=== PATIENT | female | born 1950 | race Caucasian/White ===

== ENCOUNTER 2023-02-19 12:37 | Outpatient (OUT) | payer MEDICARE, SELFPAY ==
[2023-02-19 12:44] VITALS: BP 90/60; PULSE 76; RESP 18; TEMP 36.1; O2SAT 97
[2023-02-19] MEDS: DENOSUMAB 60 MG/ML SYRINGE SQ (12:58)
--- NOTE | 2023-02-19 13:29 | PC.NURSE ---
Addendum entered by Jovanny Montoya 02/19/23 13:33: 1256: Pt. medicated with Prolia 60mg SQ to right arm. No bleeding to site. Pt. tolerated without c/o. 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 1325: Pt. without s&s of adverse reaction. Denies c/o. Pt. d/c'd amb. to home. Original Note: 1244: Pt. to [facility] amb. Seated in recliner. VSS. Allergies verified. O.K. to use labs from 12/27/22 perKaden Barksdale RPH.
[2023-02-19 13:54] LABS: Alanine Aminotransferase 13 U/L (14-59); Albumin Globulin Ratio 0.7; Albumin Level 3.1 g/dL (3.4-5.0); Alkaline Phosphatase 86 U/L (46-116); Anion Gap 11.3; Aspartate Amino Transferase 13 U/L (15-37); Bilirubin Total 0.3 mg/dL (0.2-1.0); Carbon Dioxide 27.2 mmol/L (21.0-32.0); Chloride 100 mmol/L (98-107); Estimated GFR (African America 53 (>=60); Estimated GFR (Non-African Ame 44 (>=60); Globulin 4.2 g/dL; Glucose 97 mg/dL (74-106); Potassium 4.5 mmol/L (3.5-5.1); Sodium 134 mmol/L (136-145); Thyroid Stimulating Hormone 0.417 uIU/mL (0.358-3.740); Total Protein 7.3 g/dL (6.4-8.2)
[2023-02-19 15:02] LABS: Basophils Absolute Auto 0.1 10^3/uL (0.0-0.1); Basophils Percent Auto 0.7 % (0.2-2.0); Eosinophils Absolute Auto 0.3 10^3/uL (0.0-0.7); Eosinophils Percent Auto 3.5 % (0.9-7.0); Hematocrit 35.2 % (36.0-48.0); Hemoglobin 11.7 g/dL (12.0-16.0); Immature Granulocytes Abs Auto 0.05 10^3/uL (0.00-0.03); Immature Granulocytes Pct Auto 0.7 % (0.0-0.5); Lymphocytes Absolute Auto 2.3 10^3/uL (1.2-3.8); Lymphocytes Percent Auto 32.8 % (20.5-60.0); Mean Corpuscular HGB Conc 33.2 g/dL (29.9-35.2); Mean Corpuscular Hemoglobin 32.4 pg (26.7-34.0); Mean Corpuscular Volume 97.5 fL (81.0-99.0); Mean Platelet Volume 10.8 fL (9.5-13.5); Monocytes Absolute Auto 0.9 10^3/uL (0.3-0.8); Monocytes Percent Auto 12.7 % (1.7-12.0); Neutrophils Absolute Auto 3.5 10^3/uL (1.4-6.5); Neutrophils Percent Auto 49.6 % (43.0-75.0); Platelet Count 309 10^3/uL (150-450); Red Blood Count 3.61 10^6/uL (4.20-5.40); Red Cell Distribution Width 14.9 % (11.0-15.0); White Blood Count 7.1 10^3/uL (4.0-11.0)
[2023-02-20 14:11] LABS: PTH, Intact 21 pg/mL (15-65)
== END 2023-02-19 12:38 ==
LOC: LAB 12:40
DX: M80.00XD Age-related osteoporosis with current pathological fracture, unspecified site, subsequent encounter for fracture with routine healing (principal); Z78.0 Asymptomatic menopausal state; Z79.899 Other long term (current) drug therapy
CPT/HCPCS: 36415; 80053; 82306; 83970; 84443; 85025; 96372; J0897

== ENCOUNTER 2023-02-25 08:38 | Outpatient (OUT) | payer MEDICARE, SELFPAY ==
[2023-02-25 09:28] LABS: Basophils Absolute Auto 0.1 10^3/uL (0.0-0.1); Basophils Percent Auto 0.7 % (0.2-2.0); Eosinophils Absolute Auto 0.2 10^3/uL (0.0-0.7); Eosinophils Percent Auto 2.9 % (0.9-7.0); Hematocrit 37.9 % (36.0-48.0); Hemoglobin 12.4 g/dL (12.0-16.0); Immature Granulocytes Abs Auto 0.04 10^3/uL (0.00-0.03); Immature Granulocytes Pct Auto 0.6 % (0.0-0.5); Lymphocytes Absolute Auto 2.9 10^3/uL (1.2-3.8); Lymphocytes Percent Auto 42.4 % (20.5-60.0); Mean Corpuscular HGB Conc 32.7 g/dL (29.9-35.2); Mean Corpuscular Hemoglobin 31.8 pg (26.7-34.0); Mean Corpuscular Volume 97.2 fL (81.0-99.0); Mean Platelet Volume 10.1 fL (9.5-13.5); Monocytes Absolute Auto 0.9 10^3/uL (0.3-0.8); Monocytes Percent Auto 12.5 % (1.7-12.0); Neutrophils Absolute Auto 2.8 10^3/uL (1.4-6.5); Neutrophils Percent Auto 40.9 % (43.0-75.0); Platelet Count 348 10^3/uL (150-450); Red Cell Distribution Width 15.2 % (11.0-15.0); White Blood Count 6.8 10^3/uL (4.0-11.0)
[2023-02-25 10:22] LABS: Alanine Aminotransferase 14 U/L (14-59); Albumin Globulin Ratio 0.8; Albumin Level 3.1 g/dL (3.4-5.0); Alkaline Phosphatase 76 U/L (46-116); Anion Gap 11.2; Aspartate Amino Transferase 15 U/L (15-37); Bilirubin Total 0.4 mg/dL (0.2-1.0); Calcium 8.8 mg/dL (8.5-10.1); Carbon Dioxide 28.8 mmol/L (21.0-32.0); Chloride 103 mmol/L (98-107); Estimated GFR (African America >60 (>=60); Estimated GFR (Non-African Ame 50 (>=60); Globulin 3.9 g/dL; Glucose 102 mg/dL (74-106); Sodium 138 mmol/L (136-145)
[2023-02-25 10:31] LABS: Cholesterol 205 mg/dL (<=200); Free T3 2.25 pg/mL (2.18-3.98); HDL Cholesterol 68 mg/dL (40-60); Thyroid Stimulating Hormone 0.484 uIU/mL (0.358-3.740); Triglycerides 101 mg/dL (<=150); VLDL CHOLESTEROL 20.2 mg/dL
[2023-02-25 10:37] LABS: Free T4 1.37 ng/dL (0.76-1.46)
== END 2023-02-25 08:39 | disposition home or self-care (01) ==
LOC: LAB 08:40
DX: I10 Essential (primary) hypertension (principal); E78.00 Pure hypercholesterolemia, unspecified; E03.9 Hypothyroidism, unspecified
CPT/HCPCS: 36415; 80053; 80061; 84439; 84443; 84481; 85025

== ENCOUNTER 2023-03-15 11:17 | Outpatient (OUT) | payer MEDICARE, SELFPAY ==
--- NOTE | 2023-03-15 11:20 | XR_ITS ---
The [address] [address] Patient Name: RUTHIE OLIVARES MRN: [id number] date: 1950 Sex: F Assigned Patient Location: [facility] Current Patient Location: [facility] Accession/Order Number: [id number] Exam Date: 03/15/2023 11:25 Report Date: 03/15/2023 12:25 At the request of: NON-STAFF PHYSICIAN Procedure: XR DEXA axial skeleton EXAMINATION: XR DEXA axial skeleton HISTORY: Age Related Osteoporosis With Current Fracture M80.00XXD COMPARISON: No relevant comparison available. TECHNIQUE: Dual-energy X-ray absorptiometry (DXA) was performed. FINDINGS: SPINE ANALYSIS: Average bone mineral density is 1.060 g/cm2. T-score (standard deviation relative to young adult mean): -1.0 . HIP ANALYSIS: Lowest bone mineral density is within the right femoral neck, 0.782 g/cm2. T-score (standard deviation relative to young adult mean): -1.8 . XR/XR DEXA axial skeleton IMPRESSION: [employer] Classification: Osteopenia - Moderate Fracture Risk Electronically authenticated by: LEONA LUI Date: 03/15/2023 12:25
== END 2023-03-15 11:18 | disposition home or self-care (01) ==
LOC: RAD 11:17
DX: M80.00XD Age-related osteoporosis with current pathological fracture, unspecified site, subsequent encounter for fracture with routine healing (principal); M85.851 Other specified disorders of bone density and structure, right thigh
CPT/HCPCS: 77080

== ENCOUNTER 2023-11-24 06:57 | Outpatient (OUT) | payer MEDICARE, SELFPAY ==
[2023-11-24 07:18] LABS: Basophils Absolute Auto 0.1 10^3/uL (0.0-0.1); Basophils Percent Auto 1.1 % (0.2-2.0); Eosinophils Absolute Auto 0.2 10^3/uL (0.0-0.7); Eosinophils Percent Auto 2.4 % (0.9-7.0); Hematocrit 39.1 % (36.0-48.0); Hemoglobin 13.1 g/dL (12.0-16.0); Immature Granulocytes Abs Auto 0.04 10^3/uL (0.00-0.03); Immature Granulocytes Pct Auto 0.6 % (0.0-0.5); Lymphocytes Absolute Auto 2.5 10^3/uL (1.2-3.8); Lymphocytes Percent Auto 39.1 % (20.5-60.0); Mean Corpuscular HGB Conc 33.5 g/dL (29.9-35.2); Mean Corpuscular Hemoglobin 32.8 pg (26.7-34.0); Mean Corpuscular Volume 97.8 fL (81.0-99.0); Mean Platelet Volume 9.1 fL (9.5-13.5); Monocytes Absolute Auto 0.8 10^3/uL (0.3-0.8); Monocytes Percent Auto 12.7 % (1.7-12.0); Neutrophils Absolute Auto 2.8 10^3/uL (1.4-6.5); Neutrophils Percent Auto 44.1 % (43.0-75.0); Platelet Count 389 10^3/uL (150-450); Red Cell Distribution Width 14.4 % (11.0-15.0); White Blood Count 6.3 10^3/uL (4.0-11.0)
[2023-11-24 07:50] LABS: Alanine Aminotransferase 14 U/L (14-59); Albumin Globulin Ratio 0.8; Albumin Level 3.1 g/dL (3.4-5.0); Alkaline Phosphatase 54 U/L (46-116); Anion Gap 14.7; Aspartate Amino Transferase 15 U/L (15-37); BUN Creatinine Ratio 8.2; Bilirubin Total 0.3 mg/dL (0.2-1.0); Calcium 9.2 mg/dL (8.5-10.1); Carbon Dioxide 27.9 mmol/L (21.0-32.0); Chloride 96 mmol/L (98-107); Chol HDL Ratio 2.2; Cholesterol 207 mg/dL (<=200); Estimated GFR (African America 47 (>=60); Estimated GFR (Non-African Ame 39 (>=60); Free T3 1.84 pg/mL (2.18-3.98); Globulin 3.7 g/dL; Glucose 108 mg/dL (74-106); HDL Cholesterol 93 mg/dL (40-60); Potassium 4.6 mmol/L (3.5-5.1); Sodium 134 mmol/L (136-145); Thyroid Stimulating Hormone 3.538 uIU/mL (0.358-3.740); Total Protein 6.8 g/dL (6.4-8.2); Triglycerides 80 mg/dL (<=150)
[2023-11-24 08:07] LABS: Free T4 1.04 ng/dL (0.76-1.46)
== END 2023-11-24 06:58 | disposition home or self-care (01) ==
LOC: LAB 06:59
DX: I48.0 Paroxysmal atrial fibrillation (principal); I10 Essential (primary) hypertension; E03.8 Other specified hypothyroidism; E06.3 Autoimmune thyroiditis; N30.00 Acute cystitis without hematuria
CPT/HCPCS: 36415; 80053; 80061; 84439; 84443; 84481; 85025; 87086

== ENCOUNTER 2024-06-17 06:57 | Outpatient (OUT) | payer MEDICARE, SELFPAY ==
[2024-06-17 07:22] LABS: Basophils Percent Auto 0.2 % (0.2-2.0); Eosinophils Percent Auto 0.2 % (0.9-7.0); Hematocrit 35.5 % (36.0-48.0); Hemoglobin 12.5 g/dL (12.0-16.0); Lymphocytes Percent Auto 24.7 % (20.5-60.0); Mean Corpuscular HGB Conc 35.2 g/dL (29.9-35.2); Mean Corpuscular Volume 96.5 fL (81.0-99.0); Mean Platelet Volume 9.8 fL (9.5-13.5); Monocytes Percent Auto 10.6 % (1.7-12.0); Neutrophils Percent Auto 63.5 % (43.0-75.0); Platelet Count 302 10^3/uL (150-450); Red Blood Count 3.68 10^6/uL (4.20-5.40); Red Cell Distribution Width 12.8 % (11.0-15.0); White Blood Count 8.4 10^3/uL (4.0-11.0)
[2024-06-17 07:23] LABS: Immature Granulocytes Abs Auto 0.07 10^3/uL (0.00-0.03); Immature Granulocytes Pct Auto 0.8 % (0.0-0.5); Lymphocytes Absolute Auto 2.1 10^3/uL (1.2-3.8); Monocytes Absolute Auto 0.9 10^3/uL (0.3-0.8); Neutrophils Absolute Auto 5.3 10^3/uL (1.4-6.5)
[2024-06-17 08:09] LABS: Free T4 1.23 ng/dL (0.76-1.46)
[2024-06-17 08:14] LABS: Alanine Aminotransferase 11 U/L (14-59); Albumin Level 3.2 g/dL (3.4-5.0); Alkaline Phosphatase 71 U/L (46-116); Anion Gap 10.6; Aspartate Amino Transferase 13 U/L (15-37); BUN Creatinine Ratio 9.5; Bilirubin Total 0.3 mg/dL (0.2-1.0); Calcium 9.4 mg/dL (8.5-10.1); Carbon Dioxide 30.6 mmol/L (21.0-32.0); Chloride 94 mmol/L (98-107); Chol HDL Ratio 1.6; Cholesterol 209 mg/dL (<=200); Estimated GFR (African America >60 (>=60 mL/min/1.73m^2); Estimated GFR (Non-African Ame 57 (>=60 mL/min/1.73m^2); Free T3 1.81 pg/mL (2.18-3.98); Globulin 3.2 g/dL; Glucose 86 mg/dL (74-106); HDL Cholesterol 133 mg/dL (40-60); Potassium 4.2 mmol/L (3.5-5.1); Sodium 131 mmol/L (136-145); Thyroid Stimulating Hormone 0.967 uIU/mL (0.358-3.740); Total Protein 6.4 g/dL (6.4-8.2); Triglycerides 53 mg/dL (<=150); VLDL CHOLESTEROL 10.6 mg/dL
== END 2024-06-17 06:58 | disposition home or self-care (01) ==
LOC: LAB 06:57
DX: E06.3 Autoimmune thyroiditis (principal); I10 Essential (primary) hypertension
CPT/HCPCS: 36415; 80053; 80061; 84439; 84443; 84481; 85025

== ENCOUNTER 2024-06-23 13:44 | Outpatient (OUT) | payer MEDICARE, SELFPAY ==
[2024-06-23 07:44] LABS: Carbon Dioxide 29.3 mmol/L (21.0-32.0); Chloride 101 mmol/L (98-107); Potassium 4.3 mmol/L (3.5-5.1); Sodium 138 mmol/L (136-145)
--- OUTSIDE RECORDS SUMMARY | 2024-06-27 14:07 | XMS_ITS | CCD ---
Author Organization [facility] Care Team Providers Care Evaluation Specialist Name Role Phone SARAI ESPARZA Admitting Unavailable SARAI ESPARZA Attending Unavailable WEST, DR SHARI Rice Consulting Unavailable SARAI ESPARZA Consulting Unavailable ENEDINA ., IJEOMA Admitting Unavailable ENEDINA ., IJEOMA Attending Unavailable MISC, DR COOK Primary Care Unavailable HAY ., DR RUFFIN Consulting Unavailable KLIPPJOSE, SHARI Consulting Unavailable NEWATIA, RADHA Consulting Unavailable ENEDINA ., IJEOMA Consulting Unavailable MISC, DR COOK Admitting Unavailable MISC, DR COOK Attending Unavailable MISC, DR COOK Consulting Unavailable MISC, DR COOK Admitting Unavailable MISC, DR COOK Attending Unavailable MISC, DR COOK Consulting Unavailable ZIEBER, DR LEONA Mueller Consulting Unavailable MISC, DR COOK Admitting Unavailable MISC, DR COOK Attending Unavailable MISC, DR COOK Consulting Unavailable ZIEBER, DR LEONA Mueller Consulting Unavailable NON STAFF Primary Care Provider UnavailMD Junior Gill Admit Provider MD Ari Solares II Other Provider MD Vivian Live Attending Provider [phone] Ari Solares II Unavailable [phone] CHRISTA Ramirez Attending Provider Lucille Ramirez Unavailable MD Ari Solares II Attending Provider PCP, No Primary Care Provider UnavailMD Nettie Suarez Emergency Provider Unavailpearl lujan PCP, No Primary Care Unavailable Nettie Weiss Attending Unavailable Ari Solares II Attending Unavailpearl e NON STAFF Primary Care Unavailable Ari Solares II Admitting UnavailAri Powers II Admitting Unavailabl e Ari Solares II Attending Unavailabl e NON STAFF Primary Care Unavailable Ari Solares II Consulting Unavailabl e Junior Martinez Admitting Unavailable Vivian Live Attending Unavailable NON STAFF Primary Care Unavailable Lucille Ramirez Admitting Unavailable Lucille Ramirez Attending Unavailable NON STAFF Primary Care Unavailable Ari Solares II Attending Unavailabl e NON STAFF Primary Care Unavailable Ari Solares II Admitting Unavailabl e Rasor DO, Francisco E Primary Care Provider RASOR, FRANCISCO E Referring Unavailable RASOR, FRANCISCO E Primary Care Unavailable RASOR, FRANCISCO E Referring Unavailable RASOR, FRANCISCO E Primary Care Unavailable RASOR, FRANCISCO E Referring Unavailable RASOR, FRANCISCO E Primary Care Unavailable RASOR, FRANCISCO E Attending Unavailable RASOR, FRANCISCO E Referring Unavailable RASOR, FRANCISCO E Primary Care Unavailable RASOR, FRANCISCO E Referring Unavailable RASOR, FRANCISCO E Primary Care Unavailable RASOR, FRANCISCO E Attending Unavailable RASOR, FRANCISCO E Referring Unavailable RASOR, FRANCISCO E Primary Care Unavailable RASOR, FRANCISCO E. Referring Unavailable RASOR, FRANCISCO E. Primary Care Unavailable RASOR, FRANCISCO E. Referring Unavailable RASOR, FRANCISCO E. Primary Care Unavailable Allergies Allergy Classification Reported Allergen(s) Allergy Type Date of Onset Reaction(s) Facility (7 sources) Codeine; Translations: [CODEINE] Drug Allergy Difficulty Breathing [facility] Repository (7 sources) hydroCHLOROthiazide; Translations: [HYDROCHLOROTHIAZIDE] Drug Allergy Difficulty Breathing [facility] Repository (6 sources) venlafaxine Drug Allergy difficulty breathing [facility] Repository (17 sources) venlafaxine; Translations: [venlafaxine] Drug Allergy Difficulty Breathing [facility] (16 sources) Codeine Drug Allergy 016 [facility] (15 sources) hydroCHLOROthiazide Drug Allergy difficulty breathing [facility] Other (1 source) Codeine Drug Allergy 023 [facility] Repository (1 source) hydroCHLOROthiazide Drug Allergy [facility] Repository (13 sources) amLODIPine; Translations: [AMLODIPINE] Drug Allergy Other (See Comments) [facility] (13 sources) Amoxicillin / Clavulanate; Translations: [AMOXICILLIN-POT CLAVULANATE] Drug Allergy [facility] (13 sources) Metoprolol; Translations: [METOPROLOL] Drug Allergy GI Disturbance [facility] (13 sources) Thiazides; Translations: [THIAZIDES] Propensity to adverse reactions to drug [facility] Medications Current Medications Medication Drug Class(es) Dates Sig (Normalized) Sig (Original) acetaminophen 500 mg oral tablet (11 sources) Start: 01-14-2023 take 2 tablets by mouth every eight hours for pain Acetaminophen 500 MG 2 tablets for pain Orally every 8 hrs for 30 days January, Active Start: 12-30-2022 take 650 mg by mouth every six hours Acetaminophen Active 650 MG PO Q6H 0 December 30, 2022 12:00am take 1 tablet by stella th every four hours as needed Acetaminophen 325 MG 1 tablet as needed Orally every 4 hrs Active amitriptyline hydrochloride 10 mg oral tablet (14 sources) Tricyclic Antidepressant Start: 12-30-2023 take 3 tablets by mouth at bedtime amitriptyline (ELAVIL) 10 mg tablet take 3 tablets by mouth at bedtime 270 tablet 3 12/30/2023 Active Start: 05-09-2023 take 30 mg by mouth once daily Amitriptyline Active 30 MG PO Daily May 09, 2023 12:00am Start: 12-27-2022 End: 12-30-2022 take 30 mg by mouth once daily at bedtime Amitriptyline Discontinued 30 MG PO Daily at bedtime December 27, 2022 12:00am December 30, 2022 10:25am Start: 01-20-2018 amitriptyline (ELAVIL) 10 mg tablet 3 tablets (30 mg total) in the evening. 0 01/20/2018 Active amLODIPine 5 mg oral tablet (12 sources) Dihydropyridine Calcium Channel Ghislaine Start: 05-09-2023 take 5 mg by mouth once daily Amlodipine Active 5 MG PO Daily May 09, 2023 12:00am Start: 12-30-2022 take 1 dose by mouth once daily Amlodipine Active 2.5 MG PO Daily December 30, 2022 12:00am Hold for systolic blood pressure less than 125 Titrate dose upward if systolic blood pressure is above 150 Start: 12-27-2022 End: 12-30-2022 take 5 mg by mouth once daily Amlodipine Discontinued 5 MG PO Daily December 27, 2022 12:00am December 30, 2022 10:20am apixaban 5 mg oral tablet (19 sources) Factor Xa Inhibitor Start: 12-16-2023 take 1 tablet by mouth twice daily ELIQUIS 5 mg tablet Indications: Paroxysmal atrial fibrillation (CMS-HCC) , Cardiomyopathy (CMS-HCC) take 1 tablet by mouth twice a day 60 tablet 6 12/16/2023 Active Start: 06-15-2023 take 1 tablet by stella th twice daily ELIQUIS 5 mg tablet Indications: Paroxysmal atrial fibrillation (CMS-HCC) , Cardiomyopathy (CMS-HCC) TAKE 1 TABLET BY MOUTH TWICE A DAY 90 tablet 3 06/15/2023 Active Start: 12-27-2022 take 1 tablet by stella th twice daily Apixaban (Eliquis) 5 mg Tablet Active 5 MG PO twice a day May 09, 2023 12:00am aspirin 81 mg oral tablet (3 sources) Platelet Aggregation Inhibitor, Nonsteroidal Anti-inflammatory Drug Start: 12-27-2022 take 81 mg by mouth once daily Aspirin Active 81 MG PO Daily December 27, 2022 12:00am calcium carbonate 1250 mg oral tablet (8 sources) Start: 12-30-2022 Calcium Carbonate (Oyster Shell Calcium 500) 500 mg calcium (1,250 mg) Tablet Active 500 MG PO Three times daily 0 December 30, 2022 12:00am take 1 tablet by stella th every twelve hours Calcium Carbonate 1250 (500 Ca) MG 1 tab let with food Orally Twice a day Active carvedilol 25 mg oral tablet (20 sources) alpha-Adrenergic Ghislaine, beta-Adrenergic Ghislaine Start: 12-27-2022 take 25 mg by mouth every twelve hours Carvedilol Active 25 MG PO Every 12 hours December 27, 2022 12:00am Start: 02-24-2022 End: 10-26-2023 take 1 tablet by mouth twice daily at mealtime carvediloL (COREG) 25 mg tablet Indications: Essential hypertension, benign TAKE 1 TABLET BY MOUTH TWICE A DAY WITH FOOD FOR 90 DAYS 180 tablet 3 10/26/2023 Active cefadroxil 500 mg oral capsule (3 sources) Cephalosporin Antibacterial Start: 12-31-2022 take 500 mg by mouth twice daily Cefadroxil Active 500 MG PO Twice daily 14 December 31, 2022 12:00am cetirizine hydrochloride 10 mg oral tablet (10 sources) Histamine-1 Receptor Antagonist cetirizine (ZyrTEC) 10 mg tablet Take 1 tablet (10 mg total) by mouth as needed. Active ciprofloxacin 500 mg oral tablet (2 sources) Quinolone Antimicrobial Start: 11-18-2023 End: 11-25-2023 take 1 tablet by mouth in the morning, then take 1 tablet by mouth at bedtime ciprofloxacin HCl (CIPRO) 500 mg tablet Indications: Acute cystitis without hematuria Take 1 tablet (500 mg total) by mouth in the morning and 1 tablet (500 mg total) before bedtime. Do all this for 7 days. 14 tablet 0 11/18/2023 11/25/2023 Active Diclofenac (2 sources) Nonsteroidal Anti-inflammatory Drug Start: 03-31-2023 Voltaren 1 % Apply 1-2 grams to affected area Externally 4x's a day for 30 days Mar, Active Start: 03-31-2023 Voltaren 1 % A pply 1-2 grams to affected area Externally 4x's a day for 30 days Mar, Active docusate sodium 50 mg / sennosides, retirement 8.6 mg oral tablet (3 sources) Start: 12-30-2022 take 2 tablets by mouth once daily Sennosides-Docusate Sodium Active 2 TAB PO Daily 0 December 30, 2022 12:00am ferrous sulfate 324 mg delayed release oral tablet (3 sources) Start: 12-30-2022 take 324 mg by mouth twice daily at mealtime Ferrous Sulfate Active 324 MG PO Twice daily with meals 0 December 30, 2022 12:00am fluticasone propionate 0.05 mg/actuat metered dose nasal spray (13 sources) Corticosteroid Start: 12-28-2022 Fluticasone Propionate Active 2 SPRAY INTRANASAL Daily December 28, 2022 12:00am Start: 08-24-2016 take 2 spray(s) nasa l route once daily fluticasone (FLONASE) 50 mcg/actuation nasal spray 2 sprays into each nostril daily. 16 g 11 08/24/2016 Active Fluticasone Propionate (Inhal) 50 MCG/ACT (5 sources) take 1 puff(s) by inhalation twice daily Fluticasone Propionate (Inhal) 50 MCG/ACT 1 puff Inhalation Twice a day Active levothyroxine sodium 0.075 mg oral tablet (20 sources) l-Thyroxin e Start: 05-09-2023 take 75 ug by mouth once daily Levothyroxine Active 75 MCG PO Daily May 09, 2023 12:00am Start: 01-16-2018 End: 10-04-2023 take 1 tablet by mouth once daily levothyroxine (SYNTHROID, LEVOTHROID) 75 MCG tablet TAKE 1 TABLET BY MOUTH EVERY DAY 90 tablet 3 10/04/2023 Active take 1 tablet by stella th once daily in the morning Levothyroxine Sodium 75 MCG 1 tablet in the morning on an empty stomach Orally Once a day Active lisinopril 20 mg oral tablet (20 sources) Angiotensin Converting Enzyme Inhibitor Start: 12-30-2022 take 1 dose by mouth twice daily Lisinopril Active 5 MG PO Twice daily December 30, 2022 12:00am Hold for systolic blood pressure less than 125. Titrate dose upward if systolic blood pressure is above 150 Start: 01-11-2022 End: 12-08-2023 take 1 tablet by mouth twice daily lisinopriL (PRINIVIL,ZESTRIL) 20 mg tablet Indications: Essential hypertension, benign , Essential (primary) hypertension take 1 tablet by mouth twice a day 180 tablet 3 12/08/2023 Active take 1 tablet by stella th every twenty-four hours Lisinopril 5 MG 1 tablet Orally Once a day Active multivitamin (THERAGRAN) tablet (10 sources) take 1 tablet by stella th in the morning multivitamin (THERAGRAN) tablet Take 1 tablet by mouth in the morning. Active take 1 tablet by mouth in the mo rning multivitamin (THERAGRAN) tablet Take 1 tablet by mouth in the morning. 0 Active Multivitamin preparation (8 sources) Start: 12-27-2022 take 1 tablet by mouth once daily Multivitamin Active 1 TAB PO Daily Jojo 23rd, 2023 12:00am take 1 tablet by mouth once paula y Multivitamin - 1 tablet Orally Once a day Active mupirocin 0.02 mg/mg topical ointment (10 sources) RNA Synthetase Inhibitor Antibacterial mupirocin (BACTROBAN) 2 % ointment 2 (two) times a day. Active omeprazole 40 mg delayed release oral capsule (19 sources) Proton Pump Inhibitor Start: take 1 capsule by mouth twice daily omeprazole (PriLOSEC) 40 mg capsule take 1 capsule by mouth twice a day 180 capsule 3 03/03/2024 Active Start: 05-09-2023 take 40 mg by mouth twice paula y Omeprazole Active 40 MG PO twice a day May 09, 2023 12:00am Start: 12-08-2017 take [address] [facility] in the morning, then take 1 capsule by mouth at bedtime omeprazole (PriLOSEC) 40 mg capsule Take 1 capsule (40 mg total) by mouth in the morning and 1 capsule (40 mg total) before bedtime. 0 12/08/2017 Active take [address] [facility] once daily Omeprazole 40 MG 1 capsule 30 minutes before morning meal Orally Once a day Active polyethylene glycol 3350 29666 mg powder for oral solution (3 sources) Osmotic Laxative Start: 12-30-2022 Polyethylene Glycol 3350 (Healthylax) 17 gram Powder In Packet Active 17 GM PO Daily 0 December 30, 2022 12:00am Polyethylene Glycols (5 sources) Polyethylene Gly col - as directed Active predniSONE 20 mg oral tablet (2 sources) Start: 06-13-2024 End: 06-18-2024 take 3 tablets by mouth once daily, then take 2 tablets by mouth once daily, then take 1 tablet by mouth once daily predniSONE (DELTASONE) 20 mg tablet Indications: Acute right-sided low back pain without sciatica Take 3 tablets (60 mg total) by mouth daily for 2 days, THEN 2 tablets (40 mg total) daily for 2 days, THEN 1 tablet (20 mg total) daily for 2 days. 12 tablet 06/13/2024 06/18/2024 Active Start: 01-14-2023 take 1 tablet by [facility] every twenty-four hours predniSONE 10 MG 1 tablet Orally Once a day for 10 days January, Active Sennosides-Docusate Sodium 8.6-50 MG (5 sources) take 1 tablet by mouth twice daily as needed Sennosides-Docusate Sodium 8.6-50 MG 1 tablet as needed Orally Twice a day Active sertraline 50 mg oral tablet (19 sources) Serotonin Reuptake Inhibitor Start: 2017 sertraline (ZOLOFT) 50 mg tablet daily. 0 02/03/2018 Active spironolactone 25 mg oral tablet (20 sources) Aldosterone Antagonist Start: 2023 take 1 tablet by mouth in the morning spironolactone (ALDACTONE) 25 mg tablet Indications: Essential (primary) hypertension , Cardiomyopathy, unspecified type (CMS-HCC) TAKE 1 TABLET (25 MG TOTAL) BY MOUTH IN THE MORNING 90 tablet 2 12/07/2023 Active Start: 05-26-2023 End: 12-07-2023 take 0.5 tablet by mouth in the morning spironolactone (ALDACTONE) 25 mg tablet Indications: Essential (primary) hypertension , Cardiomyopathy, unspecified type (CMS-HCC) Take 0.5 tablets (12.5 mg total) by mouth in the morning. 90 tablet 3 05/26/2023 12/07/2023 Discontinued Start: 12-28-2022 take 25 mg by mouth once daily Spironolactone Active 25 MG PO Daily May 09, 2023 12:00am traMADol hydrochloride 50 mg oral tablet (9 sources) Opioid Agonist Start: 12-30-2022 take 1 tablet by mouth every six hours as needed for pain traMADol HCl 50 MG 1 tablet as needed for pain Orally every 6 hrs for 7 days January, Active take 1 tablet by stella th every twenty-four hours traMADol HCl 50 MG 1 tablet as needed Orally Once a day Active Problems Active Problems Problem Classification Problem Date Documented Date Episodic/Chronic Anxiety disorders (6 sources) Mixed anxiety and depressive disorder; Translations: [Other specified anxiety disorders] Onset: 06-13-2024 11-16-2023 Chronic Cardiac dysrhythmias (20 sources) Unspecified atrial fibrillation; Translations: [Paroxysmal atrial fibrillation] Onset: 05-16-2016 12-28-2022 Chronic Congestive heart failure; nonhypertensive (1 source) Unspecified systolic (congestive) heart failure; Translations: [UNSPECIFIED SYSTOLIC HEART FAILURE] Onset: 11-27-2022 Chronic E Codes: Fall (1 source) Fall on same level, unspecified, initial encounter; Translations: [FALL SAME LEVEL UNSPECIFIED INITIAL] Onset: 12-29-2022 Episodic Esophageal disorders (13 sources) Gastroesophageal reflux disease without esophagitis; Translations: [Gastro-esophageal reflux disease without esophagitis] Onset: 05-16-2016 02-22-2018 Chronic Essential hypertension (20 sources) Essential (primary) hypertension; Translations: [Hypertensive disorder] Onset: 07-22-2016 12-28-2022 Chronic Fluid and electrolyte disorders (2 sources) Dehydration; Translations: [Dehydration] 05-09-2023 Episodic Genitourinary symptoms and ill-defined conditions (5 sources) Leukocytes in urine; Translations: [Other abnormal findings in urine] Onset: 11-16-2023 11-16-2023 Episodic Heart valve disorders (13 sources) Mitral valve regurgitation; Translations: [Nonrheumatic mitral (valve) insufficiency] Onset: 03-30-2014 12-30-2020 Chronic Hypertension with complications and secondary hypertension (1 source) Hypertensive heart disease with heart failure; Translations: [HTN HEART DISEASE W/HEART FAIL] Onset: 11-09-2022 Chronic Menopausal disorders (1 source) Hormone replacement therapy; Translations: [HORMONE REPLACEMENT THERAPY] Onset: 12-29-2022 Episodic Miscellaneous mental health disorders (6 sources) Primary insomnia; Translations: [Primary insomnia] Onset: 06-13-2024 11-16-2023 Chronic Nonspecific chest pain (4 sources) Chest pain, unspecified; Translations: [CHEST PAIN UNSPECIFIED] Onset: 11-19-2022 Episodic Other aftercare (2 sources) Patient encounter status; Translations: [Aftercare following joint replacement surgery] Chronic Other aftercare (2 sources) Aftercare following joint replacement surgery Chronic Other aftercare (1 source) ocean transportation intermediary (current) use of aspirin; Translations: [NURSING HOME CURRENT USE OF ASPIRIN] Onset: 12-29-2022 Episodic Other aftercare (2 sources) Other terminologist (current) drug therapy; Translations: [OTH NURSING HOME CURRENT DRUG THERAPY] Onset: 12-29-2022 Episodic Other aftercare (1 source) shelter (current) use of anticoagulants; Translations: [NURSING HOME CURRNT USE ANTICOAGULANTS] Onset: 12-29-2022 Episodic Other bone disease and musculoskeletal deformities (5 sources) Osteopenia; Translations: [Other specified disorders of bone density and structure, multiple sites] Onset: 06-13-2024 11-16-2023 Episodic Other bone disease and musculoskeletal deformities (1 source) Other specified disorders of bone density and structure, multiple sites; Translations: [Other specified disorders of bone density and structure, multiple sites] Onset: 06-13-2024 Episodic Other connective tissue disease (5 sources) History of total hip arthroplasty; Translations: [Presence of left artificial hip joint] Chronic Other connective tissue disease (7 sources) Presence of left artificial hip joint; Translations: [Presence of left artificial hip joint] Onset: 05-26-2023 Chronic Other connective tissue disease (2 sources) Hip joint prosthesis present; Translations: [Presence of left artificial hip joint] Chronic Other non-traumatic joint disorders (3 sources) Pain in left hip; Translations: [PAIN IN LEFT HIP] Onset: 12-27-2022 Episodic Other nutritional; endocrine; and metabolic disorders (3 sources) Hypomagnesemia; Translations: [Hypomagnesemia] 12-28-2022 Chronic Other nutritional; endocrine; and metabolic disorders (4 sources) Hypomagnesemia; Translations: [Disorders of magnesium metabolism] Onset: 12-28-2022 12-31-2022 Chronic Other upper respiratory disease (10 sources) Chronic rhinitis; Translations: [Chronic rhinitis] Onset: 02-11-2016 02-11-2016 Chronic Other upper respiratory infections (20 sources) Chronic sinusitis; Translations: [Chronic sinusitis, unspecified] Onset: 02-11-2016 02-11-2016 Chronic Other upper respiratory infections (1 source) Viral upper respiratory tract infection; Translations: [Acute upper respiratory infection, unspecified] 11-16-2023 Episodic Pathological fracture (3 sources) Age-related osteoporosis with current pathological fracture, unspecified site, subsequent encounter for fracture with routine healing Episodic Lalita-; endo-; and myocarditis; cardiomyopathy (except that caused by tuberculosis or sexually transmitted disease) (19 sources) Cardiomyopathy, unspecified; Translations: [Cardiomyopathy] Onset: 08-05-2016 Chronic Residual codes; unclassified (1 source) Asymptomatic menopausal state Episodic Spondylosis; intervertebral disc disorders; other back problems (3 sources) Acute low back pain; Translations: [Acute right-sided low back pain without sciatica] 06-13-2024 Episodic Thyroid disorders (15 sources) Hypothyroidism; Translations: [Hypothyroidism, unspecified] Onset: 05-16-2016 02-22-2018 Chronic Unclassified (1 source) Presented to ED with a complaint of Diff breathing 05-09-2023 Unclassified (1 source) Aftercare following joint replacement surgery; Translations: [Aftercare following joint replacement surgery] Onset: 05-26-2023 Unclassified (1 source) Presence of left artificial hip joint; Translations: [Presence of left artificial hip joint] Onset: 03-31-2023 Unclassified (1 source) Fracture of unspecified part of neck of left femur, subsequent encounter for closed fracture with routine healing; Translations: [Fracture of unspecified part of neck of left femur, subsequent encounter for closed fracture with routine healing] Onset: 02-10-2023 Unclassified (1 source) Age-related osteoporosis with current pathological fracture, unspecified site, subsequent encounter for fracture with routine healing; Translations: [Age-related osteoporosis with current pathological fracture, unspecified site, subsequent encounter for fracture with routine healing] Onset: 02-02-2023 Unclassified (1 source) Age-related osteoporosis with current pathological fracture, left femur, initial encounter for fracture; Translations: [Age-related osteoporosis with current pathological fracture, left femur, initial encounter for fracture] Onset: 12-28-2022 Unclassified (1 source) medicare wellness Onset: 06-13-2024 Unclassified (1 source) Annual Exam Onset: 11-16-2023 Urinary tract infections (1 source) Acute cystitis; Translations: [Acute cystitis without hematuria] 11-18-2023 Episodic Past or Other Problems Problem Classification Problem Date Documented Da te Episodic/Chronic Conditions associated with dizziness or vertigo (4 sources) Dizziness and giddiness; Translations: [DIZZINESS AND GIDDINESS] Onset: 09-01-2022 Episodic Fracture of neck of femur (hip) (16 sources) Fracture of unspecified part of neck of left femur, initial encounter for closed fracture; Translations: [Fracture of bone of hip region] Onset: 12-28-2022 12-28-2022 Episodic Headache; including migraine (10 sources) Headache; Translations: [Headache] Onset: 02-11-2016 02-11-2016 Episodic Mood disorders (10 sources) Mood disorders Onset: 03-05-2023 Resolved: 06-13-2024 3 Other screening for suspected conditions (not mental disorders or infectious disease) (9 sources) Encounter for screening mammogram for malignant neoplasm of breast; Translations: [Patient encounter status] Onset: 08-25-2022 Episodic Other upper respiratory disease (10 sources) Nasal congestion; Translations: [Nasal congestion] Onset: 02-11-2016 02-11-2016 Episodic Other upper respiratory disease (10 sources) Deviated nasal septum; Translations: [Deviated nasal septum] Onset: 02-11-2016 02-11-2016 Episodic Other upper respiratory disease (10 sources) Hypertrophy of nasal turbinates; Translations: [Hypertrophy of nasal turbinates] Onset: 02-11-2016 02-11-2016 Episodic Residual codes; unclassified (1 source) Family history of malignant neoplasm of breast; Translations: [FAMILY HX MALIG NEOPLASM OF BREAST] Onset: 09-02-2022 Episodic Residual codes; unclassified (10 sources) Menopause present; Translations: [Asymptomatic menopausal state] Onset: 07-22-2016 07-22-2016 Episodic Residual codes; unclassified (1 source) Pain, unspecified; Translations: [Pain, unspecified] Onset: 11-22-2023 Episodic Results Test Name Value Interpretation Reference Range Facility Lipid profileon 06-17-2024 External Cholesterol 209 Abnormal 120 - 200 [facility] External Cholesterol:Hdl 1.6 0.0 - 5.0 [facility] External Hdl Cholesterol 133 Abnormal - 60 [facility] External Ldl (Calc) 66 0 - 130 [facility] External Triglycerides 53 30 - 150 [facility] External Very Low Lipoprotein 10.6 5 - 30 [facility] Interpretation and review of laboratory results Abnormal [facility] No Panel Informationon 06-17 [facility] POCT Urinalysis Auto, W/O Mi croscopyon 06-13-2024 Appearance (U) clear [facility] External Poct Urine Bilirubin Negative [facility] [facility] Urine Blood Trace [facility] External Poct Urine Character clear [facility] External Poct Urine Color yellow [facility] External Poct Urine Glucose Negative [facility] External Poct Urine Ketones Trace [facility] External Poct Urine Leukocyte Esterase Negative [facility] External Poct Urine Nitrite Negative [facility] External Poct Urine Ph 6.0 Pr [facility] External Poct Urine Protein Negative [facility] External Poct Urine Specific Herrick 1.015 [facility] External Poct Urine Urobilinogen 0.2 [facility] UA (MICROSCOPIC)on 4 Hyaline casts LM Ql (Urine sed) 9 /lpf High 0-2 [facility] Comment on above: Performed By: #### U MARNIE #### [facility] ([id number]) [address], [address] [place] [address] MUCOUS PRESENT Abnormal NONE [facility] Comment on above: Performed By: #### U MARNIE #### [facility] ([id number]) [address], [address] [place] [address] R.B.CELLS 8 /hpf High 0-5 [facility] Comment on above: Performed By: #### U MARNIE #### [facility] ([id number]) [address], [address] [place] [address] SQUAMOUS EPITHELIUM <1 Normal 0-5 [facility] Comment on above: Performed By: #### U MARNIE #### [facility] ([id number]) [address], [address] [place] [address] W.B.CELLS 2 /hpf Normal 0-5 [facility] Comment on above: Performed By: #### U MARNIE #### [facility] ([id number]) [address], [address] [place] [address] MAMM DIAGNOSTIC UNILAT LT W CADon 12-14-2023 MAMM DIAGNOSTIC UNILAT LT W CAD MAMM DIAGNOSTIC UNILAT LT W CAD EXAM: MAMM DIAGNOSTIC UNILAT LT W CAD, 12/14/2023 10:33 AM CLINICAL INDICATIONS: Abnormal mammogram of left breast, COMPARISON: Previous studies dating back to 2014 TECHNIQUE: Supplemental views of the left breast were obtained for diagnostic workup. Digital tomosynthesis images were obtained, with creation of synthetic 2D views. Computer aided detection was utilized. FINDINGS: There are scattered areas of fibroglandular density. Within the posterior depth the left breast 10 to 12 cm from the nipple there is a bilobed benign appearing mass present persists with compression. Likely not captured on prior imaging due to posterior depth. Targeted ultrasound reproduces a 5 mm benign-appearing complex cyst. As this is a new observation six-month follow-up recommended to demonstrate stability. IMPRESSION: Benign-appearing finding not seen on prior studies presumably out of the [id number] on comparisons. Six-month follow-up recommended to demonstrate stability. BI-RADS: BI-RADS 3 - Probably Benign Recommendation: Repeat diagnostic mammogram in 6 months Patient was given the results before leaving the department. Finalized by Zaheer Verdin DO on 12/14/2023 11:36 AM 3 b MAMM 6 MONTH Normal [facility] US BREAST LT LIMITEDon 12-13 US BREAST LT LIMITED US BREAST LT LIMITE D EXAM: US BREAST LT LIMITED, 12/14/2023 11:13 AM CLINICAL INDICATIONS:Abnormal mammogram of left breast. COMPARISON: No prior studies available for comparison. TECHNIQUE: Multiple real-time maria-scale images of the in the o'clock axis were performed. Color Doppler was utilized to assess vascular flow. FINDINGS: On mammography within the posterior depth the left breast 10 to 12 cm from the nipple there is a bilobed benign appearing mass present persists with compression. Likely not captured on prior imaging due to posterior depth. Targeted ultrasound reproduces a 5 mm benign-appearing complex cyst. As this is a new observation six-month follow-up recommended to demonstrate stability. IMPRESSION: Benign-appearing finding not seen on prior studies presumably out of the [id number] on comparisons. Six-month follow-up recommended to demonstrate stability. BI-RADS: BI-RADS 3 - Probably Benign Recommendation: Repeat diagnostic mammogram in 6 months Patient was given the results before leaving the department. Finalized by Zaheer Verdin DO on 12/14/2023 11:37 AM 3 MAMM 6 MONTH Normal [facility] MAMM SCREENING BILATERAL W C insurance representative 11-19-2023 MAMM SCREENING BILATERAL W CAD MAMM SCREENING BILATERAL W CAD EXAM: MAMM SCREENING BILATERAL W CAD, 11/19/2023 10:19 AM CLINICAL INDICATIONS: Screening, Encounter for screening mammogram for malignant neoplasm of breast. COMPARISON: Multiple prior mammograms dating back to 05/31/2015 TECHNIQUE: Bilateral digital tomosynthesis MLO and CC views of the breasts were obtained, with creation of synthetic 2D views. Computer aided detection was utilized. FINDINGS: There are scattered areas of fibroglandular density. There is a 5 mm lobulated mass in the upper-outer quadrant at posterior depth of the left breast. Post surgical changes of the right breast. IMPRESSION: Mass in the left breast is indeterminate. Additional mammographic views and ultrasound are recommended at this time. BI-RADS: BI-RADS 0 - Incomplete. Needs additional imaging evaluation. Recommendation: Additional imaging required. Screening patients requiring additional imaging will be contacted. Finalized by Raheem Ledezma MD on 11/19/2023 12:26 PM 0A b ADDITIONAL I Normal [facility] POCT Urinalysis Auto, W/O Mi croscopyon 11-16-2023 Appearance (U) clear [facility] External Poct Urine Bilirubin Negative [facility] External Poct Urine Blood Negative [facility] External Poct Urine Character clear [facility] External Poct Urine Color yellow [facility] External Poct Urine Glucose Negative [facility] External Poct Urine Ketones Negative [facility] External Poct Urine Leukocyte Esterase Trace [facility] External Poct Urine Nitrite Negative [facility] External Poct Urine Ph 7.0 Pr [facility] External Poct Urine Protein Negative [facility] External Poct Urine Specific Herrick 1.015 [facility] External Poct Urine Urobilinogen 0.2 [facility] URINE CULTUREon 11-16-2023 Bacteria identified Cx Nom (U) CULTURE RESULTS 10,000 to 50,000 ORGANISMS/mL PSEUDOMONAS AERUGINOSA <10,000 ORGANISMS/mL NORMAL URO GENITAL SHABANA [ S = SUSCEPTIBLE R = RESISTANT I = INTERMEDIATE S-DO = Susceptible-dose dependent NS = Non-suscceptible NO = No Interpretation ] Organism: PSEUDOMONAS AERUGINOSA Antibiotic Interpretation MARNIE Status AMIKACIN S <=2 F CEFEPIME S <=1 F CIPROFLOXACIN S <=0.25 F LEVOFLOXACIN S <=0.12 F MEROPENEM S <=0.25 F PIPERACILLIN S <=4 F TOBRAMYCIN S <=1 F Susceptible [facility] Comment on above: Performed By: #### 6 30-4 #### [facility] ([id number]) [address], [address] [place] [address] XR hip LT min 2V(w/wo pelvis )*on 05-26-2023 XR hip LT min 2V(w/wo pelvis)* [facility] Main [address] [address] XRay Report Signed Patient: Donna Olivares MR#: [id number] 247 : 1950 Acct:[id number] Age/Sex: 73 / F ADM Date: 05/26/23 Loc: [facility] Room: Type: [facility] Attending Dr: Ari Solares II, MD Copies to: Ari Solares MD Ordering Provider: Ari Solares MD Date of Service: 05/26/23 XR/XR hip LT min 2V(w/wo pelvis)*: Status post total hip replacement, left;Aftercare following XR hip LT min 2V(w/wo pelvis)* 05/26/2023 10:25 AM SIGNS AND SYMPTOMS: Status post total hip replacement, left;Aftercare following PROTOCOL: Frontal and crosstable lateral radiographs of the left hip and pelvis COMPARISON: 03/31/2023 FINDINGS: There is total left hip arthroplasty hardware without evidence of hardware complication or fracture. No malalignment. The visualized bony ring of the pelvis is intact. Degenerative changes are noted in the lumbar spine and sacral iliac joints. XR/XR hip LT min 2V(w/wo pelvis)* IMPRESSION: Uncomplicated total left hip arthroplasty hardware. No change in alignment. Impression dictated by: Andre Jaramillo M.D.05/26/2023 3:20 PM Dictation Location: [place] [address] Transcribed By: [facility] 05/26/23 1524 Dictated By: Andre Jaramillo II, MD 05/26/23 8898 Signed By: 05/26/23 1118 Normal [facility] XR hip LT min 2V(w/wo pelvis)* [facility] [employer] Other XR hip LT min 2V(w/wo pelvis)* [facility] Main Rena Lara [employer] Other XR hip LT min 2V(w/wo pelvis)* [address] [facility] [employer] Other XR hip LT min 2V(w/wo pelvis)* [place] [address] [employer] Other XR hip LT min 2V(w/wo pelvis)* XRay Report [employer] Other XR hip LT min 2V(w/wo pelvis)* Signed [employer] Other XR hip LT min 2V(w/wo pelvis)* Patient: Donna Olivares MR#: [id number] [employer] Other XR hip LT min 2V(w/wo pelvis)* 247 [employer] Other XR hip LT min 2V(w/wo pelvis)* : 1950 Acct:[id number] [employer] Other XR hip LT min 2V(w/wo pelvis)* Age/Sex: 73 / F ADM Date: 05/26/23 [employer] Other XR hip LT min 2V(w/wo pelvis)* Loc: [facility] Room: Type: [facility] [employer] Other XR hip LT min 2V(w/wo pelvis)* Attending Dr: Ari Solares II, MD [employer] Other XR hip LT min 2V(w/wo pelvis)* Copies to: Ari Solares MD [employer] Other XR hip LT min 2V(w/wo pelvis)* Ordering Provider: Ari Solares MD [employer] Other XR hip LT min 2V(w/wo pelvis)* Date of Service: 05/26/23 [employer] Other XR hip LT min 2V(w/wo pelvis)* XR/XR hip LT min 2V(w/wo pelvis)*: Status post total hip replacement, [employer] Other XR hip LT min 2V(w/wo pelvis)* left;Aftercare following [employer] Other XR hip LT min 2V(w/wo pelvis)* XR hip LT min 2V(w/wo pelvis)* 05/26/2023 10:25 AM [employer] Other XR hip LT min 2V(w/wo pelvis)* SIGNS AND SYMPTOMS: [employer] Other XR hip LT min 2V(w/wo pelvis)* Status post total hip replacement, left;Aftercare following [employer] Other XR hip LT min 2V(w/wo pelvis)* PROTOCOL: Frontal and crosstable lateral radiographs of the left hip and pelvis [employer] Other XR hip LT min 2V(w/wo pelvis)* COMPARISON: 03/31/2023 [employer] Other XR hip LT min 2V(w/wo pelvis)* FINDINGS: [employer] Other XR hip LT min 2V(w/wo pelvis)* There is total left hip arthroplasty hardware without evidence of hardware complication or fracture. [employer] Other XR hip LT min 2V(w/wo pelvis)* No malalignment. The visualized bony ring of the pelvis is intact. Degenerative changes are noted in [employer] Other XR hip LT min 2V(w/wo pelvis)* the lumbar spine and sacral iliac joints. [employer] Other XR hip LT min 2V(w/wo pelvis)* XR/XR hip LT min 2V(w/wo pelvis)* [employer] Other XR hip LT min 2V(w/wo pelvis)* IMPRESSION: [employer] Other XR hip LT min 2V(w/wo pelvis)* Uncomplicated total left hip arthroplasty hardware. No change in alignment. [employer] Other XR hip LT min 2V(w/wo pelvis)* Impression dictated by: Andre Jaramillo M.D.05/26/2023 3:20 PM [employer] Other XR hip LT min 2V(w/wo pelvis)* Dictation Location: [place] [address] [employer] Other XR hip LT min 2V(w/wo pelvis)* Transcribed By: MARYA 05/26/23 [facility] [employer] Other XR hip LT min 2V(w/wo pelvis)* Dictated By: Andre Jaramillo II, MD 05/26/23 0413 [employer] Other XR hip LT min 2V(w/wo pelvis)* Signed By: [employer] Other XR hip LT min 2V(w/wo pelvis)* 05/26/23 7428 [employer] Other [id number] 05-10-2023 [id number] [place] [id number] XRay Report Signed Patient Name: Donna Olivares Re cord #: [id number] Date of : 1950 Account #:[id number] Age/Sex: 73 / F Location: ED Attending physician: Ordering Provider: MARII Zavala Date of Service: 05/09/23 Procedure(s): XR chest 1V portable HISTORY: Shortness of breath. Two AP views of the chest obtained 14:51 on 05/09/2023 and shown without priors for comparison Findings: The heart and mediastinum appear within normal limits Lungs are clear. Costophrenic angles are clear bilaterally Impression: Negative. Dictated By: Juanito Griffin MD Signed By: 05/10/23 0847 DD/ 3 TD/TT: 05/10/23843 Fans Clerk: [facility] Exam/Order Verified? Y Exam Explained to Patient/Family? Y Was Patient Shielded? N Is Patient ? Consent Form Completed? Hx Last Menstrual Period: Does Patient have a Diabetic Device? No Diabetic Device Type: Was the Diabetic Device Removed? If NO: was Removal Consent form completed? Patient was informed of radiation exposure prior to scan? Y Verified by Technologist:[id number] Comment: cc: MARII Zavala PCP,No Normal [facility] Basophils Auto (Bld) [#/Vol] Ordered By: Maria Dolores Rucker on 05-09-2023 Basophils (Bld) [#/Vol] 0.1 10'3/uL 0.1-0.2 [facility] Basophils/100 WBC Auto (Bld) Ordered By: Maria Dolores Rucker on 05-09-2023 Basophils/100 WBC (Bld) 1 % 0-1 [facility] Complete Blood Count with Di ffon 05-09-2023 Basophils Absolute Auto 0.1 10'3/uL Normal 0.1-0.2 [facility] Comment on above: Performed By: #### C BCD #### [place] [address] [place] [address] Basophils/100 WBC (Bld) 1 % Normal 0-1 [facility] Comment on above: Performed By: #### C BCD #### [place] [address] [place] [address] Eosinophils Absolute Auto 0.2 10'3/uL Normal 0.0-0.4 [facility] Comment on above: Performed By: #### C BCD #### [place] [address] [place] [address] Eosinophils/100 WBC (Bld) 2 % Normal 2-5 [facility] Comment on above: Performed By: #### C BCD #### [facility] [address] [place] [address] Erythrocyte distribution width (RBC) [Ratio] 14.6 % Normal 12.2-15.8 [facility] Comment on above: Performed By: #### C BCD #### [facility] [address] [place] [address] Hematocrit (Bld) [Volume fraction] 36.5 % Normal 34.6-44.1 [facility] Comment on above: Performed By: #### C BCD #### [facility] [address] [place] [address] Hemoglobin (Bld) [Mass/Vol] 12.4 g/dL Normal 11.7-14.9 [facility] Comment on above: Performed By: #### C BCD #### [place] [address] [place] [address] Lymphocytes Absolute Auto 1.8 10'3/uL Normal 0.5-3.5 [facility] Comment on above: Performed By: #### C BCD #### [place] [address] [place] [address] Lymphocytes/100 WBC (Bld) 28 % Normal 20-35 [facility] Comment on above: Performed By: #### C BCD #### [place] [address] [place] [address] MCH (RBC) [Entitic mass] 31.3 pg Normal 27.8-33.2 [facility] Comment on above: Performed By: #### C BCD #### [place] [address] [place] [address] MCV (RBC) [Entitic vol] 92.2 fL Normal 83.0-97.4 [facility] Comment on above: Performed By: #### C BCD #### [facility] [address] [place] [address] Mean Corpuscular HGB Conc 34.0 g/dL Normal 32.7-34.8 [facility] Comment on above: Performed By: #### C BCD #### [place] [address] [place] [address] Monocytes Absolute Auto 0.6 10'3/uL Normal 0.2-0.8 [facility] Comment on above: Performed By: #### C BCD #### [facility] [address] [place] [address] Monocytes/100 WBC (Bld) 8 % Normal 4-12 [facility] Comment on above: Performed By: #### C BCD #### [facility] [address] [place] [address] Neutrophil # 4.0 10'3/uL Normal 1.5-5.6 [facility] Comment on above: Performed By: #### C BCD #### [facility] [address] [place] [address] Neutrophils/100 WBC (Bld) 61 % Normal 41-72 [facility] Comment on above: Performed By: #### C BCD #### [facility] [address] [place] [address] Platelet Count 301 10'3/uL Normal 122-359 [facility] Comment on above: Performed By: #### C BCD #### [facility] [address] [place] [address] Platelet mean volume (Bld) [Entitic vol] 9.9 fL Normal 7.6-10.6 [facility] Comment on above: Performed By: #### C BCD #### [facility] [address] [place] [address] Red Blood Count 3.96 10'6/uL Normal 3.85-4.88 [facility] Comment on above: Performed By: #### C BCD #### [facility] [address] [place] [address] White Blood Count 6.6 10'3/uL Normal 3.2-9.3 [facility] Comment on above: Performed By: #### C BCD #### [facility] [address] [place] [address] Comprehensive Metabolic Pane edward 05-09-2023 Albumin [Mass/Vol] 3.8 g/dL Normal 3.2-4.6 [facility] Comment on above: Performed By: #### C M, TNI #### [facility] [address] [place] [address] ALP [Catalytic activity/Vol] 55 U/L Normal 40-150 [facility] Comment on above: Performed By: #### C M, TNI #### [facility] [address] [place] [address] ALT [Catalytic activity/Vol] 8 U/L Normal 0-55 [facility] Comment on above: Performed By: #### C M, TNI #### [place] [address] [place] [address] Anion gap [Moles/Vol] 12 mmol/L Normal 5-13 [facility] Comment on above: Performed By: #### C M, TNI #### [place] [address] [place] [address] AST [Catalytic activity/Vol] 15 U/L Normal 5-34 [facility] Comment on above: Performed By: #### C M, TNI #### [place] [address] [place] [address] Bilirubin [Mass/Vol] 0.4 mg/dL Normal 0.0-1.0 [facility] Comment on above: Performed By: #### C M, TNI #### [place] [address] [place] [address] Calcium [Mass/Vol] 9.1 mg/dL Normal 8.4-10.2 [facility] Comment on above: Performed By: #### C M, TNI #### [facility] [address] [place] [address] Chloride [Moles/Vol] 104 mmol/L Normal 98-107 [facility] Comment on above: Performed By: #### C M, TNI #### [facility] [address] [place] [address] CO2 [Moles/Vol] 22 mmol/L Low 23-31 [facility] Comment on above: Performed By: #### C M, TNI #### [facility] [address] [place] [address] Creatinine [Mass/Vol] 1.38 mg/dL High 0.57-1.11 [facility] Comment on above: Performed By: #### C M, TNI #### [facility] [address] [place] [address] Glomerular Filtration Rate 40 Low mL/min/1.7 3m2 [facility] Comment on above: Performed By: #### C M, TNI #### [facility] [address] [place] [address] Glucose [Mass/Vol] 171 mg/dL High 70-100 [facility] Comment on above: Performed By: #### C M, TNI #### [facility] [address] [place] [address] Potassium [Moles/Vol] 4.5 mmol/L Normal 3.5-5.1 [facility] Comment on above: Performed By: #### C M, TNI #### [facility] [address] [place] [address] Protein [Mass/Vol] 6.5 g/dL Normal 6.4-8.2 [facility] Comment on above: Performed By: #### C M, TNI #### [facility] [address] [place] [address] Sodium [Moles/Vol] 138 mmol/L Normal 136-145 [facility] Comment on above: Performed By: #### C M, TNI #### [facility] [address] [place] [address] Urea nitrogen [Mass/Vol] 15 mg/dL Normal 7-18 [facility] Comment on above: Performed By: #### C M, TNI #### [facility] [address] [place] [address] Determination of erythrocyte mean corpuscular volume (MCV)Ordered By: Maria Dolores Rucker on 05-09-2023 MCV (RBC) [Entitic vol] 92.2 fL 83.0-97.4 [facility] EDon 05-09-2023 ED [facility] [address] [place] [address] Emergency Department Note Signed Patient Name: Donna Olivares Medical Recor d #: [id number] Date of : 1950 Account #: [id number] Age/Sex: 73 / F Location: ED Attending physician: HPI - General Adult General Date of Visit: 05/09/23 Chief complaint: Shortness of Breath/Dyspnea Time Seen by Provider: 05/09/23 13:37 History of Present Illness HPI narrative: The patient is a 73 year old F who presented to the Emergency Department with the complaint of Shortness of Breath/Dyspnea. She states that she was recently at the [facility] eating a sausage sandwich and having a milkshake. She was on her way home to [place] in the car and began to get sweaty, mildly dizzy and short of breath. states that this lasted approximately 40 to 45 minutes long. Patient states that she felt nauseous and as though she was going to throw up. She held back as much as she could. When she arrived to the emergency center, symptoms subsided and she did have a normal bowel movement and vomitted a small amount. No difficulty with urination, no abdominal pain. she denies any sick contacts. She reports history of atrial fibrillation which is controlled with medication and she is on chronic anticoagulation which is Eliquis. Mode of Arrival: Wheelchair Home Meds and Allergies Home Medications Medication Instructions Recorded Confirmed amitriptyline 10 mg tablet 30 mg PO DAILY 05/09/23 05/09/23 amlodipine 5 mg tablet 5 mg PO DAILY 05/09/23 05/09/23 apixaban 5 mg tablet (Eliquis) 5 mg PO BID 05/09/23 05/09/23 carvedilol 25 mg tablet 25 mg PO BID 05/09/23 05/09/23 levothyroxine 75 mcg tablet 75 mcg PO DAILY 05/09/23 05/09/23 lisinopril 20 mg tablet 20 mg PO BID 05/09/23 05/09/23 omeprazole 40 mg capsule,delayed 40 mg PO BID 05/09/23 05/09/23 release sertraline 50 mg tablet 50 mg PO DAILY 05/09/23 05/09/23 spironolactone 25 mg tablet 25 mg PO DAILY 05/09/23 05/09/23 Allergies Allergy/AdvReac Type Severity Reaction Status Date / Time codeine Allergy Unknown Verified 05/09/23 14:03 Review of Systems Status of ROS: Reports: 10 or more systems reviewed and unremarkable except as noted in History and below Constitutional: Denies: fever(s), chills or fatigue Eyes: Reports: change in vision Ears, Nose, Mouth, Throat: Denies: throat pain, throat swelling, dysphagia, swelling of lips/tongue or nasal congestion Cardiovascular: Reports: dyspnea; Denies: chest pain or palpitations Respiratory: Reports: dyspnea; Denies: cough Gastrointestinal: Reports: vomiting; Denies: abdominal pain, nausea or dysphagia Genitourinary: Denies: dysuria, urinary frequency or urinary urgency Musculoskeletal: Denies: back pain, extremity pain, extremity swelling or limited range of motion Integumentary/Breast: Denies: rash, skin pain, skin swelling or new lesions Neurological: Denies: headache(s), weakness in extremities or lack of coordination Psychiatric: Denies: anxiety, mood swings or panic attacks Endocrine: Denies: fatigue Hematologic/Lymphatic: Denies: easy bruising Allergic/Immunologic: Denies: urticaria, throat swelling or tongue swelling History PFSH Medical History Afib Depression Hypertension Hypothyroid Reflux esophagitis Surgical History History of appendectomy History of cholecystectomy History of lumpectomy of both breasts History of oophorectomy History of total hip arthroplasty Social History History Provided by: Patient Preferred Language: Tongan Language Assistance Offered: Not Applicable Usual Living Arrangement: With Spouse/Significant Other Smoking Status: Former Smoker Years Smoked: 15 Other Form of Tobacco Used: Never Used Second Hand Tobacco Smoke Exposure: No How Often do you Have a Drink Containing Alcohol: 2-3 Times a Week How Many Standard Drinks Containing Alcohol do you Have on a Typical Day: 3 or 4 How Often do you Have Six or More Drinks on One Occasion: Never AUDIT-C Alcohol Total Score: 4 Non-Prescribed Substance Use: Denies Use Has Patient Ever Been Admitted to Treatment Facility for Alcohol/Drug Abuse: No History of Physical Abuse: No History of Emotional Abuse: No History of Sexual Abuse: No Suspect/Identified Abuse: No Provider Notified of Abuse or Suspected Abuse: No Physical Exam Narrative: Vital signs, click to edit/add: Vital Signs - 24 hr 05/09/23 13:30 05/09/23 14:03 05/09/23 15:10 Temperature 98.4 F Pulse Rate [Left A pical] 80 73 Respiratory Rate 19 14 Blood Pressure [Ri ght Arm] 96/30 L 100/33 L Pulse Oximetry 97 97 99 Oxygen Delivery Me oscar Packer (more content not included)... Normal [facility] ED [facility] [address] [place] [address] Emergency Department Note Signed Patient Name: Donna Olivares Medical Recor d #: [id number] Date of : 1950 Account #: [id number] Age/Sex: 73 / F Location: ED Attending physician: ELECTRICAL PRODUCTS ENGINEER/PA Attestation MDM Narrative Date of Visit: 05/09/23 Chief Complaint: Shortness of Breath/Dyspnea Medical decision making narrative: I performed a history and physical examination of the patient and discussed management with the ELECTRICAL PRODUCTS ENGINEER/PA. I reviewed the ELECTRICAL PRODUCTS ENGINEER/PA's note and agree with the documented findings and plan of care. Any areas of disagreement are noted on the chart. I was personally present for the lake portions of any procedures. I have documented in the chart those procedures where I was not present during the lake portions. I have reviewed the emergency nurses triage note. I agree with the chief complaint, past medical history, past surgical history, allergies, medications, social and family history as documented unless otherwise noted below. Documentation of the HPI, Physical Exam and Medical Decision Making performed by the ELECTRICAL PRODUCTS ENGINEER/PA is based on my personal performance of the HPI, PE and MDM. For ELECTRICAL PRODUCTS ENGINEER/PA cases/ documentation I have personally evaluated this patient and have completed at least one if not all lake elements of the E/M (history, physical exam, and MDM). Additional findings are as noted:: The patient presents with nausea and lightheadedness. The patient [place] She was outside in the heat today and then was driving home with her and felt like she was going to vomit. She felt lightheaded. She did not have any mental status change or focal deficit. She had some chest discomfort that has resolved. Now that she is here in our emergency department, she feels back to normal. The patient says her normal blood pressure is not above 120 systolic. On exam, the patient appears to be in no distress. She has normal heart and lung sounds and no pain to palpation in the abdomen. She has no palpable mass in the abdomen. She has normal distal pulses and no edema. During the patient's ED stay, she had slightly low blood pressure, but no change in mental status, diaphoresis, pain, or nausea. Her cardiac workup is reassuring. I think her blood pressure has been in its normal range. We discussed her case with her family member, who is a physician, at her request. The patient and her family feel comfortable with her going home and following up with her doctor as an outpatient. The patient is discharged in good condition. Lab Data Abnormal Labs: Abnormal Labs 05/09/23 14:04 Carbon Dioxide 22 L Creatinine 1.38 H GFR Calculation 40 L Random Glucose 171 H Troponin I < 0.010 L Labs: Lab Results 05/09/23 Range/Units 14:04 WBC 6.6 (3.2-9.3) 10'3/uL RBC 3.96 (3.85-4.88) 10'6/uL Hgb 12.4 (11.7-14.9) g/dL Hct 36.5 (34.6-44.1) % MCV 92.2 (83.0-97.4) fL MCH 31.3 (27.8-33.2) pg MCHC 34.0 (32.7-34.8) g/dL RDW 14.6 (12.2-15.8) % Plt Count 301 (122-359) 10'3/uL MPV 9.9 (7.6-10.6) fL Neut % (Auto) 61 (41-72) % Lymph % (Auto) 28 (20-35) % Isabela % (Auto) 8 (4-12) % Eos % (Auto) 2 (2-5) % Baso % (Auto) 1 (0-1) % Lymph # (Auto) 1.8 (0.5-3.5) 10'3/uL Isabela # (Auto) 0.6 (0.2-0.8) 10'3/uL Eos # (Auto) 0.2 (0.0-0.4) 10'3/uL Baso # (Auto) 0.1 (0.1-0.2) 10'3/uL Absolute Neutrophils 4.0 (1.5-5.6) 10'3/uL Sodium 138 (136-145) mmol/L Potassium 4.5 (3.5-5.1) mmol/L Chloride 104 (98-107) mmol/L Carbon Dioxide 22 L (23-31) mmol/L Anion Gap 12 (5-13) mEq/L BUN 15 (7-18) mg/dL Creatinine 1.38 H (0.57-1.11) mg/dL GFR Calculation 40 L (mL/min/1.73m2) Random Glucose 171 H (70-100) mg/dL Calcium 9.1 (8.4-10.2) mg/dL Total Bilirubin 0.4 (0.0-1.0) mg/dL AST 15 (5-34) U/L ALT 8 (0-55) U/L Alkaline Phosphatase 55 (40-150) U/L Troponin I < 0.010 L (0.010-0.045) ng/mL Total Protein 6.5 (6.4-8.2) g/dL Albumin 3.8 (3.2-4.6) g/dL Imaging Data My impression: Emergency physician independent interpretation: Chest x-ray: No acute findings. Chronic change. No infiltrate or effusion. X-rays have been preliminarily and independently interpreted by me. I have shared my interpretation with the patient and/or their family. They have been informed that my interpretation is a preliminary read, and the study will be overread by a radiologist. I have instructed the patient to follow up with their doctor for review of their formal X-ray results, as well as for further directions and instructions. Discharge Plan Discharge (Provider) Patient Disposition: Home, Self-Care Clinical Impression: Dehydration Condition: Good Additional Instructions: Instructed to continue medications home as prescribed. Recommend following up with cardiology an (more content not included)... Normal [facility] Eosinophils/100 WBC Auto (Bl d)Ordered By: Maria Dolores Rucker on 05-09-2023 Eosinophils/100 WBC (Bld) 2 % 2-5 [facility] Histamine release from basop hils measurementOrdered By: Maria Dolores Rucker on 05-09-2023 Chloride [Moles/Vol] 104 mmol/L 98-107 [facility] Creatinine [Mass/Vol] 1.38 mg/dL High 0.57-1.11 [facility] Hemoglobin (Bld) [Mass/Vol] 12.4 g/dL 11.7-14.9 [facility] Histamine release from basophils measurement 0.2 10'3/uL 0.0-0.4 [facility] Histamine release from basophils measurement 40 Low mL/min/1.7 3m2 [facility] Laboratory - Chemistry and C hemistry - challengeOrdered By: Maria Dolores Rucker on 05-09-2023 ALP [Catalytic activity/Vol] 55 U/L 40-150 [facility] ALT [Catalytic activity/Vol] 8 U/L 0-55 [facility] Anion gap [Moles/Vol] 12 mmol/L 5-13 [facility] AST [Catalytic activity/Vol] 15 U/L 5-34 [facility] Calcium [Mass/Vol] 9.1 mg/dL 8.4-10.2 [facility] CO2 [Moles/Vol] 22 mmol/L Low 23-31 [facility] Glucose [Mass/Vol] 171 mg/dL High 70-100 [facility] Troponin I.cardiac [Mass/Vol] ng/mL Low 0.010-0.04 5 [facility] Laboratory - Hematology and Cell countsOrdered By: Maria Dolores Rucker on 05-09-2023 Erythrocyte distribution width (RBC) [Ratio] 14.6 % 12.2-15.8 [facility] Lymphocytes/100 WBC (Bld) 28 % 20-35 [facility] MCH (RBC) [Entitic mass] 31.3 pg 27.8-33.2 [facility] MCHC (RBC) [Mass/Vol] 34.0 g/dL 32.7-34.8 [facility] Platelet mean volume (Bld) [Entitic vol] 9.9 fL 7.6-10.6 [facility] Monocytes Auto (Bld) [#/Vol] Ordered By: Maria Dolores Rucker on 05-09-2023 Monocytes (Bld) [#/Vol] 0.6 10'3/uL 0.2-0.8 [facility] Monocytes/100 WBC Auto (Bld) Ordered By: Maria Dolores Rucker on 05-09-2023 Monocytes/100 WBC (Bld) 8 % 4-12 [facility] Neutrophils/100 WBC Manual c nt (Bld)Ordered By: Maria Dolores Rucker on 05-09-2023 Neutrophils/100 WBC (Bld) 61 % 41-72 [facility] No Panel InformationOrdered By: Maria Dolores Rucker on 05-09-2023 Absolute Neutrophil 4.0 10'3/uL 1.5-5.6 [facility] Lymphocytes # (Auto) 1.8 10'3/uL 0.5-3.5 [facility] Platelet Count 301 10'3/uL 122-359 [facility] Red Blood Count 3.96 10'6/uL 3.85-4.88 [facility] White Blood Count 6.6 10'3/uL 3.2-9.3 [facility] Serum or plasma bilirubin me asurement (mass/volume)Ordered By: Maria Dolores Rucker on 05-09-2023 Bilirubin [Mass/Vol] 0.4 mg/dL 0.0-1.0 [facility] Serum or plasma potassium me asurement (moles/volume)Ordered By: Maria Dolores Rucker on 05-09-2023 Potassium [Moles/Vol] 4.5 mmol/L 3.5-5.1 [facility] Serum total protein measurem ent (mass/volume)Ordered By: Maria Dolores Rucker on 05-09-2023 Protein [Mass/Vol] 6.5 g/dL 6.4-8.2 [facility] Thin prep Papanicolaou smear with manual screeningOrdered By: Maria Dolores Rucker on 05-09-2023 Thin prep Papanicolaou smear with manual screening 15 mg/dL 7-18 [facility] Thin prep Papanicolaou smear with manual screening 3.8 g/dL 3.2-4.6 [facility] Troponin Ion 05-09-2023 Troponin I.cardiac [Mass/Vol] ng/mL Low 0.010-0.04 5 [facility] Comment on above: Performed By: #### C M, TNI #### [facility] [address] [place] [address] Venous blood sodium measurem entOrdered By: Maria Dolores Rucker on 05-09-2023 Sodium (BldV) [Moles/Vol] 138 mmol/L 136-145 [facility] XR hip LT min 2V(w/wo pelvis )*on 03-31-2023 XR hip LT min 2V(w/wo pelvis)* [facility] Main [address] [place] [id number] XRay Report Signed Patient: Donna Olivares MR#: [id number] : 1950 Acct:[id number] Age/Sex: 73 / F ADM Date: 03/31/23 Loc: [facility] Room: Type: [facility] Attending Dr: Ari Solares II, MD Copies to: Ari Solares MD Ordering Provider: Ari Solares MD Date of Service: 03/31/23 XR/XR hip LT min 2V(w/wo pelvis)*: Status post total hip replacement, left 2 views left hip with single view pelvis plain film COMPARISON: 02/10/2023 HISTORY: Status post left total hip arthroplasty ACUTE FINDINGS: None DEGENERATIVE CHANGE: Similar degenerative change. SOFT TISSUE FINDINGS: Unremarkable JOINT EFFUSION: None POSTOP CHANGES: No hardware failure loosening present. BONY MINERALIZATION: Adequate XR/XR hip LT min 2V(w/wo pelvis)* IMPRESSION: Unremarkable left hip arthroplasty Impression dictated by: Eric Velázquez M.D.03/31/2023 1:54 PM Dictation Location: [place] [address] Transcribed By: [facility] 03/31/23 1354 Dictated By: Eric Velázquez DO 03/31/23 1359 Signed By: 03/31/23 1354 [facility] XR hip LT min 2V(w/wo pelvis)* [facility] [employer] Other XR hip LT min 2V(w/wo pelvis)* [facility] Main [address] [employer] Other XR hip LT min 2V(w/wo pelvis)* [address] [facility] [employer] Other XR hip LT min 2V(w/wo pelvis)* [place] [address] [employer] Other XR hip LT min 2V(w/wo pelvis)* XRay Report [employer] Other XR hip LT min 2V(w/wo pelvis)* Signed [employer] Other XR hip LT min 2V(w/wo pelvis)* Patient: Donna Olivares MR#: [id number] [facility] Other XR hip LT min 2V(w/wo pelvis)* 247 [facility] Other XR hip LT min 2V(w/wo pelvis)* : 1950 Acct:[id number] [facility] Other XR hip LT min 2V(w/wo pelvis)* Age/Sex: 73 / F ADM Date: 03/31/23 [employer] Other XR hip LT min 2V(w/wo pelvis)* Loc: [facility] Room: Type: [facility] CLI [employer] Other XR hip LT min 2V(w/wo pelvis)* Attending Dr: Ari Solares II, MD [facility] Other XR hip LT min 2V(w/wo pelvis)* Copies to: Ari Solares MD [employer] Other XR hip LT min 2V(w/wo pelvis)* Ordering Provider: Ari Solares MD [employer] Other XR hip LT min 2V(w/wo pelvis)* Date of Service: 03/31/23 [employer] Other XR hip LT min 2V(w/wo pelvis)* XR/XR hip LT min 2V(w/wo pelvis)*: Status post total hip replacement, [employer] Other XR hip LT min 2V(w/wo pelvis)* left [employer] Other XR hip LT min 2V(w/wo pelvis)* 2 views left hip with single view pelvis plain film [employer] Other XR hip LT min 2V(w/wo pelvis)* COMPARISON: 02/10/2023 [facility] Other XR hip LT min 2V(w/wo pelvis)* HISTORY: Status post left total hip arthroplasty [employer] Other XR hip LT min 2V(w/wo pelvis)* ACUTE FINDINGS: None [facility] Other XR hip LT min 2V(w/wo pelvis)* DEGENERATIVE CHANGE: Similar degenerative change. [facility] Other XR hip LT min 2V(w/wo pelvis)* SOFT TISSUE FINDINGS: Unremarkable [employer] Other XR hip LT min 2V(w/wo pelvis)* JOINT EFFUSION: None [facility] Other XR hip LT min 2V(w/wo pelvis)* POSTOP CHANGES: No hardware failure loosening present. [employer] Other XR hip LT min 2V(w/wo pelvis)* BONY MINERALIZATION: Adequate [facility] Other XR hip LT min 2V(w/wo pelvis)* XR/XR hip LT min 2V(w/wo pelvis)* [facility] Other XR hip LT min 2V(w/wo pelvis)* IMPRESSION: Unremarkable left hip arthroplasty [employer] Other XR hip LT min 2V(w/wo pelvis)* Impression dictated by: Eric Velázquez M.D.03/31/2023 1:54 PM [facility] Other XR hip LT min 2V(w/wo pelvis)* Dictation Location: [place] [address] [employer] Other XR hip LT min 2V(w/wo pelvis)* Transcribed By: PWS 03/31/23 [facility] [employer] Other XR hip LT min 2V(w/wo pelvis)* Dictated By: Eric Velázquez DO 03/31/23 [facility] [employer] Other XR hip LT min 2V(w/wo pelvis)* Signed By: [employer] Other XR hip LT min 2V(w/wo pelvis)* 03/31/23 [facility] [employer] Other XR hip LT min 2V(w/wo pelvis )*on 02-10-2023 XR hip LT min 2V(w/wo pelvis)* [facility] Main Rena [address] [place] [address] XRay Report Signed Patient: Donna Olivares MR#: [id number] 247 : 1950 Acct:[id number] Age/Sex: 72 / F ADM Date: 02/10/23 Loc: [facility] Room: Type: [facility] Attending Dr: Ari Solares II, MD Copies to: Ari Solares MD Ordering Provider: Ari Solares MD Date of Service: 02/10/23 XR/XR hip LT min 2V(w/wo pelvis)*: Closed displaced fracture of left femoral neck with routine 2 views left hip plain film COMPARISON: 12/28/2022 HISTORY: Status post left total hip arthroplasty ACUTE FINDINGS: None DEGENERATIVE CHANGE: Unremarkable SOFT TISSUE FINDINGS: Unremarkable JOINT EFFUSION: None POSTOP CHANGES: No hardware failure for loosening. BONY MINERALIZATION: Adequate XR/XR hip LT min 2V(w/wo pelvis)* IMPRESSION: Uncomplicated left hip arthroplasty Impression dictated by: Eric Velázquez M.D.02/10/2023 4:08 PM Dictation Location: [facility] Transcribed By: [facility] 02/10/23 1608 Dictated By: Eric Velázquez DO 02/10/23 1606 Signed By: 02/10/23 1608 Normal [facility] XR hip LT min 2V(w/wo pelvis)* [facility] [employer] Other XR hip LT min 2V(w/wo pelvis)* [facility] [employer] Other XR hip LT min 2V(w/wo pelvis)* [address] [place] [address] [employer] Other XR hip LT min 2V(w/wo pelvis)* [place] [address] [employer] Other XR hip LT min 2V(w/wo pelvis)* XRay Report [employer] Other XR hip LT min 2V(w/wo pelvis)* Signed [employer] Other XR hip LT min 2V(w/wo pelvis)* Patient: Donna Olivares MR#: [id number] [facility] Other XR hip LT min 2V(w/wo pelvis)* 247 [employer] Other XR hip LT min 2V(w/wo pelvis)* : 1950 Acct:[id number] [facility] Other XR hip LT min 2V(w/wo pelvis)* Age/Sex: 72 / F ADM Date: 02/10/23 [facility] Other XR hip LT min 2V(w/wo pelvis)* Loc: [facility] Room: Type: [facility] [employer] Other XR hip LT min 2V(w/wo pelvis)* Attending Dr: Ari Solares II, MD [facility] Other XR hip LT min 2V(w/wo pelvis)* Copies to: Ari Solares MD [facility] Other XR hip LT min 2V(w/wo pelvis)* Ordering Provider: Ari Solares MD [employer] Other XR hip LT min 2V(w/wo pelvis)* Date of Service: 02/10/23 [facility] Other XR hip LT min 2V(w/wo pelvis)* XR/XR hip LT min 2V(w/wo pelvis)*: Closed displaced fracture of left [employer] Other XR hip LT min 2V(w/wo pelvis)* femoral neck with routine [employer] Other XR hip LT min 2V(w/wo pelvis)* 2 views left hip plain film [employer] Other XR hip LT min 2V(w/wo pelvis)* COMPARISON: 12/28/2022 [employer] Other XR hip LT min 2V(w/wo pelvis)* HISTORY: Status post left total hip arthroplasty [employer] Other XR hip LT min 2V(w/wo pelvis)* ACUTE FINDINGS: None [employer] Other XR hip LT min 2V(w/wo pelvis)* DEGENERATIVE CHANGE: Unremarkable [employer] Other XR hip LT min 2V(w/wo pelvis)* SOFT TISSUE FINDINGS: Unremarkable [employer] Other XR hip LT min 2V(w/wo pelvis)* JOINT EFFUSION: None [employer] Other XR hip LT min 2V(w/wo pelvis)* POSTOP CHANGES: No hardware failure for loosening. [employer] Other XR hip LT min 2V(w/wo pelvis)* BONY MINERALIZATION: Adequate [employer] Other XR hip LT min 2V(w/wo pelvis)* XR/XR hip LT min 2V(w/wo pelvis)* [facility] Other XR hip LT min 2V(w/wo pelvis)* IMPRESSION: Uncomplicated left hip arthroplasty [employer] Other XR hip LT min 2V(w/wo pelvis)* Impression dictated by: Eric Velázquez M.D.02/10/2023 4:08 PM [facility] Other XR hip LT min 2V(w/wo pelvis)* Dictation Location: [place] [address] [employer] Other XR hip LT min 2V(w/wo pelvis)* Transcribed By: [facility] 02/10/23 1608 [facility] Other XR hip LT min 2V(w/wo pelvis)* Dictated By: Eric Velázquez DO 02/10/23 1606 [facility] Other XR hip LT min 2V(w/wo pelvis)* Signed By: [facility] Other XR hip LT min 2V(w/wo pelvis)* 02/10/23 1600 [facility] Other Basic Metabolic Panelon 04-2 Anion gap [Moles/Vol] 12.5 mmol/L Normal 6.0-15.0 [facility] Comment on above: Performed By: #### B MP ####[facility] [place] [id number] [facility] Calcium [Mass/Vol] 9.5 mg/dL Normal 8.6-10.3 [facility] Comment on above: Performed By: #### B MP ####[facility] [place] [address] [facility] Chloride [Moles/Vol] 98 mmol/L Normal 98-107 [facility] Comment on above: Performed By: #### B MP ####[facility] [place] [id number] [facility] CO2 [Moles/Vol] 28.6 mmol/L Normal 21.0-31.[address] [facility] Comment on above: Performed By: #### B MP ####[place] [address] [place] [address] [facility] Creatinine [Mass/Vol] 0.91 mg/dL Normal 0.60-1.20 [facility] Comment on above: Performed By: #### B MP ####[place] [address] [place] [address] [place] Creatinine Clr Calc Pharmacy 50.77 Normal [facility] Comment on above: Result Comment: PERF ORMED BY: [facility] [address] [place] [id number] PATHOLOGIST IT MANAGER JENNIFER ROMEO M.D. Performed By: #### B MP ####[place] [id number] [facility] GFR/1.73 sq M.predicted MDRD (S/P/Bld) [Vol rate/Area] mL/min/{1.73_m2} Normal [facility] Comment on above: Performed By: #### B MP ####[address] [address] [facility] Glucose [Mass/Vol] 96 mg/dL Normal 70-100 [facility] Comment on above: Result Comment: [place] Glucose Reference Range is dependent on time and content of last meal. Glucose of more than 200 mg/dL in a nonstressed, ambulatory subject supports the diagnosis of Diabetes Mellitus. ADA recommended reference range Performed By: #### B MP ####[address] [address] [facility] Potassium [Moles/Vol] 4.1 mmol/L Normal 3.5-5.1 [facility] Comment on above: Performed By: #### B MP ####[place] [id number] [facility] Sodium [Moles/Vol] 135 mmol/L Low 136-145 [facility] Comment on above: Performed By: #### B MP ####[place] [id number] [place] Urea nitrogen [Mass/Vol] 12 mg/dL Normal 7-25 [facility] Comment on above: Performed By: #### B ####[facility] [id number] [place] [id number] [facility] Calcium [Mass/volume] in Ser um or PlasmaOrdered By: Vivian Live on 12-31-2022 Calcium [Mass/Vol] 9.5 mg/dL 8.6-10.3 [facility] Carbon dioxide, total [Moles /volume] in Serum or PlasmaOrdered By: Vivian Live on 12-31-2022 CO2 [Moles/Vol] 28.6 mmol/L 21.0-31.[address] [facility] Chloride [Moles/volume] in S [place] or PlasmaOrdered By: Vivian Live on 12-31-2022 Chloride [Moles/Vol] 98 mmol/L 98-107 [facility] Creatinine [Mass/volume] in Serum or PlasmaOrdered By: Vivian Live on 12-31-2022 Creatinine [Mass/Vol] 0.91 mg/dL 0.60-1.20 [facility] Glucose [Mass/volume] in Ser um or PlasmaOrdered By: Vivian Live on 12-31-2022 Glucose [Mass/Vol] 96 mg/dL 70-100 [facility] Comment on above: ADA recommended refe rence rangeRandom Glucose Reference Range is dependent on time and content of last meal. Glucose of more than 200 mg/dL in a nonstressed, ambulatory subject supports the diagnosis of Diabetes Mellitus. No Panel InformationOrdered By: Vivian Live on 12-31-2022 Estimated GFR (CKD-EPI) > 60.0 mL/Min [facility] Creatinine Clearance (Chem 50.77 [facility] Potassium [Moles/volume] in Serum or PlasmaOrdered By: Vivian Live on 12-31-2022 Potassium [Moles/Vol] 4.1 mmol/L 3.5-5.1 [facility] Serum or plasma anion gap de terminationOrdered By: Vivian Live on 12-31-2022 Anion gap [Moles/Vol] 12.5 mmol/L 6.0-15.0 [facility] Sodium [Moles/volume] in Ser um or PlasmaOrdered By: Vivian Live on 12-31-2022 Sodium [Moles/Vol] 135 mmol/L 136-145 [facility] Urea nitrogen [Mass/volume] in Serum or PlasmaOrdered By: Vivian Live on 12-31-2022 Urea nitrogen [Mass/Vol] 12 mg/dL 7- [facility] Basic Metabolic Panelon 12-06 Anion gap [Moles/Vol] 10.1 mmol/L Normal 6.0-15.0 [facility] Comment on above: Performed By: #### B MP ####[place] [address] [place] [id number] [facility] Calcium [Mass/Vol] 9.2 mg/dL Normal 8.6-10.3 [facility] Comment on above: Performed By: #### B MP ####[place] [id number] [facility] Chloride [Moles/Vol] 100 mmol/L Normal 98-107 [facility] Comment on above: Performed By: #### B MP ####[address] [address] [facility] CO2 [Moles/Vol] 28.2 mmol/L Normal 21.0-31.[address] [facility] Comment on above: Performed By: #### B MP ####[address] [address] [facility] Creatinine [Mass/Vol] 1.00 mg/dL Normal 0.60-1.20 [facility] Comment on above: Performed By: #### B MP ####[place] [address] [place] [address] [place] Creatinine Clr Calc Pharmacy 46.20 Normal [facility] Comment on above: Result Comment: PERF ORMED BY: [facility] [address] [place] [id number] PATHOLOGIST IT MANAGER JENNIFER ROMEO M.D. Performed By: #### B MP ####[place] [address] [place] [id number] [facility] GFR/1.73 sq M.predicted MDRD (S/P/Bld) [Vol rate/Area] 59.117 mL/min/{1.73_m2} Normal [facility] Comment on above: Performed By: #### B MP ####[place] [address] [place] [id number] [facility] Glucose [Mass/Vol] 96 mg/dL Normal 70-100 [facility] Comment on above: Result Comment: [facility] Glucose Reference Range is dependent on time and content of last meal. Glucose of more than 200 mg/dL in a nonstressed, ambulatory subject supports the diagnosis of Diabetes Mellitus. ADA recommended reference range Performed By: #### B MP ####[place] [id number] [address] Potassium [Moles/Vol] 4.3 mmol/L Normal 3.5-5.1 [facility] Comment on above: Performed By: #### B MP ####[place] [id number] [facility] Sodium [Moles/Vol] 134 mmol/L Low 136-145 [facility] Comment on above: Performed By: #### B MP ####[place] [id number] [facility] Urea nitrogen [Mass/Vol] 15 mg/dL Normal 7-25 [facility] Comment on above: Performed By: #### B MP ####[place] [id number] [facility] Basophils Auto (Bld) [#/Vol] Ordered By: Ari Solares on 12-30-2022 Basophils (Bld) [#/Vol] 0.0 10*3/uL 0.0-0.2 [facility] Basophils/100 WBC Auto (Bld) Ordered By: Ari Solares on 12-30-2022 Basophils/100 WBC (Bld) 0.1 % . [facility] Eosinophils Auto (Bld) [#/Vo l]Ordered By: Ari Solares on 12-30-2022 Eosinophils (Bld) [#/Vol] 0.0 10*3/uL 0.0-0.45 [facility] Eosinophils/100 WBC Auto (Bl d)Ordered By: Ari Solares on 12-30-2022 Eosinophils/100 WBC (Bld) 0.1 % . [facility] Erythrocyte distribution wid th Auto (RBC) [Ratio]Ordered By: Ari Solares on 12-30-2022 Erythrocyte distribution width (RBC) [Ratio] 15.9 % 11.9-15.3 [facility] Hematocrit Auto (Bld) [Volum e fraction]Ordered By: Ari Solares on 12-30-2022 Hematocrit (Bld) [Volume fraction] 30.3 % 34.0-46.4 [facility] Hemoglobin [Mass/volume] in BloodOrdered By: Ari Solares on 12-30-2022 Hemoglobin (Bld) [Mass/Vol] 10.2 g/dL 11.8-15.4 [facility] Hypochromia LM Ql (Bld)Order ed By: Ari Solares on 12-30-2022 Hypochromia Ql (Bld) Slight [facility] Leukocytes [#/volume] correc karen for nucleated erythrocytes in Blood by Automated counOrdered By: Ari Solares on 12-30-2022 WBC corrected for nucl RBC Auto (Bld) [#/Vol] 10.0 10*3/uL 3.8-11.6 [facility] Lymphocytes Auto (Bld) [#/Vo l]Ordered By: Ari Solares on 12-30-2022 Lymphocytes (Bld) [#/Vol] 1.6 10*3/uL 1.00-4.8 [facility] Lymphocytes/100 WBC Auto (Bl d)Ordered By: Ari Solares on 12-30-2022 Lymphocytes/100 WBC (Bld) 16.0 % . [facility] MCH Auto (RBC) [Entitic mass ]Ordered By: Ari Solares on 12-30-2022 MCH (RBC) [Entitic mass] 32.3 pg 24.7-34.3 [facility] MCHC Auto (RBC) [Mass/Vol]Or dered By: Ari Solares on 12-30-2022 MCHC (RBC) [Mass/Vol] 33.6 g/dL 32.0-35.0 [facility] MCV Auto (RBC) [Entitic vol] Ordered By: Ari Solares on 12-30-2022 MCV (RBC) [Entitic vol] 96.3 fL 80-100 [facility] Monocytes Auto (Bld) [#/Vol] Ordered By: Ari Solares on 12-30-2022 Monocytes (Bld) [#/Vol] 1.7 10*3/uL 0.0-0.8 [facility] Monocytes/100 WBC Auto (Bld) Ordered By: Ari Solares on 12-30-2022 Monocytes/100 WBC (Bld) 17.5 % . [facility] Neutrophils Auto (Bld) [#/Vo l]Ordered By: Ari Solares on 12-30-2022 Neutrophils (Bld) [#/Vol] 6.6 10*3/uL 1.8-7.7 [facility] Neutrophils/100 WBC Auto (Bl d)Ordered By: Ari Solares on 12-30-2022 Neutrophils/100 WBC (Bld) 66.3 % . [facility] Nucleated erythrocytes [Pres ence] in Blood by Automated countOrdered By: Ari Solares on 12-30-2022 Nucleated RBC Auto Ql (Bld) 0.0 /100{WBC} 0-0.5 [facility] Ovalocyte detectionOrdered B y: Ari Solares on 12-30-2022 Ovalocytes LM Ql (Bld) Slight [facility] Platelet adequacy [Presence] in Blood by Light microscopyOrdered By: Ari Solares on 12-30-2022 Platelets LM Ql (Bld) Normal Normal [facility] Platelet mean volume Auto (B ld) [Entitic vol]Ordered By: Ari Solares on 12-30-2022 Platelet mean volume (Bld) [Entitic vol] 9.0 fL 6.3-10.7 [facility] Platelet morphology finding [Identifier] in BloodOrdered By: Ari Solares on 12-30-2022 Platelet morphology finding Nom (Bld) Normal Normal [facility] Platelets Auto (Bld) [#/Vol] Ordered By: Ari Solares on 12-30-2022 Platelets (Bld) [#/Vol] 211 10*3/uL 150-450 [facility] Polychromasia [Presence] in Blood by Light microscopyOrdered By: Ari Solares on 12-30-2022 Polychromasia LM Ql (Bld) Slight [facility] RBC Auto (Bld) [#/Vol]Ordere d By: Ari Solares on 12-30-2022 RBC (Bld) [#/Vol] 3.15 10*6/uL 3.60-5.00 [facility] RBC morphologyOrdered By: Vale Solares on 12-30-2022 RBC morphology finding Nom (Bld) N/A [facility] Scan and CBCon 12-30-2022 Basophils (Bld) [#/Vol] 0.0 10*3/uL Normal 0.0-0.2 [facility] Comment on above: Performed By: #### S CAN CBC ####[address] Basophils/100 WBC (Bld) 0.1 % Normal . [facility] Comment on above: Performed By: #### S CAN CBC ####[address] Eosinophils (Bld) [#/Vol] 0.0 10*3/uL Normal 0.0-0.45 [facility] Comment on above: Performed By: #### S CAN CBC ####[address] Eosinophils/100 WBC (Bld) 0.1 % Normal . [facility] Comment on above: Performed By: #### S CAN CBC ####[address] Erythrocyte distribution width (RBC) [Ratio] 15.9 % High 11.9-15.3 [facility] Comment on above: Performed By: #### S CAN CBC ####[address] Hematocrit (Bld) [Volume fraction] 30.3 % Low 34.0-46.4 [facility] Comment on above: Performed By: #### S CAN CBC ####[address] Hemoglobin (Bld) [Mass/Vol] 10.2 g/dL Low 11.8-15.4 [facility] Comment on above: Performed By: #### S CAN CBC ####[address] Hypochromasia Slight Normal [facility] Comment on above: Performed By: #### S CAN CBC ####[address] Lymphocytes (Bld) [#/Vol] 1.6 10*3/uL Normal 1.00-4.8 [facility] Comment on above: Performed By: #### S CAN CBC ####[address] Lymphocytes/100 WBC (Bld) 16.0 % Normal . [facility] Comment on above: Performed By: #### S CAN CBC ####[address] MCH (RBC) [Entitic mass] 32.3 pg Normal 24.7-34.3 [facility] Comment on above: Performed By: #### S CAN CBC ####[address] MCV (RBC) [Entitic vol] 96.3 fL Normal 80-100 [facility] Comment on above: Performed By: #### S CAN CBC ####[address] Mean Corpuscular HGB Conc 33.6 g/dL Normal 32.0-35.0 [facility] Comment on above: Performed By: #### S CAN CBC ####[address] Monocytes (Bld) [#/Vol] 1.7 10*3/uL High 0.0-0.8 [facility] Comment on above: Performed By: #### S CAN CBC ####[address] [address] [facility] Monocytes/100 WBC (Bld) 17.5 % Normal . [facility] Comment on above: Performed By: #### S CAN CBC ####[address] [address] [facility] Neutrophils (Bld) [#/Vol] 6.6 10*3/uL Normal 1.8-7.7 [facility] Comment on above: Performed By: #### S CAN CBC ####[place] [id number] [facility] Neutrophils/100 WBC (Bld) 66.3 % Normal . [facility] Comment on above: Performed By: #### S CAN CBC ####[place] [id number] [facility] NRBC% 0.0 /100{WBC} Normal 0-0.5 [facility] Comment on above: Performed By: #### S CAN CBC ####[address] [address] [facility] Ovalocytes Slight Normal [facility] Comment on above: Performed By: #### S CAN CBC ####[place] [id number] [facility] Platelet Estimate Normal Normal Normal [facility] Comment on above: Performed By: #### S CAN CBC ####[place] [id number] [facility] Platelet mean volume (Bld) [Entitic vol] 9.0 fL Normal 6.3-10.7 [facility] Comment on above: Performed By: #### S CAN CBC ####[place] [id number] [facility] Platelet Morphology Normal Normal Normal [facility] Comment on above: Result Comment: PERF ORMED BY: [facility] [address] [place] [address] PATHOLOGIST IT MANAGER JENNIFER ROMEO M.D. Performed By: #### S CAN CBC ####[facility] [place] [address] [facility] Platelets (Bld) [#/Vol] 211 10*3/uL Normal 150-450 [facility] Comment on above: Performed By: #### S CAN CBC ####[place] [address] [place] [address] [facility] Polychromasia Slight Normal [facility] Comment on above: Performed By: #### S CAN CBC ####[place] [id number] [facility] RBC (Bld) [#/Vol] 3.15 10*6/uL Low 3.60-5.00 [facility] Comment on above: Performed By: #### S CAN CBC ####[place] [id number] [facility] WBC (Bld) [#/Vol] 10.0 10*3/uL Normal 3.8-11.6 [facility] Comment on above: Performed By: #### S CAN CBC ####[place] [id number] [facility] WBC Auto (Bld) [#/Vol]Ordere d By: Ari Solares on 12-30-2022 WBC (Bld) [#/Vol] 10.0 10*3/uL 3.8-11.6 [facility] Basic Metabolic Panelon 12-06 Anion gap [Moles/Vol] 11.1 mmol/L Normal 6.0-15.0 [facility] Comment on above: Performed By: #### M Beau, BMP ####[place] [id number] [facility] Calcium [Mass/Vol] 8.4 mg/dL Low 8.6-10.3 [facility] Comment on above: Performed By: #### M Baeu, BMP ####[place] [address] [place] [id number] [facility] Chloride [Moles/Vol] 99 mmol/L Normal 98-107 [facility] Comment on above: Performed By: #### M Beau, BMP ####[facility] [place] [address] [facility] CO2 [Moles/Vol] 26.8 mmol/L Normal 21.0-31.[address] [facility] Comment on above: Performed By: #### Dougie Yanez, BMP ####[place] [address] [place] [address] [facility] Creatinine [Mass/Vol] 0.98 mg/dL Normal 0.60-1.20 [facility] Comment on above: Performed By: #### Dougie Yanez, BMP ####[place] [address] [place] [address] [facility] Creatinine Clr Calc Pharmacy 47.15 [facility] Comment on above: Performed By: #### Dougie Yanez, BMP ####[place] [address] [place] [address] [facility] GFR/1.73 sq M.predicted MDRD (S/P/Bld) [Vol rate/Area] mL/min/{1.73_m2} [facility] Comment on above: Performed By: #### Dougie Yanez, BMP ####[address] [address] [facility] Glucose [Mass/Vol] 144 mg/dL High 70-100 [facility] Comment on above: Result Comment: [place] Glucose Reference Range is dependent on time and content of last meal. Glucose of more than 200 mg/dL in a nonstressed, ambulatory subject supports the diagnosis of Diabetes Mellitus. ADA recommended reference range Performed By: #### Dougie Yanez, BMP ####[address] [address] [facility] Potassium [Moles/Vol] 4.9 mmol/L Normal 3.5-5.1 [facility] Comment on above: Performed By: #### Dougie Yanez, BMP ####[address] [address] [facility] Sodium [Moles/Vol] 132 mmol/L Low 136-145 [facility] Comment on above: Performed By: #### Dougie Yanez, BMP ####[address] [address] [facility] Urea nitrogen [Mass/Vol] 13 mg/dL Normal 7-25 [facility] Comment on above: Performed By: #### M DAMIAN Yanez ####[facility] Complete Blood Count Auto Di ffon 12-29-2022 Basophils (Bld) [#/Vol] 0.0 10*3/uL Normal 0.0-0.2 [facility] Comment on above: Result Comment: PERF ORMED BY: [place] [address] PATHOLOGIST IT MANAGER JENNIFER ROMEO M.D. Performed By: #### C BC #### [address] Basophils/100 WBC (Bld) 0.1 % Normal . [facility] Comment on above: Performed By: #### C BC #### [address] Eosinophils (Bld) [#/Vol] 0.0 10*3/uL Normal 0.0-0.45 [facility] Comment on above: Performed By: #### C BC #### [address] Eosinophils/100 WBC (Bld) 0.0 % Normal . [facility] Comment on above: Performed By: #### C BC #### [address] Erythrocyte distribution width (RBC) [Ratio] 16.3 % High 11.9-15.3 [facility] Comment on above: Performed By: #### C BC #### [address] Hematocrit (Bld) [Volume fraction] 34.2 % Normal 34.0-46.4 [facility] Comment on above: Performed By: #### C BC #### [address] Hemoglobin (Bld) [Mass/Vol] 11.4 g/dL Low 11.8-15.4 [facility] Comment on above: Performed By: #### C BC #### [facility] [address] Lymphocytes (Bld) [#/Vol] 0.5 10*3/uL Low 1.00-4.8 [facility] Comment on above: Performed By: #### C BC #### [facility] [address] Lymphocytes/100 WBC (Bld) 5.2 % Normal . [facility] Comment on above: Performed By: #### C BC #### [facility] [address] MCH (RBC) [Entitic mass] 32.4 pg Normal 24.7-34.3 [facility] Comment on above: Performed By: #### C BC #### [address] MCV (RBC) [Entitic vol] 97.2 fL Normal 80-100 [facility] Comment on above: Performed By: #### C BC #### [address] Mean Corpuscular HGB Conc 33.4 g/dL Normal 32.0-35.0 [facility] Comment on above: Performed By: #### C BC #### [address] Monocytes (Bld) [#/Vol] 0.4 10*3/uL Normal 0.0-0.8 [facility] Comment on above: Performed By: #### C BC #### [address] Monocytes/100 WBC (Bld) 3.4 % Normal . [facility] Comment on above: Performed By: #### C BC #### [address] Neutrophils (Bld) [#/Vol] 9.5 10*3/uL High 1.8-7.7 [facility] Comment on above: Performed By: #### C BC #### [address] [place] [address] [place] Neutrophils/100 WBC (Bld) 91.3 % Normal . [facility] Comment on above: Performed By: #### C BC #### [facility] [address] NRBC% 0.0 /100{WBC} Normal 0-0.5 [facility] Comment on above: Performed By: #### C BC #### [facility] [address] Platelet mean volume (Bld) [Entitic vol] 9.5 fL Normal 6.3-10.7 [facility] Comment on above: Performed By: #### C BC #### [facility] [address] Platelets (Bld) [#/Vol] 231 10*3/uL Normal 150-450 [facility] Comment on above: Performed By: #### C BC #### [address] RBC (Bld) [#/Vol] 3.51 10*6/uL Low 3.60-5.00 [facility] Comment on above: Performed By: #### C BC #### [address] WBC (Bld) [#/Vol] 10.4 10*3/uL Normal 3.8-11.6 [facility] Comment on above: Performed By: #### C BC #### [address] Magnesiumon 12-29-2022 Magnesium [Mass/Vol] 2.5 mg/dL Normal 1.9-2.7 [facility] Comment on above: Result Comment: PERF ORMED BY: [place] [address] PATHOLOGIST IT MANAGER JENNIFER ROMEO M.D. Performed By: #### M G, BMP ####[facility] Magnesium [Mass/volume] in S me[place] or PlasmaOrdered By: Vivian Live on 12-29-2022 Magnesium [Mass/Vol] 2.5 mg/dL 1.9-2.7 [facility] XR hip LT 1Von 12-29-2022 XR hip LT 1V [facility] Main [address] [address] XRay Report Signed Patient: Donna Olivares MR#: [id number] : 1950 Acct:[id number] Age/Sex: 72 / F ADM Date: 12/27/22 Loc: 4N Room: [address] [place] [address] Type: ADM IN Attending Dr: Vivian Live MD Copies to: MD Ari Stacy MD Ordering Provider: Ari Solares MD Date of Service: 12/28/22 XR/XR hip LT 1V: LT HIP ANTIEROR Fluoroscopic assessment for anterior left hip arthroplasty HISTORY:Anterior left hip arthroplasty 6 image was obtained. Cumulative Air Kerma in mGy: 3.3 mGy No hardware failure loosening. Bony structures unremarkable. XR/XR hip LT 1V IMPRESSION: Uncomplicated left knee arthroplasty. Impression dictated by: Eric Velázquez M.D.12/29/2022 10:56 AM Dictation Location: [place] [address] Transcribed By: [facility] 12/29/22 1056 Dictated By: Eric Velázquez DO 12/29/22 1054 Signed By: 12/29/22 1056 Normal [facility] XR low pelvis w/LT x-table h ipon 12-29-2022 XR low pelvis w/LT x-table hip [facility] Main [address] [address] XRay Report Signed Patient: Donna Olivares MR#: [id number] : 1950 Acct:[id number] Age/Sex: 72 / F ADM Date: 12/27/22 Loc: 4N Room: [address] [place] [address] Type: ADM IN Attending Dr: Vivian Live MD Copies to: MD Ari Stacy MD Ordering Provider: Ari Solares MD Date of Service: 12/28/22 XR/XR low pelvis w/LT x-table hip: Total hip, Do in PACU XR low pelvis w/LT x-table hip 12/28/2022 8:44 PM SIGNS AND SYMPTOMS: Anterior left hip arthroplasty, follow-up PROTOCOL: Frontal view the pelvis with crosstable lateral views of the left hip COMPARISON: 12/27/2022 FINDINGS: There has been interval total left hip arthroplasty hardware. There is no evidence of fracture or hardware complication. The bony ring of the pelvis is intact. The sacroiliac joints are preserved. Postoperative subcutaneous emphysema is noted in the lateral soft tissues of the left hip. XR/XR low pelvis w/LT x-table hip IMPRESSION: There has been interval total left hip arthroplasty hardware. There is no evidence of fracture or hardware complication. Impression dictated by: Andre Jaramillo M.D.12/29/2022 8:53 AM Dictation Location: [place] [address] Transcribed By: [facility] 12/29/22 0853 Dictated By: Andre Jaramillo II, MD 12/29/22 0851 Signed By: 12/29/22 0853 Normal [facility] A1C with Estimated Average G gary 12-28-2022 Glucose [Mass/Vol] 117 mg/dL Normal [facility] Comment on above: Result Comment: PERF ORMED BY: [place] [address] PATHOLOGIST IT MANAGER JENNIFER ROMEO M.D. Performed By: #### A 1C WT Jose Cruz [id number] #### [facility] [address] [place] [address] HbA1c (Bld) [Mass fraction] 5.7 % High 4.3-5.6 [facility] Comment on above: Result Comment: Incr eased risk for diabetes: 5.7 - 6.4 diabetes: >6.4 glycemic control for adults with diabetes: <7.0 Performed By: #### A 1C WTH Jose Cruz, [id number] #### [facility] [address] [place] [address] [place] ABO/Rh Retypeon 12-28-2022 ABO/RH Recheck Result Negative Normal [facility] Comment on above: Result Comment: PERF ORMED BY: [place] [address] [place] [address] PATHOLOGIST IT MANAGER JENNIFER ROMEO M.D. Activated partial thrombopla stin time (aPTT) in platelet poor plasma by coagulation aOrdered By: Junior Martinez on 12-28-2022 aPTT Coag (PPP) [Time] 34.5 s 25.1-36.5 [facility] Alanine aminotransferase [En zymatic activity/volume] in Serum or PlasmaOrdered By: Junior Martinez on 12-28-2022 ALT [Catalytic activity/Vol] 8 U/L 7-52 [facility] Albumin [Mass/volume] in Ser um or Plasma by Bromocresol green (BCG) dye binding methoOrdered By: Junior Martinez on 12-28-2022 Albumin BCG dye [Mass/Vol] 3.7 g/dL 3.5-5.7 [facility] Alkaline phosphatase [Enzyma tic activity/volume] in Serum or PlasmaOrdered By: Junior Martinez on 12-28-2022 ALP [Catalytic activity/Vol] 59 U/L 34-104 [facility] Aspartate aminotransferase [ Enzymatic activity/volume] in Serum or PlasmaOrdered By: Junior Martinez on 12-28-2022 AST [Catalytic activity/Vol] 17 U/L 13-39 [facility] Bilirubin.total [Mass/volume ] in Serum or PlasmaOrdered By: Junior Martinez on 12-28-2022 Bilirubin [Mass/Vol] 0.5 mg/dL 0.3-1.0 [facility] Coagulation Profileon 2022 aPTT Coag (Bld) [Time] 34.5 s Normal 25.1-36.5 [facility] Comment on above: Result Comment: PERF ORMED BY: [facility] [address] [place] [address] PATHOLOGIST IT MANAGER JENNIFER ROMEO M.D. Performed By: #### C MP, PP, MG #### [address] INR Coag (PPP) [Relative time] 1.0 {INR} Normal [facility] Comment on above: Result Comment: INR Therapeutic Range A) Pre- and Peroperative OAT started two weeks before surgery. NOT HIP SURGERY: 1.5 - 2.5 HIP SURGERY: 2 - 3 B) Primary and secondary prevention of venous THROMBOSIS: 2 - 3 C) Active venous thrombosis, pulmonary embolism and prevention of recurrent venous thrombosis: 2 - 3 D) Prevention of arterial thromboembolism including patients with mechanical heart valves: 3 - 4.5 Performed By: #### C MP, PP, MG #### [address] PT Coag (PPP) [Time] 11.1 s Normal 9.0-12.9 [facility] Comment on above: Performed By: #### C MP, PP, MG #### [address] Complete Blood Count Auto Di ffon 12-28-2022 Basophils (Bld) [#/Vol] 0.0 10*3/uL Normal 0.0-0.2 [facility] Comment on above: Result Comment: PERF ORMED BY: [place] [address] PATHOLOGIST IT MANAGER JENNIFER ROMEO M.D. Performed By: #### C BC #### [address] Basophils/100 WBC (Bld) 0.6 % Normal . [facility] Comment on above: Performed By: #### C BC #### [address] Eosinophils (Bld) [#/Vol] 0.0 10*3/uL Normal 0.0-0.45 [facility] Comment on above: Performed By: #### C BC #### [address] Eosinophils/100 WBC (Bld) 0.3 % Normal . [facility] Comment on above: Performed By: #### C BC #### [facility] [address] Erythrocyte distribution width (RBC) [Ratio] 16.2 % High 11.9-15.3 [facility] Comment on above: Performed By: #### C BC #### [address] Hematocrit (Bld) [Volume fraction] 38.2 % Normal 34.0-46.4 [facility] Comment on above: Performed By: #### C BC #### [address] Hemoglobin (Bld) [Mass/Vol] 12.8 g/dL Normal 11.8-15.4 [facility] Comment on above: Performed By: #### C BC #### [address] Lymphocytes (Bld) [#/Vol] 1.2 10*3/uL Normal 1.00-4.8 [facility] Comment on above: Performed By: #### C BC #### [address] Lymphocytes/100 WBC (Bld) 14.5 % Normal . [facility] Comment on above: Performed By: #### C BC #### [address] MCH (RBC) [Entitic mass] 32.2 pg Normal 24.7-34.3 [facility] Comment on above: Performed By: #### C BC #### [address] MCV (RBC) [Entitic vol] 96.0 fL Normal 80-100 [facility] Comment on above: Performed By: #### C BC #### [address] Mean Corpuscular HGB Conc 33.5 g/dL Normal 32.0-35.0 [facility] Comment on above: Performed By: #### C BC #### [address] Monocytes (Bld) [#/Vol] 1.1 10*3/uL High 0.0-0.8 [facility] Comment on above: Performed By: #### C BC #### [facility] [address] Monocytes/100 WBC (Bld) 13.3 % Normal . [facility] Comment on above: Performed By: #### C BC #### [facility] [address] Neutrophils (Bld) [#/Vol] 5.7 10*3/uL Normal 1.8-7.7 [facility] Comment on above: Performed By: #### C BC #### [address] Neutrophils/100 WBC (Bld) 71.3 % Normal . [facility] Comment on above: Performed By: #### C BC #### [address] NRBC% 0.0 /100{WBC} Normal 0-0.5 [facility] Comment on above: Performed By: #### C BC #### [address] Platelet mean volume (Bld) [Entitic vol] 8.6 fL Normal 6.3-10.7 [facility] Comment on above: Performed By: #### C BC #### [place] [address] [place] Platelets (Bld) [#/Vol] 268 10*3/uL Normal 150-450 [facility] Comment on above: Performed By: #### C BC #### [address] RBC (Bld) [#/Vol] 3.98 10*6/uL Normal 3.60-5.00 [facility] Comment on above: Performed By: #### C BC #### [address] WBC (Bld) [#/Vol] 8.0 10*3/uL Normal 3.8-11.6 [facility] Comment on above: Performed By: #### C BC #### [address] Comprehensive Metabolic Pane edward 12-28-2022 Albumin [Mass/Vol] 3.7 g/dL Normal 3.5-5.7 [facility] Comment on above: Performed By: #### C MP, PP, MG #### [address] Albumin/Globulin [Mass ratio] 1.4 {ratio} Normal [facility] Comment on above: Performed By: #### C MP, PP, MG #### [address] ALP [Catalytic activity/Vol] 59 U/L Normal 34-104 [facility] Comment on above: Performed By: #### C MP, PP, MG #### [address] ALT [Catalytic activity/Vol] 8 U/L Normal 7-52 [facility] Comment on above: Performed By: #### C MP, PP, MG #### [address] Anion gap [Moles/Vol] 11.2 mmol/L Normal 6.0-15.0 [facility] Comment on above: Performed By: #### C MP, PP, MG #### [address] AST [Catalytic activity/Vol] 17 U/L Normal 13-39 [facility] Comment on above: Performed By: #### C MP, PP, MG #### [address] Bilirubin [Mass/Vol] 0.5 mg/dL Normal 0.3-1.0 [facility] Comment on above: Performed By: #### C MP, PP, MG #### [address] Calcium [Mass/Vol] 9.0 mg/dL Normal 8.6-10.3 [facility] Comment on above: Performed By: #### C MP, PP, MG #### [address] Chloride [Moles/Vol] 101 mmol/L Normal 98-107 [facility] Comment on above: Performed By: #### C MP, PP, MG #### [address] CO2 [Moles/Vol] 27.5 mmol/L Normal 21.0-31.[address] [facility] Comment on above: Performed By: #### C MP, PP, MG #### [address] Creatinine [Mass/Vol] 0.84 mg/dL Normal 0.60-1.20 [facility] Comment on above: Performed By: #### C MP, PP, MG #### [address] Creatinine Clr Calc Pharmacy 50.83 [facility] Comment on above: Performed By: #### C MP, PP, MG #### [address] [address] GFR/1.73 sq M.predicted MDRD (S/P/Bld) [Vol rate/Area] mL/min/{1.73_m2} [facility] Comment on above: Performed By: #### C MP, PP, MG #### [address] Globulin (S) [Mass/Vol] 2.7 g/dL [facility] Comment on above: Performed By: #### C MP, PP, MG #### [address] Glucose [Mass/Vol] 111 mg/dL High 70-100 [facility] Comment on above: Result Comment: [place] Glucose Reference Range is dependent on time and content of last meal. Glucose of more than 200 mg/dL in a nonstressed, ambulatory subject supports the diagnosis of Diabetes Mellitus. ADA recommended reference range Performed By: #### C MP, PP, MG #### [facility] [address] [place] [address] [place] Potassium [Moles/Vol] 4.7 mmol/L Normal 3.5-5.1 [facility] Comment on above: Performed By: #### C MP, PP, MG #### [facility] [address] [place] [address] [place] Protein [Mass/Vol] 6.4 g/dL Normal 6.4-8.9 [facility] Comment on above: Performed By: #### C MP, PP, MG #### [facility] [address] Sodium [Moles/Vol] 135 mmol/L Low 136-145 [facility] Comment on above: Performed By: #### C MP, PP, MG #### [facility] [address] Urea nitrogen [Mass/Vol] 12 mg/dL Normal 7-25 [facility] Comment on above: Performed By: #### C MP, PP, MG #### [facility] [address] Globulin Calc (S) [Mass/Vol] Ordered By: Junior Martinez on 12-28-2022 Globulin (S) [Mass/Vol] 2.7 g/dL [facility] Glucose mean value [Mass/vol ume] in Blood Estimated from glycated hemoglobinOrdered By: Ari Solares on 12-28-2022 Average glucose Estimated from glycated hemoglobin (Bld) [Mass/Vol] 117 mg/dL [facility] Hemoglobin A1c percentageOrd ered By: Ari Solares on 12-28-2022 HbA1c (Bld) [Mass fraction] 5.7 % 4.3-5.6 [facility] Comment on above: Increased risk for d iabetes: 5.7 - 6.4diabetes: >6.4glycemic control for adults with diabetes: <7.0 Edward 12-28-2022 L ----- Specimen: [id number] Received: 12/29/22 Status: DIPTI Radha Num: [id number] Spec Type: Surgical Subm Dr: Ari Solares MD Tissues: A Femoral Head - Other than Fracture (LT HIP) Procedures: HE/2, Gross/Micro L3, Decalcification Age/ Patient Sex Location Account Attending Physician Donna Olivares 72/F 4N [id number] Vivian Live MD SPEC NUM: [id number] RECD: 12/29/22 STATUS: DIPTI RADHA NUM: [id number] ISAURO: 12/28/22- [facility] DR: Ari Solares MD ENTERED: 12/29/[address] [facility] [address]: SPEC TYPE: Surgical DEPT: S ORDERED: HE/2, Gross/Micro L3, Decalcification ORDERED: HE/2, Gross/Micro L3, Decalcification Pathological Diagnosis Left hip, bone and tissue, total hip replacement: - Benign cartilage and bone with chronic inflammation and degenerative (osteoarthritis) changes. 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 The femoral head has a smooth to granular dominguez red articular surface. No eburnation is identified. The cut surface is yellow-dominguez, trabecular, focally hyperemic. No discrete lesion is identified.. Financial Systems Manager are submitted following decalcification in two cassettes labeled A1-A2. Microscopic Description Two glass slides with H E stained material have been examined. The microscopic findings support the above pathologic diagnosis. Specimen: [id number] Received: 12/29/22 Status: DIPTI Radha Num: [id number] Spec Type: Surgical Subm Dr: Ari Solares MD Tissues: A Femoral Head - Other than Fracture (LT HIP) Procedures: HE/2, Gross/Micro L3, Decalcification Patient: Donna Olivares [id number] (Continued) Specimen: [id number] Received: 12/29/22 (Continued) Signed (signature on file) Carol Hassan MD 12/30/22 1413 Specimen: [id number] Received: 12/29/22 Status: DIPTI Radha Num: [id number] Spec Type: Surgical Subm Dr: Ari Solares MD Tissues: A Femoral Head - Other than Fracture (LT HIP) Procedures: HE/2, Gross/Micro L3, Decalcification Patient: Donna Olivares [id number] (Continued) Specimen: [id number] Received: 12/29/22 (Continued) CPT Codes 88020, 73028 Specimen: [id number] Received: 12/29/22 Status: DIPTI [place] Num: [id number] Spec Type: Surgical Subm Dr: Ari Solares MD Tissues: A Femoral Head - Other than Fracture (LT HIP) Procedures: HE/2, Gross/Micro L3, Decalcification Patient: Donna Olivares [id number] (Continued) Signed (signature on file) Carol Hassan MD 12/30/22 1413 Normal [facility] - CoagulationOrde red By: Junior Martinez on 12-28-2022 PT Coag (PPP) [Time] 11.1 s 9.0-12.9 [facility] LeukoReduced RBCon 3 LeukoReduced RBC READY Normal [facility] Magnesiumon 12-28-2022 Magnesium [Mass/Vol] 1.8 mg/dL Low 1.9-2.7 [facility] Comment on above: Result Comment: PERF ORMED BY: [place] [address] PATHOLOGIST IT MANAGER JENNIFER ROMEO M.D. Performed By: #### C MP, PP, MG #### [facility] [address] Platelet poor plasma interna tional normalized ratio (INR) by coagulation assay (relatOrdered By: Junior Martinez on 12-28-2022 INR Coag (PPP) [Relative time] 1.0 {INR} [facility] Comment on above: INR Therapeutic Rang e A) Pre- and Peroperative OAT started two weeks before surgery. NOT HIP SURGERY: 1.5 - 2.5 HIP SURGERY: 2 - 3B) Primary and secondary prevention of venous THROMBOSIS: 2 - 3C) Active venous thrombosis, pulmonary embolismand prevention of recurrent venous thrombosis: 2 - 3D) Prevention of arterial thromboembolismincluding patients with mechanical heart valves: 3 - 4.5 Protein [Mass/volume] in Ser um or PlasmaOrdered By: Junior Martinez on 12-28-2022 Protein [Mass/Vol] 6.4 g/dL 6.4-8.9 [facility] Serum or plasma albumin/glob ulin mass ratioOrdered By: Junior Martinez on 12-28-2022 Albumin/Globulin [Mass ratio] 1.4 {ratio} [facility] Type and Screenon 12-28-2022 ABO and Rh group Nom (Bld) Blood group O Rh(D) negative Normal [facility] Comment on above: Order Comment: Comme nt On Hold for OR Transfuse now? N Result Comment: PERF ORMED BY: [address] [address] PATHOLOGIST IT MANAGER JENNIFER ROMEO M.D. Vitamin D 25 Hydroxy Totalon 12-28-2022 Vitamin D 25 Hydroxy Total 44.8 ng/mL Normal 30-100 [facility] Comment on above: Result Comment: LENI MIN D STATUS 25(OH)VITAMIN D RANGE (ng/mL) Deficient <20 Insufficient 20 to <30 Sufficient 30 to 100 Reference: Adal Simmons, Frances RODRIGUEZ et al. Evaluation,treatment, and prevention of vitamin D deficiency; an Endocrine Society clinical practice guideline. JCEM. 2010; 96(7):191-. PERFORMED BY: [address] [address] PATHOLOGIST IT MANAGER JENNIFER ROMEO M.D. Performed By: #### A 1C WT eA, [id number] #### [address] [address] [facility] Vitamin D+Metabolites [Mass/ volume] in Serum or PlasmaOrdered By: Ari Solares on 12-28-2022 Vitamin D+Metabolites [Mass/Vol] 44.8 ng/mL 30-100 [facility] Comment on above: VITAMIN D STATUS 25( [place])VITAMIN D RANGE (ng/mL) Deficient <20 Insufficient 20 to <30Sufficient 30 to 100Reference: Adal Simmons, Frances RODRIGUEZ et al. Evaluation,treatment, and prevention of vitamin D deficiency; an Endocrine Society clinical practice guideline. JCEM. 2010; 96(7):1911-. XR femur LT 2V*on 12-28-2022 XR femur LT 2V* [facility] [address] [place] [address] XRay Report Signed Patient: Donna Olivares MR#: [id number] : 1950 Acct:[id number] Age/Sex: 72 / F ADM Date: 12/27/22 Loc: 4N Room: [address] [place] [address] Type: ADM IN Attending Dr: Vivian Live MD Copies to: MD Ari Stacy MD Ordering Provider: Ari Solares MD Date of Service: 12/28/22 XR/XR femur LT 2V*: L HIP FX PORTABLE LEFT FEMUR - 2 views COMPARISON: Left hip 12/27/2022 CLINICAL DATA: Left subcapital femoral neck fracture. AP and lateral views were obtained. The hip is not included because of the recent hip exam. There is no acute fracture or dislocation within the [id number]. There is no disproportionate joint space narrowing at the knee though there is minor marginal spurring. There is a benign-appearing sclerotic area at the distal femoral metaphysis. There is no knee effusion or soft tissue swelling. XR/XR femur LT 2V* IMPRESSION: NO ACUTE BONY FINDINGS INVOLVING THE IMAGED FEMUR. Impression dictated by: Guerda Noble M.D.12/28/2022 9:10 AM Dictation Location: [place] [address] Transcribed By: [facility] 12/28/22 09 Dictated By: Guerda Noble MD 12/28/22 09 Signed By: 12/28/22 09 [facility] CBC AUTO DIFFon 12-27-2022 BASO # 0.1 103/ul Normal 0.0-0.1 [facility] Comment on above: Performed By: #### H BOB BMP #### [facility] [address] [place] [address] Dr. Julio Cesar Sullivan Basophils/100 WBC (Bld) 0.7 % Normal 0.2-2.0 [facility] Comment on above: Performed By: #### H BOB BMP #### [facility] [address] [place] [address] [address] Julio Cesar Sullivan EO # 0.2 103/ul Normal 0.0-0.7 [facility] Comment on above: Performed By: #### H BOB BMP #### [facility] [address] [place] [address] Dr. Julio Cesar Sullivan Eosinophils/100 WBC (Bld) 2.9 % Normal 0.9-7.0 [facility] Comment on above: Performed By: #### H STROPN, BMP #### [facility] [address] [place] [address] Dr. Julio Cesar Sullivan Erythrocyte distribution width (RBC) [Ratio] 15.8 % Critically high 11.0-15.0 [facility] Comment on above: Performed By: #### H STROPN, BMP #### [facility] [address] [place] [address] Dr. Julio Cesar Sullivan Hematocrit (Bld) [Volume fraction] 36.7 % Normal 36.0-48.0 [facility] Comment on above: Performed By: #### H STROPN, BMP #### [facility] [address] [place] [address] Dr. Julio Cesar Sullivan Hemoglobin (Bld) [Mass/Vol] 12.3 g/dL Normal 12.0-16.0 [facility] Comment on above: Performed By: #### H STROPN, BMP #### [facility] [address] [place] [address] Dr. Julio Cesar uSllivan IG # 0.04 10e3/ul Critically high 0.00-0.03 [facility] Comment on above: Performed By: #### H STROPN, BMP #### [facility] [address] [place] [address] Dr. Julio Cesar Sullivan IG % 0.6 % Critically high 0.0-0.5 [facility] Comment on above: Performed By: #### H STROPN, BMP #### [facility] [address] [place] [address] Dr. Julio Cesar Sullivan LYMPH # 2.4 103/ul Normal 1.2-3.8 [facility] Comment on above: Performed By: #### H STROPN, BMP #### [facility] [address] [place] [address] Dr. Julio Cesar Sullivan Lymphocytes/100 WBC (Bld) 34.3 % Normal 20.5-60.0 [facility] Comment on above: Performed By: #### H STROPN, BMP #### [facility] [address] [place] [address] Dr. Julio Cesar Sullivan MANUAL DIFF REQ NO Normal [facility] Comment on above: Performed By: #### H STROPN, BMP #### [facility] [address] [place] [address] Dr. Julio Cesar Sullivan MCH (RBC) [Entitic mass] 32.5 pg Normal 26.7-34.0 [facility] Comment on above: Performed By: #### H STROPN, BMP #### [facility] [address] [place] [address] Dr. Julio Cesar Sullivan MCHC (RBC) [Mass/Vol] 33.5 g/dL Normal 29.9-35.2 [facility] Comment on above: Performed By: #### H STROPN, BMP #### [facility] [address] [place] [address] Dr. Julio Cesar Sullivan MCV (RBC) [Entitic vol] 96.8 fL Normal 81.0-99.0 [facility] Comment on above: Performed By: #### H STROPN, BMP #### [facility] [address] [place] [address] Dr. Julio Cesar Sullivan MONO # 1.1 103/ul Critically high 0.3-0.8 [facility] Comment on above: Performed By: #### H STROPN, BMP #### [facility] [address] [place] [address] Dr. Julio Cesar Sullivan Monocytes/100 WBC (Bld) 15.7 % Critically high 1.7-12.0 [facility] Comment on above: Performed By: #### H STROPN, BMP #### [facility] [address] [place] [address] Dr. Julio Cesar uSllivan NEUT # 3.2 103/ul Normal 1.4-6.5 [facility] Comment on above: Performed By: #### H STROPN, BMP #### [facility] [address] [place] [address] Dr. Julio Cesar Sullvian Neutrophils/100 WBC (Bld) 45.8 % Normal 43.0-75.0 [facility] Comment on above: Performed By: #### H STROPN, BMP #### [facility] [address] [place] [address] [address] Julio Cesar Sullivan Platelet mean volume (Bld) [Entitic vol] 10.3 fL Normal 9.5-13.5 [facility] Comment on above: Performed By: #### H STROPN, BMP #### [facility] [address] [place] [address] [address] Julio Cesar Sullivan PLT 300 103/ul Normal 150-450 [facility] Comment on above: Performed By: #### H STROPN, BMP #### [facility] [address] [place] [address] [address] Julio Cesar Sullivan RBC 3.79 106/ul Critically low 4.20-5.40 [facility] Comment on above: Performed By: #### H STROPN, BMP #### [facility] [address] [place] [address] [address] Julio Cesar Sullivan WBC 7.0 103/ul Normal 4.0-11.0 [facility] Comment on above: Performed By: #### H STROPN, BMP #### [facility] [address] [place] [address] [address] CSPINE WO CONon 3 CT CSPINE WO CON EXAMINATION: CT CSPI NE WO CON HISTORY: Dizziness and vertigo from fall COMPARISON: None. TECHNIQUE: CT Cervical spine without IV contrast. Coronal and sagittal reformations were performed. Dose reduction techniques were achieved by using automated exposure control and/or adjustment of mA and/or kV according to patient size and/or use of iterative reconstruction technique. FINDINGS: Age-indeterminate straightening of the normal cervical lordosis with mild degenerative retrolisthesis at C5-C6. Intervertebral disc space narrowing, endplate and uncovertebral arthrosis is most pronounced at C5-C6 and to a lesser degree C6-C7. Multilevel facet arthropathy. The vertebral body heights are unremarkable. Dens and lateral masses of C1 are symmetric. No prevertebral soft tissue edema. The visualized osseous skull base is unremarkable. The mastoid air cells are pneumatized. Mild atherosclerosis of the vascular structures. The visualized pulmonary apices, airway and thoracic inlet exhibit no gross abnormality. Questionable cysts of the right thyroid IMPRESSION: Age-indeterminate straightening of the normal cervical lordosis with mild degenerative retrolisthesis at C5-C6. Questionable right thyroid gland cysts. Electronically authenticated by: SHARI MENDEZ Date: 2022-12-27 21:28 Normal [facility] CT HEAD WO CONon 12-27-2022 CT HEAD WO CON EXAMINATION: CT HEAD WO CON, 12/27/2022 6:00 PM EDT HISTORY: Unspecified fall COMPARISON: None. TECHNIQUE: CT scan of the head was performed without IV contrast. CT dose reduction technique was used, including Automated Exposure Control. FINDINGS: BRAIN PARENCHYMA/CSF SPACES: Ventricles are normal in size for age. There is no hemorrhage, mass effect or midline shift. Periventricular white matter hypodensities likely representing chronic small vessel ischemic changes. PARANASAL SINUSES: Clear. SKULL BASE AND CALVARIUM: Normal. EXTRACRANIAL SOFT TISSUES: Normal. IMPRESSION: 1. No acute intracranial abnormality. 2. Atrophy and chronic white matter small vessel ischemic changes. Electronically authenticated by: RADHA MACHADO Date: 2022-12-27 21:02 Normal [facility] PROF CHEM 8 (BAS METB)on Anion gap [Moles/Vol] 9.2 mmol/L Normal [facility] Comment on above: Performed By: #### H BOB, BMP #### [facility] [address] [place] [address] [address] Julio Cesar Sullivan Calcium [Mass/Vol] 8.9 mg/dL Normal 8.5-10.1 [facility] Comment on above: Performed By: #### H BOB, BMP #### [facility] [address] [place] [address] [address] Julio Cesar Sullivan Chloride [Moles/Vol] 105 mmol/L Normal 98-107 [facility] Comment on above: Performed By: #### H BOB, BMP #### [facility] [address] [place] [address] [address] Julio Cesar Sullivan CO2 [Moles/Vol] 28.5 mmol/L Normal 21.0-32.0 [facility] Comment on above: Performed By: #### H BOB, BMP #### [facility] [address] [place] [address] [address] Julio Cesar Sullivan Creatinine [Mass/Vol] 0.99 mg/dL Normal 0.55-1.02 [facility] Comment on above: Performed By: #### H BOB, BMP #### [facility] [address] [place] [address] [address] Julio Cesar Sullivan EGFR-AF TRISTANIAN >60 Normal >=[address] [facility] Comment on above: Performed By: #### H STROPN, BMP #### [facility] [address] [place] [address] [address] Julio Cesar Sullivan EGFR-NON AF TRISTANIAN 55 mL/min/1.73m2 Critically low >=60 [facility] Comment on above: Performed By: #### H BOB, BMP #### [facility] [address] [place] [address] [address] Julio Cesar Sullivan Glucose [Mass/Vol] 92 mg/dL Normal 74-106 [facility] Comment on above: Performed By: #### H BOB, BMP #### [facility] [address] [place] [address] [address] Julio Cesar Sullivan Potassium [Moles/Vol] 4.7 mmol/L Normal 3.5-5.1 [facility] Comment on above: Performed By: #### H BOB, BMP #### [facility] [address] [place] [address] [address] Julio Cesar Sullivan Sodium [Moles/Vol] 138 mmol/L Normal 136-145 [facility] Comment on above: Performed By: #### H ALEAHPN, BMP #### [facility] [address] [place] [address] [address] Julio Cesar Sullivan Urea nitrogen [Mass/Vol] 16.0 mg/dL Normal 7.0-18.0 [facility] Comment on above: Performed By: #### H BOB, BMP #### [facility] [address] [place] [address] [address] Julio Cesar Sullivan Urea nitrogen/Creatinine [Mass ratio] 16.2 mg/mg Normal [facility] Comment on above: Performed By: #### H ALEAHPN, BMP #### [facility] [address] [place] [address] [address] Julio Cesar Sullivan PROTIMEon 12-27-2022 INR Coag (PPP) [Relative time] {INR} Normal [facility] Comment on above: Performed By: #### P TT, PT #### [facility] [address] [place] [address] Dr. Julio Cesar Sullivan INR GUIDELINES SEE BELOW Normal [facility] Comment on above: Result Comment: JENNIFER RED INR: 2.0 - 3.0 CONDITIONS NOT LISTED BELOW 2.5 - 3.5 FOR PROSTHETIC HEART VALVE REPLACEMENT 2.5 - 3.5 RECURRENT THROMBOSIS Performed By: #### P TT, PT #### [facility] [address] [place] [address] Dr. Julio Cesar Sullivan PT Coag (PPP) [Time] 9.7 s Normal 9.0-11.6 [facility] Comment on above: Performed By: #### P TT, PT #### [facility] [address] [place] [address] Dr. Juloi Cesar Sullivan PTTon 12-27-2022 aPTT Coag (Bld) [Time] 33.9 s Normal 22.3-36.2 [facility] Comment on above: Performed By: #### H ALEAHPN, BMP #### [facility] [address] [place] [address] Dr. Julio Cesar Sullivan XR HIP LT 2 3V W PELVISon XR HIP LT 2 3V W PELVIS EXAM: XR HIP LT 2 3V W PELVIS HISTORY: Pain of left hip joint COMPARISON: None. TECHNIQUE: 3 views FINDINGS: Cephalad displaced and impacted fracture of the left femoral neck. Left hip joint is unremarkable. The right hip joint, pubic symphysis and sacroiliac joints are additionally unremarkable. No additional fracture, dislocation or subluxation. IMPRESSION: Cephalad displaced and impacted left femoral neck fracture Electronically authenticated by: SHARI MENDEZ Date: 2022-12-27 18:59 Normal [facility] NM STRESS/REST MULTIon 11-19 NM STRESS/REST MULTI Patient: EDVIN OLIVARES Exam Date: 11/19/2022 : 1950 Gender:F Ordering : ALESSANDRA FERRARI M.D. Admission #: [id number] Family : Order #: [id number] CLICK HERE TO VIEW EXAM RADIOLOGY REPORT PROCEDURE: RADIONUCLIDE IMAGING STRESS/REST MULTI COMPARISON: None. INDICATIONS: Cardiomyopathy, chest pain, history of atrial fibrillation TECHNIQUE: Exam Description: Stress/Rest one day protocol gated SPECT Rest Imagin.5 mCi Tc-99m Cardiolite IV on 11/19/2022 Stress Imaging 30.4 mCi Tc-99m Cardiolite IV on 11/19/2022 Exercise Protocol: Zaheer Heart Rate (bpm): Rest: 85 Max: 141 PMHR: 96 Blood Pressure: Rest: 112/70 Max: 142/88 Exercise Time: Minutes: 3 Seconds: 01 Stage Reached: Stage: 1 Mets 4.6 Symptoms: none Rest and peak stress ECG findings were abnormal and the exercise portion of the study was abnormal per attending physician Dr. Fernando due to EKG changes. For more details please see separate cardiac stress test report. FINDINGS: QUALITY OF STUDY: Excellent. PERFUSION DEFECT: None. LOCATION: N/A SIZE: N/A. SEVERITY: N/A. TYPE: N/A. WALL MOTION: Normal. LV SIZE: Normal. 61 mL. TID / TCD: None; 0.8 LVEF: Normal. Calculated EF 57%. SUMMARY: Myocardial perfusion imaging study is NORMAL. CONCLUSION: 1. Normal nuclear medicine myocardial perfusion scan. Dictated by: Leona Solitario M.D. on 11/20/2022 at 10:38 Approved by: Leona Solitario M.D. on 11/20/2022 at 10:42 Normal [facility] PROF CHEM 8 (BAS METB)on Anion gap [Moles/Vol] 12.0 mmol/L Normal [facility] Comment on above: Performed By: #### H DAMIAN ROJAS #### [facility] [address] [address] [address] Julio Cesar Sullivan Calcium [Mass/Vol] 9.0 mg/dL Normal 8.5-10.1 [facility] Comment on above: Performed By: #### H DAMIAN ROJAS #### [facility] [address] [address] [address] Julio Cesar Sullivan Chloride [Moles/Vol] 104 mmol/L Normal 98-107 [facility] Comment on above: Performed By: #### H BOB, BMP #### [facility] [address] [address] [address] Julio Cesar Sullivan CO2 [Moles/Vol] 28.7 mmol/L Normal 21.0-32.0 [facility] Comment on above: Performed By: #### H ALEAHPN, BMP #### [facility] [address] [place] [address] [address] Julio Cesar Sullivan Creatinine [Mass/Vol] 0.84 mg/dL Normal 0.55-1.02 [facility] Comment on above: Performed By: #### H BOB, BMP #### [facility] [address] [address] [address] Julio Cesar Sullivan EGFR-AF TRISTANIAN >60 Normal >=60 [facility] Comment on above: Performed By: #### H BOB, BMP #### [facility] [address] [place] [address] Dr. Julio Cesar Sullivan EGFR-NON AF TRISTANIAN >60 Normal >=60 [facility] Comment on above: Performed By: #### H BOB, BMP #### [facility] [address] [place] [address] Dr. Julio Cesar Sullivan Glucose [Mass/Vol] 122 mg/dL Critically high 74-106 [facility] Comment on above: Performed By: #### H BOB, BMP #### [facility] [address] [place] [address] Dr. Julio Cesar Sullivan Potassium [Moles/Vol] 4.7 mmol/L Normal 3.5-5.1 [facility] Comment on above: Performed By: #### H STROPN, BMP #### [facility] [address] [address] [address] Julio Cesar Sullivan Sodium [Moles/Vol] 140 mmol/L Normal 136-145 [facility] Comment on above: Performed By: #### H BOB, BMP #### [facility] [address] [address] [address] Julio Cesar Sullivan Urea nitrogen [Mass/Vol] 11.0 mg/dL Normal 7.0-18.0 [facility] Comment on above: Performed By: #### H ALEAHPN, BMP #### [facility] [address] [place] [address] Dr. Julio Cesar Sullivan Urea nitrogen/Creatinine [Mass ratio] 13.1 mg/mg Normal [facility] Comment on above: Performed By: #### H ALEAHPN, BMP #### [facility] [address] [place] [address] Dr. Julio Cesar Sullivan CBC AUTO DIFFon 09-01-2022 BASO # 0.1 103/ul Normal 0.0-0.1 [facility] Comment on above: Performed By: #### C BC #### [facility] [address] [place] [address] Dr. Julio Cesar Sullivan Basophils/100 WBC (Bld) 0.7 % Normal 0.2-2.0 [facility] Comment on above: Performed By: #### C BC #### [facility] [address] [place] [address] Dr. Julio Cesar Sullivan EO # 0.1 103/ul Normal 0.0-0.7 [facility] Comment on above: Performed By: #### C BC #### [facility] [address] [place] [address] Dr. Julio Cesar Sullivan Eosinophils/100 WBC (Bld) 2.0 % Normal 0.9-7.0 [facility] Comment on above: Performed By: #### C BC #### [facility] [address] [place] [address] Dr. Julio Cesar Sullivan Erythrocyte distribution width (RBC) [Ratio] 15.7 % Critically high 11.0-15.0 [facility] Comment on above: Performed By: #### C BC #### [facility] [address] [place] [address] Dr. Julio Cesar Sullivan Hematocrit (Bld) [Volume fraction] 37.9 % Normal 36.0-48.0 [facility] Comment on above: Performed By: #### C BC #### [facility] [address] [place] [address] Dr. Julio Cesar Sullivan Hemoglobin (Bld) [Mass/Vol] 12.6 g/dL Normal 12.0-16.0 [facility] Comment on above: Performed By: #### C BC #### [facility] [address] [place] [address] Dr. Julio Cesar Sullivan IG # 0.02 10e3/ul Normal 0.00-0.03 [facility] Comment on above: Performed By: #### C BC #### [facility] [address] [place] [address] Dr. Julio Cesar Sullivan IG % 0.3 % Normal 0.0-0.5 [facility] Comment on above: Performed By: #### C BC #### [facility] [address] [place] [address] Dr. Julio Cesar Sullivan LYMPH # 1.7 103/ul Normal 1.2-3.8 [facility] Comment on above: Performed By: #### C BC #### [facility] [address] [place] [address] Dr. Julio Cesar Sullivan Lymphocytes/100 WBC (Bld) 23.9 % Normal 20.5-60.0 [facility] Comment on above: Performed By: #### C BC #### [facility] [address] [place] [address] Dr. Julio Cesar Sullivan MANUAL DIFF REQ NO Normal [facility] Comment on above: Performed By: #### C BC #### [facility] [address] [place] [address] Dr. Julio Cesar Sullivan MCH (RBC) [Entitic mass] 31.7 pg Normal 26.7-34.0 [facility] Comment on above: Performed By: #### C BC #### [facility] [address] [place] [address] Dr. Julio Cesar Sullivan MCHC (RBC) [Mass/Vol] 33.2 g/dL Normal 29.9-35.2 [facility] Comment on above: Performed By: #### C BC #### [facility] [address] [place] [address] Dr. Julio Cesar Sullivan MCV (RBC) [Entitic vol] 95.5 fL Normal 81.0-99.0 [facility] Comment on above: Performed By: #### C BC #### [facility] [address] [place] [address] Dr. Julio Cesar Sullivan MONO # 0.7 103/ul Normal 0.3-0.8 [facility] Comment on above: Performed By: #### C BC #### [facility] [address] [address] [address] Julio Cesar Sullivan Monocytes/100 WBC (Bld) 9.6 % Normal 1.7-12.0 [facility] Comment on above: Performed By: #### C BC #### [facility] [address] [place] [address] Dr. Julio Cesar Sullivan NEUT # 4.5 103/ul Normal 1.4-6.5 [facility] Comment on above: Performed By: #### C BC #### [facility] [address] [place] [address] Dr. Julio Cesar Sullivan Neutrophils/100 WBC (Bld) 63.5 % Normal 43.0-75.0 [facility] Comment on above: Performed By: #### C BC #### [facility] [address] [place] [address] Dr. Julio Cesar Sullivan Platelet mean volume (Bld) [Entitic vol] 10.8 fL Normal 9.5-13.5 [facility] Comment on above: Performed By: #### C BC #### [facility] [address] [place] [address] Dr. Julio Cesar Sullivan PLT 244 103/ul Normal 150-450 [facility] Comment on above: Performed By: #### C BC #### [facility] [address] [place] [address] Dr. Julio Cesar Sullivan RBC 3.97 106/ul Critically low 4.20-5.40 [facility] Comment on above: Performed By: #### C BC #### [facility] [address] [place] [address] Dr. Julio Cesar Sullivan WBC 7.1 103/ul Normal 4.0-11.0 [facility] Comment on above: Performed By: #### C BC #### [facility] [address] [place] [address] Dr. Julio Cesar Sullivan PROF CHEM 8 (BAS METB)on Anion gap [Moles/Vol] 9.0 mmol/L Normal [facility] Comment on above: Performed By: #### H STROPN, BMP #### [facility] [address] [place] [address] Dr. Julio Cesar Sullivan Calcium [Mass/Vol] 9.3 mg/dL Normal 8.5-10.1 [facility] Comment on above: Performed By: #### H STROPN, BMP #### [facility] [address] [place] [address] Dr. Julio Cesar Sullivan Chloride [Moles/Vol] 102 mmol/L Normal 98-107 [facility] Comment on above: Performed By: #### H STROPN, BMP #### [facility] [address] [place] [address] Dr. Julio Cesar Sullivan CO2 [Moles/Vol] 30.4 mmol/L Normal 21.0-32.0 [facility] Comment on above: Performed By: #### H STROPN, BMP #### [facility] [address] [place] [address] Dr. Julio Cesar Sullivan Creatinine [Mass/Vol] 0.85 mg/dL Normal 0.55-1.02 [facility] Comment on above: Performed By: #### H STROPN, BMP #### [facility] [address] [place] [address] Dr. Julio Cesar Sullivan EGFR-AF TRISTANIAN >60 Normal >=[address] [facility] Comment on above: Performed By: #### H STROPN, BMP #### [facility] [address] [place] [address] Dr. Julio Cesar Sullivan EGFR-NON AF TRISTANIAN >60 Normal >=60 [facility] Comment on above: Performed By: #### H STROPN, BMP #### [facility] [address] [place] [address] Dr. Julio Cesar Sullivan Glucose [Mass/Vol] 126 mg/dL Critically high 74-106 [facility] Comment on above: Performed By: #### H BOB, BMP #### [facility] [address] [place] [address] Dr. Julio Cesar Sullivan Potassium [Moles/Vol] 4.4 mmol/L Normal 3.5-5.1 [facility] Comment on above: Performed By: #### H BOB, BMP #### [facility] [address] [place] [address] Dr. Julio Cesar Sullivan Sodium [Moles/Vol] 137 mmol/L Normal 136-145 [facility] Comment on above: Performed By: #### H BOB, BMP #### [facility] [address] [place] [address] Dr. Julio Cesar Sullivan Urea nitrogen [Mass/Vol] 16.0 mg/dL Normal 7.0-18.0 [facility] Comment on above: Performed By: #### H OBB, BMP #### [facility] [address] [place] [address] Dr. Julio Cesar Sullivan Urea nitrogen/Creatinine [Mass ratio] 18.8 mg/mg Normal [facility] Comment on above: Performed By: #### H BOB, BMP #### [facility] [address] [place] [address] Dr. Julio Cesar Sullivan TROPONIN, HIGH SENSITIVITYon 09-01-2022 HSTROP 5.1 pg/mL Normal 4.0-51.3 [facility] Comment on above: Result Comment: CUT- OFF POINTS HAVE BEEN ESTABLISHED BASED ON THE FOURTH UNIVERSAL DEFINITIONS OF MYOCARDIAL INFARCTION. THE UPPER REFERENCE LIMIT (URL) OF TROPONIN, DEFINED THE 99TH PERCENTILE OF cTnI DISTRIBUTION IN A REFERENCE POPULATION, HAS BEEN CONFIRMED THE DECISION THRESHOLD FOR MS DIAGNOSIS. Performed By: #### H BOB, BMP #### [facility] [address] [place] [address] Dr. Julio Cesar Sullivan XR CHEST 1 Von 09-01-2022 XR CHEST 1 V EXAMINATION: XR CHES T 1 V HISTORY: Dizziness COMPARISON: No relevant comparison available. TECHNIQUE: AP portable FINDINGS: LUNGS: No significant pulmonary parenchymal abnormalities. VASCULATURE: No increased pulmonary vasculature. PLEURA: No pneumothorax, effusion, or pleural thickening. CARDIAC: No cardiomegaly or cardiac silhouette abnormality. MEDIASTINUM: No visible mass or adenopathy. Aortic atherosclerosis BONES: No fracture or visible bone lesion. OTHER: Negative. IMPRESSION: No acute disease. Electronically authenticated by: SHARI FLETCHER Date: 2022-09-01 11:06 Normal [facility] MG MAMM SCREEN 3D CAROLYN CADon 08-25-2022 MG MAMM SCREEN 3D CAROLYN CAD Patient: DONNA OLIVARES Exam Date: 08/25/2022 : 1950 Gender:F Ordering : CHARLENE HENDERSON Admission #: [id number] Family : Order #: [id number] CLICK HERE TO VIEW EXAM RADIOLOGY REPORT PROCEDURE: MAMMOGRAM SCREENING 3D BILATERAL CAD COMPARISON: MAMMO CAROLYN SCREEN, 05/01/2019. MAMMO CAROLYN SCREEN, 05/09/2020. INDICATIONS: Screening mammography Calculator Name NCI Breast Cancer Risk Assessment Tool 5 Year Breast Cancer Risk 1.60% Lifetime Breast Cancer Risk 3.70% Personal Breast Cancer No Personal Ovarian Cancer No Treatments None Family Cancers Aunt-maternal with breast cancer at age 54. LOCATION: [facility] BREAST COMPOSITION: Scattered areas fibroglandular density. FINDINGS: DIAGNOSTIC CATEGORY 2--BENIGN FINDING: RIGHT BREAST: No significant suspicious finding. Scattered benign-appearing calcifications are present. Stable, chronic architectural distortion / scarring within the upper-outer quadrant. No significant change has occurred. LEFT BREAST: No significant suspicious finding. Scattered benign-appearing calcifications are present. No significant change has occurred. RECOMMENDATIONS: ROUTINE MAMMOGRAM AND CLINICAL EVALUATION IN 12 MONTHS. PLEASE NOTE: A NORMAL MAMMOGRAM DOES NOT EXCLUDE THE POSSIBILITY OF BREAST CANCER. A CLINICALLY SUSPICIOUS PALPABLE LUMP SHOULD BE BIOPSIED. Dictated by: Leona Solitario M.D. on 08/26/2022 at 10:00 Approved by: Leona Solitario M.D. on 08/26/2022 at 10:05 Normal [facility] Vital Signs Date Time Vital Sign Value Performing Clinician Facility 06-13-2024 11:170400 Body height 167.6 cm Francisco Chang DO Work Phone: [employer] 06-13-2024 11:17-0400 Body mass index (BMI) [Ratio] 19.37 kg/m2 Francisco [facility] 06-13-2024 11:17-0400 Body weight 54.43 kg Francisco Rasor [facility] 06-13-2024 11:17-0400 Diastolic blood pressure 62 mm[Hg] Francisco Ras[facility] 06-13-2024 11:17-0400 Heart rate 78 /min Francisco Rasor DO [facility] 06-13-2024 11:17-0400 SaO2% (BldA) [Mass fraction] 98 % Francisco Rasor [facility] 06-13-2024 11:17-0400 Systolic blood pressure 110 mm[Hg] Francisco Rasor DO Work Phone: [facility] [employer] 11-16-2023 11:19-0400 Body height 167.6 cm Francisco Rasor [facility] 11-16-2023 11:19-0400 Body mass index (BMI) [Ratio] 19.85 kg/m2 Francisco Rasor DO [facility] 11-16-2023 11:19-0400 Body temperature 97.59 [degF] Francisco Rasor [facility] 11-16-2023 11:19-0400 Body weight 55.79 kg Francisco Rasor DO [facility] 11-16-2023 11:19-0400 Diastolic blood pressure 68 mm[Hg] Francisco Rasor [facility] 11-16-2023 11:19-0400 Heart rate 106 /min Francisco Rasor DO Work Phone: [facility] 11-16-2023 11:19-0400 SaO2% (BldA) [Mass fraction] 99 % Francisco Chang DO Work Phone: [facility] 11-16-2023 11:19-0400 Systolic blood pressure 112 mm[Hg] Francisco Chang DO Work Phone: [facility] 05-09-2023 15:10-0400 Diastolic blood pressure 33 mm[Hg] No [facility] 05-09-2023 15:10-0400 Heart rate 73 /min No [facility] 05-09-2023 15:10-0400 Respiratory rate 14 /min No [facility] 05-09-2023 15:10-0400 SaO2% (BldA) [Mass fraction] 99 % No [facility] 05-09-2023 15:10-0400 Systolic blood pressure 100 mm[Hg] No [facility] 05-09-2023 13:30-0400 Body height 167.64 cm No [facility] 05-09-2023 13:30-0400 Body mass index (BMI) [Ratio] 19.5 kg/m2 No [facility] 05-09-2023 13:30-0400 Body temperature 98.4 [degF] No [facility] 05-09-2023 13:30-0400 Body weight 55.1 kg No [facility] 03-31-2023 10:45-0400 Body height 167.64 cm Ari Alexander II Other [employer] [facility] [employer] Other 01-14-2023 09:45-0400 Body height 167.64 cm Ari Alexander II Other [employer] Other 01-14-2023 09:45-0400 Body mass index (BMI) [Ratio] 21.63 kg/m2 Ari Beck II Other [employer] Other 01-14-2023 09:45-0400 Body weight 60.78 kg Ari Solares II Other [employer] Other 12-31-2022 07:53-0400 Body temperature 98.3 [degF] [facility] 12-31-2022 07:53-0400 Diastolic blood pressure 82 mm[Hg] [facility] 12-31-2022 07:53-0400 Heart rate 74 /min [facility] 12-31-2022 07:53-0400 Respiratory rate 12 /min [facility] 12-31-2022 07:53-0400 SaO2% (BldA) [Mass fraction] 94 % [facility] 12-31-2022 07:53-0400 Systolic blood pressure 128 mm[Hg] [facility] 12-31-2022 06:42-0400 Body weight 60.1 kg [facility] 12-28-2022 21:08-0400 Inhaled oxygen flow rate 8 L/min [facility] 12-28-2022 16:44-0400 Body height 167.64 cm [facility] 12-28-2022 16:44-0400 Body mass index (BMI) [Ratio] 19.5 kg/m2 [facility] Encounters Encounter Date Encounter Type Care Provider Facility Start: 06-21-2024 End: 06-22-2024 Telephone encounter Liz Figueredo [facility] Comment on above: Back Pain Start: 06-19-2024 End: 06-19-2024 Orders Only Francisco Prajapatior DO Work Phone: [facility] Comment on above: Hyponatremia (Primar y Dx); Essential (primary) hypertension; 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 Start: 06-13-2024 End: 06-13-2024 ambulatory FRANCISCO CHANG [facility] Start: 06-13-2024 End: 06-13-2024 Patient encounter procedure Francisco Prajapatior DO Work Phone: [facility] Comment on above: Annual physical exam (Primary Dx); Essential (primary) hypertension; 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; Gastro-esophageal reflux disease without esophagitis; Paroxysmal atrial fibrillation ([facility]); Nonrheumatic mitral valve regurgitation; Other cardiomyopathy ([facility]); Depression with anxiety; Primary insomnia; Osteopenia of multiple sites; Acute right-sided low back pain without sciatica; Microscopic hematuria Start: 06-13-2024 End: 06-13-2024 [facility] Start: 12-14-2023 End: 12-15-2023 [facility] Start: 12-08-2023 Refill Francisco E Rasor DO Work Phone: [facility] Comment on above: Essential hypertensi on, benign; Essential (primary) hypertension Start: 12-02-2023 Refill Alessandra yoon MD Work Phone: [facility] Comment on above: Med Refill Start: 11-22-2023 ambulatory [facility] Start: 11-19-2023 End: 11-20-2023 Orders Only Francisco E Rasor DO Work Phone: [facility] Comment on above: Abnormal mammogram o f left breast (Primary Dx) Start: 11-18-2023 Orders Only Francisco E Rasor DO Work Phone: [facility] Comment on above: Acute cystitis witho ut hematuria (Primary Dx) Start: 11-16-2023 End: 11-16-2023 ambulatory FRANCISCO E. 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; Viral URI with cough; Gastro-esophageal reflux disease without esophagitis; Paroxysmal atrial fibrillation ([facility]); Nonrheumatic mitral valve regurgitation; Depression with anxiety; Primary insomnia; Other cardiomyopathy ([facility]); Osteopenia of multiple sites; Encounter for screening mammogram for malignant neoplasm of breast; Leukocytes in urine Start: 11-16-2023 End: 11-16-2023 ambulatory [facility] Start: 11-16-2023 Encounter for genera l adult medical examination without abnormal findings [facility] Start: 10-26-2023 Refill Francisco E Rasor DO Work Phone: [facility] Comment on above: Essential hypertensi on, benign Start: 10-03-2023 Refill Francisco E Rasor DO Work Phone: [facility] Start: 05-26-2023 Office outpatient vi sit 25 minutes Ari Isabelle II [facility] Start: 05-26-2023 End: 05-26-2023 ambulatory Ari M Alexander II Facility:[facility] Start: 05-09-2023 End: 05-09-2023 Emergency department patient visit No PCP Facility:[facility] Start: 05-09-2023 End: 05-09-2023 Emergency department patient visit No PCP [facility] Start: 03-31-2023 (Post-Op) Post-Op Ari Alexander II [facility] Start: 03-31-2023 End: 03-31-2023 ambulatory Ari M Alexander II [facility] [employer] Other Start: 02-10-2023 (Post-Op) Post-Op Ari Alexander II [facility] Start: 02-10-2023 End: 02-10-2023 ambulatory Ari M Alexander II Facility:[facility] Start: 02-10-2023 End: 02-10-2023 ambulatory NON STAFF [facility] Work Phone: Start: 02-10-2023 End: 02-10-2023 Patient encounter procedure [facility] Start: 02-02-2023 Office outpatient vi sit 25 minutes Lucille Ramirez [facility] Start: 02-02-2023 End: 02-02-2023 ambulatory Lucille Ramirez Facility:[facility] Start: 02-02-2023 End: 02-02-2023 ambulatory NON STAFF [facility] Work Phone: Start: 02-02-2023 End: 02-02-2023 Patient encounter procedure [facility] Start: 01-14-2023 (Post-Op) Post-Op Ari Alexander II [facility] Start: 01-14-2023 End: 01-14-2023 ambulatory Ari Solares II Other [employer] Other Start: 12-28-2022 End: 12-31-2022 Evaluation and management of inpatient Ari Solares II Facility:[facility] Start: 12-27-2022 End: 12-31-2022 Evaluation and management of inpatient [facility] Work Phone: Start: 12-27-2022 End: 12-27-2022 ambulatory IJEOMA Alfonso Facility:[facility] Start: 11-19-2022 End: 11-20-[address] DOCTOR MAHAJAN Facility:[facility] Start: 11-05-2022 End: 11-06-[address] DOCTOR MAHAJAN Facility:[facility] Start: 09-01-2022 End: 09-01-2022 ambulatory SARAI ESPARZA Facility:[facility] Start: 08-25-2022 End: 08-26-[address] DOCTOR MAHAJAN Facility:[facility] Procedures Date Procedure Procedure Detail Performing Clinician Start: 06-17-2024 Comprehensive metabo lic panel Francisco Chang DO Work Phone: Start: 06-17-2024 Lipid panel Francisco Lujan R asor DO Work Phone: Start: 06-13-2024 Urnls dip stick/tabl et rgnt auto w/o microscopy Francisco E Alotre DO Work Phone: Start: 06-13-2024 Adult depression scr eening assessment Francisco Charlene DO Work Phone: Start: 11-16-2023 Urnls dip stick/tabl et rgnt auto w/o microscopy Francisco E Charlene DO Work Phone: Start: 11-16-2023 Adult depression scr eening assessment Francisco Chang DO Work Phone: Start: 05-09-2023 Blood count hematocrit No PCP Start: 03-05-2023 Adult depression scr eening assessment Francisco Chang DO Work Phone: Start: 02-10-2023 Plain X-ray of left hip Start: 02-02-2023 Dual energy X-ray absorptiometry Start: 12-28-2022 End: 12-28-2022 Plain X-ray of left hip Start: 12-28-2022 Partial hip replacem ent by prosthesis Start: 12-28-2022 Antibody screen Ari Solares II Comment on above: Order Comment: Comme nt On Hold for OR Transfuse now? N Result Comment: PERF ORMED BY: [facility] [address] [address] PATHOLOGIST IT MANAGER JENNIFER ROMEO M.D. Start: 12-28-2022 Plain X-ray of left femur Plan of Treatment Date Care Activity Detail Author Start: 06-13-2025 Adult BMI Screening Adult BMI Screen ing [facility] [employer] [facility] Start: 06-13-2025 Depression Screening Depression Scre ening [facility] Start: 06-13-2025 Fall Risk Screening Fall Risk Screen ing [facility] [employer] [facility] Start: 06-13-2025 Medicare Annual Well ness Visit Medicare Annual Wellness Visit [facility] Start: 06-13-2025 Tobacco Screening Tobacco Screening [facility] Start: 11-18-2024 [facility] Start: 11-15-2024 Adult BMI Screening [facility] Start: 11-15-2024 Depression Screening Depression Scre ening [facility] Start: 11-15-2024 Fall Risk Screening Fall Risk Screen ing [facility] [employer] [facility] Start: 11-15-2024 Tobacco Screening Tobacco Screening [facility] [employer] [facility] Start: 07-20-2024 End: 06-19-2025 Electrolyte panel Electrolyte panel Lab Routine Hyponatremia Expected: 07/20/2024 (Approximate), Expires: 06/19/2025 [employer] Work Phone: Comment on above: Expected: 07/20/2024 (Approximate), Expires: 06/19/2025 Start: 05-26-2024 Adult BMI Screening Adult BMI Screen ing [facility] Start: 05-26-2024 Tobacco Screening Tobacco Screening [facility] Start: 05-22-2024 End: 05-22-2024 Patient encounter procedure 05/22/2024 11:30 AM EDT Office Visit [facility] [address] [place] [id number] Francisco Chang DO [address] [place] [address] [facility] [facility] Start: 05-07-2024 COVID-19 Vaccine () COVID-19 Vaccine () [facility] Start: 05-07-2024 Influenza vaccination Influenza Vacc ine [facility] Start: 03-05-2024 Depression Screening Depression Scre ening [facility] Start: 03-05-2024 Fall Risk Screening Fall Risk Screen ing [facility] Start: 03-05-2024 Medicare Annual Well ness Visit Medicare Annual Wellness Visit [facility] Start: 12-14-2023 End: 12-14-2023 Patient encounter procedure [facility] - Mammogram DEXA Start: 11-25-2023 End: 11-17-2024 Bacteria identified in Urine by Culture Urine culture (clean catch) Microbiology Routine Acute cystitis without hematuria Expected: 11/25/2023 (Approximate), Expires: 11/17/2024 [employer] Work Phone: Comment on above: Expected: 11/25/2023 (Approximate), Expires: 11/17/2024 Start: 11-19-2023 End: 11-18-2024 MG Breast duct - left Views W contrast intra duct Mammography diagnostic unilateral left with CAD Imaging Routine Abnormal mammogram of left breast Expected: 11/19/2023, Expires: 11/18/2024 [employer] Work Phone: Comment on above: Expected: 11/19/2023 , Expires: 11/18/2024 Start: 11-19-2023 End: 11-18-2024 US Breast - left limited Ultrasound breast limited left Imaging Routine Abnormal mammogram of left breast Expected: 11/19/2023, Expires: 11/18/2024 [facility] Comment on above: Expected: 11/19/2023 , Expires: 11/18/2024 Start: 11-19-2023 End: 11-19-2023 Patient encounter procedure 11/19/2023 10:30 AM EDT Appointment [facility] - Mammogram DEXA [address] [place] [address] [facility] - Mammogram DEXA Start: 11-16-2023 End: 11-15-2024 DBT Breast - bilateral screening Mammography screening bilateral with CAD Imaging Routine Encounter for screening mammogram for malignant neoplasm of breast Expected: 11/16/2023, Expires: 11/15/2024 [facility] Comment on above: Expected: 11/16/2023 , Expires: 11/15/2024 Start: 11-16-2023 End: 11-16-2023 Patient encounter procedure 11/16/2023 11:30 AM EDT Office Visit [facility] [address] [place] [id number] Francisco Chang DO [address] [place] [address] [facility] Start: 05-09-2023 12 lead ECG CA EKG 12 lead [facility] Start: 05-09-2023 EKG 12 channel panel [facility] Start: 05-09-2023 Plain chest X-ray XR chest 1V portab le [facility] Start: 05-09-2023 XR Chest Single view [facility] Start: 05-09-2023 [facility] Start: 05-07-2023 COVID-19 Vaccine () COVID-19 Vaccine () [facility] [employer] [facility] Start: 05-07-2023 Influenza vaccination Influenza Vacc ine [facility] Start: 12-30-2022 [facility] Start: 12-28-2022 Administration of prophylactic treatment [facility] Start: 12-28-2022 Referral to rehabili tation physician [facility] Start: 12-28-2022 Hospital admission [facility] Start: 12-28-2022 [facility] Start: 12-28-2022 Consultation [facility] Start: 12-27-2022 Hospital admission [facility] Start: 12-27-2022 [facility] Start: 12-27-2022 Replacement of Left Hip Joint with Ceramic on Polyethylene Synthetic Substitute, Open Approach Replacement of Left Hip Joint with Ceramic on Polyethylene Synthetic Substitute, Open Approach [facility] Start: 09-06-2017 DTaP,Tdap and Td Vac cines (2 - Td or Tdap) DTaP,Tdap and Td Vaccines (2 - Td or Tdap) [facility] Start: 1998 Administration of varicella zoster vaccine Zoster (Shingles) Vaccine (1 of 2) [facility] End: 11-15-2024 Bacteria identified in Urine by Culture Urine culture (clean catch) Microbiology Routine Leukocytes in urine 1 Occurrences starting 11/16/2023 until 11/15/2024 [facility] Comment on above: 1 Occurrences starti ng 11/16/2023 until 11/15/2024 Blood chemistry [facility] End: 11-15-2024 CBC W Auto Differential panel - Blood CBC auto differential Lab Routine Essential (primary) hypertension 1 Occurrences starting 11/16/2023 until 11/15/2024 [employer] Work Phone: Comment on above: 1 Occurrences starti ng 11/16/2023 until 11/15/2024 End: 06-13-2025 CBC W Auto Differential panel - Blood CBC auto differential Lab Routine Essential (primary) hypertension 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 1 Occurrences starting 06/13/2024 until 06/13/2025 [employer] Comment on above: 1 Occurrences starti ng 06/13/2024 until 06/13/2025 End: 11-15-2024 Comprehensive metabolic 2000 panel - Serum or Plasma Comprehensive metabolic panel Lab Routine Essential (primary) hypertension Paroxysmal atrial fibrillation (CMS-HCC) 1 Occurrences starting 11/16/2023 until 11/15/2024 [email or web address] Comment on above: 1 Occurrences starti ng 11/16/2023 until 11/15/2024 End: 06-13-2025 Comprehensive metabolic 2000 panel - Serum or Plasma Comprehensive metabolic panel Lab Routine Essential (primary) hypertension 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 1 Occurrences starting 06/13/2024 until 06/13/2025 [employer] Comment on above: 1 Occurrences starti ng 06/13/2024 until 06/13/2025 End: 11-15-2024 Lipid 1996 panel - Serum or Plasma Lipid profile Lab Routine Essential (primary) hypertension Paroxysmal atrial fibrillation (CMS-HCC) 1 Occurrences starting 11/16/2023 until 11/15/2024 [facility] Comment on above: 1 Occurrences starti ng 11/16/2023 until 11/15/2024 End: 06-13-2025 Lipid 1996 panel - Serum or Plasma Lipid profile Lab Routine Essential (primary) hypertension 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 1 Occurrences starting 06/13/2024 until 06/13/2025 [employer] Comment on above: 1 Occurrences starti ng 06/13/2024 until 06/13/2025 End: 06-13-2025 Microscopic, urine Microscopic, urine Lab Routine Microscopic hematuria 1 Occurrences starting 06/13/2024 until 06/13/2025 [facility] Comment on above: 1 Occurrences starti ng 06/13/2024 until 06/13/2025 Patient Education Dehydration (ED) [facility] Work Phone: Patient referral [facility] Work Phone: End: 11-15-2024 Thyrotropin [Units/volume] in Serum or Plasma TSH Lab Routine 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 1 Occurrences starting 11/16/2023 until 11/15/2024 [facility] [employer] Comment on above: 1 Occurrences starti ng 11/16/2023 until 11/15/2024 End: 06-13-2025 Thyrotropin [Units/volume] in Serum or Plasma TSH Lab Routine Essential (primary) hypertension 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 1 Occurrences starting 06/13/2024 until 06/13/2025 [email or web address] Comment on above: 1 Occurrences starti ng 06/13/2024 until 06/13/2025 End: 11-15-2024 Thyroxine (T4) free [Mass/volume] in Serum or Plasma T4, free Lab Routine 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 1 Occurrences starting 11/16/2023 until 11/15/2024 [email or web address] Comment on above: 1 Occurrences starti ng 11/16/2023 until 11/15/2024 End: 06-13-2025 Thyroxine (T4) free [Mass/volume] in Serum or Plasma T4, free Lab Routine Essential (primary) hypertension 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 1 Occurrences starting 06/13/2024 until 06/13/2025 [employer] Comment on above: 1 Occurrences starti ng 06/13/2024 until 06/13/2025 End: 11-15-2024 Triiodothyronine (T3) Free [Mass/volume] in Serum or Plasma T3, free Lab Routine 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 1 Occurrences starting 11/16/2023 until 11/15/2024 [facility] Comment on above: 1 Occurrences starti ng 11/16/2023 until 11/15/2024 End: 06-13-2025 Triiodothyronine (T3) Free [Mass/volume] in Serum or Plasma T3, free Lab Routine Essential (primary) hypertension 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 2021 Medicare HMO AETNA MEDICARE [id number] 2014 Medicare [id number] 1959 Medicare [id number] 1950 Unknown [id number] 1948 Unknown [id number] 2.16.840.1.678825.3.579.2.59 1948 Unknown [id number] 2.16.840.1.310704.3.579.2.59 1948 Unknown [id number] 2.16.840.1.037281.3.579.2.593 1948 Unknown [id number] 2.16.840.1.973727.3.579.2.59 1948 Unknown [id number] 2.16.840.1.657013.3.579.2.1286 1948 Unknown [id number] 2.16.840.1.644907.3.579.2.1286 1948 Unknown [id number] 2.16.840.1.374719.3.579.2.1286 1948 Unknown [id number] 2.16.840.1.761415.3.579.2.128 1948 Unknown [id number] 2.16.840.1.729739.3.579.2.1286 1948 Unknown [id number] 2.16.840.1.287957.3.579.2.128 1948 Unknown [id number] 2.16.840.1.241495.3.579.2.1286 1948 Unknown [id number] 2.16.840.1.552945.3.579.2.1286 Unknown [id number] 2.16.840.1.259038.3.579.2.531 Unknown [id number] 2.16.840.1.805878.3.579.2.531 Unknown [id number] 2.16.840.1.638282.3.579.2.531 Unknown [id number] 2.16.840.1.869028.3.579.2.531 Unknown [id number] 2.16.840.1.026925.3.579.2.531 Social History Date Type Detail Facility Start[facility]28[facility]2022 [facility] Start: 1950 Sex Assigned At Female [facility] Start: 10-16-2020 End: 05-26-2023 Sex Assigned At [facility] Start: 03-04-2023 End: 05-09-2023 Tobacco smoking status NHIS Ex-smoker (finding) [facility] Start: 05-09-2023 With Spouse/Significant Other [facility] Start: 05-09-2023 Never Used [facility] Start: 05-09-2023 4 [facility] Start: 05-09-2023 Denies Use [facility] Start: 05-09-2023 [place] [facility] History of tobacco use Current smoker [facility] History of tobacco use [facility] Start: 03-04-2023 Tobacco use and exposure Smokeless tobacco non-user [facility] Start: 05-26-2023 End: 06-13-2024 Alcohol intake Current drinker of alcohol (finding) [facility] Start: 10-16-2020 End: 05-26-2023 Alcohol intake [facility] Adolescent depressio n screening assessment 0 [facility] Start: 03-04-2023 Tobacco Comment How long has i t been since you last smoked? > 10+ years [facility] Start: 03-02-2022 Alcohol Comment occ [facility] [employer] [facility] Start: 1950 Sex Assigned At Not on file P [facility] Start: 04-09-2015 Sex Female (finding) [facility] Medical Equipment Procedure Code Equipment Code Equipment Origin al Text Equipment Identifier Dates Arthroplasty, hip, bipolar Acetabular shell [id number] FDA Start: 12-28-2022 Arthroplasty, hip, bipolar Orthopaedic bone screw, non-bioabsorbable, sterile ()[id number] FDA Start: 12-28-2022 Arthroplasty, hip, bipolar Orthopaedic bone screw, non-bioabsorbable, sterile [id number] FDA Start: 12-28-2022 Arthroplasty, hip, bipolar Ceramic femoral head prosthesis ()[id number] FDA Start: 12-28-2022 Arthroplasty, hip, bipolar Coated hip femur prosthesis, modular ()[id number] FDA Start: 12-28-2022 Arthroplasty, hip, bipolar Non-constrained polyethylene acetabular liner ()[id number] FDA Start: 12-28-2022 Goals Date Patient Goal Desired Activity /State Functional Status Date Assessment Result Facility 12-31-2022 Functional status Patient at Baseline [facility] Work Phone: Mental Status Date Assessment Result Facility 12-31-2022 Cognitive function Cognitive Sta tus Patient at Baseline [facility] Work Phone: Clinical Notes 12-28-2022 to 06-21-2024 Telephone Encounter - Liz Figueredo CMA - 06/21/2024 10:23 AM EDTTelephone Encounter - Francisco Chang DO - 06/21/2024 10:23 AM EDTTelephone Encounter - Francisco Chang DO - 06/21/2024 10:23 AM EDT Note Date & Type Note Facility 06-21-2024 Miscellaneous Notes Formattin g of this note might be different from the original. Patient calling states that when she was on oral steroid for her back an she was feeling good while on it. Now that she is finished her pain is back. Patient wants to know what the next step is? She does not want to get shots in her back. Please advise If she has not done PT in recent past for her back, that would be an option Patients notified and would like order for PT mailed to their home ordered Emailed the order to patients at [email or web address] documented in this encounter [email or web address] 06-21-2024 Telephone encount er Note Patient calling states that when she was on oral steroid for her back an she was feeling good while on it. Now that she is finished her pain is back. Patient wants to know what the next step is? She does not want to get shots in her back. Please advise [facility] 06-21-2024 Telephone encount er Note If she has not done PT in recent past for her back, that would be an option [facility] 06-21-2024 Telephone encount er Note Patients notified and would like order for PT mailed to their home [facility] 06-21-2024 Telephone encount er Note ordered [facility] 06-21-2024 Telephone encount er Note Emailed the order to patients at [email or web address] [facility] 06-13-2024 History of Presen t illness Narrative Subjective SUBJECTIVE: Patient ID: Donna Olivares is a 74 y.o. female who presents for a Medicare Annual Wellness exam, review labs, recheck chronic medical conditions HYPERTENSION -patient is taking medication as prescribed, tolerating well; blood pressure is under good control; patient denies headache, chest pain, shortness of breath, dyspnea on exertion or edema HYPOTHYROIDISM - patient is taking medication as prescribed, tolerating well; thyroid labs look good, and patient is symptomatically euthyroid at this time GERD - patient is taking medication as prescribed, tolerating well; denies dysphagia, melena or frequent breakthrough reflux ATRIAL FIBRILLATION, MITRAL REGURGITATION, CARDIOMYOPATHY - patient currently takes Xarelto for anticoagulation, and carvedilol for rate control. She denies any recent palpitations, chest pain, shortness of breath or syncopal episodes. She does follow with cardiology for this DEPRESSION AND ANXIETY - patient taking medication as prescribed, tolerating well; feels symptoms are overall well controlled; denies recent suicidal ideation or panic attacks INSOMNIA - patient does take amitriptyline at bedtime to help with insomnia which does seem to help. She denies any significant side effects from this OSTEOPENIA - patient not currently on medication for osteopenia, is due for DEXA scan but refuses for now. Does have a history of hip fracture but despite this she does not wish to get a DEXA scan because she states she would not take the medication anyway LOW BACK PAIN - patient states for about the last 2 weeks she has been suffering right lower back pain. She denies any sciatic symptoms. This started after she had been in a hard chair for prolonged period of time 1 day, and then started having right-sided low back pain afterwards. She has taken Motrin consistently over the last 2 weeks to help with this but has not really helped. She denies any other trauma to the back. CURRENT MEDICATIONS & HISTORY Current Outpatient Medications Medication Sig Dispense Refill amitriptyline (ELAVIL) 10 mg tablet take 3 tablets by mouth at bedtime 270 tablet 3 carvediloL (COREG) 25 mg tablet TAKE 1 TABLET BY MOUTH TWICE A DAY WITH FOOD FOR 90 DAYS 180 tablet 3 cetirizine (ZyrTEC) 10 mg tablet Take 1 tablet (10 mg total) by mouth as needed. ELIQUIS 5 mg tablet take 1 tablet by mouth twice a day 60 tablet 6 fluticasone (FLONASE) 50 mcg/actuation nasal spray 2 sprays into each nostril daily. 16 g 11 levothyroxine (SYNTHROID, LEVOTHROID) 75 MCG tablet TAKE 1 TABLET BY MOUTH EVERY DAY 90 tablet 3 lisinopriL (PRINIVIL,ZESTRIL) 20 mg tablet take 1 tablet by mouth twice a day 180 tablet 3 multivitamin (THERAGRAN) tablet Take 1 tablet by mouth in the morning. omeprazole (PriLOSEC) 40 mg capsule take 1 capsule by mouth twice a day 180 capsule 3 sertraline (ZOLOFT) 50 mg tablet daily. 0 spironolactone (ALDACTONE) 25 mg tablet TAKE 1 TABLET (25 MG TOTAL) BY MOUTH IN THE MORNING 90 tablet 2 mupirocin (BACTROBAN) 2 % ointment 2 (two) times a day. (Patient not taking: Reported on 06/13/2024) predniSONE (DELTASONE) 20 mg tablet Take 3 tablets (60 mg total) by mouth daily for 2 days, THEN 2 tablets (40 mg total) daily for 2 days, THEN 1 tablet (20 mg total) daily for 2 days. 12 tablet 0 No current facility-administered medications for this visit. Past Medical History: Diagnosis Date Anxiety Carpal tunnel syndrome Chronic rhinitis seasonal allergies Depression Deviated nasal septum Disease of thyroid gland Diverticulitis Fractures bilat arms as child GERD (gastroesophageal reflux disease) [place] fracture [place] Hypercholesterolemia Hypertension Hypertrophy of both inferior nasal turbinates Mitral valve regurgitation Nasal congestion Osteopenia Paroxysmal atrial fibrillation [place] Polyp, sigmoid colon Varicose veins of both lower extremities Past Surgical History: Procedure Laterality Date APPENDECTOMY ovarian cystectomy BREAST BIOPSY Left 2014 stereotactic CHOLECYSTECTOMY ENDOMETRIAL ABLATION 04/06/2006 NOVASURE LAPAROSCOPY DIAGNOSTIC/BSO Bilateral 07/07/2016 Performed by Sybil Ascencio MD at [facility] OOPHORECTOMY 2019 OSTECTOMY CALCANEUS FOR SPUR TOTAL HIP ARTHROPLASTY Left 12/28/2022 TUBAL LIGATION Family History Problem Relation Age of Onset Heart disease Mother Hypertension Mother Heart disease Father Hypertension Father Hypertension Sister Gestational diabetes Maternal Grandfather Breast cancer Maternal Aunt Heart disease Brother Cancer Maternal Uncle Anesthesia problems Neg Hx AWV FLOWSHEET : Lifestyle Assessment Do you smoke or use smokeless tobacco?: No If you smoke or use smokeless tobacco, are you ready to quit?: NA Are you exposed to secondhand smoke?: No On average, how many drinks of alcohol do you consume in a week?: 2 - 5 Do you exercise for 30 or more minutes on average at least 3 days a week?: (!) Never Do you have any tooth, denture, or oral problems?: No Do you snore or has anyone told you that you snore?: No Do you try to eat a balanced diet?: (!) No Do you experience leakage of urine, also known as urinary incontinence?: Never Do you have difficulty performing any of these activities? (check all that apply): None Do you have difficulty performing any of these activities? (check all that apply): None Fall Risk Fall Risk Assessment Completed?: Yes Have you fallen in the past year?: No Are you worried about falling?: No Do you feel unsteady when standing or walking?: No Risk Stratification: Low Risk Depression Screening Little interest or pleasure in doing things: Not at all Feeling down, depressed, or hopeless: Not at all Trouble falling or staying asleep, or sleeping too much: Not at all Feeling tired or having little energy: Not at all Poor appetite or overeating: Not at all Feeling bad about yourself - or that you are a failure or have let yourself or your family down: Not at all Trouble concentrating on things, such as reading the newspaper or watching television: Not at all Moving or speaking so slowly that other people could have noticed. Or the opposite - being so fidgety or restless that you have been moving around a lot more than usual: Not at all Thoughts that you would be better off , or of hurting yourself in some way: Not at all PEG Scale What number best describes your pain on average in the past week?: 6 What number best describes how, during the past week, pain has interfered with your enjoyment of life?: 3 What number best describes how, during the past week, pain has interfered with your general activity?: 3 PEG Pain Total Score: 4 Safety Assessment Do you have throw rugs on the floor?: No Do you feel safe at your home?: Yes Do you feel unsteady when walking?: No Are you having difficulty with driving?: No Do you have trouble seeing?: No What assistive device do you use? (check all that apply): None Hearing Assessment Do you strain or struggle to hear/understand conversations?: No Do you have trouble hearing the television or radio when others do not?: No Does your family ever voice concerns about your hearing?: No Do you wear hearing aid/s?: No Personal Health During the past 4 weeks, how would you rate your overall health?: Very Good Do you understand how to take all of your medications?: Yes How confident are you that you can control and manage most of your health problems?: Very confident In the past 12 months, how many times have you been hospitalized?: None End of Life Planning Do you have a living will?: Yes Do you have a durable power of commercial real estate attorney?: Yes Cognitive Screening Do you have trouble remembering or recalling facts or events?: No Do family members or caregivers report that you have difficulty remembering things?: No Clock Drawing Test: Normal REVIEW OF SYSTEMS: Review of Systems Constitutional: Negative for chills and fever. HENT: Negative for ear pain and sore throat. Eyes: Negative for pain and visual disturbance. Respiratory: Negative for cough and shortness of breath. Cardiovascular: Negative for chest pain and palpitations. Gastrointestinal: Negative for abdominal pain and vomiting. Genitourinary: Negative for dysuria and hematuria. Musculoskeletal: Positive for back pain. Negative for arthralgias. Skin: Negative for color change and rash. Neurological: Negative for seizures and syncope. All other systems reviewed and are negative. Objective PHYSICAL EXAMINATION: Vitals: 06/13/24 1117 BP: 110/62 Pulse: 78 SpO2: 98% Weight: 54.4 kg (120 lb) Height: 167.6 cm (5' 6 ) Physical Exam Constitutional: General: She is not in acute distress. HENT: Right Ear: Tympanic membrane, ear canal and external ear normal. Left Ear: Tympanic membrane, ear canal and external ear normal. Nose: Nose normal. Mouth/Throat: Mouth: Mucous membranes are moist. Pharynx: Oropharynx is clear. Eyes: Conjunctiva/sclera: Conjunctivae normal. Cardiovascular: Rate and Rhythm: Normal rate and regular rhythm. Heart sounds: No murmur heard. Pulmonary: Effort: Pulmonary effort is normal. Breath sounds: Normal breath sounds. Abdominal: General: Bowel sounds are normal. Palpations: Abdomen is soft. There is no mass. Tenderness: There is no abdominal tenderness. Musculoskeletal: Right lower leg: No edema. Left lower leg: No edema. Comments: Mild tenderness right lower lumbar paravertebral musculature Lymphadenopathy: Cervical: No cervical adenopathy. Skin: General: Skin is warm and dry. Neurological: General: No focal deficit present. Mental Status: She is alert and oriented to person, place, and time. Psychiatric: Mood and Affect: Mood normal. Behavior: Behavior normal. Assessment/Plan ASSESSMENT/PLAN Donna was seen today for medicare wellness. 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 - T3, free; Future - T4, free; Future - CBC auto differential; Future - Comprehensive metabolic panel; Future - TSH; Future - Lipid profile; Future Gastro-esophageal reflux disease without esophagitis Paroxysmal atrial fibrillation (CMS-HCC) Nonrheumatic mitral valve regurgitation Other cardiomyopathy (CMS-HCC) Depression with anxiety Primary insomnia Osteopenia of multiple sites Acute right-sided low back pain without sciatica - predniSONE (DELTASONE) 20 mg tablet; Take 3 tablets (60 mg total) by mouth daily for 2 days, THEN 2 tablets (40 mg total) daily for 2 days, THEN 1 tablet (20 mg total) daily for 2 days. Microscopic hematuria - Microscopic, urine; Future Continue current regimen for hypertension as she is tolerating well and her blood pressure is under good control. Continue current medication regimen for hypothyroidism, will get labs to check thyroid function at her earliest convenience as ordered Continue omeprazole for reflux as she is tolerating well and reflux symptoms are under good control. Continue current treatment regimen for paroxysmal atrial fibrillation and monitoring of her mitral valve regurgitation and cardiomyopathy with her milling machinist as before. Continue sertraline for depression with anxiety symptoms, tolerating this well and it is helping control her symptoms. Continue amitriptyline for insomnia as she is, as this is helping her fall and stay asleep and she tolerates the medication without significant side effects Discussed getting a DEXA scan for history of osteopenia and hip fracture. Patient refuses as she states she would not take medication regardless. Will continue to try to do weight-bearing exercise, encouraged calcium and vitamin-D supplementation as well. In regards to acute low back pain, will try patient on a short course of oral prednisone. If this is not helping by the time she gets done with it, will consider x-ray lumbar spine and further evaluation and treatment as necessary. Recommended she not take Motrin or any other anti-inflammatories while on the prednisone Last mammogram 11/19/2023. Patient refuses DEXA scan as noted above, refuses colon cancer screening, refuses age-appropriate vaccinations at this time. Would have patient follow up with us in 1 year for repeat Medicare wellness, follow up before then as needed. No follow-ups on file. documented in this encounter [facility] 06-13-2024 Miscellaneous Notes Addended by: FRANCISCO CHANG on: 06/13/2024 01:00 PM Modules accepted: Orders documented in this encounter [facility] 06-13-2024 Note Addended by: FRANCISCO CHANG on: 06/13/2024 01:00 PM Modules accepted: Orders [facility] 11-16-2023 History of Presen t illness Narrative Subjective Patient ID: Donna Olivares is a 73 y.o. female. HPI: Chief Complaint Patient presents with Follow-up Patient is here for 6 month recheck chronic medical conditions HYPERTENSION -patient is taking medication as prescribed, tolerating well; blood pressure is under good control; patient denies headache, chest pain, shortness of breath, dyspnea on exertion or edema HYPOTHYROIDISM - patient is taking medication as prescribed, tolerating well; thyroid labs look good, and patient is symptomatically euthyroid at this time GERD - patient is taking medication as prescribed, tolerating well; denies dysphagia, melena or frequent breakthrough reflux ATRIAL FIBRILLATION - patient currently takes Xarelto for anticoagulation, and carvedilol for rate control. She denies any recent palpitations, chest pain, shortness of breath or syncopal episodes. She does follow with cardiology for this DEPRESSION AND ANXIETY - patient taking medication as prescribed, tolerating well; feels symptoms are overall well controlled; denies recent suicidal ideation or panic attacks INSOMNIA - patient does take amitriptyline at bedtime to help with insomnia which does seem to help. She denies any significant side effects from this OSTEOPENIA - patient not currently on medication for osteopenia, is due for DEXA scan but refuses for now. COUGH/CONGESTION - her have both had a cough and congestion for about a week or so. She is having postnasal drainage with this as well. She denies any fevers or chills or shortness a breath. She does state that she thinks it is getting better Past Medical History: Diagnosis Date Anxiety Carpal tunnel syndrome Chronic rhinitis seasonal allergies Depression Deviated nasal septum Disease of thyroid gland Diverticulitis Fractures bilat arms as child GERD (gastroesophageal reflux disease) Hip fracture requiring operative repair ([facility]) Hypercholesterolemia Hypertension Hypertrophy of both inferior nasal turbinates Mitral valve regurgitation Nasal congestion Osteopenia Paroxysmal atrial fibrillation (CMS-HCC) Polyp, sigmoid colon Varicose veins of both lower extremities Past Surgical History: Procedure Laterality Date APPENDECTOMY ovarian cystectomy BREAST LUMPECTOMY 07/07/2015 benign bilat CHOLECYSTECTOMY ENDOMETRIAL ABLATION 04/06/2006 NOVASURE LAPAROSCOPY DIAGNOSTIC/BSO Bilateral 07/07/2016 Performed by Sybil Ascencio MD at [facility] OOPHORECTOMY 2019 OSTECTOMY CALCANEUS FOR SPUR TOTAL HIP ARTHROPLASTY Left 12/28/2022 TUBAL LIGATION Current Outpatient Medications Medication Sig Dispense Refill amitriptyline (ELAVIL) 10 mg tablet 3 tablets (30 mg total) in the evening. 0 carvediloL (COREG) 25 mg tablet TAKE 1 TABLET BY MOUTH TWICE A DAY WITH FOOD FOR 90 DAYS 180 tablet 3 cetirizine (ZyrTEC) 10 mg tablet Take 1 tablet (10 mg total) by mouth as needed. ELIQUIS 5 mg tablet TAKE 1 TABLET BY MOUTH TWICE A DAY 90 tablet 3 fluticasone (FLONASE) 50 mcg/actuation nasal spray 2 sprays into each nostril daily. 16 g 11 levothyroxine (SYNTHROID, LEVOTHROID) 75 MCG tablet TAKE 1 TABLET BY MOUTH EVERY DAY 90 tablet 3 lisinopriL (PRINIVIL,ZESTRIL) 20 mg tablet Take 1 tablet (20 mg total) by mouth in the morning and 1 tablet (20 mg total) before bedtime. 180 tablet 2 multivitamin (THERAGRAN) tablet Take 1 tablet by mouth in the morning. mupirocin (BACTROBAN) 2 % ointment 2 (two) times a day. omeprazole (PriLOSEC) 40 mg capsule Take 1 capsule (40 mg total) by mouth in the morning and 1 capsule (40 mg total) before bedtime. 0 sertraline (ZOLOFT) 50 mg tablet daily. 0 spironolactone (ALDACTONE) 25 mg tablet Take 0.5 tablets (12.5 mg total) by mouth in the morning. 90 tablet 3 No current facility-administered medications for this visit. Family History Problem Relation Age of Onset Heart disease Mother Hypertension Mother Heart disease Father Hypertension Father Hypertension Sister Heart disease Brother Cancer Maternal Uncle Gestational diabetes Maternal Grandfather Anesthesia problems Neg Hx Social History Socioeconomic History Marital status: Spouse name: Not on file Number of children: Not on file Years of education: Not on file Highest education level: Not on file Occupational History Not on file Tobacco Use Smoking status: Former Types: Cigarettes Smokeless tobacco: Never Tobacco comments: How long has it been since you last smoked? > 10+ years Vaping Use Vaping Use: Never used Substance and Sexual Activity Alcohol use: Yes Alcohol/week: 4.0 standard drinks of alcohol Types: 4 Glasses of wine per week Comment: occ Drug use: No Sexual activity: Not on file Other Topics Concern Coffee Yes Tea No Carbonated Beverages No Chocolate No Caffeine Use Yes Social History Narrative Not on file Social Determinants of Health Financial Resource Strain: Not on file Food Insecurity: No Food Insecurity (11/16/2023) Hunger Screening Food Insecurity - Worry: Never True Food Insecurity - Inability: Never True Transportation Needs: Not on file Physical Activity: Not on file Stress: Not on file Social Connections: Not on file Interpersonal Safety: Not on file Housing Instability: Not on file Allergies Allergen Reactions Amlodipine Other (See Comments) Codeine Rash Other reaction(s): Intolerance-unknown Metoprolol GI Disturbance Amoxicillin-Pot Clavulanate Other reaction(s): Intolerance-unknown Hydrochlorothiazide Other reaction(s): Intolerance-unknown Thiazides hctz Venlafaxine Review of Systems: See HPI Review of Systems Objective Physical Exam: Vitals: 11/16/23 1119 BP: 112/68 BP Site: Right Arm BP Postition: Sitting BP CUFF SIZE: M (9-13 inches) Pulse: 106 Temp: 36.4 C (97.6 F) SpO2: 99% Weight: 55.8 kg (123 lb) Height: 167.6 cm (5' 6 ) Physical Exam Constitutional: Appearance: She is well-developed. HENT: Head: Normocephalic and atraumatic. Right Ear: Tympanic membrane, ear canal and external ear normal. Left Ear: Tympanic membrane, ear canal and external ear normal. Nose: Nose normal. Mouth/Throat: Mouth: Mucous membranes are moist. Pharynx: Oropharynx is clear. Eyes: Conjunctiva/sclera: Conjunctivae normal. Cardiovascular: Rate and Rhythm: Regular rhythm. Tachycardia present. Heart sounds: Normal heart sounds. No murmur heard. Pulmonary: Effort: Pulmonary effort is normal. No respiratory distress. Breath sounds: Normal breath sounds. No wheezing. Abdominal: General: Bowel sounds are normal. Palpations: Abdomen is soft. Tenderness: There is no abdominal tenderness. Musculoskeletal: Cervical back: Neck supple. Right lower leg: No edema. Left lower leg: No edema. Lymphadenopathy: Cervical: No cervical adenopathy. Skin: General: Skin is warm and dry. Findings: No rash. Neurological: Mental Status: She is alert and oriented to person, place, and time. Cranial Nerves: No cranial nerve deficit. Psychiatric: Mood and Affect: Mood normal. Behavior: Behavior normal. Results for orders placed or performed in visit on 11/16/23 POCT Urinalysis Auto, W/O Microscopy Result Value Ref Range External Poct Urine Color yellow External Poct Urine Character clear External Poct Urine Appearance clear External Poct Urine Glucose Negative External Poct Urine Bilirubin Negative External Poct Urine Ketones Negative External Poct Urine Specific Herrick 1.015 External Poct Urine Blood Negative External Poct Urine Ph 7.0 External Poct Urine Protein Negative External Poct Urine Urobilinogen 0.2 External Poct Urine Nitrite Negative External Poct Urine Leukocyte Esterase Trace Assessment/Plan Differential diagnosis and medical decision making 1. Essential (primary) hypertension - POCT Urinalysis Auto, W/O Microscopy - CBC auto differential; Future - Comprehensive metabolic panel; Future - Lipid profile; Future 2. 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 Viral URI with cough 4. Gastro-esophageal reflux disease without esophagitis 5. Paroxysmal atrial fibrillation (CMS-HCC) - Comprehensive metabolic panel; Future - Lipid profile; Future 6. Nonrheumatic mitral valve regurgitation 7. Depression with anxiety 8. Primary insomnia 9. Other cardiomyopathy (CMS-HCC) 10. Osteopenia of multiple sites 11. Encounter for screening mammogram for malignant neoplasm of breast - Mammography screening bilateral with CAD; Future 12. Leukocytes in urine - Urine culture (clean catch); Future Continue current treatment for hypertension as she is tolerating it well and blood pressure is under good control Continue current treatment for thyroid, will get thyroid labs at her earliest convenience Suspect cough/congestion is for upper respiratory infection, does seem to be getting better with Coricidin HBP. Continue Coricidin HBP as needed, call if does not continue to get better Continue current treatment for reflux as she is tolerating well and reflux is under good control Continue current management of paroxysmal atrial fibrillation in mitral valve regurg, as well as cardiomyopathy. Continue with milling machinist as before Continue sertraline for depression with anxiety symptoms Continue amitriptyline for insomnia symptoms as she is tolerating well and insomnia is under good control For DEXA scan but refuses. Recommend weight-bearing exercise, vitamin-D, and calcium supplement for osteopenia Follow-up in 6 months for Medicare wellness, before then as needed. Patient will do fasting labs were ordered today at her earliest convenience, will call her with these results This note is created with the assistance of a speech recognition program. While intending to generate a document that actually reflects the content of the visit, the document can still have some errors including those of syntax and sound a like substitutions which may escape proof reading. It such instances, actual meaning can be extrapolated by contextual derivation documented in this encounter [facility] [employer] 05-26-2023 Evaluation note Encounter Date Diagnosis Assessment Notes May, Status post total hip replacement, left (ICD-10 - Z96.642) May, Aftercare following joint replacement surgery (ICD-10 - Z47.1) May, Presence of left artificial hip joint (ICD-10 - Z96.642) May, Other [facility] 12/28/22 Overall I still think that she is doing fantastic after her total hip replacement. We discussed the greater trochanteric bursitis and the fact that it is very episodic based on positioning. We discussed a steroid injection and formal physical therapy at this point the patient does not feel that that is necessary. She is working to try and adjust her sleeping habits and I also recommended some pillows and different positions to see if that helps her. Furthermore we discussed that over time she may see improvement just from the overall healing process. I will plan to see her back at the 1 year postop andre but she can call sooner if there are any concerns. [facility] Other 09-03-2023 Hospital Discharge instructions Additional Instructions Instructed to continue medications home as prescribed. Recommend following up with cardiology and primary care in the next 1 to 2 days. Please try to stay hydrated with 5 to 6 glasses of water per day. Return to the emergency center with any worsening symptoms.[facility] Work Phone: [phone] 302-770807-26-2023 Evaluation note* Encounter Date Diagnosis Assessment Notes Treatment Notes Treatment Clinical Notes Mar, Status post total hip replacement, left (ICD-10 - Z96.642) Mar, Aftercare following joint replacement surgery (ICD-10 - Z47.1) Mar, Presence of left artificial hip joint (ICD-10 - Z96.642) Mar, Other [facility] [place] [facility] [place] Overall doing very well in regards to the hip replacement. However, she does have some greater trochanteric bursitis and as a result I would recommend the Voltaren gel to use 4-5 times a day and home exercise regimen. We prescribed this and provided her these handouts. I will plan to see her back in 6 to 8 weeks to check on her progress. If at that time she still having difficulty will consider further evaluation and treatment. Discussed post-op dental prophylaxis. Shared decision made to continue prophylactic antibiotics indefinitely. Follow-up at 1 year post-op for repeat examination and repeat x-rays. Patient instructed to call with any questions or concerns. [facility] Other 06-07-2023 Evaluation note* Encounter Date Diagnosis Assessment Notes Treatment Notes Treatment Clinical Notes Feb, Closed displaced fracture of left femoral neck with routine healing (ICD-10 - S72.002D) Feb, Status post total hip replacement, left (ICD-10 - Z96.642) Feb, Age-related osteoporosis with current pathological fracture with routine healing, subsequent encounter (ICD-10 - M80.00XD) Feb, Other [facility] [facility] [place] [place] Overall doing pretty well. I think that with time she is getting continue to progress with getting off of that cane. Recommended continuing with her exercises at home. She is already seen Nicole with on the bone. Patient may continue increasing activities as tolerated. Continue taking [id number] anti-inflammatorie s as needed for assistance with swelling and pain associated with the operative extremity. Follow-up in 6 weeks for repeat examination and repeat x-rays. [facility] Other 05-30-2023 Evaluation note* Encounter Date Diagnosis Assessment Notes Treatment Notes Treatment Clinical Notes January, Age-related osteoporosis with current pathological fracture with routine healing, subsequent encounter (ICD-10 - M80.00XD) DEXA scan reviewed with patient and . Extensive discussion regarding osteoporosis treatment options. With patient's recent femur fracture patient and would like to proceed with Evenity injections. Risk and benefits of discussed with patient and at length. Lab work ordered patient will have drawn and will call patient with any abnormal results. Recommended patient take calcium 1200 mg and vitamin D3 600 to 800 units daily, list of available calcium and vitamin D supplements provided. Patient will have the Evenity injections at [facility] as this is closer to her home. We will follow-up with patient in 6 months and repeat DEXA scan in 1 year to evaluate treatment effectiveness. All questions and concerns addressed. Information sheets provided with available osteoporosis treatment options, fall precautions, and vitamin D and calcium supplements. January, Asymptomatic menopausal state (ICD-10 - Z78.0) January, Other terminologist (current) drug therapy (ICD-10 - Z79.899) [facility] Other 05-11-2023 Evaluation note* Encounter Date Diagnosis Assessment Notes Treatment Notes Treatment Clinical Notes January, Closed displaced fracture of left femoral neck with routine healing (ICD-10 - S72.002D) January, Status post total hip replacement, left (ICD-10 - Z96.642) January, Age-related osteoporosis with current pathological fracture with routine healing, subsequent encounter (ICD-10 - M80.00XD) January, [place] [facility] [place] [facility] [place] [facility] [place] Doing well. Left Zipline in place. We will see her in 1 week to recheck the incision. Patient may continue activities as tolerated. They are weightbearing as tolerated to the operative extremity. Patient is progressing with with physical therapy and I recommended continuing this at her home . Patient instructed to continue weaning off narcotic pain medication. Nonetheless, we did refill her tramadol. I went over her pain regimen specifically with her today. She is can use Tylenol 1000 mg 3 times a day, prednisone 10 mg daily x10 days, and if she still needs something for discomfort then she will take the tramadol. I discussed with her that due to her Eliquis use we cannot put her on an anti-inflammatory long-term. Patient to continue their home Eliquis as previously instructed by her other care providers. This will provide her DVT prophylaxis. This includes wearing their KAREN hose on the operative extremity for another two weeks. Follow-up in 1 week for incision check. OARRS report generated and reviewed. [facility] Other 04-27-2023 Progress note Author Vivian Live [facility] December 31, 2022 7:57am Note Date/Time December 31, 2022 7:5 8am [facility] [address] [place] [address] Hospitalist Progress Note Signed Patient: Donna Olivares MR#: [id number] : 1950 Acct:[id number] Age/Sex: 72 / F Adm Date: 3 Loc: Room: [address] [place] [address] Type: ADM IN Attending Dr: Vivian Live MD Copies to: ~ Date of Service: 12/31/2022 Subjective Subjective Narrative: Uneventful night. No chest pain or palpitation. No abdominal pain, nausea or vomiting. Patient was discharged yesterday to the nursing facility but nursing facility could not accept her. Exam Physical Exam Vital Signs: Temp Pulse Resp BP Pulse Ox O2 Del Method O2 Flow Rate 99.0 F 84 18 135/70 96 Room Air 8 12/31/22 03:51 12/31/22 03:51 12/31/22 03:51 12/31/22 03:51 12/31/22 03:51 12/31/22 03:51 12/28/22 21:08 Narrative: [pt is awake and alert. oriented to place, time and person HEENT: [place] conjunctiva and NL buccal mucosa Neck: Supple, no tenderness Endocrine: No Thyromegaly. Vascular: No JVD or carotid bruit. Lymphatic: No cervical lymphadenopathy. Chest: CTA no DTP. Heart RRR, no extra sound or murmur. Abd: Soft, no tenderness, no rebound and no rigidity. Increase abd girth therefore clinically I could not exclude the possibility of intra abd mass or organomegaly. LE: No cyanosis or clubbing, no varices or edema. Resolution of the tender left hip. Neuro: A A O. Nl speech, comprehension and attention. Nl and symetrical motor and tone examination through out. []] Const General: cooperative Objective Lab Results 12/30/22 05:06 12/31/22 06:44 Meds Allergies and Active Meds Allergies codeine Allergy (Verified 12/27/22 22:47) Difficulty Breathing hydrochlorothiazide Allergy (Verified 12/27/22 22:47) Difficulty Breathing venlafaxine [From Effexor] Allergy (Verified 12/27/22 22:47) Difficulty Breathing Active Meds: Active Medications Generic Name Dose Route Start Last Admin Trade Name Freq PRN Reason Stop Dose Admin Acetaminophen 650 mg 12/28/22 00:01 Acetaminophen 325 Mg Tablet PO 12/28/23 00:00 Q6H PRN Pain 1-5 or fever Acetaminophen 1,000 mg 12/28/22 20:45 12/31/22 04:14 Acetaminophen 500 Mg Tablet PO 12/28/23 20:44 1,000 mg Q8H BARBRA Administration Amitriptyline HCl 10 mg 12/28/22 22:00 12/30/22 21:09 Amitriptyline 10 Mg Tablet PO 12/28/23 21:59 10 mg QHS BARBRA Administration Amlodipine Besylate 5 mg 12/28/22 09:00 12/30/22 08:49 Amlodipine 5 Mg Tablet PO 12/28/23 08:59 5 mg DAILY BARBRA Administration Apixaban 5 mg 12/29/22 10:30 12/30/22 21:09 Apixaban 5 Mg Tablet PO 12/29/23 10:29 5 mg BID BARBRA Administration Ascorbic Acid 500 mg 12/29/22 08:00 12/30/22 18:26 Ascorbic Acid 500 Mg Tablet PO 12/29/23 07:59 500 mg BID.WITH.MEALS BARBRA Administration Calcium Carbonate 500 mg 12/28/22 22:00 12/30/22 21:09 Calcium Carbonate 500 Mg Tablet PO 12/28/23 21:59 Not Given TID BARBRA Carvedilol 25 mg 12/28/22 09:00 12/30/22 21:09 Carvedilol 25 Mg Tablet PO 12/28/23 08:59 25 mg Q12HR BARBRA Administration Ergocalciferol 1,250 mcg 12/28/22 20:45 12/28/22 22:00 Ergocalciferol 1,250 Mcg (50,000 Units) Capsule PO 12/28/23 20:44 1,250 mcg Q7D [facility] Administration Ferrous Sulfate 324 mg 12/29/22 08:00 12/30/22 18:26 Ferrous Sulfate 324 Mg Tablet. PO 12/29/23 07:59 324 mg BID.WITH.MEALS [facility] Administration Hydromorphone HCl 0.5 mg 12/28/22 00:01 12/28/22 14:16 Hydromorphone 0.5 Mg/0.5 Ml Syringe IV-PUSH 0.5 mg Q4H PRN Administration Pain Scale 8 - 10 Levothyroxine Sodium 75 mcg 12/28/22 06:30 12/31/22 06:37 Levothyroxine 75 Mcg Tablet PO 12/28/23 06:29 75 mcg DAILY@0630 [facility] Administration Mineral Oil 1 each 12/31/22 20:41 Mineral Oil (Emmet) 1 Each Enema DE ONCE PRN Constipation Morphine Sulfate 2 mg 12/28/22 00:01 12/28/22 21:55 Morphine Sulfate 2 Mg/Ml Vial IV-PUSH 2 mg Q4H PRN Administration Pain Scale 7 - 10 Naloxone HCl 0.4 mg 12/28/22 20:41 Naloxone Hcl 0.4 Mg/Ml Vial IV-PUSH 12/28/23 20:40 Q2M PRN Opioid Reversal Ondansetron HCl 4 mg 12/28/22 00:01 Ondansetron 4 Mg/2 Ml Vial IV-PUSH 12/28/23 00:00 Q6H PRN Nausea And Vomiting Ondansetron HCl 8 mg 12/28/22 20:41 12/29/22 17:45 Ondansetron Odt 4 Mg Tab.Rapdis PO 12/28/23 20:40 8 mg TID PRN Administration Nausea Oxycodone HCl 5 mg 12/28/22 20:41 Oxycodone Ir 5 Mg Tablet PO Q4HR PRN Pain Scale 6 - 10 Polyethylene Glycol 17 gm 12/28/22 20:41 Polyethylene Glycol 3350 17 Gm Powd.Pack PO 01/04/23 20:40 DAILY PRN Constipation Potassium Chloride 40 meq 12/28/22 00:01 Potassium Chloride Er 20 Meq Tab.Er.Prt PO 12/28/23 00:00 DAILY PRN Hypokalemia Prochlorperazine Maleate 10 mg 12/28/22 20:41 Prochlorperazine Maleate 5 Mg Tablet PO 12/28/23 20:40 Q6H PRN Nausea Senna/Docusate Sodium 2 tab 12/29/22 09:00 12/30/22 08:49 Sennosides/Docusate 8.6-50mg 1 Tab Tablet PO 01/28/23 08:59 2 tab DAILY BARBRA Administration Sodium Chloride 0 ml 12/28/22 07:06 12/28/22 14:16 Sodium Chloride 0.9 % 10 Ml Syringe IV-PUSH 12/28/23 07:05 10 ml PRN PRN Administration Flush Sodium Chloride 0 ml 12/28/22 22:00 12/31/22 06:38 Sodium Chloride 0.9 % 10 Ml Syringe IV-PUSH 12/28/23 21:59 10 ml QSHIFT BARBRA Administration Tramadol HCl 50 mg 12/28/22 20:41 12/29/22 19:37 Tramadol 50 Mg Tablet PO 06/26/23 20:40 50 mg Q4H PRN Administration Pain Scale 1 - 5 Zolpidem Tartrate 5 mg 12/28/22 00:01 Zolpidem 5 Mg Tablet PO 06/26/23 00:00 QHS PRN Sleep A&P - Hospitalist Assessment/Plan (1) Hip fracture: (2) Paroxysmal A-fib: (3) Hypomagnesemia: (4) Closed subcapital fracture of neck of left femur: Plan Patient is doing really well. Patient was discharged yesterday to the nursing facility but facility could not accept her for what ever reason. Uneventful night. Vital signs are stable. Exam is unremarkable. Patient will be discharged to the nursing facility today. Patient is to follow-up with her PCP and/or Ortho postdischarge Documented By: Vivian Live MD 12/31/22 0756 Signed By: <Electronically signed by Vivian Live MD> 12/31/22 0757 [facility] Work Phone: 1(453) 134-486704-26-2023 Discharge summary Author Vivian Live [facility] December 30, 2022 10:26am Note Date/Time December 30, 2022 10: 25am [facility] [address] [place], [place] [id number] Discharge Summary Signed Patient: Donna Olivares MR#: [id number] : 1950 Acct:[id number] Age/Sex: 72 / F Adm Date: 3 Loc: 4N Room: [address] [place] [address]: Vivian Live MD Copies to: NON STAFF Vivian Live MD~ Providers Date of Discharge: 12/30/22 Discharging Provider: Vivian Live Primary Care Provider: NON STAFF Consults: 12/28/22 00:00 Consult to Orthopedic Surgery Routine 12/28/22 20:41 Consult to Occupational Therapy Routine Consult to Physical Therapy Routine 12/28/22 20:42 Consult to Rehabilitation Routine Discharge Diagnosis (1) Hip fracture: (2) Paroxysmal A-fib: (3) Hypomagnesemia: (4) Closed subcapital fracture of neck of left femur: Final Diagnosis Final Discharge Diagnosis: As listed above and others that are not listed Summary Hospital Course Hospital course: Mrs. Olivares is a 72-year-old female who fell and was found to have left femoral neck fracture. She was seen by orthopedic team who recommended and performed open reduction and internal fixation. Postoperatively the patient did not have any complications. Her blood pressure is on the low side therefore I had to hold her amlodipine andlisinopril. She continues to be on beta-ghislaine due to history of A-fib. Patient stayed in sinus rhythm throughout this hospitalization. Eliquis was resumed postoperatively. Aspirin is recommended to be resumed in 5 days. I clearly instructed nursing staff at the nursing facility to hold lisinopril and amlodipine if her systolic blood pressure continues to be less than 125 and titrate dose upward if her systolic blood pressure goes above 150. I also requested CBC and BMP weekly I held her amitriptyline due to interaction with tramadol. Patient is allergic to codeine Patient was seen and evaluated by physical and Occupational Therapy team and recommended to be admitted to a intermediate facility for short-term skilled care and rehabilitation. Patient has multiple complex medical issues. All appear to be stable. I do nothave any clear or strong clinical justification to extend inpatient hospitalization. Patient however will require close and the frequent monitoring as well as additional work-up, investigation and therapeutic intervention that could take place from this point on post discharge. That is to prevent relapse,decompensation, rehospitalization and other medical implications. Time Spent with Patient Time spent providing/coordinating discharge services (# min): 40 Surgeries and Procedures Operation Date: 12/28/22 16:15 Actual Procedures p OR Left Hip Anterior Total Arthroplasty(Left) - Ari Solares II, MD Diagnostic Studies Completed and Pending Studies Pending studies at discharge: 12/31/22 05:00 Basic Metabolic Panel [CHEM] IN AM Labs on day of discharge: 12/30/22 05:06: Corrected WBC 10.0, Uncorrected WBC Count 10.0, RBC 3.15 L, Hgb 10.2 L, Hct 30.3 L, MCV 96.3, MCH 32.3, MCHC 33.6, RDW 15.9 H, Plt Count 211, MPV 9.0, Neut % (Auto) 66.3, Lymph % (Auto) 16.0, Isabela % (Auto) 17.5, Eos % (Auto) 0.1, Baso % (Auto) 0.1, Nucleat RBC Rel Count 0.0, Neut # (Auto) 6.6, Lymph # (Auto) 1.6, Isabela # (Auto) 1.7 H, Eos # (Auto) 0.0, Baso # (Auto) 0.0, Platelet Estimate Normal, Plt Morphology Comment Normal, RBC Morphology N/A, Polychromasia Slight, Hypochromasia Slight, Ovalocytes Slight 12/30/22 05:06: PHA Creatinine Clear 46.20, Sodium 134 L, Potassium 4.3, Chloride 100, Carbon Dioxide 28.2, Anion Gap 10.1, BUN 15, Creatinine 1.00, Est GFR (CKD- EPI) 59.117, Glucose 96, Calcium 9.2 Exam Physical Exam Vital Signs: Temp Pulse Resp BP Pulse Ox O2 Del Method O2 Flow Rate 99.0 F 102 H 16 100/64 94 L Room Air 8 12/30/22 08:54 12/30/22 08:54 12/30/22 08:54 12/30/22 08:54 12/30/22 08:54 12/30/22 08:54 12/28/22 21:08 Narrative: [pt is awake and alert. oriented to place, time and person HEENT: Aguila conjunctiva and NL buccal mucosa Neck: Supple, no tenderness Endocrine: No Thyromegaly. Vascular: No JVD or carotid bruit. Lymphatic: No cervical lymphadenopathy. Chest: CTA no DTP. Heart RRR, no extra sound or murmur. Abd: Soft, no tenderness, no rebound and no rigidity. Increase abd girth therefore clinically I could not exclude the possibility of intra abd mass or organomegaly. LE: No cyanosis or clubbing, no varices or edema. Tender left hip. Neuro: A A O. Nl speech, comprehension and attention. Nl and symetrical motor and tone examination through out. []] Const General: cooperative Discharge Plan Discharge Plan Additional Instructions: CBC and BMP weekly for 2 weeks. Please communicate results to nursing facility provider. I had to reduce her amlodipine and the lisinopril dose significantly due to borderline low blood pressure Please continue to hold lisinopril and amlodipine if systolic blood pressure is less than 125. Please titrate dose upward gradually if systolic blood pressure goes above 150. This is to be done by provider at the nursing facility. I may not have addressed or treated all of your medical illnesses or the abnormal blood work or imaging studies during this hospitalization. Please ask your primary care provider to obtain [facility] records entirely to follow up on all of the abnormal physical, laboratory, and imaging findings that I have not addressed. Please return back to the emergency room or seek medical attention if your symptoms worsen or return. Discharging you from [facility] does not mean that your medical care ends here and now. You may still need additional monitoring, work up, investigation, and treatment plan to be handled from this point on by out patient providers including your primary care provider and specialists. For any medication question, please contact your retail pharmacist or your primary care provider. Thank you. Prescriptions: New acetaminophen 325 mg Tablet 650 mg PO Q6H PRN (Reason: Pain 1-5 or fever) Qty: 0 0RF calcium carbonate [Oyster Shell Calcium 500] 500 mg calcium (1,250 mg) Tablet 500 mg PO TID Qty: 0 0RF polyethylene glycol 3350 [HealthyLax] 17 gram Powder In Packet 17 g PO DAILY PRN (Reason: Constipation) Qty: 0 0RF sennosides-docusate sodium 8.6-50 mg Tablet 2 tab PO DAILY Qty: 0 0RF ferrous sulfate 324 mg (65 mg iron) Tablet,Delayed Release (Dr/Ec) 324 mg PO BID.WITH.MEALS Qty: 0 0RF lisinopril 5 mg tablet 5 mg PO BID Qty: 30 0RF Rx Instructions: Hold for systolic blood pressure less than 125. Titrate dose upward if systolic blood pressure is above 150 amlodipine 2.5 mg tablet 2.5 mg PO DAILY Qty: 30 0RF Rx Instructions: Hold for systolic blood pressure less than 125 Titrate dose upward if systolic blood pressure is above 150 tramadol 50 mg Tablet 50 mg PO Q6H PRN (Reason: Pain Scale 1 - 5) 5 Days Qty: 15 0RF Continued multivitamin Tablet 1 tab PO DAILY carvedilol 25 mg Tablet 25 mg PO Q12HR omeprazole 40 mg Capsule,Delayed Release(Dr/Ec) 40 mg PO BID levothyroxine 75 mcg Tablet 75 mcg PO DAILY apixaban 5 mg Tablet 5 mg PO BID sertraline 50 mg Tablet 50 mg PO DAILY spironolactone 25 mg tablet 25 mg PO DAILY Patient Comments: TAKE 1 TABLET (25 MG TOTAL) BY MOUTH IN THE MORNING fluticasone propionate 50 mcg/actuation [place],Suspension 2 spray INTRANASAL DAILY Held aspirin 81 mg Tablet 81 mg PO DAILY Hold Instructions: Resume on 01/04/23. Discontinued lisinopril 20 mg Tablet 20 mg PO BID amlodipine 5 mg Tablet 5 mg PO DAILY amitriptyline 10 mg Tablet 30 mg PO QHS Follow Up: Ari Solares II, MD [Active Staff] - 01/14/23 8:45 am Documented By: Vivian Live MD 12/30/22 1020 Signed By: <Electronically signed by Vivian Live MD> 12/30/22 1026 [facility] Work Phone: 1(542) 875-142204-26-2023 Progress note Author Ari Solares [facility] December 30, 2022 8:36am Note Date/Time December 30, 2022 8:3 7am [facility] [address] [place] [address] Orthopedic Progress Note Signed Patient: Donna Olivares MR#: [id number] : 1950 Acct:[id number] Age/Sex: 72 / F Adm Date: 3 Loc: 4N Room: 6N7756-6 Type: ADM IN Attending Dr: Vivian Live MD Copies to: ~ Date of Service: 12/30/2022 Subjective Subjective Interval History: Patient resting comfortably in bed this morning. Patient reports she is doing much better today than she was yesterday. She tells me that they are planning to send her back to the [facility] and they have worked all that out with administration there. Nursing reports no acute events overnight. Denies chest pain, shortness of breath, or calf pain. Exam Physical Exam Vital Signs: Temp Pulse Resp BP Pulse Ox O2 Del Method O2 Flow Rate 97.8 F 68 18 105/65 95 Room Air 8 12/30/22 05:45 12/30/22 05:45 12/30/22 05:45 12/30/22 05:45 12/30/22 05:45 12/30/22 07:58 12/28/22 21:08 Narrative: Left hip Prevena dressing is on and working. No drainage in the container. Foot is warm and well-perfused. Sensation intact to light touch throughout the foot. Wiggles their toes and moves their ankle up and down. Nontender to palpation in the calf. Objective Labs Labs: Laboratory Results - last 24 hr 12/30/22 12/30/22 05:06 05:06 Corrected WBC 10.0 Uncorrected WBC Count 10.0 RBC 3.15 L Hgb 10.2 L Hct 30.3 L MCV 96.3 MCH 32.3 MCHC 33.6 RDW 15.9 H Plt Count 211 MPV 9.0 Neut % (Auto) 66.3 Lymph % (Auto) 16.0 Isabela % (Auto) 17.5 Eos % (Auto) 0.1 Baso % (Auto) 0.1 Nucleat RBC Rel Count 0.0 Neut # (Auto) 6.6 Lymph # (Auto) 1.6 Isabela # (Auto) 1.7 H Eos # (Auto) 0.0 Baso # (Auto) 0.0 Platelet Estimate Normal Plt Morphology Comment Normal RBC Morphology N/A Polychromasia Slight Hypochromasia Slight Ovalocytes Slight PHA Creatinine Clear 46.20 Sodium 134 L Potassium 4.3 Chloride 100 Carbon Dioxide 28.2 Anion Gap 10.1 BUN 15 Creatinine 1.00 Est GFR (CKD-EPI) 59.117 Glucose 96 Calcium 9.2 Assessment / Plan Assessment and plan (1) Hip fracture: Code(s): S72.009A - Fracture of unspecified part of neck of unspecified femur, initial encounter for closed fracture Status: Acute (2) Paroxysmal A-fib: Code(s): I48.0 - Paroxysmal atrial fibrillation Status: Acute (3) Hypomagnesemia: Code(s): E83.42 - Hypomagnesemia Status: Acute (4) Closed subcapital fracture of neck of left femur: Plan: POD 2 s/p L SHAY for FN fx 1. Pain control 2. DVT prophylaxis: KAREN Hose bilaterally, SCDs bilaterally, and home Shana perhospitalist 3. Perioperative antibiotics with IV Ancef and then 7 days of Duricef 4. PT/OT: WBAT left lower extremity 5. Appreciate hospitalist assistance with medical management 6. PACU x-rays look good 7. Hemoglobin: 10.2 today, continue Fe and Vit C 8. Osteoporosis: Continue Ca and Vit D supplemenation. We will get her in our own the bone program. 9. Nutrtion: Beneprotein TID 10. Today's Plan: work with PT/OT 11. Disposition: Planning discharge to the [facility] since that is where she livesfor further intermediate care. 12. Follow-up: See me in the office at 2 to 2-1/2 weeks postop. Her Prevena wound VAC should be taken off at postop day 14 by intermediate facility. If there is any questions or concerns have them call my office. Code(s): S72.012A - Unspecified intracapsular fracture of left femur, initial encounter for closed fracture Status: Acute Documented By: Ari Solares MD 12/30/22 08 35 Signed By: <Electronically signed by Ari Solares MD> 12/30/22 0836 [facility] Work Phone: 1(577) 528-109504-25-2023 Progress note Author Vivian Live [facility] December 29, 2022 10:31am Note Date/Time December 29, 2022 10: 31am [facility] [address] [place] [address] Hospitalist Progress Note Signed Patient: Donna Olivares MR#: [id number] : 1950 Acct:[id number] Age/Sex: 72 / F Adm Date: 3 Loc: 4N Room: [address] [place] [address] Type: ADM IN Attending Dr: Vivian Live MD Copies to: ~ Date of Service: 12/29/2022 Subjective Subjective Narrative: Patient is feeling much better today. Significant improvement of her pain. No chest pain or palpitation. No abdominal pain, nausea or vomiting Exam Physical Exam Vital Signs: Temp Pulse Resp BP Pulse Ox O2 Del Method O2 Flow Rate 98.1 F 79 12 137/75 95 Room Air 8 12/29/22 07:55 12/29/22 07:55 12/29/22 07:55 12/29/22 07:55 12/29/22 07:55 12/29/22 07:55 12/28/22 21:08 Narrative: [pt is awake and alert. oriented to place, time and person HEENT: Aguila conjunctiva and NL buccal mucosa Neck: Supple, no tenderness Endocrine: No Thyromegaly. Vascular: No JVD or carotid bruit. Lymphatic: No cervical lymphadenopathy. Chest: CTA no DTP. Heart RRR, no extra sound or murmur. Abd: Soft, no tenderness, no rebound and no rigidity. Increase abd girth therefore clinically I could not exclude the possibility of intra abd mass or organomegaly. LE: No cyanosis or clubbing, no varices or edema. Tender left hip. Neuro: A A O. Nl speech, comprehension and attention. Nl and symetrical motor and tone examination through out. []] Const General: cooperative Objective Lab Results 12/29/22 04:31 12/29/22 04:31 Meds Allergies and Active Meds Allergies codeine Allergy (Verified 12/27/22 22:47) Difficulty Breathing hydrochlorothiazide Allergy (Verified 12/27/22 22:47) Difficulty Breathing venlafaxine [From Effexor] Allergy (Verified 12/27/22 22:47) Difficulty Breathing Active Meds: Active Medications Generic Name Dose Route Start Last Admin Trade Name Freq PRN Reason Stop Dose Admin Acetaminophen 650 mg 12/28/22 00:01 Acetaminophen 325 Mg Tablet PO 12/28/23 00:00 Q6H PRN Pain 1-5 or fever Acetaminophen 1,000 mg 12/28/22 20:45 12/29/22 04:53 Acetaminophen 500 Mg Tablet PO 12/28/23 20:44 1,000 mg Q8H BARBRA Administration Amitriptyline HCl 10 mg 12/28/22 22:00 12/28/22 21:56 Amitriptyline 10 Mg Tablet PO 12/28/23 21:59 10 mg QHS BARBRA Administration Amlodipine Besylate 5 mg 12/28/22 09:00 12/29/22 10:16 Amlodipine 5 Mg Tablet PO 12/28/23 08:59 5 mg DAILY BARBRA Administration Ascorbic Acid 500 mg 12/29/22 08:00 12/29/22 10:16 Ascorbic Acid 500 Mg Tablet PO 12/29/23 07:59 500 mg BID.WITH.MEALS BARBRA Administration Calcium Carbonate 500 mg 12/28/22 22:00 12/29/22 10:16 Calcium Carbonate 500 Mg Tablet PO 12/28/23 21:59 500 mg TID BARBRA Administration Carvedilol 25 mg 12/28/22 09:00 12/29/22 10:16 Carvedilol 25 Mg Tablet PO 12/28/23 08:59 25 mg Q12HR BARBRA Administration Ergocalciferol 1,250 mcg 12/28/22 20:45 12/28/22 22:00 Ergocalciferol 1,250 Mcg (50,000 Units) Capsule PO 12/28/23 20:44 1,250 mcg Q7D BARBRA Administration Ferrous Sulfate 324 mg 12/29/22 08:00 12/29/22 10:16 Ferrous Sulfate 324 Mg Tablet.Dr PO 12/29/23 07:59 324 mg BID.WITH.MEALS BARBRA Administration Hydromorphone HCl 0.5 mg 12/28/22 00:01 12/28/22 14:16 Hydromorphone 0.5 Mg/0.5 Ml Syringe IV-PUSH 0.5 mg Q4H PRN Administration Pain Scale 8 - 10 Lactated Ringer's 1,000 mls @ 20 mls/hr 12/28/22 13:39 12/28/22 21:23 Lactated Ringers IV 12/29/22 13:38 20 mls/hr .Q24H ONE Infusion Lactated Ringer's 1,000 mls @ 75 mls/hr 12/28/22 20:45 12/29/22 10:17 Lactated Ringers IV 12/28/23 20:44 Not Given .[id number] BARBRA Cefazolin Sodium 1 gm in 50 mls @ 100 mls/hr 12/29/22 04:00 12/29/22 03:52 Ancef IV 12/29/22 12:29 100 mls/hr Q8H BARBRA Administration Levothyroxine Sodium 75 mcg 12/28/22 06:30 12/29/22 05:36 Levothyroxine 75 Mcg Tablet PO 12/28/23 06:29 75 mcg DAILY@0630 BARBRA Administration Mineral Oil 1 each 12/31/22 20:41 Mineral Oil (Emmet) 1 Each Enema DE ONCE PRN Constipation Morphine Sulfate 2 mg 12/28/22 00:01 12/28/22 21:55 Morphine Sulfate 2 Mg/Ml Vial IV-PUSH 2 mg Q4H PRN Administration Pain Scale 7 - 10 Naloxone HCl 0.4 mg 12/28/22 20:41 Naloxone Hcl 0.4 Mg/Ml Vial IV-PUSH 12/28/23 20:40 Q2M PRN Opioid Reversal Ondansetron HCl 4 mg 12/28/22 00:01 Ondansetron 4 Mg/2 Ml Vial IV-PUSH 12/28/23 00:00 Q6H PRN Nausea And Vomiting Ondansetron HCl 8 mg 12/28/22 20:41 Ondansetron Odt 4 Mg Tab.Rapdis PO 12/28/23 20:40 TID PRN Nausea Oxycodone HCl 5 mg 12/28/22 20:41 Oxycodone Ir 5 Mg Tablet PO Q4HR PRN Pain Scale 6 - 10 Polyethylene Glycol 17 gm 12/28/22 20:41 Polyethylene Glycol 3350 17 Gm Powd.Pack PO 01/04/23 20:40 DAILY PRN Constipation Potassium Chloride 40 meq 12/28/22 00:01 Potassium Chloride Er 20 Meq Tab.Er.Prt PO 12/28/23 00:00 DAILY PRN Hypokalemia Prochlorperazine Maleate 10 mg 12/28/22 20:41 Prochlorperazine Maleate 5 Mg Tablet PO 12/28/23 20:40 Q6H PRN Nausea Senna/Docusate Sodium 2 tab 12/29/22 09:00 12/29/22 10:15 Sennosides/Docusate 8.6-50mg 1 Tab Tablet PO 01/28/23 08:59 2 tab DAILY BARBRA Administration Sodium Chloride 0 ml 12/28/22 07:06 12/28/22 14:16 Sodium Chloride 0.9 % 10 Ml Syringe IV-PUSH 12/28/23 07:05 10 ml PRN PRN Administration Flush Sodium Chloride 0 ml 12/28/22 22:00 12/29/22 05:36 Sodium Chloride 0.9 % 10 Ml Syringe IV-PUSH 12/28/23 21:59 10 ml QSHIFT BARBRA Administration Tramadol HCl 50 mg 12/28/22 20:41 12/29/22 04:54 Tramadol 50 Mg Tablet PO 06/26/23 20:40 50 mg Q4H PRN Administration Pain Scale 1 - 5 Zolpidem Tartrate 5 mg 12/28/22 00:01 Zolpidem 5 Mg Tablet PO 06/26/23 00:00 QHS PRN Sleep A&P - Hospitalist Assessment/Plan (1) Hip fracture: (2) Paroxysmal A-fib: (3) Hypomagnesemia: Plan Magnesium supplementation Telemetry monitoring Monitor for potential postoperative issues and/or complications such as delirium, atelectasis, infection, bleed, ileus and others Resumed Eliquis postoperatively. Vitamin D level is pending. Recommend DEXA scan in the outpatient setting Case was discussed with case management. [facility] Documented By: Vivian Live MD 12/29/22 1028 Signed By: <Electronically signed by Vivian Live MD> 12/29/22 1031 [facility] Work Phone: 1(118) 950-871804-25-2023 Progress note Author Ari Solares [facility] December 29, 2022 7:33am Note Date/Time December 29, 2022 7:3 3am [facility] [address] [place] [address] Orthopedic Progress Note Signed Patient: Donna Olivares MR#: [id number] : 1950 Acct:[id number] Age/Sex: 72 / F Adm Date: 3 Loc: 4N Room: 1S3596-2 Type: ADM IN Attending Dr: Vivian Live MD Copies to: ~ Date of Service: 12/29/2022 Subjective Subjective Interval History: Patient resting comfortably in bed this morning. Patient reports pain is doing well. She denies any issues at this point. Nursing reports no acute events overnight. Denies chest pain, shortness of breath, or calf pain. Exam Physical Exam Vital Signs: Temp Pulse Resp BP Pulse Ox O2 Del Method O2 Flow Rate 97.1 F L 78 15 106/60 93 L Room Air 8 12/28/22 23:45 12/29/22 03:44 12/29/22 03:44 12/29/22 03:44 12/29/22 03:44 12/29/22 03:44 12/28/22 21:08 Narrative: Left hip Prevena dressing is on and working. No drainage in the container. Foot is warm and well-perfused. Sensation intact to light touch throughout the foot. Wiggles their toes and moves their ankle up and down. Nontender to palpation in the calf. Objective Labs Labs: Laboratory Results - last 24 hr 12/28/22 12/28/22 12/28/22 05:08 05:08 10:37 Corrected WBC Uncorrected WBC Count RBC Hgb Hct MCV MCH MCHC RDW Plt Count MPV Neut % (Auto) Lymph % (Auto) Isabela % (Auto) Eos % (Auto) Baso % (Auto) Nucleat RBC Rel Count Neut # (Auto) Lymph # (Auto) Isabela # (Auto) Eos # (Auto) Baso # (Auto) PHA Creatinine Clear Sodium Potassium Chloride Carbon Dioxide Anion Gap BUN Creatinine Est GFR (CKD-EPI) Glucose Estimat Average Glucose 117 Hemoglobin A1c 5.7 H Calcium Magnesium 25-OH Vitamin D Total 44.8 Blood Type O Negative Blood Type Recheck Antibody Screen Negative Crossmatch ([facility]) See Detail 12/28/22 12/28/22 12/29/22 10:42 11:55 04:31 Corrected WBC 8.0 Uncorrected WBC Count 8.0 RBC 3.98 Hgb 12.8 Hct 38.2 MCV 96.0 MCH 32.2 MCHC 33.5 RDW 16.2 H Plt Count 268 MPV 8.6 Neut % (Auto) 71.3 Lymph % (Auto) 14.5 Isabela % (Auto) 13.3 Eos % (Auto) 0.3 Baso % (Auto) 0.6 Nucleat RBC Rel Count 0.0 Neut # (Auto) 5.7 Lymph # (Auto) 1.2 Isabela # (Auto) 1.1 H Eos # (Auto) 0.0 Baso # (Auto) 0.0 PHA Creatinine Clear 47.15 Sodium 132 L Potassium 4.9 Chloride 99 Carbon Dioxide 26.8 Anion Gap 11.1 BUN 13 Creatinine 0.98 Est GFR (CKD-EPI) > 60.0 Glucose 144 H Estimat Average Glucose Hemoglobin A1c Calcium 8.4 L Magnesium 2.5 25-OH Vitamin D Total Blood Type Blood Type Recheck O Negative Antibody Screen Crossmatch ([facility]) 12/29/22 04:31 Corrected WBC 10.4 Uncorrected WBC Count 10.4 RBC 3.51 L Hgb 11.4 L Hct 34.2 MCV 97.2 MCH 32.4 MCHC 33.4 RDW 16.3 H Plt Count 231 MPV 9.5 Neut % (Auto) 91.3 Lymph % (Auto) 5.2 Isabela % (Auto) 3.4 Eos % (Auto) 0.0 Baso % (Auto) 0.1 Nucleat RBC Rel Count 0.0 Neut # (Auto) 9.5 H Lymph # (Auto) 0.5 L Isabela # (Auto) 0.4 Eos # (Auto) 0.0 Baso # (Auto) 0.0 PHA Creatinine Clear Sodium Potassium Chloride Carbon Dioxide Anion Gap BUN Creatinine Est GFR (CKD-EPI) Glucose Estimat Average Glucose Hemoglobin A1c Calcium Magnesium 25-OH Vitamin D Total Blood Type Blood Type Recheck Antibody Screen Crossmatch ([facility]) Assessment / Plan Assessment and plan (1) Closed subcapital fracture of neck of left femur: Plan: POD 1 s/p L SHAY for FN fx 1. Pain control 2. DVT prophylaxis: KAREN Hose bilaterally, SCDs bilaterally, and home Eliquis to start today per hospitalist 3. Perioperative antibiotics with IV Ancef and then 7 days of Duricef 4. PT/OT: WBAT left lower extremity 5. Appreciate hospitalist assistance with medical management 6. PACU x-rays look good 7. Hemoglobin: 11.4 today, continue Fe and Vit C 8. Osteoporosis: Continue Ca and Vit D supplemenation. We will get her in our own the bone program. 9. Nutrtion: Beneprotein TID 10. Today's Plan: work with PT/OT 11. Disposition: Pending PT/OT eval; patient may be a great acute inpatient rehab candidate Code(s): S72.012A - Unspecified intracapsular fracture of left femur, initial encounter for closed fracture Status: Acute Documented By: Ari Solares MD 12/29/22 07 30 Signed By: <Electronically signed by Ari Solares MD> 12/29/22 0733 [facility] Work Phone: [phone] 127-903904-24-2023 History general Narrative - Reported* Type Description Date Medical History paroxysmal-AFIB Medical History hypertensive heart disease Medical History Hypomagnesemia Surgical History LTHA 12/28/2022 [facility] Other 04-24-2023 Consult note Author Ari Solares [facility] December 28, 2022 10:38am Note Date/Time December 28, 2022 7:0 5am [facility] [address] [place] [address] Orthopedic Consult Note Signed with Addenda Patient: Donna Olivares MR#: [id number] : 1950 Acct:[id number] Age/Sex: 72 / F Adm Date: 3 Loc: Room: [address] [place] [address] Type: ADM IN Attending Dr: Vivian Live MD Copies to: NON STAFF MD Ari Stacy MD~ ADDENDUM1 X-rays of the left femur, left hip, and pelvis were obtained today and independently reviewed. These demonstrate a left completely displaced subcapital femoral neck fracture. There is also some osteophyte formation marginally at the acetabulum. No acute osseous abnormalities appreciated in thefemoral shaft or distal femur. Addendum Documented By: Ari Solares MD 12/28/22 1038 Addendum Signed By: <Electronically signed by Ari Solares MD> 12/28/22 1038 History of Present Illness HPI Consult date: 12/28/2022 Requesting provider: Junior Martinez MD History of present illness: Patient is a 72-year-old female who sustained a fall from standing. She was watching some TV and when she went up to get into the kitchen something caught her eye on the TV and she lost her balance falling directly onto her butt. She immediately had pain in the right hip and was unable to weight-bear. She was taken to the [place] emergency department and found to have a left hip fracture. I spoke with the emergency room physician and recommended transfer [facility] for advanced orthopedic surgery care. Once the patient was admitted by the hospitalist here at [facility] orthopedic surgery was consulted for management of her left hip fracture. Currently, the patient is resting comfortably in her bed on the surgical floor. She reports pain in the left hip but no pain otherwise. Prior to this fall the patient denies pain in the affected hip. Living situation: Lives in the independent living aspect of the [facility] in [place]. She lives with her who has gone through a total knee replacement and what sounds like a two-stage revision for periprosthetic joint infection. Patient tells me that she still drives and still goes to the grocerystore regularly. She tells me that when her is up to it, they are typically very active. Assistive devices: None Anticoagulation: Eliquis for atrial fibrillation. Last dose was yesterday morning Prior injuries or surgeries to the affected hip: None Smoking status: Non-smoker Immune modulating drugs: None The patient has been cleared for surgery by the hospitalist team. [facility] Medical History (Updated 12/28/22 @ 10:34 by Ari Solares II, MD) A-fib Hypertension Social History Smoking Status: Never smoker Substance Use Type: None Allergies & Medications Medications and Allergies Allergies codeine Allergy (Verified 12/27/22 22:47) Difficulty Breathing hydrochlorothiazide Allergy (Verified 12/27/22 22:47) Difficulty Breathing venlafaxine [From Effexor] Allergy (Verified 12/27/22 22:47) Difficulty Breathing Home Medications amitriptyline 10 mg tablet 10 mg PO QHS 12/27/22 [History Confirmed 12/27/22] amlodipine 5 mg tablet 5 mg PO DAILY 12/27/22 [History Confirmed 12/27/22] apixaban 5 mg tablet 5 mg PO BID 12/27/22 [History Confirmed 12/27/22] aspirin 81 mg tablet 81 mg PO DAILY 12/27/22 [History Confirmed 12/27/22] carvedilol 25 mg tablet 25 mg PO Q12HR 12/27/22 [History Confirmed 12/27/22] levothyroxine 75 mcg tablet 75 mcg PO DAILY 12/27/22 [History Confirmed 12/27/22] lisinopril 20 mg tablet 20 mg PO BID 12/27/22 [History Confirmed 12/27/22] multivitamin 1 tab PO DAILY 12/27/22 [History Confirmed 12/27/22] omeprazole 40 mg capsule,delayed release 40 mg PO BID 12/27/22 [History Confirmed 12/27/22] sertraline 50 mg tablet 50 mg PO DAILY 12/27/22 [History Confirmed 12/27/22] Exam Physical Exam Vital Signs: Temp Pulse Resp BP Pulse Ox O2 Del Method 97.3 F L 96 H 18 125/69 97 Room Air 12/28/22 03:43 12/28/22 03:43 12/28/22 03:43 12/28/22 03:43 12/28/22 03:43 12/28/22 03:43 Narrative: Left lower extremity is resting in a shortened externally rotated position. Tenderness palpation over the proximal femur around the hip. Skin is atraumaticand healthy appearing. Foot is warm and well-perfused. Sensation intact to light touch throughout the foot. Patient wiggles the toes and moves her ankle up and down. Results Lab Results 12/28/22 05:08 Labs: Laboratory Results - Last 48 hrs. 12/28/22 05:08: PHA Creatinine Clear 50.83, Sodium 135 L, Potassium 4.7, Chloride 101, Carbon Dioxide 27.5, Anion Gap 11.2, BUN 12, Creatinine 0.84, Est GFR (CKD- EPI) > 60.0, Glucose 111 H, Calcium 9.0, Magnesium 1.8 L, Total Bilirubin 0.5, AST 17, ALT 8, Alkaline Phosphatase 59, Total Protein 6.4, Albumin 3.7, Globulin 2.7, Albumin/Globulin Ratio 1.4 12/28/22 05:08: PT 11.1, INR 1.0, APTT 34.5 Coagulation 12/28/22 Range/Units 05:08 INR 1.0 All other labs are normal. Assessment/Plan (1) Closed subcapital fracture of neck of left femur: Plan: Closed left displaced subcapital femoral neck fracture secondary to osteoporosis I had a long discussion with the patient regarding their diagnosis and treatmentoptions. I explained to them that hip fracture is typically an operative diagnosis. However, we did discuss nonoperative and nonoperative treatment options. In regards to nonoperative treatment, I explained that they would be likely bedbound for an extended period of the time and would be unable to weight-bear on the affected leg for approximately 3 months. While this does avoid the risksof surgery, there are significant risks with being bedbound for that long including but not limited to the following: bedsores, pneumonia, blood clots, and other medical complications. In regards to operative treatment, I explained that hip fractures are typically either fixed or replaced with implants. In regards to their hip fracture, I feel it is most amenable to arthroplasty. We discussed the differences between a hip hemiarthroplasty and a total hip arthroplasty. I explained the risks and benefits of each surgical procedure. My ultimate recommendation was a total hiparthroplasty given the patient's activity status. Patient's questions and concerns were answered and addressed. The benefits include but are not limited to the following: improved pain control, quicker ambulation, and typically improved quality of life compared to nonoperative management. However, there are risks involved with the surgical procedure including but not limited to the following: Infection, bleeding, injury to surrounding structures at the surgery site such as blood vessels, nerves, tendons, muscles, blood clots including DVT or PE, failure of hardware, intraoperative or postoperative fractures that may require further surgery, and other inherent risks of general anesthesia. We discussed these risks and benefits of both treatment options at length. The patient's questions and concerns were all answered and addressed. Ultimately they agreed to proceed with a left total hip arthroplasty. Hemoglobin is still pending. 2 units of blood will be on hold Albumin 3.7, she will be on Bene protein supplementation 3 times daily postoperatively Hemoglobin A1c 5.7 Calcium 9.0 and vitamin D 44.8. We will have her on calcium and vitamin D supplementation postoperatively and we will get her into our own the bone program. Patient is requested that I try and talk with her son-in-law who is a physician with the [facility]. I have discussed this with the charge nurse and workingto get a phone number so I can give him a call to discuss the treatment options. We will plan on a left total hip arthroplasty later today. Code(s): S72.012A - Unspecified intracapsular fracture of left femur, initial encounter for closed fracture Documented By: Ari Solares MD 12/28/22 07 05 Signed By: <Electronically signed by Ari Solares MD> 12/28/[address] [place] [address] Ctr Work Phone: [phone]) 531-767804-24-2023 Progress note Author Vivian Live [facility] December 28, 2022 8:20am Note Date/Time December 28, 2022 8:2 0am [facility] [address] [place] [address] Hospitalist Progress Note Signed Patient: Donna Olivares MR#: [id number] : 1950 Acct:[id number] Age/Sex: 72 / F Adm Date: 3 Loc: 4N Room: [address] [place] [address] Type: ADM IN Attending Dr: Vivian Live MD Copies to: ~ Date of Service: 12/28/2022 Subjective Subjective Narrative: This is a pleasant 72F with PMH of HTN, Afib on Eliquis, Hypothyroidism who p/w fall to the [facility] and transferred for the evaluation and treatment of hip fracture While she was walking today she tripped with her other leg and fell on her left side. After that she was unable to stand up and she was in a lot of pain. She denied any sob, chest pain, palpation , diaphoresis, headache before or after it. no vision changes, weakness, numbness, loss of consciousness, slurred speech. ROS: Ten Systems reviewed with the patient, all negative except what stated above Assessment And Plan Mechanical fall CT spine shows Age-indeterminate straightening of the normal cervical lordosis with mild degenerative retrolisthesis at C5-C6 CT head shows No acute intracranial abnormality. Atrophy and chronic white matter small vessel ischemic changes. left femoral neck fracture XR shows Cephalad displaced and impacted left femoral neck fracture Orthopedic consult Pain control Preoperative evaluation The patient doesn?t have any chronic cardiac ischemia, pulmonary disease nor sleep apnea She has stress test recently which was normal as she said EKG ED (i personally reviewed it) shows NSR@ 72 bpm no significant acute changes It is ok to proceed with the urgent surgery with acceptable Cardiopulmonary risk. she has surgical bleeding risk with Eliquis, Per ED Physician the surgeon was asked to but Eliquis on hold and do surgery in am Hold Lisinopril at the day of surgery Chronic diseases:?Unless mentioned Above, Essential home medications have been continued.? DVT Px:?SCD Code Status: FULL, discussed with patient Plan of care Discussed with:?the medical team, the patient 12/28: Patient reports having pain in the left hip. No chest pain or palpitation. No cough or congestion. No headaches, loss of conscious or seizure Exam Physical Exam Vital Signs: Temp Pulse Resp BP Pulse Ox O2 Del Method 98.5 F 97 H 16 132/75 95 Room Air 12/28/22 08:00 12/28/22 08:00 12/28/22 08:00 12/28/22 08:00 12/28/22 08:00 12/28/22 08:00 Narrative: [pt is awake and alert. oriented to place, time and person HEENT: [place] conjunctiva and NL buccal mucosa Neck: Supple, no tenderness Endocrine: No Thyromegaly. Vascular: No JVD or carotid bruit. Lymphatic: No cervical lymphadenopathy. Chest: CTA no DTP. Heart RRR, no extra sound or murmur. Abd: Soft, no tenderness, no rebound and no rigidity. Increase abd girth therefore clinically I could not exclude the possibility of intra abd mass or organomegaly. LE: No cyanosis or clubbing, no varices or edema. Tender left hip. Neuro: A A O. Nl speech, comprehension and attention. Nl and symetrical motor and tone examination through out. []] Const General: cooperative Objective Lab Results 12/28/22 05:08 Meds Allergies and Active Meds Allergies codeine Allergy (Verified 12/27/22 22:47) Difficulty Breathing hydrochlorothiazide Allergy (Verified 12/27/22 22:47) Difficulty Breathing venlafaxine [From Effexor] Allergy (Verified 12/27/22 22:47) Difficulty Breathing Active Meds: Active Medications Generic Name Dose Route Start Last Admin Trade Name Freq PRN Reason Stop Dose Admin Acetaminophen 650 mg 12/28/22 00:01 Acetaminophen 325 Mg Tablet PO 12/28/23 00:00 Q6H PRN Pain 1-5 or fever Amitriptyline HCl 10 mg 12/28/22 22:00 Amitriptyline 10 Mg Tablet PO 12/28/23 21:59 QHS BARBRA Amlodipine Besylate 5 mg 12/28/22 09:00 Amlodipine 5 Mg Tablet PO 12/28/23 08:59 DAILY BARBRA Carvedilol 25 mg 12/28/22 09:00 Carvedilol 25 Mg Tablet PO 12/28/23 08:59 Q12HR BARBRA Hydromorphone HCl 0.5 mg 12/28/22 00:01 Hydromorphone 0.5 Mg/0.5 Ml Syringe IV-PUSH Q4H PRN Pain Scale 8 - 10 Magnesium Sulfate 2 gm in 50 mls @ 25 mls/hr 12/28/22 08:16 Magnesium Sulf 2gm-*Swfi* IV 12/28/22 10:15 ONCE ONE Levothyroxine Sodium 75 mcg 12/28/22 06:30 12/28/22 05:31 Levothyroxine 75 Mcg Tablet PO 12/28/23 06:29 Not Given DAILY@0630 BARBRA Morphine Sulfate 2 mg 12/28/22 00:01 12/28/22 05:49 Morphine Sulfate 2 Mg/Ml Vial IV-PUSH 2 mg Q4H PRN Administration Pain Scale 7 - 10 Ondansetron HCl 4 mg 12/28/22 00:01 Ondansetron 4 Mg/2 Ml Vial IV-PUSH 12/28/23 00:00 Q6H PRN Nausea And Vomiting Potassium Chloride 40 meq 12/28/22 00:01 Potassium Chloride Er 20 Meq Tab.Er.Prt PO 12/28/23 00:00 DAILY PRN Hypokalemia Sodium Chloride 0 ml 12/28/22 07:06 Sodium Chloride 0.9 % 10 Ml Syringe IV-PUSH 12/28/23 07:05 PRN PRN Flush Zolpidem Tartrate 5 mg 12/28/22 00:01 Zolpidem 5 Mg Tablet PO 06/26/23 00:00 QHS PRN Sleep A&P - Hospitalist Assessment/Plan (1) Hip fracture: (2) Paroxysmal A-fib: (3) Hypomagnesemia: Plan Magnesium supplementation Telemetry monitoring Monitor for potential postoperative issues and/or complications such as delirium, atelectasis, infection, bleed, ileus and others Resume Eliquis postoperatively. Vitamin D level is pending. Recommend DEXA scan in the outpatient setting Documented By: Vivian Live MD 12/28/22816 Signed By: <Electronically signed by Vivian Live MD> 12/28/22819 [facility] Work Phone: [phone]) 853-603804-24-2023 History and physical note Author Junior Martinez [facility] December 28, 2022 7:46am Note Date/Time December 27, 2022 11: 58pm [facility] [address] [place] [address] Hospitalist H&P Signed Patient: Donna Olivares MR#: [id number] : 1950 Acct:[id number] Age/Sex: 72 / F Adm Date: 3 Loc: 4N Room: [address] [place] [address] Type: ADM IN Attending Dr: Vivian Live MD Copies to: NON STAFF MD Vivian Amin MD~ HPI DATE OF EXAMINATION: 12/27/22 HISTORY OF PRESENT ILLNESS: This is a pleasant 72F with PMH of HTN, Afib on Eliquis, Hypothyroidism who p/w fall to the [facility] and transferred for the evaluation and treatment of hip fracture While she was walking today she tripped with her other leg and fell on her left side. After that she was unable to stand up and she was in a lot of pain. She denied any sob, chest pain, palpation , diaphoresis, headache before or after it. no vision changes, weakness, numbness, loss of consciousness, slurred speech. ROS: Ten Systems reviewed with the patient, all negative except what stated above Assessment And Plan Mechanical fall CT spine shows Age-indeterminate straightening of the normal cervical lordosis with mild degenerative retrolisthesis at C5-C6 CT head shows No acute intracranial abnormality. Atrophy and chronic white matter small vessel ischemic changes. left femoral neck fracture XR shows Cephalad displaced and impacted left femoral neck fracture Orthopedic consult Pain control Preoperative evaluation The patient doesn?t have any chronic cardiac ischemia, pulmonary disease nor sleep apnea She has stress test recently which was normal as she said EKG ED (i personally reviewed it) shows NSR@ 72 bpm no significant acute changes It is ok to proceed with the urgent surgery with acceptable Cardiopulmonary risk. she has surgical bleeding risk with Eliquis, Per ED Physician the surgeon was asked to but Eliquis on hold and do surgery in am Hold Lisinopril at the day of surgery Chronic diseases:?Unless mentioned Above, Essential home medications have been continued.? DVT Px:?SCD Code Status: FULL, discussed with patient Plan of care Discussed with:?the medical team, the patient [facility] Medical History (Updated 12/27/22 @ 23:33 by Alla Overton RN) A-fib Hypertension Social History Smoking Status: Never smoker Substance Use Type: None Meds Medications and Allergies Allergies codeine Allergy (Verified 12/27/22 22:47) Difficulty Breathing hydrochlorothiazide Allergy (Verified 12/27/22 22:47) Difficulty Breathing venlafaxine [From Effexor] Allergy (Verified 12/27/22 22:47) Difficulty Breathing Home Medications amitriptyline 10 mg tablet 10 mg PO QHS 12/27/22 [History Confirmed 12/27/22] amlodipine 5 mg tablet 5 mg PO DAILY 12/27/22 [History Confirmed 12/27/22] apixaban 5 mg tablet 5 mg PO BID 12/27/22 [History Confirmed 12/27/22] aspirin 81 mg tablet 81 mg PO DAILY 12/27/22 [History Confirmed 12/27/22] carvedilol 25 mg tablet 25 mg PO Q12HR 12/27/22 [History Confirmed 12/27/22] levothyroxine 75 mcg tablet 75 mcg PO DAILY 12/27/22 [History Confirmed 12/27/22] lisinopril 20 mg tablet 20 mg PO BID 12/27/22 [History Confirmed 12/27/22] multivitamin 1 tab PO DAILY 12/27/22 [History Confirmed 12/27/22] omeprazole 40 mg capsule,delayed release 40 mg PO BID 12/27/22 [History Confirmed 12/27/22] sertraline 50 mg tablet 50 mg PO DAILY 12/27/22 [History Confirmed 12/27/22] Exam Physical Exam Vital Signs: Temp Pulse Resp BP Pulse Ox O2 Del Method 36.4 C L 95 H 20 154/72 H 97 Room Air 12/27/22 23:38 12/27/22 23:38 12/27/22 23:38 12/27/22 23:38 12/27/22 23:38 12/27/22 23:39 Narrative: GEN: Pleasant, Cooperative, Not in acute distress. NECK: Supple, ? JVD LUNGS: CTA. normal respiratory effort. CHEST: no chest wall tenderness. CV: S1S2 nl, ? M/R/G ABD: Soft, ND, NT, + BS, ? rebound/guarding, ?CVA tenderness, ? HSM EXT: No edema in LE bilaterally, ROM is limited in the left hip due to pain. nocalf muscle tenderness. NEURO: ? FND, CN II-XII (intact), Motor Strength (5/5 RUE, 5/5 LUE, 5/5 RLE, can't fully access the LLE due to pain) , Sensation (Intact to soft touch), rapid alternating movements and finger to nose test normal and symmetric. PSYCH: nl affect, AOx3. Documented By: Junior Martinez MD 12/27/22 2182 Signed By: <Electronically signed by Junior Martinez MD> 12/28/22 0746 [facility] Work Phone: Evaluation note* Diagnosis Onset Date Resolution Status Closed subcapital fracture of neck of left femur acute Hip fracture acute Hypomagnesemia acute Paroxysmal A-fib acute [facility] Work Phone: Evaluation noteNo assessment information available [facility] Work Phone: Evaluation note* Diagnosis Essential hypertension, benign documented in this encounter [facility]* Diagnosis Essential (primary) hypertension- Primary Unspecified essential hypertension 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 Viral URI with cough Gastro-esophageal reflux disease without esophagitis Paroxysmal atrial fibrillation (CMS-HCC) Atrial fibrillation Nonrheumatic mitral valve regurgitation Depression with anxiety Dysthymic disorder Primary insomnia Persistent disorder of initiating or maintaining sleep Other cardiomyopathy (CMS-HCC) Osteopenia of multiple sites Encounter for screening mammogram for malignant neoplasm of breast Leukocytes in urine Other nonspecific finding on examination of urine [facility] Diagnosis Acute cystitis without hematuria- Primary [facility]* Diagnosis Abnormal mammogram of left breast- Primary documented in this encounter [facility]* Diagnosis Essential (primary) hypertension Unspecified essential hypertension Cardiomyopathy, unspecified type (CMS-HCC) documented in this encounter [facility]* Diagnosis Essential hypertension, benign Essential (primary) hypertension Unspecified essential hypertension documented in this encounter [facility]* Diagnosis Annual physical exam- Primary Routine general medical examination at a health care facility Essential (primary) hypertension Unspecified essential hypertension 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 Gastro-esophageal reflux disease without esophagitis Paroxysmal atrial fibrillation (CMS-HCC) Atrial fibrillation Nonrheumatic mitral valve regurgitation Other cardiomyopathy (CMS-HCC) Depression with anxiety Dysthymic disorder Primary insomnia Persistent disorder of initiating or maintaining sleep Osteopenia of multiple sites Acute right-sided low back pain without sciatica Microscopic hematuria [facility] Hyponatremia- Primary Hyposmolality and/or hyponatremia Essential (primary) hypertension Unspecified essential hypertension 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 Please communicate results to nursing facility provider. I had to reduce her amlodipine and the lisinopril dose significantly due to borderline low blood pressure Please continue to hold lisinopril and amlodipine if systolic blood pressure is less than 125. Please titrate dose upward gradually if systolic blood pressure goes above 150. This is to be done by provider at the nursing facility. I may not have addressed or treated all of your medical illnesses or the abnormal blood work or imaging studies during this hospitalization. Please ask your primary care provider to obtain [facility] records entirely to follow up on all of the abnormal physical, laboratory, and imaging findings that I have not addressed. Please return back to the emergency room or seek medical attention if your symptoms worsen or return. Discharging you from [facility] does not mean that your medical care ends here and now. You may still need additional monitoring, work up, investigation, and treatment plan to be handled from this point on by out patient providers including your primary care provider and specialists. For any medication question, please contact your retail pharmacist or your primary care provider. Thank you. SNF to manage: -PT/OT to eval and treat -Monitor VS per protocol -Fall precautions -Perform orthopedic and cardiovascular assessments -Dietitian recommendations: *Beneprotein, 1 packet, TID with meals -Monitor voiding-- guerrero catheter was removed on 12/29/22 -Obtain BMP and CBC for 2 weeks as ordered -Orthopedic surgeon recommendations for left hip fracture s/p surgical repair on 12/28/22: *KAREN Hose bilaterally *WBAT left lower extremity *Left hip wound vac---Prevena wound VAC should be taken off at postop day 14 by intermediate facility *Left hip dressing-- change PRN -Care to be managed by SNF providers.[facility] Work Phone: InstructionsNot on filedocumented in this encounter [facility] filed[facility] in this [facility] filedocumented in this encounter [facility] filedocumented in this encounter [facility] Summary Purpose Family History No Family History Records FoundNo Family History Records FoundNo Family History Records FoundNo Family History Records FoundNo Family History Records FoundNo Family History Records Found Advance Directives Advance Directive Response Recorded Date/ Time Advance Directives No December 27 023 9:04pm Advance Directive Response Recorded Date/ Time DNR- Comfort Care Only No May 09, 2023 1:30pm DNR- Comfort Care Arrest No 2022 1:30pm Advance Directives No May 2:11pm Living Will Yes May 09 1:30pm Organ Donor No May 09 1:30pm Power of Historical Society Director Yes May 09, 2023 1:30pm Chief Complaint and Reason for Visit Chief Complaint Left hip fracture Reason for Visit Closed subcapital fr acture of neck of left femur Hip fracture Hypomagnesemia Paroxysmal A-fib Chief Complaint Left hip fracture M80.00XD Reason for Visit Closed subcapital fr acture of neck of left femur Hip fracture Hypomagnesemia Paroxysmal A-fib Chief Complaint Diff breathing Additional Source Comments INFORMATION SOURCE (unrecogn ized section and content) DATE CREATED AUTHOR 12/30/2022 [facility] DATE CREATED AUTHOR AUTHOR'S ORGANIZ ATION 05/13/2023 [facility] DATE CREATED AUTHOR AUTHOR'S ORGANIZ ATION 05/28/2023 [facility] [facility] DATE CREATED AUTHOR AUTHOR'S ORGANIZ ATION 12/15/2023 [facility] DATE CREATED AUTHOR AUTHOR'S ORGANIZ ATION 06/15/2024 [facility] DATE CREATED AUTHOR AUTHOR'S ORGANIZ ATION 06/15/2024 [facility] Care Teams (unrecognized sec tion and content) Team Status: Active Member Role Status Dates NON STAFF Primary Care Provider Active Team Status: Inactive Member Role Status Dates NON STAFF Primary Care Provider Active Marwan Wassouf , MD Admit Provider Active Ari Solares II, MD Other Provider Active Vivian Live MD Attending Provider Active Team Status: Inactive Member Role Status Dates NON STAFF Primary Care Provider Active Lucille Ramirez , [employer] ENGINEER[employer]C Attending Provider Active Team Status: Inactive Member Role Status Dates NON STAFF Primary Care Provider Active Ari Solares II, MD Attending Provider Active Team Status: Active Member Role Status Dates No PCP Primary Care Provider Active Team Status: Inactive Member Role Status Dates No PCP Primary Care Provider Active Nettie Weiss MD Emergency Provider Active Evaluation Specialist Relationship Specialty Start Date End Date Francisco Chang DO [address] [place] [address] PCP - General Family Medicine 01/04/21 Evaluation Specialist Relationship Specialty Start Date End Date Francisco Chang DO [address] [place] [address] PCP - General Family Medicine 01/04/21 Evaluation Specialist Relationship Specialty Start Date End Date Francisco Chang DO [address] [place] [address] PCP - General Family Medicine 01/04/21 Evaluation Specialist Relationship Specialty Start Date End Date Francisco Chang DO [address] [place] [address] PCP - General Family Medicine 01/04/21 Evaluation Specialist Relationship Specialty Start Date End Date Francisco Chang DO [address] [place] [address] PCP - General Family Medicine 01/04/21 Evaluation Specialist Relationship Specialty Start Date End Date Francisco Chang DO [address] [place] [address] PCP - General Family Medicine 01/04/21 REASON FOR VISIT (unrecogniz ed section and content) Reason Comments Med Refill Reason Comments Follow-up Patient is here for 6 month recheck chronic medical conditions Reason Comments medicare wellness Patient here for [facility] medicare wellness exam.Concerns: back pain x2 weeks, no improvement with motrin/heat Reason Onset Date Comments Back Pain 06/21/2024 FOR RECORDS PERTAINING TO PATIENTS WHO ARE OR HAVE BEEN ENROLLED IN A CHEMICAL DEPENDENCY/SUBSTANCEABUSE PROGRAM, SOME INFORMATION MAY BE OMITTED. This clinical summary was aggregated from multiple sources. Caution should be exercised in using it in the provision of clinical care. This summary normalizes information from multiple sources, and as a consequence, information in this document may materially change the coding, format and clinical context of patient data. In addition, data may be omitted in some cases. CLINICAL DECISIONS SHOULD BE BASED ON THE PRIMARY CLINICAL RECORDS. [employer] provides no warranty or guarantee of the accuracy or completeness of information in this document.
== END 2024-06-23 13:45 | disposition home or self-care (01) ==
LOC: LAB 06-27 13:44
DX: E87.1 Hypo-osmolality and hyponatremia (principal)
CPT/HCPCS: 36415; 80051

== ENCOUNTER 2024-06-28 16:02 | Outpatient (RCR) | payer MEDICARE, SELFPAY | END 2024-08-01 10:05 | disposition home or self-care (01) | LOC: PT 16:02 | DX: M54.50 Low back pain, unspecified (principal) | CPT/HCPCS: 97110; 97112; 97140; 97162 ==

== ENCOUNTER 2025-07-13 08:30 | Outpatient (OUT) | payer MEDICARE, SELFPAY ==
--- OUTSIDE RECORDS SUMMARY | 2025-07-09 13:45 | XMS_ITS | Encounter Summary ---
Author Organization [facility] Address [id number] [address] [place] [address] Care Team Providers Care Zipper Joiner Name Role Phone Francisco Chang DO Primary Care Provider [phone] Reason for Visit * ReasonCommentsmedicare wellnessRoutine labs: 06/17/2024Mammogram: 12/14/2023 US Breast Left: 12/14/2023 (6 month diagnostic recheck recommended)Dexa: refused last yearFlu Vaccine: does not receive Encounter Details DateTypeDepartmentCare Team (Latest Contact Info)Jlfzvghmjbk43/03/2025 1:45 PM ESTOffice Visit [facility] [address] [place] [address] Francisco Chang DO [address] [place] [address] Annual physical exam (Primary Dx); Essential (primary) hypertension; Unintentional weight loss; 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 > 10+ years Alcohol UseStandard Drinks/WeekCommentsYes4 (1 standard drink = 0.6 oz pure alcohol)occPHQ-2AnswerDate RecordedTotal Zjtmh340/03/2025ChildcareAnswerDate SfxsvmiwLlckyafmqToaluzk78/11/2019EmploymentAnswerDate RecordedEmploymentUnknown 02/14/2019Hunger ScreeningAnswerDate RecordedWithin the past 12 months we worried whether our food would run out before we got money to buy more.Never True07/09/2025Within the past 12 months the food we bought just didn't last and we didn't have money to get more.Never True07/09/2025Purpose - LifeAnswerDate RecordedPurpose and direction in ewdqAypafyy65/10/2021CommentsNoSex and Gender InformationValueDate RecordedSex Assigned at BirthNot on fileLegal Sex Hirsvy3704/09/2015 6:29 PM EDTGender IdentityNot on fileSexual OrientationNot on filedocumented as of this encounter Last Filed Vital Signs Vital SignReadingTime TakenCommentsBlood Gcfdarfh533/6407/09/2025 1:48 PM EST Qihky0369 1:48 PM ESTTemperature--Respiratory Rate--Oxygen Kdcwapebfl32% 07/09/2025 1:48 PM ESTInhaled Oxygen Concentration--Oymzwr04.5 kg (89 lb 3.2 oz) 07/09/2025 1:48 PM FVSFytyfu993.6 cm (5' 6 )07/09/2025 1:48 PM ESTBody Mass Index14. 1:48 PM ESTdocumented in this encounter Patient Instructions * Patient Instructions* Francisco Chang DO - 07/09/2025 1:45 PM EST Patient noted to have low BMI and the following intervention(s) were applied: weight gain advised. documented in this encounter Progress Notes * Francisco Chang DO - 07/09/2025 1:45 PM EST Subjective SUBJECTIVE: Patient ID: Donna Saavedra is a 75 y.o. female who presents for a Medicare Annual Wellness exam, recheck chronic medical conditions. HYPERTENSION -patient is taking medication as prescribed, tolerating well; blood pressure is under good control, actually running on the low side; patient denies headache, chest pain, shortness of breath, dyspnea on exertion or edema HYPOTHYROIDISM - patient is taking medication as prescribed, tolerating well; patient is due for thyroid labs. GERD - patient is taking medication as prescribed, tolerating well; denies dysphagia, melena or frequent breakthrough reflux ATRIAL FIBRILLATION - patient currently takes Xarelto for anticoagulation, and carvedilol for rate control. She denies any recent palpitations, chest pain, shortness of breath or syncopal episodes. She does follow with cardiology for this. Has a history of hypertensive heart disease with decreased ejection fraction/systolic congestive heart failure. DEPRESSION AND ANXIETY - patient taking medication [...] for DEXA scan but refuses for now. WEIGHT LOSS - had significant unintentional weight loss, her last recorded weight in our system ngi098 lb in September 2024, today her weight is recorded at 89 lb. She states she really has not been trying to lose weight she just does not have much appetite and does not eat much. She denies any constipation, diarrhea, blood in his stools, black tarry stools, abdominal pain, fevers or chills, difficulty swallowing, pain with swallowing, or anything else that she feels is associated with the weight loss. Patient's who does accompanies her at today's office visit, agrees that he and the rest of the family's biggest concern is her weight at this point. She is due for fasting labs. Patient refuses further breast cancer screening with mammograms, refuses colon cancer screening, refuses age-appropriate vaccinations. CURRENT MEDICATIONS & HISTORY Current Outpatient Medications Medication Sig Dispense Refill amitriptyline (ELAVIL) 10 mg tablet TAKE 3 TABLETS BY MOUTH AT BEDTIME 270 tablet 3 carvediloL (COREG) 25 mg tablet TAKE 1 TABLET BY MOUTH TWICE A DAY WITH FOOD FOR 90 DAYS 180 tablet3 cetirizine (ZyrTEC) 10 mg tablet Take 1 tablet (10 mg total) by mouth as needed. ELIQUIS 5 mg tablet TAKE 1 TABLET (5 MG TOTAL) BY MOUTH IN THE MORNING AND AT BEDTIME 180 tablet 0 fluticasone (FLONASE) 50 mcg/actuation nasal spray 2 sprays into each nostril daily. 16 g 11 levothyroxine (SYNTHROID, LEVOTHROID) 75 MCG tablet TAKE 1 TABLET BY MOUTH EVERY DAY 90 tablet 3 multivitamin (THERAGRAN) tablet Take 1 tablet by mouth in the morning. mupirocin (BACTROBAN) 2 % ointment 2 (two) times a day. omeprazole (PriLOSEC) 40 mg capsule take 1 capsule by mouth twice a day 180 capsule 3 sertraline (ZOLOFT) 50 mg tablet daily. 0 spironolactone (ALDACTONE) 25 mg tablet Take 1 tablet (25 mg total) by mouth in the morning. TAKE 1TABLET (25 MG TOTAL) BY MOUTH IN THE MORNING. 90 tablet 3 lisinopriL (PRINIVIL,ZESTRIL) 10 mg tablet Take 1 tablet (10 mg total) by mouth in the morning and at bedtime. 90 tablet 3 No current facility-administered medications for this visit. Past Medical History: Diagnosis Date Anxiety Carpal tunnel syndrome Chronic rhinitis seasonal allergies Depression Deviated nasal septum Disease of thyroid gland Diverticulitis Fractures bilat arms as child GERD (gastroesophageal reflux disease) Hip fracture requiring operative repair (CMS-HCC) Hypercholesterolemia Hypertension Hypertrophy of both inferior nasal turbinates Mitral valve regurgitation Nasal congestion Osteopenia Paroxysmal atrial fibrillation (CMS-HCC) Polyp, sigmoid colon Varicose veins of both lower extremities Past Surgical History: Procedure Laterality Date APPENDECTOMY ovarian cystectomy BREAST BIOPSY Left 2014 stereotactic CHOLECYSTECTOMY ENDOMETRIAL ABLATION 04/06/2006 NOVASURE LAPAROSCOPY DIAGNOSTIC/BSO Bilateral 07/07/2016 Performed by Sybil Ascencio MD at [facility] OOPHORECTOMY 2019 OSTECTOMY CALCANEUS FOR SPUR [...] alcohol do you consume in a week?: 1 or less Do you exercise for 30 or more minutes on average at least 3 days a week?: (!) Never Do you have any tooth, denture, or oral problems?: No Do you snore or has anyone told you that you snore?: (!) Yes Do you try to eat a balanced diet?: Yes Do you experience leakage of urine, also known as urinary incontinence?: Never Fall Risk Fall Risk Assessment Completed?: Yes Have you fallen in the past year?: No Are you worried about falling?: (!) Yes Do you feel unsteady when standing or walking?: (!) Yes Risk Stratification: Moderate Risk Depression Screening Little interest or pleasure in doing things: Not at all Feeling down, depressed, or hopeless: Not at all PEG Scale What number best describes your pain on average in the past week?: 8 What number best describes how, during the past week, pain has interfered with your enjoyment of life?: 8 What number best describes how, during the past week, pain has interfered with your general activity?: 8 PEG Pain Total Score: 8 Safety Assessment Do you have throw rugs on the floor?: No Do you feel safe at your home?: Yes Do you feel unsteady when walking?: (!) Yes Are you having difficulty with driving?: No Do you have trouble seeing?: (!) Yes Hearing Assessment Do you strain or struggle to hear/understand conversations?: No Do you have trouble hearing the television or radio when others do not?: No Does your family ever voice concerns about your hearing?: (!) Yes Do you wear hearing aid/s?: No Personal [...] Do you have a durable power of assistant district attorney?: Yes Cognitive Screening Do you have trouble remembering or recalling facts or events?: (!) Yes Do family members or caregivers report that you have difficulty remembering things?: (!) Yes Clock Drawing Test: Normal REVIEW OF SYSTEMS: Review of Systems Objective PHYSICAL EXAMINATION: Vitals: 07/09/25 1348 BP: 102/64 Pulse: 62 SpO2: 95% Weight: 40.5 kg (89 lb 3.2 oz) Height: 167.6 cm (5' 6 ) Body mass index is 14.4 kg/m??. Physical Exam Constitutional: General: She is not in acute distress. Comments: Very thin/cachectic appearing HENT: Head: Normocephalic and atraumatic. Right Ear: [...] edema. Left lower leg: No edema. Comments: Patient has unsteady gait, using 4 pronged walker. Lymphadenopathy: Cervical: No cervical adenopathy. Skin: General: Skin is warm and dry. Neurological: General: No focal deficit present. Mental Status: She is alert and oriented to person, place, and time. Psychiatric: Mood and Affect: Mood normal. Behavior: Behavior normal. Assessment/Plan ASSESSMENT/PLAN Donna was seen today for medicare wellness. Diagnoses and all orders for this visit: Annual physical exam Essential (primary) hypertension - CBC auto differential; Future - Comprehensive metabolic panel; Future - TSH; Future - Lipid profile; Future - T3, free; Future - T4, free; Future - lisinopriL (PRINIVIL,ZESTRIL) 10 mg tablet; Take 1 tablet (10 mg total) by mouth in the morning and at bedtime. 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 Fasting labs at her earliest convenience will call with results. Pending these results if no obvious findings it would suggest a reason for excessive weight loss such as over treatment of hypothyroidism or other metabolic disorder, will discuss further evaluation and treatment of unintentional weight loss. For the time being, continue current treatment for hypothyroidism, gastroesophageal reflux disease,atrial fibrillation, depression with anxiety and insomnia. Decrease lisinopril dosage to 10 mg daily, as her blood pressure is running towards the lower end of normal with the 20 mg dosage, likely related to her recent weight loss. Patient refuses mammogram, DEXA scan, any form of colon cancer screening, and any age-appropriate vaccinations at this time. Will plan on having patient follow up with us at the very least in 1 year for Medicare wellness, but may follow up before then as needed. Pending lab results and treatment options for weight loss we may need to see her before then but will make these arrangements over the phone if necessary. As this patient's primary care provider I serve as the continuing focal point for this patient and or we will be providing longitudinal care including follow up for this specific condition and other chronic conditions. No follow-ups on file. 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 1 Occurrences starting 07/09/2025 until 07/09/2026TSHLabRoutine Essential (primary) hypertension 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 1 Occurrences starting 07/09/2025 until 07/09/2026Lipid profileLabRoutine Essential (primary) hypertension 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 1 Occurrences starting 07/09/2025 until 07/09/2026T3, freeLabRoutine Essential (primary) hypertension 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 1 Occurrences starting 07/09/2025 until 07/09/2026T4, freeLabRoutine Essential (primary) hypertension 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 1 Occurrences starting 07/09/2025 until 07/09/2026documented as of this encounter Visit Diagnoses Diagnosis Annual physical exam- Primary Routine general medical examination at a health care facility Essential (primary) hypertension Unspecified essential hypertension Unintentional weight loss Loss of weight 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 Gastro-esophageal reflux disease without esophagitis Paroxysmal atrial fibrillation (CMS-HCC) Atrial fibrillation Nonrheumatic mitral valve regurgitation Other cardiomyopathy (CMS-HCC) Hypertensive heart disease with heart failure (CMS-HCC) Unspecified hypertensive heart disease with heart failure Depression with anxiety Dysthymic disorder Primary insomnia Persistent disorder of initiating or maintaining sleep Osteopenia of multiple sites Essential hypertension, benign documented in this encounter Additional Health Concerns AssessmentNoted TimePHQ-9 Depression Total Score: 1:00 PM ESTA Body Mass Index follow-up plan has been documented for the ezwiwes2207/09/2025 2:34 PM ESTdocumented as of this encounter Care Teams Team MemberRelationshipSpecialtyStart DateEnd Date Francisco Chang DO [address], [address] [id number] PCP - GeneralFamily Medicine01/04/21documented as of this encounter
--- OUTSIDE RECORDS SUMMARY | 2025-07-13 08:37 | XMS_ITS | Clinical Summary ---
Author Organization [facility] Address [id number] [address] [place] [address] Care Team Providers Care Assistant Housekeeping Manager Name Role Phone AlotreFrancisco DO Primary Care Provider [phone] Allergies Active AllergyReactionsCriticalityNoted DateCommentsAmlodipineOther (See Comments)High01/22/2020Amoxicillin-Pot Gfhxcoxtzpq98/23/2016 Other reaction(s): Intolerance-unknown AdvwjpkHteiWzmpbv39/07/2016 Other reaction(s): Intolerance-unknown Xwvmdofiekykslpsngy09/23/2016 Other reaction(s): Intolerance-unknown MetoprololGI AxapuxtqbypGtuiit65/18/8346Oeghngntj27/01/2016 hctz Fvdxcjdnsjq50/18/2020 Medications MedicationSigDispense QuantityRefillsLast FilledStart DateEnd DateStatus multivitamin (THERAGRAN) tablet Take 1 tablet by mouth in the morning.Active fluticasone (FLONASE) 50 mcg/actuation nasal spray 2 sprays into each nostril daily. 16 g 11110/25/2015Active sertraline (ZOLOFT) 50 mg tablet daily.Active cetirizine (ZyrTEC) 10 mg tablet Take 1 tablet (10 mg total) by mouth as needed.Active mupirocin (BACTROBAN) 2 % ointment 2 (two) times a day.Active omeprazole (PriLOSEC) 40 mg capsule take 1 capsule by mouth twice a day 180 capsule ctive levothyroxine (SYNTHROID, LEVOTHROID) 75 MCG tablet TAKE 1 TABLET BY MOUTH EVERY DAY 90 tablet 5Active spironolactone (ALDACTONE) 25 mg tablet Indications:Cardiomyopathy, unspecified type (CMS-HCC),Essential (primary) hypertensionTake 1 tablet (25 mg total) by mouth in the morning. TAKE 1 TABLET (25 MG TOTAL) BY MOUTH IN THE MORNING. 90 tablet 5Active carvediloL (COREG) 25 mg tablet Indications:Essential hypertension, benignTAKE 1 TABLET BY MOUTH TWICE A DAY WITH FOOD FOR 90 DAYS 180 tablet 5Active amitriptyline (ELAVIL) 10 mg tablet TAKE 3 TABLETS BY MOUTH AT BEDTIME 270 tablet 5Active ELIQUIS 5 mg tablet Indications:Paroxysmal atrial fibrillation (CMS-HCC),Cardiomyopathy (CMS-HCC) TAKE 1 TABLET (5 MG TOTAL) BY MOUTH IN THE MORNING AND AT BEDTIME 180 tablet 5Active lisinopriL (PRINIVIL,ZESTRIL) 10 mg tablet Indications:Essential (primary) hypertension,Essential hypertension, benignTake 1 tablet (10 mg total) by mouth in the morning and at bedtime. 90 tablet 5Active oseltamivir (TAMIFLU) 75 mg capsule Take 1 capsule (75 mg total) by mouth in the morning. 10 capsule 5109/08/2024Discontinued lisinopriL (PRINIVIL,ZESTRIL) 20 mg tablet Indications:Essential hypertension, benign,Essential (primary) hypertensionTAKE 1 TABLET BY MOUTH TWICE A DAY 180 tablet Discontinued(Reorder) Active Problems ProblemNoted DateDiagnosed DateHypertensive heart disease with heart failure 07/09/2025Primary luquwtoy20/08/2024epression with rynrptl9706/13/2024Osteopenia of multiple sites06/13/20249601Gkpqusjlocwazh45/30/2016Essential (primary) izextrougzlr25/16/2016Menopause eicgusp7807/22/2016Gastro-esophageal reflux disease without mycfaeiptym70/10/1345Zzravbbmlciawu46/10/2016Paroxysmal atrial vepzqynkwtwn52/10/2016Chronic left maxillary sbywfacxw51/29/2016Chronic qomaxcbsn07/07/8236Osjeqtvp29/07/2016Chronic tozkgqyc29/07/2016Nasal congestion 02/11/2016Deviated nasal dqlrdo7102/11/2016Hypertrophy of both inferior nasal umiccstgfz44/07/2016Mitral valve rtqcelgrrcgzy12/25/2014 Encounters DateTypeDepartmentCare OretSokzbknbavt16/03/2025 1:45 PM ESTOffice Visit [facility] [address] [place] [address] [address] [place] [address] Francisco Chang, DO Annual physical exam (Primary Dx); Essential (primary) hypertension; Unintentional weight loss; 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; Gastro-esophageal reflux disease without esophagitis; Paroxysmal atrial fibrillation (CMS-HCC); Nonrheumatic mitral valve regurgitation; Other cardiomyopathy (CMS-HCC); Hypertensive heart disease with heart failure (CMS-HCC); Depression with anxiety; Primary insomnia; Osteopenia of multiple sites; Essential hypertension, jizfvp8207/09/20257290Zeitpm78/16/4386Lgjesh96/16/2025 Telephone [facility] [address] [facility] [address] [address] [place] [address] Lisa Peñaloza RMA appointment due05/03/2025Refill [facility] [address] [place] [address] Donna Hoang, TELEPHONE ORDER CLERK ROOM SERVICE-REPLENISHMENT ANALYST Med Refillfrom Last 3 Months Immunizations ImmunizationAdministration DatesNext XgxZutt7009/06/2007 Family History Medical HistoryRelationNameCommentsHeart diseaseBrotherHeart diseaseFather HypertensionFatherBreast cancerMaternal AuntGestational diabetesMaternal GrandfatherCancerMaternal UncleHeart diseaseMotherHypertensionMotherHypertension SisterAnesthesia problemsNeg HxRelationNameStatusCommentsBrotherFatherDeceased Maternal AuntMaternal GrandfatherMaternal UncleMotherDeceasedSister Social History Tobacco UseTypesPacks/DayYears UsedDateSmoking Tobacco: FormerCigarettes Smokeless Tobacco: Never Tobacco Cessation:Counseling Given: Not Answered Comments:How long has it been since you last smoked? > 10+ years Alcohol UseStandard Drinks/WeekCommentsYes4 (1 standard drink = 0.6 oz pure alcohol)occPHQ-2AnswerDate RecordedTotal Zcbrt294/03/2025ChildcareAnswerDate EjeibtjzNawjwnauuWybnszn34/11/2019EmploymentAnswerDate RecordedEmploymentUnknown 02/14/2019Hunger ScreeningAnswerDate RecordedWithin the past 12 months we worried whether our food would run out before we got money to buy more.Never True07/09/2025Within the past 12 months the food we bought just didn't last and we didn't have money to get more.Never True07/09/2025Purpose - LifeAnswerDate RecordedPurpose and direction in coloExpsjcp63/10/2021CommentsNoSex and Gender InformationValueDate RecordedSex Assigned at BirthNot on fileLegal Sex Vuolpc8604/09/2015 6:29 PM EDTGender IdentityNot on fileSexual OrientationNot on file Last Filed Vital Signs Vital SignReadingTime TakenCommentsBlood Uvemuoed624/6407/09/2025 1:48 PM EST Eghnf311507/09/2025 1:48 PM WWAXmitvbzxiom67.4 ??C (97.6 ??F)11/16/2023 11:19 AM EDTRespiratory Yscz831607/07/2016 2:40 PM EDTOxygen Xmmnachwlm94%07/09/2025 1:48 PM ESTInhaled Oxygen Concentration--Vnytos06.5 kg (89 lb 3.2 oz)07/09/2025 1:48 PM QRIJgxjet684.6 cm (5' 6 )07/09/2025 1:48 PM ESTBody Mass Index14. 1:48 PM EST Plan of Treatment DateTypeDepartmentCare Team (Latest Contact Info)Rgymhhzgbah91/06/2026 2:30 PM ESTOffice Visit [facility] [address] [place] [address] Francisco Chang DO [address] [place] [address] Health MaintenanceDue DateLast DoneCommentsZoster (Shingles) Vaccine (1 of 2) 1998DTaP,Tdap and Td Vaccines (2 - Td or Tdap)RSV ( or age 60+ yrs) (1 - 1-dose 75+ series)2023OVID-19 Vaccine (3 - 2024- season)/, 01/03/2021Influenza Fkxeipx7005/07/2025 Depression Tzykshcpf24Fall Risk Wemeepstj87 Medicare Annual Wellness Visit, 06/13/2024, 03/05/2023 Tobacco Oaqrpusiu78 Medical Devices Not on file Insurance Care Teams Team MemberRelationshipSpecialtyStart DateEnd Date Francisco Chang DO [address], [address] [id number] PCP - GeneralFamily Medicine01/04/21
--- OUTSIDE RECORDS SUMMARY | 2025-07-13 08:37 | XMS_ITS | Encounter Summary ---
[facility] [id number] [address] [place] [address] Care Team Providers Care Communications Tech Name Role Phone Francisco Chang DO Primary Care Provider [phone] Encounter Details DateTypeDepartmentCare Team (Latest Contact Info)Tepjmcwpezs65/03/2025Travel Social History Tobacco UseTypesPacks/DayYears UsedDateSmoking Tobacco: FormerCigarettes Smokeless Tobacco: Never Comments:How long has it bee n since you last smoked? > 10+ years Alcohol UseStandard Drinks/WeekCommentsYes4 (1 standard drink = 0.6 oz pure alcohol)occPHQ-2AnswerDate RecordedTotal Pgijo308/03/2025ChildcareAnswerDate VeqjukmgRnzjkmwslVkcbfpa82/11/2019EmploymentAnswerDate RecordedEmploymentUnknown 02/14/2019Hunger ScreeningAnswerDate RecordedWithin the past 12 months we worried whether our food would run out before we got money to buy more.Never True07/09/2025Within the past 12 months the food we bought just didn't last and we didn't have money to get more.Never True07/09/2025Purpose - LifeAnswerDate RecordedPurpose and direction in uueoWjhiffi11/10/2021CommentsNoSex and Gender InformationValueDate RecordedSex Assigned at BirthNot on fileLegal Sex Gfvtkr9004/09/2015 6:29 PM EDTGender IdentityNot on fileSexual OrientationNot on filedocumented as of this encounter Plan of Treatment DateTypeDepartmentCare Team (Latest Contact Info)Kekftebojkg12/06/2026 2:30 PM ESTOffice Visit [facility] [address] [facility] [address] [place] [address] Francisco Chang DO [address], [facility] [address] [place] [address] documented as of this encounter Visit Diagnoses Not on filedocumented in this encounter Additional Health Concerns AssessmentNoted TimePHQ-9 Depression Total Score: 1:00 PM ESTA Body Mass Index follow-up plan has been documented for the wyakaue4307/09/2025 2:34 PM ESTdocumented as of this encounter Care Teams Team MemberRelationshipSpecialtyStart DateEnd Date Francisco Chang DO [address], [facility] [address] [place] [address] PCP - GeneralFamily Medicine01/04/21documented as of this encounter
--- OUTSIDE RECORDS SUMMARY | 2025-07-13 08:37 | XMS_ITS | Patient Health Record ---
Author Organization [facility] [place] Address [address] [place] [address] Care Team Providers Care Wire Weaver Cloth Name Role Phone None, Unknown or Primary Care Provider Unavailab le Allergies Allergen (clinical drug ingredient) Drug/Non Drug Allergy documented on EMR Reaction Allergy Type Onset Date Status Codeine Phosphate (codeine)UnknownDrug AllergyActivevenlafaxineEffexor XRrash Drug AllergyActivehydrochlorothiazidehydroCHLOROthiazidehivesDrug AllergyActive Reason For Referral No Information Medications Medication SIG (Take, Route, Frequency, Duration) Notes Start Date End Date Status Levothyroxine Sodium 75 MCG TAKE 1 TABLET BY PETER TH EVERY DAY; Duration: 90 ActiveAmitriptyline HCl 10 MGTAKE 3 TABLETS BY MOUTH AT BEDTIME; Duration: 90 ActiveSertraline HCl 50 MGTAKE 1 TABLET BY MOUTH IN THE EVENING; Duration: 90 ActiveamLODIPine Besylate 5 MG1 tablet Orally Once a dayActiveOmeprazole 40 MG TAKE 1 CAPSULE BY MOUTH TWICE A DAY; Duration: 90ActiveCarvedilol 25 MGTAKE 1 TABLET BY MOUTH TWICE A DAY WITH FOOD FOR 90 DAYS; Duration: 90ActiveXarelto ActiveLisinopril 20 MGTAKE 1 TABLET BY MOUTH TWICE A DAY FOR 90 DAYS; Duration: 90Active Immunizations Vaccine Route Administration Date Status Comme nts SARS-COV-2 (COVID 19 Monica 0.5mL) Janak and Janak Unknown 01/03/2021 Administered Social History Tobacco Use: Social History Observation Description Date Details (start date - stop date) Former Smoker NA - NA Tobacco Use/Smoking Question Answer Notes Patient is a former smoker How long has it been since you last smoked?> 10 yearsAlcohol Screen (Audit-C) Question Answer Notes Did you have a drink containing alcohol in the p ast year? Yes How often did you have 6 or more drinks on one occasion in the past year?Never (0 point)How many drinks did you have on a typical day when you were drinking in the past year?1 or 2 drinks (0 point)How often did you have a drink containing alcohol in the past year?Weekly (3 points)Hmbttp9ChtlycqfxhqbkmVxtaryhk Problems Problem Type SNOMED Code ICD Code Onset Dates Problem Status W/U Status Risk Notes Problem Essential hypertension (92868715 ) Essential (primary) hypertension (I10) ActiveconfirmedProblemPrimary insomnia (9289565)Primary insomnia (F51.01)Active confirmedProblemCardiomyopathy (43948313)Cardiomyopathy, unspecified (I42.9) ActiveconfirmedProblemParoxysmal atrial fibrillation (863670273)Paroxysmal atrial fibrillation (I48.0)ActiveconfirmedProblemGastroesophageal reflux disease (300527691)GERD without esophagitis (K21.9)ActiveconfirmedProblemHypothyroidism (62413130)Hypothyroidism (acquired) (E03.9)ActiveconfirmedProblemSystolic heart failure (626567371)Unspecified systolic (congestive) heart failure (I50.20) ActiveconfirmedProblemMixed anxiety and depressive disorder (902980077) Depression with anxiety (F41.8)ActiveconfirmedProblemOsteopenia (057970073) Osteopenia of multiple sites (M85.89)ActiveconfirmedProblemMild depression (034334817)Mild depression (F32.0)ActiveconfirmedProblemHypercholesterolemia (54944749)Hypercholesterolemia (E78.00)ActiveconfirmedProblemExposure to COVID- 19 (718871688)Exposure to COVID-19 virus (Z20.822)Activeconfirmed Plan Of Treatment Pending Test Test Name Order Date BD DEXA Axial Skeleton * 05/02/2021 MG Mammo Digital Screening Bilateral* COVID 19, RT-PCR 01/09/2022 Future Test Test Name Order Date CBC w/ Diff 04/20/2021 CMP - Comprehensive Metabolic Panel 04/06 Lipid Panel 04/20/2021 TSH - Thyroid Stimulating Hormone 2020 Free T4 04/20/2021 Free T3 (LC) 04/20/2021 CBC w/ Diff 02/04/2023 CMP - Comprehensive Metabolic Panel 09/2022 Lipid Panel 02/04/2023 TSH - Thyroid Stimulating Hormone 2022 Free T4 02/04/2023 T3 Free 02/04/2023 Insurance Providers Payer Name Payer Address Payer Phone Subscriber Number Group Number Insured Name Patient Relationship to Insured Coverage Start Date Coverage End Date [employer] MED[employer]ARE [address] [place], [place] [id number] Wilda Saavedra - patient is the [id number] 2021 Medical (General) History Medical History History ICD Code HTN DiverticulitisParoxysmal atrial fibrillation - low CHADs score, no anticoagulationHypercholesterolemiaGERDExercise induced asthmaDepression/Anxiety IBSInsomniaCervical spondylosis without myelopathyOsteopeniaCarpal tunnel syndromeChronic rhinitisSurgical History Surgery Date(Month/Year) Ovaries removed 2018 Lumpectomy R Breast
--- OUTSIDE RECORDS SUMMARY | 2025-07-13 08:38 | XMS_ITS | Patient Health Record ---
Author Organization [facility] Address [address] [place] [phone] Care Team Providers Care Medical Numerical Control Operator Name Role Phone Eric Love Primary Care Provider Unavail able Alvarado Junior Unavailable [phone] Allergies Allergen (clinical drug ingredient) Drug/Non Drug Allergy documented on EMR Reaction Allergy Type Onset Date Status codeine Codeine Sulfate Unknown Drug Allergy Active Reason For Referral No Information Medications Medication SIG (Take, Route, Frequency, Duration) Notes Start Date End Date Status Toprol XL Not-TakingMultiple VitaminsActiveAspir-81ActivePriLOSEC 40 MG1 capsule Orally Once a dayActiveAmitriptyline HClActiveSynthroidActiveZoloftActiveLisinopril ActiveFlonasePRNActive Social History Tobacco Use: Social History Observation Description Date Details (start date - stop date) Former Smoker NA - NA Alcohol Screen Question Answer Notes Did you have a drink containing alcohol in the p ast year? Yes How often did you have a drink containing alcohol in the past year?2 to 3 times a week (3 points)How many drinks did you have on a typical day when you were drinking in the past year?1 or 2 drinks (0 point)How often did you have 6 or more drinks on one occasion in the past year?Never (0 point)Points3 InterpretationPositiveSmoking Question Answer Notes Status former smoker Additional Findings: Tobacco Rdk-VldqOn-rzmfowyra smokerSection Notes: . Moderate alcohol us e. Denies illicit drug use. Works at a [employer]. .Works at a [employer]. . Retired. . Retired. . Moderate alcohol us e. Denies illicit drug use. Works at a [employer]. Problems Problem Type SNOMED Code ICD Code Onset Dates Problem Status W/U Status Risk Notes Problem Long-term current us e of drug therapy (391572691) Use of proton pump inhibitor therapy (Z79.899) ActiveconfirmedI don't know why she is taking PPI therapy. I will leave this to the discretion of her PCP. From myperspective it can be discontinued at any time ProblemAbnormal CT scan, sigmoid colon (R93.3)ActiveconfirmedProblemDiverticular disease of colon (537841322)Diverticulosis of large intestine without hemorrhage (K57.30)ActiveconfirmedProblemNo appetite (15964211)No appetite (R63.0)Active confirmedProblemColonic stricture (1309176)Colonic stricture (K56.699)Active confirmedI suspect the reasons for colonic stricture is related to severe diverticulosis. The presence of a stricture does not allow us to adequately examine the colon proximally and therefore she needs alternative methods for colorectal cancer screening. We discussed the benefits of the CTcolonography Plan Of Treatment No Information Insurance Providers Payer Name Payer Address Payer Phone Subscriber Number Group Number Insured Name Patient Relationship to Insured Coverage Start Date Coverage End Date [employer] MEDICARE [address] [place] [address] [id number] Donna Saavedra Self - patient is the insured Medical (General) History Medical History History ICD Code hypertension breast lumpinsomniaAtrial fibrillationdiverticulitisovarian cystinternal hemorrhoidsfractured nosehypothyroidismanxietySurgical History Surgery Date(Month/Year) cholecystectomy appendectomytubal ligationlumpectomy, breastcolonoscopyremoval of ovarian cyst EGDoophorectomy
--- OUTSIDE RECORDS SUMMARY | 2025-07-13 08:39 | XMS_ITS | CCD ---
Author Organization [facility] Care Team Providers Care Manufacturer'S Representative Name Role Phone SARAI ESPARZA Admitting Unavailable SARAI ESPARZA Attending Unavailable WEST, DR SHARI Rice Consulting Unavailable SARAI ESPARZA Consulting Unavailable ENEDINA ., IJEOMA Admitting Unavailable ENEDINA ., IJEOMA Attending Unavailable MISC, DR COOK Primary Care Unavailable HAY ., DR RUFFIN Consulting Unavailable KLIPPSHARI GARCIA Consulting Unavailable NEWATIA, RADHA Consulting Unavailable ENEDINA [...] Provider MD Ari Solares II Other Provider [phone] MD Vivian Live Attending Provider Ari Solares II Unavailable CHRISTA Ramirez Attending Provider Lucille Ramirez Unavailable [...] Unavailable Ari Solares II Admitting Unavailabl e RASOR, FRANCISCO E. Referring Unavailable RASOR, FRANCISCO E. Primary Care Unavailable RASOR, FRANCISCO E. Referring Unavailable RASOR, FRANCISCO E. Primary Care Unavailable Rasor DO, Francisco E Primary Care Provider [phone] Rasor DO, Francisco E Primary Care Provider Rasor DO, Francisco E Primary Care Provider RASOR, FRANCISCO E Referring Unavailable RASOR, FRANCISCO E Primary Care Unavailable ARIANA BENTON Attending Unavailable RASOR, FRANCISCO E Referring Unavailable RASOR, FRANCISCO E Primary Care Unavailable RASOR, FRANCISCO E Referring Unavailable RASOR, FRANCISCO E Primary Care Unavailable RASOR, FRANCISCO E Attending Unavailable RASOR, FRANCISCO E Referring Unavailable RASOR, FRANCISCO E Primary Care Unavailable Allergies Allergy ClassificationReported Allergen(s)Allergy TypeDate of OnsetReaction(s) Facility (7 sources)Codeine; Translations: [CODEINE]Drug Ykmizvf29-87-4066[facility]zggphbtgK[facility] (7 sources)hydroCHLOROthiazide; Translations: [HYDROCHLOROTHIAZIDE]Drug Allergy 13-14-2686[address] [facility] Repository (6 sources)venlafaxineDrug AllergydifficulSCCI Hospital [facility]ima Repository (20 sources)venlafaxine; Translations: [venlafaxine]Drug Swwuiwi53-83-7828 Difficulty [facility]athingOhio[facility] (20 sources)CodeineDrug Yrfmhck82-53-0340BuvpDrsoaeLakeHealth [facility] (20 sources)hydroCHLOROthiazideDrug Aqyhykh99-59-3565jqkqhvsjeq breathingNorth [facility]Club Other (1 source)CodeineDrug Thxyvnd76-61-0762EzeenzhvgOhiohealth Doctors Hospital Repository (1 source)hydroCHLOROthiazideDrug Obpntke89-72-0955VeqgdttvzOhiohealth Doctors Hospital Repository (20 sources)amLODIPine; Translations: [AMLODIPINE]Drug Ymlczxj39-88-8907Csoit (See Comments)[facility] Repository (20 sources)Metoprolol; Translations: [METOPROLOL]Drug Dlkocfh96-25-6331EM DisturbanceProMedica Repository (20 sources)Thiazides; Translations: [THIAZIDES]Propensity to adverse reactions to drug (disorder)86-62-4841[facility] Repository (20 sources)AMOXICILLIN-POT CLAVULANATE; Translations: [AMOXICILLIN-POT CLAVULANATE]Propensity to adverse reactions to drug (disorder)07-29-2016 [facility] Repository Medications Current Medications MedicationDrug Class(es)DatesSig (Normalized)Sig (Original)acetaminophen 500 mg oral tablet (11 sources)Start: 24-92-3069qbyd 2 tablets by mouth every eight hours for pain Acetaminophen 500 MG 2 tablets for pain Orally every 8 hrs for 30 days January, ActiveStart: 65-38-1111ppcx 650 mg by mouth every six hoursAcetaminophen Active 650 MG PO Q6H 0 December 30, 2022 12:00amtake 1 tablet by mouth every four hours as neededAcetaminophen 325 MG 1 tablet as needed Orally every 4 hrs Active amitriptyline hydrochloride 10 mg oral tablet (20 sources)Tricyclic AntidepressantStart: 23-10-0104bhty 30 mg by mouth once dailyAmitriptyline Active 30 MG PO Daily May 09, 2023 12:00amStart: 12-27-2022 End: 35-74-8888zcoq 30 mg by mouth once daily at bedtimeAmitriptyline Discontinued 30 MG PO Daily at bedtime December 27, 2022 12:00am December 30, 2022 10:25amStart: 01-20-2018 End: 05-55-1817zlbk 3 tablets by mouth at bedtimeamitriptyline (ELAVIL) 10 mg tablet TAKE 3 TABLETS BY MOUTH AT BEDTIME 270 tablet 3 12/25/2024 Active amLODIPine 5 mg oral tablet (12 sources)Dihydropyridine Calcium Channel BlockerStart: 73-78-5327oqrr 5 mg by mouth once dailyAmlodipine Active 5 MG PO Daily May 09, 2023 12:00am Start: 54-75-5936zter 1 dose by mouth once dailyAmlodipine Active 2.5 MG PO Daily December 30, 2022 12:00am Hold for systolic blood pressure lessthan 125 Titrate dose upward if systolic blood pressure is above 150Start: 12-27-2022 End: 68-34-9012jkvj 5 mg by mouth once dailyAmlodipine Discontinued 5 MG PO Daily December 27, 2022 12:00am December 30, 2022 10:20amapixaban 5 mg oral tablet (20 sources)Factor Xa InhibitorStart: 06-15-2023 End: 87-67-7617iwws 1 tablet by mouth at bedtimeELIQUIS 5 mg tablet Indications: Paroxysmal atrial fibrillation (CMS-HCC) , Cardiomyopathy (CMS-HCC) TAKE 1 TABLET (5 MG TOTAL) BY MOUTH IN THE MORNING AND AT BEDTIME 180 tablet 05/03/2025 ActiveStart: 37-56-0265jpqu 1 tablet by mouth twice dailyApixaban (Eliquis) 5 mg Tablet Active 5 MG PO twice a day May 09, 2023 12:00amaspirin 81 mg oral tablet (3 sources)Platelet Aggregation Inhibitor, Nonsteroidal Anti-inflammatory Drug Start: 64-67-2926nryu 81 mg by mouth once dailyAspirin Active 81 MG PO Daily December 27, 2022 12:00amcalcium carbonate 1250 mg oral tablet (8 sources)Start: 97-25-0912Babwxsj Carbonate (Oyster Shell Calcium 500) 500 mg calcium (1,250 mg) Tablet Active 500 MG PO Three times daily 0 December 30, 2022 12:00amtake 1 tablet by mouth every twelve hoursCalcium Carbonate 1250 (500 Ca) MG 1 tablet with food Orally Twice a day Activecarvedilol 25 mg oral tablet (20 sources)alpha-Adrenergic Ghislaine, beta-Adrenergic BlockerStart: 12-27-2022 take 25 mg by mouth every twelve hoursCarvedilol Active 25 MG PO Every 12 hours December 27, 2022 12:00amStart: 02-24-2022 End: 07-63-0894aild 1 tablet by mouth twice daily at mealtimecarvediloL (COREG) 25 mg tablet Indications: Essential hypertension, benign TAKE 1 TABLET BY MOUTH TWICE A DAY WITH FOOD FOR 90 DAYS 180 tablet 3 11/30/2024 Activecefadroxil 500 mg oral capsule (3 sources)Cephalosporin AntibacterialStart: 23-92-9327fgja 500 mg by mouth twice dailyCefadroxil Active 500 MG PO Twice daily December 31, 2022 12:00am cetirizine hydrochloride 10 mg oral tablet (20 sources)Histamine-1 Receptor Antagonistcetirizine (ZyrTEC) 10 mg tablet Take 1 tablet (10 mg total) by mouth as needed. Activeciprofloxacin 500 mg oral tablet (2 sources)Quinolone AntimicrobialStart: 11-18-2023 End: 22-57-6170wysk 1 tablet by mouth in the morning, then take 1 tablet by mouth at bedtimeciprofloxacin HCl (CIPRO) 500 mg tablet Indications: Acute cystitis without hematuria Take 1 tablet(500 mg total) by mouth in the morning and 1 tablet (500 mg total) before bedtime. Do all this for 7 days. 14 tablet 0 11/18/2023 11/25/2023 ActiveDiclofenac (2 sources)Nonsteroidal Anti-inflammatory DrugStart: 15-63-4189Bnjfhcla 1 % Apply 1-2 grams to affected area Externally 4x's a day for 30 days Mar, ActiveStart: 22-37-5067Mucevsld 1 % Apply 1-2 grams to affected area Externally 4x's a day for 30 days Mar, Activedocusate sodium 50 mg / sennosides, mcc 8.6 mg oral tablet (3 sources)Start: 01-67-6952pgzw 2 tablets by mouth once dailySennosides- Docusate Sodium Active 2 TAB PO Daily 0 December 30, 2022 12:00amferrous sulfate 324 mg delayed release oral tablet (3 sources)Start: 14-97-1511wiwt 324 mg by mouth twice daily at mealtimeFerrous Sulfate Active 324 MG PO Twice daily with meals 0 December 30, 2022 12:00am fluticasone propionate 0.05 mg/actuat metered dose nasal spray (20 sources)CorticosteroidStart: 94-19-6338Ynxveajcqqx Propionate Active 2 SPRAY INTRANASAL Daily December 28, 2022 12:00amStart: 81-07-9007cmpd 2 spray(s) nasal route once dailyfluticasone (FLONASE) 50 mcg/actuation nasal spray 2 sprays into each nostril daily. 16 g 11 08/24/2016 ActiveFluticasone Propionate (Inhal) 50 MCG/ACT (5 sources)take 1 puff(s) by inhalation twice dailyFluticasone Propionate (Inhal) 50 MCG/ACT 1 puff Inhalation Twice a day Activelevothyroxine sodium 0.075 mg oral tablet (20 sources)l-ThyroxineStart: 84-52-5552xjuz 75 ug by mouth once daily Levothyroxine Active 75 MCG PO Daily May 09, 2023 12:00amStart: 01-16-2018 End: 09-51-7606gwbt 1 tablet by mouth once dailylevothyroxine (SYNTHROID, LEVOTHROID) 75 MCG tablet TAKE 1 TABLET BY MOUTH EVERY DAY 90 tablet 3 Activetake 1 tablet by mouth once daily in the morningLevothyroxine Sodium 75 MCG 1 tablet in the morning on an empty stomach Orally Once a day Activelisinopril 10 mg oral tablet (20 sources)Angiotensin Converting Enzyme InhibitorStart: 49-00-7081pwxw 1 tablet by mouth at bedtimelisinopriL (PRINIVIL,ZESTRIL) 10 mg tablet Indications: Essential (primary) hypertension , Essential hypertension, benign Take 1 tablet (10 mg total) by mouth in the morning and at bedtime. 90 tablet3 07/09/2025 ActiveStart: 32-66-0560pmie 1 dose by mouth twice dailyLisinopril Active 5 MG PO Twice daily December 30, 2022 12:00am Hold for systolic blood pressure less than 125. Titrate dose upward if systolic blood pressure is above 150Start: 01-11-2022 End: 21-78-2404oijp 1 tablet by mouth twice dailylisinopriL (PRINIVIL,ZESTRIL) 20 mg tablet Indications: Essential hypertension, benign , Essential (primary) hypertension TAKE 1 TABLET BY MOUTH TWICE A DAY 180 tablet 3 11/30/2024 07/09/2025 Discontinued (Reorder)take 1 tablet by mouth every twenty-four hours Lisinopril 5 MG 1 tablet Orally Once a day Activemultivitamin (THERAGRAN) tablet (20 sources)take 1 tablet by mouth in the morningmultivitamin (THERAGRAN) tablet Take 1 tablet by mouth in the morning. Activetake 1 tablet by mouth in the morningmultivitamin (THERAGRAN) tablet Take 1 tablet by mouth in the morning. 0 ActiveMultivitamin preparation (8 sources)Start: 78-87-9707gkrn 1 tablet by mouth once dailyMultivitamin Active 1 TAB PO Daily December 27, 2022 12:00amtake 1 tablet by mouth once daily Multivitamin - 1 tablet Orally Once a day Activemupirocin 0.02 mg/mg topical ointment (20 sources)RNA Synthetase Inhibitor Antibacterialmupirocin (BACTROBAN) 2 % ointment 2 (two) times a day. Activeomeprazole 40 mg delayed release oral capsule (20 sources)Proton Pump InhibitorStart: 14-58-0800rvvl 40 mg by mouth twice dailyOmeprazole Active 40 MG PO twice a day May 09, 2023 12:00amStart: 12-08-2017 End: 57-25-3846jdyi 1 capsule by mouth twice dailyomeprazole (PriLOSEC) 40 mg capsule take 1 capsule by mouth twice a day 180 capsule 3 03/03/2024 Activetake 1 capsule by mouth once dailyOmeprazole 40 MG 1 capsule 30 minutes before morning meal Orally Once a day Activepolyethylene glycol 3350 73774 mg powder for oral solution (3 sources)Osmotic LaxativeStart: 93-24-0743Zkmcjfundghk Glycol 3350 (Healthylax) 17 gram Powder In Packet Active 17 GM PO Daily 0 December 30, 2022 12:00amPolyethylene Glycols (5 sources)Polyethylene Glycol - as directed ActivepredniSONE 20 mg oral tablet (2 sources)Start: 06-13-2024 End: 52-13-2594qlkw 3 tablets by mouth once daily, then take 2 tablets by mouth once daily, then take 1 tablet by mouth once dailypredniSONE (DELTASONE) 20 mg tablet Indications: Acute right-sided low back pain without sciatica Take 3 tablets (60 mg total) by mouth daily for 2 days, THEN 2 tablets (40 mg total) daily for 2 days, THEN 1 tablet (20 mg total) daily for 2 days. 12 tablet 06/13/2024 06/18/2024 ActiveStart: 08-63-0163ihev 1 tablet by mouth every twenty-four hourspredniSONE 10 MG 1 tablet Orally Once a day for 10 days January, ActiveSennosides-Docusate Sodium 8.6-50 MG (5 sources)take 1 tablet by mouth twice daily as neededSennosides-Docusate Sodium 8.6-50 MG 1 tablet as needed Orally Twice a day Activesertraline 50 mg oral tablet (20 sources)Serotonin Reuptake InhibitorStart: 96-99-3007jcmiogrdqc (ZOLOFT) 50 mg tablet daily. 0 02/03/2018 Activespironolactone 25 mg oral tablet (20 sources)Aldosterone AntagonistStart: 12-07-2023 End: 27-64-6826lxnz 1 tablet by mouth in the morning, then take 1 tablet by mouth in the morningspironolactone (ALDACTONE) 25 mg tablet Indications: Cardiomyopathy, unspecified type (CMS-HCC) , Essential (primary) hypertension Take 1 tablet (25 mg total) by mouth in the morning. TAKE 1 TABLET (25 MG TOTAL) BY MOUTH IN THE MORNING. 90 tablet 3 09/29/2024 ActiveStart: 05-26-2023 End: 76-32-2525jpfe 0.5 tablet by mouth in the morningspironolactone (ALDACTONE) 25 mg tablet Indications: Essential (primary) hypertension , Cardiomyopathy, unspecified type (CMS-HCC) Take 0.5 tablets (12.5 mg total) by mouth in the morning. 90 tablet 3 05/26/2023 12/07/2023 DiscontinuedStart: 38-26-2879rkkk 25 mg by mouth once dailySpironolactone Active 25 MG PO Daily May 09, 2023 12:00amtraMADol hydrochloride 50 mg oral tablet (9 sources)Opioid AgonistStart: 98-91-5230eijc 1 tablet by mouth every six hours as needed for paintraMADol HCl 50 MG 1 tablet as needed for pain Orally every 6 hrs for 7 days January, Activetake 1 tablet by mouth every twenty-four hours traMADol HCl 50 MG 1 tablet as needed Orally Once a day Active Completed/Discontinued Medications MedicationDrug Class(es)DatesSig (Normalized)Sig (Original)oseltamivir 75 mg oral capsule (8 sources)Neuraminidase InhibitorStart: 10-16-2024 End: 63-38-9504tebu 1 capsule by mouth in the morningoseltamivir (TAMIFLU) 75 mg capsule Take 1 capsule (75 mg total) by mouth in the morning. 10 capsule 10/16/2024 07/09/2025 Discontinued Problems Active Problems Problem ClassificationProblemDateDocumented DateEpisodic/ChronicAnxiety disorders (20 sources)Mixed anxiety and depressive disorder; Translations: [Other specified anxiety disorders]Onset: 741187-74-6150CvyktglTqbkcwh dysrhythmias (20 sources)Unspecified atrial fibrillation; Translations: [Paroxysmal atrial fibrillation]Onset: 781959-37-9021AuglealEfwoiypnbd heart failure; nonhypertensive (1 source)Unspecified systolic (congestive) heart failure; Translations: [UNSPECIFIED SYSTOLIC HEART FAILURE]Onset: 79-47-3565CsjokwkW Codes: Fall (1 source)Fall on same level, unspecified, initial encounter; Translations: [FALL SAME LEVEL UNSPECIFIED INITIAL]Onset: 67-08-1106GxrumrdmUrlrqspasq disorders (20 sources)Gastroesophageal reflux disease without esophagitis; Translations: [Gastro-esophageal reflux disease without esophagitis]Onset: 05-16-2016 78-50-9012YuenoaiNnrvvvavn hypertension (20 sources)Essential (primary) hypertension; Translations: [Hypertensive disorder]Onset: 202710-05-7055OqwgqivGcqagqmzgfays symptoms and ill- defined conditions (4 sources)Other microscopic hematuria; Translations: [Other abnormal findings in urine]Onset: 146050-88-6463DphhxjnbFzarz valve disorders (20 sources)Mitral valve regurgitation; Translations: [Nonrheumatic mitral (valve) insufficiency]Onset: 259686-41-1037KdhbehjNhwqagpirjte with complications and secondary hypertension (4 sources)Hypertensive heart disease with heart failure; Translations: [Hypertensive heart failure]Onset: 610070-05-5333QjdjxxgBefncrehwm disorders (1 source)Hormone replacement therapy; Translations: [HORMONE REPLACEMENT THERAPY]Onset: 38-87-7634QrnovwteBywaxbkkyercy mental health disorders (20 sources)Primary insomnia; Translations: [Primary insomnia]Onset: 06-13-2024 73-76-8089QlfeykwChzdpgzcxjd chest pain (4 sources)Chest pain, unspecified; Translations: [CHEST PAIN UNSPECIFIED]Onset: 35-22-6494WnatpvunKcdrw aftercare (2 sources)Patient encounter status; Translations: [Aftercare following joint replacement surgery]ChronicOther aftercare (2 sources)Aftercare following joint replacement surgeryChronicOther aftercare (1 source)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; Translations: [[facility] CURRENT USE OF ASPIRIN]Onset: 73-00-7216UlvwvwpvWqpzi aftercare (2 sources)Other detention (current) drug therapy; Translations: [OTH PHARMACY SPECIALIST CURRENT DRUG THERAPY]Onset: 25-45-3291ZxtqaweeFbqlg aftercare (1 source)group home (current) use of anticoagulants; Translations: [[facility] CURRNT USE ANTICOAGULANTS]Onset: 23-04-3579UoalnqjvHetgw bone disease and musculoskeletal deformities (19 sources)Osteopenia; Translations: [Other specified disorders of bone density and structure, multiple sites]Onset: 519046-15-0192GucnqnjbPbnfc connective tissue disease (5 sources)History of total hip arthroplasty; Translations: [Presence of left artificial hip joint]ChronicOther connective tissue disease (7 sources)Presence of left artificial hip joint; Translations: [Presence of left artificial hip joint]Onset: 45-87-6869MzuowenAisxh connective tissue disease (2 sources)Hip joint prosthesis present; Translations: [Presence of left artificial hip joint]ChronicOther non-traumatic joint disorders (3 sources)Pain in left hip; Translations: [PAIN IN LEFT HIP]Onset: 12-27-2022 EpisodicOther nutritional; endocrine; and metabolic disorders (3 sources)Hypomagnesemia; Translations: [Hypomagnesemia]87-79-5664YdrpuosInbrq nutritional; endocrine; and metabolic disorders (4 sources)Hypomagnesemia; Translations: [Disorders of magnesium metabolism] Onset: 007691-01-1412UsmzhigNgmxn nutritional; endocrine; and metabolic disorders (1 source)Unintentional weight loss; Translations: [Abnormal weight loss] 93-34-2117VhrtttipTkakq nutritional; endocrine; and metabolic disorders (1 source)Abnormal weight loss; Translations: [Abnormal weight loss]Onset: 68-95-5983HpncvdkhFwdfd upper respiratory disease (20 sources)Chronic rhinitis; Translations: [Chronic rhinitis]Onset: 02-11-2016 10-14-4323WzszfrbMxobh upper respiratory infections (20 sources)Chronic sinusitis; Translations: [Chronic sinusitis, unspecified] Onset: 809605-46-0993XveunllDcfmqxzxdgwm fracture (3 sources)Age-related osteoporosis with current pathological fracture, unspecified site, subsequent encounterfor fracture with routine healingEpisodic Lalita-; endo-; and myocarditis; cardiomyopathy (except that caused by tuberculosis or sexually transmitted disease) (20 sources)Cardiomyopathy, unspecified; Translations: [Cardiomyopathy]Onset: 93-82-3012PscaweqUtiypnpe codes; unclassified (1 source)Asymptomatic menopausal stateEpisodicThyroid disorders (20 sources)Hypothyroidism; Translations: [Hypothyroidism, unspecified]Onset: 573842-30-9608YaspvepPnestkckvwca (1 source)Presented to ED with a complaint of Diff ddesfllmu52-91-6675 Unclassified (1 source)Aftercare following joint replacement surgery; Translations: [Aftercare following joint replacementsurgery]Onset: 51-31-7364Obbdfjwwualv (1 source)Presence of left artificial hip joint; Translations: [Presence of left artificial hip joint]Onset: 06-87-0883Yqamhedanhev (1 source)Fracture of unspecified part of neck of left femur, subsequent encounter for closed fracture with routine healing; Translations: [Fracture of unspecified part of neck of left femur, subsequent encounter for closed fracture with routine healing]Onset: 78-55-2609Daymcpbubarg (1 source)Age-related osteoporosis with current pathological fracture, unspecified site, subsequent encounterfor fracture with routine healing; Translations: [Age-related osteoporosis with current pathological fracture, unspecified site, subsequent encounter for fracture with routine healing]Onset: 66-93-4144Cdlayljognkb (1 source)Age-related osteoporosis with current pathological fracture, left femur, initial encounter for fracture; Translations: [Age-related osteoporosis with current pathological fracture, left femur, initial encounter for fracture] Onset: 43-99-2711Snkiotbcknug (1 source)Low back pain, unspecified; Translations: [Low back pain, unspecified] Onset: 73-89-0775Glcbqigamwmm (1 source)medicare wellnessOnset: 07-09-2025 Past or Other Problems Problem ClassificationProblemDateDocumented DateEpisodic/ChronicConditions associated with dizziness or vertigo (4 sources)Dizziness and giddiness; Translations: [DIZZINESS AND GIDDINESS] Onset: 84-56-8899SvepewfdItxkf and electrolyte disorders (2 sources)Dehydration; Translations: [Dehydration]32-07-2286LfmfjsbwGiqzmdoh of neck of femur (hip) (16 sources)Fracture of unspecified part of neck of left femur, initial encounter for closed fracture; Translations: [Fracture of bone of hip region] Onset: 021852-04-1590MoyapdraFsznwwpx; including migraine (20 sources)Headache; Translations: [Headache]Onset: EpisodicMood disorders (20 sources)Mood disordersOnset: 06-13-2024 Resolved: Other bone disease and musculoskeletal deformities (1 source)Other specified disorders of bone density and structure, multiple sites; Translations: [Other specified disorders of bone density and structure, multiple sites]Onset: 82-85-6865OdaujxroFhomi screening for suspected conditions (not mental disorders or infectious disease) (6 sources)Encounter for screening mammogram for malignant neoplasm of breast; Translations: [Patient encounter status]Onset: 46-94-7459FyswkgquKfnyf upper respiratory disease (20 sources)Nasal congestion; Translations: [Nasal congestion]Onset: 02-11-2016 64-58-9022LfjqoumtPhiyg upper respiratory disease (20 sources)Deviated nasal septum; Translations: [Deviated nasal septum]Onset: 075854-20-9636YmfqnzllWyrdq upper respiratory disease (20 sources)Hypertrophy of nasal turbinates; Translations: [Hypertrophy of nasal turbinates]Onset: 051468-81-3901FmzaietoTbmib upper respiratory infections (1 source)Viral upper respiratory tract infection; Translations: [Acute upper respiratory infection, unspecified]58-77-4908BthclvnyVmktuqhl codes; unclassified (1 source)Family history of malignant neoplasm of breast; Translations: [FAMILY HX MALIG NEOPLASM OF BREAST]Onset: 19-48-8909GkjnvknpJiymiajk codes; unclassified (20 sources)Menopause present; Translations: [Asymptomatic menopausal state] Onset: 755218-85-7812WqashohxSvtjapaaflz; intervertebral disc disorders; other back problems (3 sources)Acute low back pain; Translations: [Acute right-sided low back pain without sciatica]40-36-8291GmmyqpwxRldfdhs (1 source)SyncopeOnset: 78-16-9304TcvyaaalXzpgtndhclra (1 source)Onset: 836330-38-3178Vfgnjrj tract infections (1 source)Acute cystitis; Translations: [Acute cystitis without hematuria] 78-37-9488Vdefsfzm Results Test NameValueInterpretationReference RangeFacilityCBC WITH AUTO DIFFERENTIALon 51-00-4820FALNCOHLJ ABSOLUTE COUNT (10*3/UL) BY AUTOMATED COUNT0.0 10*3/uLNormal 0.0-0.2PChillicothe HospitalComment on above:Performed By: #### CBCA #### [facility] ([facility]) [address] [place] [address] VIRBASOPHILS RELATIVE PERCENT BY AUTOMATED COUNT0.7 %Normal [facility] SouthComment on above:Performed By: #### CBCA #### [facility] ([facility]) [address] [place] [address] VIRCELLAVISION DIFFERENTIAL TYPEAUTOMATED DIFFERENTIALNormal [facility] SouthComment on above:Performed By: #### CBCA #### [facility] ([facility]) [address] [place] [address] VIREosinophils (Bld) [#/Vol]0.1 10*3/uLNormal0.0-0.4ProTexas Children'S Hospital The WoodlandsComment on above:Performed By: #### CBCA #### [facility] ([facility]) [address] [place] [address] VIREOSINOPHILS RELATIVE PERCENT BY AUTOMATED COUNT1.8 %Normal [facility] SouthComment on above:Performed By: #### CBCA #### [facility] ([facility]) [address] [place] [address] VIRErythrocyte distribution width (RBC) [Ratio]13.6 %Normal 11.5-15[facility] SouthComment on above:Performed By: #### CBCA #### [facility] ([facility]) [address] [place] [address] VIRHematocrit (Bld) [Volume fraction]37.2 %Yekraj32-88HnzAlnrpvTexas Children'S Hospital The WoodlandsComment on above:Performed By: #### CBCA #### [facility] ([facility]) [address] [place] [address] VIRHemoglobin (Bld) [Mass/Vol]12.9 g/lSVguxqm77.7-15.5PChillicothe HospitalComment on above:Performed By: #### CBCA #### [facility] ([facility]) [address] [place] [address] VIRLYMPHOCYTES ABSOLUTE COUNT (10*3/UL) BY AUTOMATED COUNT1.4 10*3/uLNormal1.0-3.5PChillicothe HospitalComment on above:Performed By: #### CBCA #### [facility] ([facility]) [address] [place] [address] VIRLYMPHOCYTES RELATIVE PERCENT BY AUTOMATED COUNT19.1 %Normal [facility] SouthComment on above:Performed By: #### CBCA #### [facility] ([facility]) [address] [place] [address] VIRMCH (RBC) [Entitic mass]34.9 wmZdkq87-65WzxFkjudiSelect Medical Specialty Hospital - Columbus SouthComment on above:Performed By: #### CBCA #### [facility] ([facility]) [address] [place] [address] VIRMCHC (RBC) [Mass/Vol]34.7 g/xHZoxklb10-11DelWnmjqlTexas Children'S Hospital The WoodlandsComment on above:Performed By: #### CBCA #### [facility] ([facility]) [address] [place] [address] VIRMCV (RBC) [Entitic vol]101 xAXhub28-882DyvOrbcflSelect Medical Specialty Hospital - Columbus SouthComment on above:Performed By: #### CBCA #### [facility] ([facility]) [address] [place] [address] VIRMONOCYTES ABSOLUTE COUNT (10*3/UL) BY AUTOMATED COUNT1.0 10*3/uLHigh0.0-0.9[facility] SouthComveterans affairs ann [facility] healthcare system on above:Performed By: #### CBCA #### [facility] ([facility]) [address] [place] [address] VIRMONOCYTES RELATIVE PERCENT BY AUTOMATED COUNT13.6 %Normal [facility] SouthComveterans affairs ann [facility] healthcare system on above:Performed By: #### CBCA #### [facility] ([facility]) [address] [place] [address] VIRNEUTROPHILS ABSOLUTE COUNT BY AUTOMATED COUNT4.6 10*3/uL Normal1.5-6.6[facility] SouthComveterans affairs ann [facility] healthcare system on above:Performed By: #### CBCA #### [facility] ([facility]) [address] [place] [address] VIRNEUTROPHILS RELATIVE PERCENT BY AUTOMATED COUNT64.8 %Normal [facility] SouthComveterans affairs ann [facility] healthcare system on above:Performed By: #### CBCA #### [facility] ([facility]) [address] [place] [address] VIRPlatelet mean volume (Bld) [Entitic vol]8.5 fLNormal7-12 [facility] SouthComveterans affairs ann [facility] healthcare system on above:Performed By: #### CBCA #### [facility] ([facility]) [address] [place] [address] VIRPlatelets (Bld) [#/Vol]402 10*3/mNQajaub321-742GhzFuusnr Fremont HospitalComment on above:Performed By: #### CBCA #### [facility] ([facility]) [address] [place] [address] VIRRBC COUNT3.70 X10E12/LLow3.8-5.2PChillicothe Hospital Comment on above:Performed By: #### CBCA #### [facility] ([facility]) [address] [place] [address] VIRWBC (Bld) [#/Vol]7.1 10*3/uLNormal4-11ProTexas Children'S Hospital The WoodlandsComment on above:Performed By: #### CBCA #### [facility] ([facility]) [address] [place] [address] VIRELECTROLYTE PANELon 13-74-1389Pztlg gap [Moles/Vol]9 mmol/L Normal5-15ProTexas Children'S Hospital The WoodlandsComment on above:Performed By: #### ELEC #### [facility] ([facility]) [address] [place] [address] VIRChloride [Moles/Vol]89 mmol/XZtd14-873GnnNajbxsTexas Children'S Hospital The WoodlandsComment on above:Performed By: #### ELEC #### [facility] ([facility]) [address] [place] [address] VIRCO2 [Moles/Vol]28 mmol/GFpbacm60-50PteOxroznChillicothe HospitalComment on above:Performed By: #### ELEC #### [facility] ([facility]) [address] [place] [address] VIRPotassium [Moles/Vol]5.2 mmol/LHigh3.5-5.0ProTexas Children'S Hospital The WoodlandsComment on above:Performed By: #### ELEC #### [facility] ([facility]) [address] [place] [address] VIRSodium [Moles/Vol]126 mmol/RTml911-108KuxCeafxcTexas Children'S Hospital The WoodlandsComment on above:Performed By: #### ELEC #### [facility] ([facility]) [address] [place] [address] VIRPOCT EKGon 51-75-3208ItgPetwqk Health SystemXR SPINE LUMBAR 2 OR 3 VWSon 10-77-5619CY SPINE LUMBAR 2 OR 3 VWSXR SPINE LUMBAR 2 OR 3 VWS XR SPINE LUMBAR 2 OR 3 VWS IMPRESSION: Clinical Information: Acute right-sided low back pain without sciatica Comparison: None. * Age-indeterminate L1 wedge compression deformity with 30-40% height loss. There is mild anterolisthesis of L3 on L4 and L4 on L5. Endplate and facet degenerative changes are present at multiple levels. Vascular calcifications. Left hip arthroplasty. Surgical clips in the right upper quadrant. Finalized by Ramírez Peralta MD on 07/31/2024 4:54 PMNormalSelect Medical Specialty Hospital - Columbus SouthLipid profileon 28-79-6539Fcdbadfy Squtiullymi129Omqyjfuv681 - 200 [facility] SystemExternal Cholesterol:Hdl1.60.0 - 5.0[facility] SystemExternal Hdl Rvbsttaaiis208Yynzvbam- 60[facility] ClinicExternal Ldl (Calc)660 - 130[facility]External Uapapvvzhbsjq7529 - 150[facility]External Very Low Enhferuptoy95.65 - 30[facility] Interpretation and review of laboratory resultsAbOrange Regional Medical CenterNo Panel Informationon 87-68-4053NhyPtxmvaGalion HospitalPOCT Urinalysis Auto, W/O Microscopyon 19-07-1821Tcletnvjwr (U)clearProMediMemorial Hospital SystemExternal Poct Urine BilirubinNegativeMemorial Health System SystemExternal Poct Urine BloodTrace [place] ClinicExternal Poct Urine CharacterclearPUniversity Hospitals Health System System External Poct Urine ColoryellowMemorial Health System SystemExternal Poct Urine GlucoseNegativeMemorial Health System SystemExternal Poct Urine KetonesTraPoplar Springs Hospital SystemExternal Poct Urine Leukocyte EsteraseNegativeCleveland ClinicExternal Poct Urine NitriteNegativeMemorial Health System SystemExternal Poct Urine Ph6.0[facility] SystemExternal Poct Urine ProteinNegativeMemorial Health System SystemExternal Poct Urine Specific Gravity1.015[facility] System External Poct Urine Urobilinogen0.2PAscension Calumet Hospital SystemUA (MICROSCOPIC)on 83-24-4555Hmlefln casts LM Ql (Urine sed)9 /lpfHigh0-2 [facility]ull Memorial HospitalComment on above:Performed By: #### UMIC #### [facility] ([id number]) [address] [facility] [address] [place], [place] [address]GAEFVSGEVOWXGCtzvwhfpUWUMGubSkaexl [place] HospitalComment on above:Performed By: #### UMIC #### [facility] ([id number]) [address] [place] [address], [address] [address]G.B.CELLS8 /hpfHigh0-5PCleveland Clinic Euclid Hospital HospitalComment on above: Performed By: #### UMIC #### [facility] ([id number]) [address] [place] [address], [address] [place] [address]166BCVRXIGA EPITHELIUM<0Niurkz2-9NqvGilork [place]edo HospitalComment on above:Performed By: #### UMIC #### [facility] ([id number]) [address] [place] [address], [address] [place] [address]U.B.CELLS2 /hpfNormal0-5PCleveland Clinic [facility]ucl[facility] HospitalComment on above:Performed By: #### UMIC #### [facility] ([id number]) [address] [place] [address], [address] [place] [address]UTNC Urinalysis Auto, W/O Microscopyon 15-25-7214Flhryregaj (U) clearProSumma Health Akron Campus SystemExternal Poct Urine BilirubinNegativeMemorial Health System SystemExternal Poct Urine BloodNegativeMemorial Health System SystemExternal Poct Urine CharacterclearPUniversity Hospitals Health System SystemExternal Poct Urine Coloryellow [place] ClinicExternal Poct Urine GlucoseNegativeProSumma Health Akron Campus SystemExternal Poct Urine KetonesNegativeC[place] ClinicExternal Poct Urine Leukocyte EsteraseTraceProMedica Health SystemExternal Poct Urine Nitrite NegativeProUniversity Hospitals Geauga Medical CenterExternal Poct Urine Ph7.0ProUniversity Hospitals Geauga Medical Center External Poct Urine ProteinNegativeProUniversity Hospitals Geauga Medical CenterExternal Poct Urine Specific Gravity1.015ProUniversity Hospitals Geauga Medical CenterExternal Poct Urine Urobilinogen0.2 [facility] CenterURINE CULTUREon 40-15-0956Bluwmgdv identified Cx Nom (U)CULTURE RESULTS 10,000 to 50,000 ORGANISMS/mL PSEUDOMONAS AERUGINOSA [...] PIPERACILLIN S <=4 F TOBRAMYCIN S <=1 FSusceptibleTrumbull Memorial HospitalComment on above:Performed By: #### 630-4 #### [facility] ([id number]) [address] [place] [address], [address] [place], [place] [address]VZ hip LT min 2V(w/wo pelvis)*on 17-48-9664JD hip LT min 2V(w/wo pelvis)*[facility] [address] [place] [id number] XRay Report Signed Patient: Donna Saavedra MR#: [id number] : 1950 Acct:[id number] Age/Sex: 73 / F ADM Date: 05/26/23 Loc: [facility] Room: Type: [facility] Attending Dr: Ari Solares II, MD Copies [...] Andre Jaramillo M.D.05/26/2023 3:20 PM Dictation Location: [place] [address] Transcribed By: [facility] 05/26/23 1520 Dictated By: Andre Jaramillo II, MD 05/26/23 1518 Signed By: 05/26/23 1520[facility] HospitalXR hip LT min 2V(w/wo pelvis)*[facility] [employer] Other XR hip LT min 2V(w/wo pelvis)*[facility] [employer] Other XR hip LT min 2V(w/wo pelvis)*[address] [facility] [employer] Other XR hip LT min 2V(w/wo pelvis)*[place] [address] [employer] Other XR hip LT min 2V(w/wo pelvis)*XRay ReportChicago [employer] Other XR hip LT min 2V(w/wo pelvis)*SignedChicago [employer] Other XR hip LT min 2V(w/wo pelvis)*Patient: Donna Saavedra MR#: [id number] [employer] Other XR hip LT min 2V(w/wo pelvis)*[address] [place] [address] [employer] Other XR hip LT min 2V(w/wo pelvis)*: 1950 Acct:[id number] [employer] Other XR hip LT min 2V(w/wo pelvis)*Age/Sex: 73 / F ADM Date: 05/26/23[employer] Other XR hip LT min 2V(w/wo pelvis)*Loc: [facility] Room: [facility]: [facility] Other XR hip LT min 2V(w/wo pelvis)*Attending Dr: Ari Solares II, MDRed Rover Other XR hip LT min 2V(w/wo pelvis)*Copies to: Ari Solares NDR[employer] Other XR hip LT min 2V(w/wo pelvis)*Ordering Provider: Ari Solares MDRed [employer]over Other XR hip LT min 2V(w/wo pelvis)*Date of Service: 05/26/23[employer] Other XR hip LT min 2V(w/wo pelvis)* XR/XR hip LT min 2V(w/wo pelvis)*: Status post total hip replacement,[employer] Other XR hip LT min 2V(w/wo pelvis)*left;Aftercare following [employer] Other XR hip LT min 2V(w/wo pelvis)*XR hip LT min 2V(w/wo pelvis)* 05/26/2023 10:25 [facility]ERS[facility] Other XR hip LT min 2V(w/wo pelvis)*SIGNS AND SYMPTOMS:[employer] Other XR hip LT min 2V(w/wo pelvis)*Status post total hip replacement, left;Aftercare followingTouchBase Inc. Other XR hip LT min 2V(w/wo pelvis)*PROTOCOL: Frontal and crosstable lateral radiographs of the left hip and pelvisTouchBase Inc. Other XR hip LT min 2V(w/wo pelvis)*COMPARISON: 03/31/2023 [employer] Other XR hip LT min 2V(w/wo pelvis)*FINDINGS:[employer] Other XR hip LT min 2V(w/wo pelvis)*There is total left hip arthroplasty hardware without evidence of hardware complication or fracture. [employer] Other XR hip LT min 2V(w/wo pelvis)*No malalignment. The visualized bony ring of the pelvis is intact. Degenerative changes are noted in [employer] Other XR hip LT min 2V(w/wo pelvis)*the lumbar spine and sacral iliac joints.[employer] Other XR hip LT min 2V(w/wo pelvis)* XR/XR hip LT min 2V(w/wo pelvis)*[employer] Other XR hip LT min 2V(w/wo pelvis)*IMPRESSION:[employer] Other XR hip LT min 2V(w/wo pelvis)*Uncomplicated total left hip arthroplasty hardware. No change in alignment.[employer] Other XR hip LT min 2V(w/wo pelvis)*Impression dictated by: Andre Jaramillo M.D.05/26/2023 3:20 [facility] [employer] Other XR hip LT min 2V(w/wo pelvis)*Dictation Location: [address] [employer] Other XR hip LT min 2V(w/wo pelvis)*Transcribed By: MARYA 05/26/[address] [place], [place] [address] Other XR hip LT min 2V(w/wo pelvis)*Dictated By: Andre Jaramillo II, MD 05/26/[address] [place], [place] [address] Other XR hip LT min 2V(w/wo pelvis)*Signed By:[employer] Other XR hip LT min 2V(w/wo pelvis)*05/26/23 [employer] Other cXR1VPon 52-26-2562HLJ0YIZflohn[address] [place] [address] [address] [place] [address] XRay Report Signed Patient Name: Donna Saavedra Re cord #: [id number] Date of : 1950 Account #:[id number] Age/Sex: 73 / F Location: ED Attending [...] Dictated By: Juanito Griffin MD Signed By: 05/10/2347 DD/ 3 TD/TT: 05/10/23843 [employer] Installer: [facility] Exam/Order Verified? Y Exam Explained to Patient/Family? Y Was Patient Shielded? N Is Patient ? Consent Form Completed? Hx Last Menstrual Period: Does Patient have a Diabetic Device? No Diabetic Device Type: Was the Diabetic Device Removed? If NO: was Removal Consent form completed? Patient was informed of radiation exposure prior to scan? Y Verified by Technologist:[id number] Comment: [id number] cc: MARII Zavala PCP,[facility] HospitalBasophils Auto (Bld) [#/Vol]Ordered By: Maria Dolores Rucker on 53-70-0154Fqnbrqauy (Bld) [#/Vol]0.1 10'3/uL0.1-0.2FProMedica Memorial HospitalBasophils/100 WBC Auto (Bld)Ordered By: Maria Dolores Rucker on 91-17-0821Udlabaint/100 WBC (Bld)1 %0-1FProMedica Memorial HospitalComplete Blood Count with Diffon 15-24-9360Gxmfotrce Absolute Auto0.1 10'3/uLNormal0.1-0.2 [facility] General Memorial HospitalComment on above:Performed By: #### CBCD #### [place] [address] [place], [place] [address]Cuexfauar/100 WBC (Bld)1 %Normal0-1FCrittenton Behavioral Health on above:Performed By: #### CBCD #### [place] [address] [place] [address]Swfusqxfulo Absolute Auto0.2 10'3/uLNormal0.0-0.4FLafayette Regional Health CenterComveterans affairs ann [facility] healthcare system on above:Performed By: #### CBCD #### [place] [address] [place], [place] [address]Zxfsajbxrnn/100 WBC (Bld)2 %Normal2-5FLafayette Regional Health CenterComment on above:Performed By: #### CBCD #### [place] [address] [place], [place] [address]Pebuabjuunt distribution width (RBC) [Ratio]14.6 %Normal 12.2-15.8[facility] on above:Performed By: #### CBCD #### [place] [address] [place], [place] [address]Xdtbtnymew (Bld) [Volume fraction]36.5 %Jxkzxo22.6-44.1FCrittenton Behavioral Health on above:Performed By: #### CBCD #### [place] [address] [place], [place] [address]Lrchiablud (Bld) [Mass/Vol]12.4 g/iEQgrugf33.7-14.9[facility] on above:Performed By: #### CBCD #### [place] [address] [place], [place] [address]Dqpvxdsafaw Absolute Auto1.8 10'3/uLNormal0.5-3.5FCrittenton Behavioral Health on above:Performed By: #### CBCD #### [place] [address] [place], [place] [address]Ihslvpvsepw/100 WBC (Bld)28 %Qohtlr09-69UyheowMissouri Baptist Hospital-Sullivan on above:Performed By: #### CBCD #### [facility] [address] [place], [place] [address]DIF (RBC) [Entitic mass]31.3 rjUfoshv54.8-33.2FLafayette Regional Health CenterComveterans affairs ann arbor healthcare system on above:Performed By: #### CBCD #### [facility] [address] [place], [place] [address]HSP (RBC) [Entitic vol]92.2 mOAirsys43.0-97.4FCrittenton Behavioral Health on above:Performed By: #### CBCD #### [place] [address] [place], [place] [address]Lbfq Corpuscular HGB Conc34.0 g/dAAfuvbs63.7-34.8[facility] on above:Performed By: #### CBCD #### [place] [address] [place], [place] [address]Cyyepdvil Absolute Auto0.6 10'3/uLNormal0.2-0.8[facility] on above:Performed By: #### CBCD #### [place] [address] [place], [place] [address]Mlncwgizc/100 WBC (Bld)8 %Normal4-12[facility] on above:Performed By: #### CBCD #### [place] [address] [place], [place] [address]Qaanduwjzc #4.0 10'3/uLNormal1.5-5.6FCrittenton Behavioral Health on above:Performed By: #### CBCD #### [place] [address] [place], [place] [address]Iiusjgfvpne/100 WBC (Bld)61 %Tqzyap05-06GqydxeMissouri Baptist Hospital-Sullivan on above:Performed By: #### CBCD #### [place] [address] [place], [place] [address]Qxxixirp Yssbg516 10'3/lLUboroj677-772CfltjfMissouri Baptist Hospital-Sullivan on above:Performed By: #### CBCD #### [facility] [address] [place], [place] [address]Axlrljhb mean volume (Bld) [Entitic vol]9.9 fLNormal7.6-10.6 [facility] on above:Performed By: #### CBCD #### [place] [address] [place], [place] [address]Bxr Blood Count3.96 10'6/uLNormal3.85-4.88[facility] on above:Performed By: #### CBCD #### [place] [address] [place], [place] [address]Xxmno Blood Count6.6 10'3/uLNormal3.2-9.3FCrittenton Behavioral Health on above:Performed By: #### CBCD #### [place] [address] [place], [place] [address]Tcysigcbegvvu Metabolic Panelon 47-51-3593Mykhzmd [Mass/Vol]3.8 g/dLNormal3.2-4.6FCrittenton Behavioral Health on above:Performed By: #### CM, TNI #### [place] [address] [place], [place] [address]BDZ [Catalytic activity/Vol]55 U/GShqzcq14-294NikldyMissouri Baptist Hospital-[facility] on above:Performed By: #### CM, TNI #### [place] [address] [place], [place] [address]DTD [Catalytic activity/Vol]8 U/LNormal0-55[facility] on above:Performed By: #### CM, TNI #### [place] [address] [place], [place] [address]Oqnfr gap [Moles/Vol]12 mmol/LNormal5-13Reyn[facility] County General Memorial HospitalComment on above:Performed By: #### CM, TNI #### [facility] [address] [place] [address]VHY [Catalytic activity/Vol]15 U/LNormal5-34Re[facility] County General Memorial HospitalComment on above:Performed By: #### CM, TNI #### [facility] [address] [place] [address]Onxonnogr [Mass/Vol]0.4 mg/dLNormal0.0-1.0Reynolds County General Memorial HospitalComment on above:Performed By: #### CM, TNI #### [place] [address] [place], [place] [address]Fajmxwo [Mass/Vol]9.1 mg/dLNormal8.4-10.2FLafayette Regional Health CenterComveterans affairs ann [facility] healthcare system on above:Performed By: #### CM, TNI #### [place] [address] [place], [place] [address]Tmhfpzji [Moles/Vol]104 mmol/FWzgxnz52-580BuzqsaReynolds County General Memorial HospitalComment on above:Performed By: #### CM, TNI #### [place] [address] [place] [address]ZU4 [Moles/Vol]22 mmol/UJlm04-31ZawfnvReynolds County General Memorial Hospital Comment on above:Performed By: #### CM, TNI #### [place] [address] [place], [place] [address]Alrcelpetp [Mass/Vol]1.38 mg/dLHigh0.57-1.11Saint Joseph Health Centerment on above:Performed By: #### CM, TNI #### [place] [address] [place], [place] [address]Thrzsuchph Filtration Wgir44MfrtA/min/1.89w9CkyqtmReynolds County General Memorial HospitalComment on above:Performed By: #### CM, TNI #### [facility] [address] [place], [place] [address]Rolstlh [Mass/Vol]171 mg/dAQyfk33-389HggyomMissouri Baptist Hospital-Sullivan on above:Performed By: #### CM, TNI #### [place] [address] [place], [place] [address]Kefercnwr [Moles/Vol]4.5 mmol/LNormal3.5-5.1FCrittenton Behavioral Health on above:Performed By: #### CM, TNI #### [place] [address] [place], [place] [address]Jwhcchk [Mass/Vol]6.5 g/dLNormal6.4-8.2FLafayette Regional Health CenterComveterans affairs ann [facility] healthcare system on above:Performed By: #### CM, TNI #### [place] [address] [place], [place] [address]Ayogin [Moles/Vol]138 mmol/JAesrsu174-035UemxbaMissouri Baptist Hospital-Sullivan on above:Performed By: #### CM, TNI #### [place] [address] [place], [place] [address]Ldre nitrogen [Mass/Vol]15 mg/dLNormal7-18FCrittenton Behavioral Health on above:Performed By: #### CM, TNI #### [place] [address] [place], [place] [address]Akfipealfrznm of erythrocyte mean corpuscular volume (MCV) Ordered By: Maria Dolores Rucker on 92-15-5373BYC (RBC) [Entitic vol]92.2 fL83.0-97.4 [facility] 79-91-4014FPCvhequSelect Medical [facility] [address] [place] [address] Emergency Department Note Signed Patient Name: Donna Saavedra Medical Recor d #: [id number] Date of : 1950 Account #: [id number] Age/Sex: 73 / F Location: ED Attending physician: [facility] - General Adult General Date of Visit: 05/09/23 Chief complaint: Shortness of Breath/Dyspnea Time Seen by Provider: 05/09/23 13:37 History of Present Illness [facility] narrative: The patient is a 73 year old F who presented to the Emergency Department with the complaint of Shortness of Breath/Dyspnea. She states that she was recently at the [facility] eating a sausage sandwich and having a milkshake. She was on her way home to [place] in the car and began to get [...] urticaria, throat swelling or tongue swelling History [facility] Medical History Afib Depression Hypertension Hypothyroid Reflux esophagitis Surgical History History of appendectomy History of cholecystectomy History of lumpectomy of both breasts History of oophorectomy History of total hip arthroplasty Social History History Provided by: Patient Preferred Language: Peruvian Language Assistance Offered: Not Applicable Usual Living [...] Oximetry 97 97 99 Oxygen Delivery Me thod Birdie (more content not included)...[place] [id number] [place] [address] Emergency Department Note Signed Patient Name: Donna Saavedra Recor d #: [id number] Date of : 1950 Account #: [id number] Age/Sex: 73 / F Location: ED Attending physician: [employer]/PA Attestation MDM Narrative Date of Visit: 05/09/23 Chief Complaint: Shortness of Breath/Dyspnea Medical decision making narrative: I performed a history and physical examination of the patient and discussed management with the [employer] G[employer] SIZER/PA. I reviewed the [employer] G[employer] SIZER/PA's note and agree with the documented findings [...] and Medical Decision Making performed by the [employer] G[employer] SIZER/PA is based on my personal performance of the HPI, PE and MDM. For [employer]ER/PA cases/ documentation I have personally evaluated this [...] % Lymph % (Auto) 28 (20-35) % [place] % (Auto) 8 (4-12) % Eos % (Auto) 2 (2-5) % Baso % (Auto) 1 (0-1) % Lymph # (Auto) 1.8 (0.5-3.5) 10'3/uL [place] # (Auto) 0.6 (0.2-0.8) 10'3/uL Eos # [...] up with cardiology an (more content not included)...NormalReynolds County General Memorial HospitalEosinophils/100 WBC Auto (Bld)Ordered By: Maria Dolores Rucker on 05-09-2023 Eosinophils/100 WBC (Bld)2 %2-5FProMedica Memorial HospitalHistamine release from basophils measurementOrdered By: Maria Dolores Rucker on 14-27-5547Qvgtckwe [Moles/Vol] 104 mmol/W24-328NeyaejSelect Medical Ohiohealth Rehabilitation Hospital - DublinCreatinine [Mass/Vol]1.38 mg/dLHigh 0.57-1.11[facility] - DublinHemoglobin (Bld) [Mass/Vol]12.4 g/dL 11.7-14.9[facility] - DublinHistamine release from basophils measurement 0.2 10'3/uL0.0-0.4FProMedica Memorial HospitalHistamine release from basophils dnlijtopvlo89UnprV/min/1.09v0OkczqySelect Medical Ohiohealth Rehabilitation Hospital - DublinLaboratory - Chemistry and Chemistry - challengeOrdered By: Maria Dolores Rucker on 90-65-8570VSV [Catalytic activity/Vol]55 U/O37-698YsvqnaSelect Medical Ohiohealth Rehabilitation Hospital - DublinALT [Catalytic activity/Vol] 8 U/L0-55[facility] - DublinAnion gap [Moles/Vol]12 mmol/L5-13[facility] - DublinAST [Catalytic activity/Vol]15 U/L5-34[facility] - DublinCalcium [Mass/Vol]9.1 mg/dL8.4-10.2FProMedica Memorial HospitalCO2 [Moles/Vol]22 mmol/PBul78-44KxwmrySelect Medical Ohiohealth Rehabilitation Hospital - DublinGlucose [Mass/Vol]171 mg/sGJsyo29-163EolzixSelect Medical Ohiohealth Rehabilitation Hospital - DublinTroponin I.cardiac [Mass/Vol]ng/mLLow 0.010-0.045[facility] - DublinLaboratory - Hematology and Cell counts Ordered By: Maria Dolores Rucker on 39-89-6408Vzpfizjrdqc distribution width (RBC) [Ratio]14.6 %12.2-15.8[facility] - DublinLymphocytes/100 WBC (Bld)28 % 20-35[facility] (RBC) [Entitic mass]31.3 pg27.8-33.2FProMedica Memorial HospitalMCHC (RBC) [Mass/Vol]34.0 g/dL32.7-34.8[facility] - DublinPlatelet mean volume (Bld) [Entitic vol]9.9 fL7.6-10.6FProMedica Memorial HospitalMonocytes Auto (Bld) [#/Vol]Ordered By: Maria Dolores Rucker on 05-09-2023 Monocytes (Bld) [#/Vol]0.6 10'3/uL0.2-0.8[facility] Monocytes/100 WBC Auto (Bld)Ordered By: Maria Dolores Rucker on 58-54-1026Zktufitpo/100 WBC (Bld)8 %4-12[facility] - DublinNeutrophils/100 WBC Manual cnt (Bld) Ordered By: Maria Dolores Rucker on 97-09-9680Qsyupalceaf/100 WBC (Bld)61 %41-72[facility] - DublinNo Panel InformationOrdered By: Maria Dolores Rucker on 05-09-2023 Absolute Neutrophil4.0 10'3/uL1.5-5.6FProMedica Memorial HospitalLymphocytes # (Auto)1.8 10'3/uL0.5-3.5FProMedica Memorial HospitalPlatelet Pggrk310 10'3/uL 122-359[facility] - DublinRed Blood Count3.96 10'6/uL3.85-4.88[facility] - DublinWhite Blood Count6.6 10'3/uL3.2-9.3FOhioHealth Arthur G.H. Bing, MD, Cancer Centererum or plasma bilirubin measurement (mass/volume)Ordered By: Maria Dolores Rucker on 48-65-1149Rsxskmwqd [Mass/Vol]0.4 mg/dL0.0-1.0[facility] General Hospitalerum or plasma potassium measurement (moles/volume)Ordered By: Maria Dolores Rucker on 31-95-6633Bhxktiynk [Moles/Vol]4.5 mmol/L3.5-5.1FOhioHealth Arthur G.H. Bing, MD, Cancer Centererum total protein measurement (mass/volume)Ordered By: Maria Dolores Rucker on 93-90-2961Qwxbwzv [Mass/Vol]6.5 g/dL6.4-8.2FProMedica Memorial HospitalThin prep Papanicolaou smear with manual screeningOrdered By: Maria Dolores Rucker on 05-09-2023 Thin prep Papanicolaou smear with manual unwybtywf55 mg/dL7-18FProMedica Memorial HospitalThin prep Papanicolaou smear with manual screening3.8 g/dL3.2-4.6 [facility] - DublinTroponin Ion 72-27-9122Wpyfhayo I.cardiac [Mass/Vol] ng/mLLow0.010-0.045Re[facility] Memorial HospitalComment on above:Performed By: #### CM, TNI #### [facility] Laboratoy [address] [place], [place] [address]Ozvnze blood sodium measurementOrdered By: Maria Dolores Rucker on 40-86-3667Mwqowh (BldV) [Moles/Vol]138 mmol/P776-086YhbnznSelect Medical Ohiohealth Rehabilitation Hospital - Dublin XR hip LT min 2V(w/wo pelvis)*on 52-95-2965BZ hip LT min 2V(w/wo pelvis)* [facility] Main [address] [address] XRay Report Signed Patient: Donna Saavedra MR#: [id number] 247 : 1950 Acct:[id number] Age/Sex: 73 / F ADM Date: 03/31/23 Loc: [facility] Room: Type: [facility] Attending Dr: Ari Solares II, MD Copies [...] Eric Velázquez M.D.03/31/2023 1:54 PM Dictation Location: [place] [address] Transcribed By: [facility] 03/31/23 1354 Dictated By: Eric Velázquez DO 03/31/23 1353 Signed By: 03/31/23 1354[facility] Memorial HospitalXR hip LT min 2V(w/wo pelvis)*[facility] [employer] Other XR hip LT min 2V(w/wo pelvis)*[facility] [employer] Other XR hip LT min 2V(w/wo pelvis)*[address] [place] [address] [employer] Other XR hip LT min 2V(w/wo pelvis)*[place], [place] [address] [employer] Other XR hip LT min 2V(w/wo pelvis)*XRay ReportChicago [employer] Other XR hip LT min 2V(w/wo pelvis)*SignedChicago [employer] Other XR hip LT min 2V(w/wo pelvis)*Patient: Donna Saavedra MR#: [id number] [employer] Other XR hip LT min 2V(w/wo pelvis)*[address] [employer] Other XR hip LT min 2V(w/wo pelvis)*: 1950 Acct:[id number] Other XR hip LT min 2V(w/wo pelvis)*Age/Sex: 73 / F ADM Date: 03/31/23[place] [employer] Other XR hip LT min 2V(w/wo pelvis)*Loc: [facility] Room: Type: [facility] [employer] Other XR hip LT min 2V(w/wo pelvis)*Attending Dr: Ari Solares II NDripplrr inc [employer] Other XR hip LT min 2V(w/wo pelvis)*Copies to: Ari Solares NDRed Rover Other XR hip LT min 2V(w/wo pelvis)*Ordering Provider: Ari Solares MDripplrr inc [employer] Other XR hip LT min 2V(w/wo pelvis)*Date of Service: 03/31/23[employer] Other XR hip LT min 2V(w/wo pelvis)* XR/XR hip LT min 2V(w/wo pelvis)*: Status post total hip replacement,[place] [employer] Other XR hip LT min 2V(w/wo pelvis)*[facility] [employer] Other XR hip LT min 2V(w/wo pelvis)*2 views left hip with single view pelvis plain filmChicago [employer] Other XR hip LT min 2V(w/wo pelvis)*COMPARISON: 02/10/2023 [employer] Other XR hip LT min 2V(w/wo pelvis)*HISTORY: Status post left total hip arthroplastyChicago [employer] Other XR hip LT min 2V(w/wo pelvis)*ACUTE FINDINGS: None [employer] Other XR hip LT min 2V(w/wo pelvis)*DEGENERATIVE CHANGE: Similar degenerative change.[employer] Other XR hip LT min 2V(w/wo pelvis)*SOFT TISSUE FINDINGS: UnremarkableChicago [employer] Other XR hip LT min 2V(w/wo pelvis)*JOINT EFFUSION: None [employer] Other XR hip LT min 2V(w/wo pelvis)*POSTOP CHANGES: No hardware failure loosening present.[employer] Other XR hip LT min 2V(w/wo pelvis)*BONY MINERALIZATION: AdequateChicago [employer] Other XR hip LT min 2V(w/wo pelvis)* XR/XR hip LT min 2V(w/wo pelvis)*[employer] Other XR hip LT min 2V(w/wo pelvis)*IMPRESSION: Unremarkable left hip arthroplastyChicago [employer] Other XR hip LT min 2V(w/wo pelvis)*Impression dictated by: Eric Velázquez M.D.03/31/2023 1:54 [facility] [employer] Other XR hip LT min 2V(w/wo pelvis)*Dictation Location: [address] [employer] Other XR hip LT min 2V(w/wo pelvis)*Transcribed By: MARYA 03/31/[address] [place] [address] [employer] Other XR hip LT min 2V(w/wo pelvis)*Dictated By: Eric Velázquez DO 03/31/[address] [place] [address] [employer] Other XR hip LT min 2V(w/wo pelvis)*Signed By:[place] [employer] Other XR hip LT min 2V(w/wo pelvis)*03/31/23 [facility] CenterRed [facility] Other XR hip LT min 2V(w/wo pelvis)*on 74-37-9010VF hip LT min 2V(w/wo pelvis)*[facility] [place] [address] XRay Report Signed Patient: Donna Saavedra MR#: [id number] [birth year] : 1950 Acct:[id number] Age/Sex: 72 / F ADM Date: 02/10/23 Loc: [facility] Room: Type: [facility] Attending Dr: Ari Solares II, MD Copies [...] Eric Velázquez M.D.02/10/2023 4:08 PM Dictation Location: [place] [address] Transcribed By: [facility] 02/10/23 1608 Dictated By: Eric Velázquez DO 02/10/23 1606 Signed By: 02/10/23 1608[facility] Memorial HospitalXR hip LT min 2V(w/wo pelvis)*[facility] [employer] Other XR hip LT min 2V(w/wo pelvis)*[facility] Main [facility] [employer] Other XR hip LT min 2V(w/wo pelvis)*[facility] [employer] Other XR hip LT min 2V(w/wo pelvis)*[place]ynn LUIS ALBERTO [address]Rng[place] [employer] Other XR hip LT min 2V(w/wo pelvis)*XRay ReportChicago [employer] Other XR hip LT min 2V(w/wo pelvis)*[facility] [employer] Other XR hip LT min 2V(w/wo pelvis)*Patient: Donna Saavedra MR#: [id number] [employer] Other XR hip LT min 2V(w/wo pelvis)*[address] [place] [address] [employer] Other XR hip LT min 2V(w/wo pelvis)*: 1950 Acct:[id number] [employer] Other XR hip LT min 2V(w/wo pelvis)*Age/Sex: 72 / F ADM Date: 02/10/23[place] [employer] Other XR hip LT min 2V(w/wo pelvis)*Loc: [facility] Room: Type: [facility] [employer] Other XR hip LT min 2V(w/wo pelvis)*Attending Dr: Ari Solares II, MDChicago [employer] Other XR hip LT min 2V(w/wo pelvis)*Copies to: Ari Solares [facility] [employer] Other XR hip LT min 2V(w/wo pelvis)*Ordering Provider: Ari Solares MDChicago [employer] Other XR hip LT min 2V(w/wo pelvis)*Date of Service: 02/10/23[place] [employer] Other XR hip LT min 2V(w/wo pelvis)* XR/XR hip LT min 2V(w/wo pelvis)*: Closed displaced fracture of [facility] hospitalRed [facility]over Other XR hip LT min 2V(w/wo pelvis)*femoral neck with routineRed Rover Other XR hip LT min 2V(w/wo pelvis)*2 views left hip plain filmRed Rover Other XR hip LT min 2V(w/wo pelvis)*COMPARISON: 12/28/2022 [employer] Other XR hip LT min 2V(w/wo pelvis)*HISTORY: Status post left total hip arthroplastyTouchBase Inc. Other XR hip LT min 2V(w/wo pelvis)*ACUTE FINDINGS: None [employer] Other XR hip LT min 2V(w/wo pelvis)*DEGENERATIVE CHANGE: UnremarkableTouchBase Inc. Other XR hip LT min 2V(w/wo pelvis)*SOFT TISSUE FINDINGS: UnremarkableRed Rover Other XR hip LT min 2V(w/wo pelvis)*JOINT EFFUSION: None [employer] Other XR hip LT min 2V(w/wo pelvis)*POSTOP CHANGES: No hardware failure for loosening.[employer] Other XR hip LT min 2V(w/wo pelvis)*BONY MINERALIZATION: AdequateRed Rover Other XR hip LT min 2V(w/wo pelvis)* XR/XR hip LT min 2V(w/wo pelvis)*[employer] Other XR hip LT min 2V(w/wo pelvis)*IMPRESSION: Uncomplicated left hip arthroplastyNorth [employer] Other XR hip LT min 2V(w/wo pelvis)*Impression dictated by: Eric Velázquez M.D.02/10/2023 4:08 [facility] [employer] Other XR hip LT min 2V(w/wo pelvis)*Dictation Location: [id number] [employer] Other XR hip LT min 2V(w/wo pelvis)*Transcribed By: [facility] 02/10/[address] [place] [address] [employer] Other XR hip LT min 2V(w/wo pelvis)*Dictated By: Eric Velázquez DO 02/10/[address] [place] [address] [employer] Other XR hip LT min 2V(w/wo pelvis)*Signed By:[place] [employer] Other XR hip LT min 2V(w/wo pelvis)*02/10/23 [facility] HospitalPath 1 Network Technologies [employer] Other Basic Metabolic Panelon 98-72-5036Qaqcf gap [Moles/Vol]12.5 mmol/LNormal6.0-15.0Ohio[facility] Doctors HospitalComment on above:Performed By: #### BMP ####[facility] [id number] [place] [address] USACalcium [Mass/Vol]9.5 mg/dLNormal8.6-10.3FAdena Regional Medical CenterComment on above:Performed By: #### BMP ####[facility] [address] [place] [address] USAChloride [Moles/Vol] 98 mmol/FKbapai93-980VwuqzdhnqOhiohealth Doctors HospitalComment on above:Performed By: #### BMP ####[facility] [address] [place] [address] USACO2 [Moles/Vol]28.6 mmol/XJhwqqq49.0-31.0Ohiohealth Doctors HospitalComment on above:Performed By: #### BMP ####[place] [address] [place] [id number] USACreatinine [Mass/Vol]0.91 mg/dLNormal 0.60-1.20Ohiohealth Doctors HospitalComment on above:Performed By: #### BMP ####[place] [id number] [place] Creatinine Clr Calc Qunrafkt95.77NoAdams County Regional Medical CenterComment on above:Result Comment: PERFORMED BY: [facility] [address] [place] [id number] PATHOLOGIST NEW ACCOUNT INTERVIEWER JENNIFER ROMEO M.D.Performed By: #### BMP ####[place] [id number] USAGFR/1.73 sq M.predicted MDRD (S/P/Bld) [Vol rate/Area]mL/min/{1.73_m2}NormalOhiohealth Doctors HospitalComment on above:Performed By: #### BMP ####[place] [address] USAGlucose [Mass/Vol]96 mg/xUFehlbl82-414GwvnlxjakOhiohealth Doctors HospitalComment on above:Result Comment: Random Glucose Reference Range is dependent on time and content of last meal. Glucose of more than 200 mg/dL in a nonstressed, ambulatory subject supports the diagnosis of Diabetes Mellitus. ADA recommended reference rangePerformed By: #### BMP ####[place] [id number] USAPotassium [Moles/Vol]4.1 mmol/LNormal3.5-5.1FAdena Regional Medical CenterComment on above:Performed By: #### BMP ####[place] [address] USASodium [Moles/Vol]135 mmol/DRny830-397ZzmaovsjnOhiohealth Doctors Hospital Comment on above:Performed By: #### BMP ####[place] [id number] USAUrea nitrogen [Mass/Vol]12 mg/dLNormal7-25 [facility] Doctors HospitalComment on above:Performed By: #### BMP ####[facility] [address] [place] [address] USACalcium [Mass/volume] in Serum or PlasmaOrdered By: Vivian Live on 83-44-8705Rmvdmdn [Mass/Vol]9.5 mg/dL8.6-10.3FAdena Regional Medical CenterCarbon dioxide, total [Moles/volume] in Serum or PlasmaOrdered By: Vivian Live on 12-31-2022 CO2 [Moles/Vol]28.6 mmol/L21.0-31.0Ohio[facility] Doctors HospitalChloride [Moles/volume] in Serum or PlasmaOrdered By: Vivian Live on 86-61-7359Dbfuxcmk [Moles/Vol]98 mmol/F32-041NhvepqrqbOhiohealth Doctors HospitalCreatinine [Mass/volume] in Serum or PlasmaOrdered By: Vivian Live on 12-31-2022 Creatinine [Mass/Vol]0.91 mg/dL0.60-1.20[facility] Doctors HospitalGlucose [Mass/volume] in Serum or PlasmaOrdered By: Vivian Live on 56-31-5739Pazmxae [Mass/Vol]96 mg/eY14-363MnokdkykjOhiohealth Doctors HospitalComment on above:ADA recommended reference rangeRandom Glucose Reference Range is dependent on time and content of last meal. Glucose of more than 200 mg/dL in a nonstressed, ambulatory subject supports the diagnosisof Diabetes Mellitus.No Panel InformationOrdered By: Vivian Live on 79-63-2071Dftmgdnji GFR (CKD-EPI)> 60.0 mL/MinOhiohealth Doctors HospitalPharmacy Creatinine Clearance (Chem50.77 [facility] Doctors HospitalPotassium [Moles/volume] in Serum or Plasma Ordered By: Vivian Live on 70-87-6857Gdyoezamx [Moles/Vol]4.1 mmol/L3.5-5.1 [facility] Hospitalerum or plasma anion gap determinationOrdered By: Vivian Live on 67-91-1411Wtjty gap [Moles/Vol]12.5 mmol/L6.0-15.0[facility] Hamilton Hospitalodium [Moles/volume] in Serum or PlasmaOrdered By: Vivian Sylvestertrevin on 34-33-3904Crmcdf [Moles/Vol]135 mmol/I147-196DhusvqeixOhiohealth Doctors HospitalUrea nitrogen [Mass/volume] in Serum or PlasmaOrdered By: Vivian Sylvestertrevin on 59-00-7819Xits nitrogen [Mass/Vol]12 mg/dL7-25Ohiohealth Doctors HospitalBasic Metabolic Panelon 12-01-6322Cxuzy gap [Moles/Vol]10.1 mmol/L Normal6.0-15.0Ohio[facility] Doctors HospitalComment on above:Performed By: #### BMP ####[place] [address] [place] [address] USACalcium [Mass/Vol]9.2 mg/dLNormal8.6-10.3FAdena Regional Medical Center Comment on above:Performed By: #### BMP ####[address] [address] USAChloride [Moles/Vol]100 mmol/YZjlenr73-373 [facility] Doctors HospitalComment on above:Performed By: #### BMP ####[address] [address] USACO2 [Moles/Vol]28.2 mmol/YGoxeyd93.0-31.0Ohio[facility] Doctors HospitalComment on above:Performed By: #### BMP ####[place] [address] [place] [address] USACreatinine [Mass/Vol]1.00 mg/dLNormal0.60-1.20 [facility] Doctors HospitalComment on above:Performed By: #### BMP ####[place] [address] [place] [address] [place] Creatinine Clr Calc Xwsfsnpa07.20NoAdams County Regional Medical CenterComment on above:Result Comment: PERFORMED BY: [facility] [address] [place] [address] PATHOLOGIST NEW ACCOUNT INTERVIEWER JENNIFER ROMEO M.D.Performed By: #### BMP ####[place] [address] [place] [address] USAGFR/1.73 sq M.predicted MDRD (S/P/Bld) [Vol rate/Area]59.117 mL/min/{1.73_m2}NormalOhiohealth Doctors HospitalComment on above:Performed By: #### BMP ####[place] [address] [place] [address] USAGlucose [Mass/Vol]96 mg/bIQzbpts31-050AwwbxpcgdOhiohealth Doctors HospitalComment on above:Result Comment: Random Glucose Reference Range is dependent on time and content of last meal. Glucose of more than 200 mg/dL in a nonstressed, ambulatory subject supports the diagnosis of Diabetes Mellitus. ADA recommended reference rangePerformed By: #### BMP ####[place] [address] [place] [address] USAPotassium [Moles/Vol]4.3 mmol/LNormal3.5-5.1FAdena Regional Medical CenterComment on above:Performed By: #### BMP ####[place] [id number] USASodium [Moles/Vol]134 mmol/RNyr162-409LyttezvztOhiohealth Doctors Hospital Comment on above:Performed By: #### BMP ####[place] [id number] USAUrea nitrogen [Mass/Vol]15 mg/dLNormal7-25 [facility] Doctors HospitalComment on above:Performed By: #### BMP ####[place] [address] [place] Basophils Auto (Bld) [#/Vol]Ordered By: Ari Solares on 58-68-1767Tceahpotn (Bld) [#/Vol]0.0 10*3/uL0.0-0.2FAdena Regional Medical CenterBasophils/100 WBC Auto (Bld)Ordered By: Ari Solares on 53-74-1232Qypddqkxf/100 WBC (Bld) 0.1 %.Ohiohealth Doctors HospitalEosinophils Auto (Bld) [#/Vol]Ordered By: Ari Solares on 81-62-5693Lmtduwerqng (Bld) [#/Vol]0.0 10*3/uL0.0-0.45 [facility] Doctors HospitalEosinophils/100 WBC Auto (Bld)Ordered By: Ari Solares on 25-88-7613Jmjizdxwvys/100 WBC (Bld)0.1 %.Ohiohealth Doctors HospitalErythrocyte distribution width Auto (RBC) [Ratio]Ordered By: Ari Solares on 44-47-9305Sykzztznzwx distribution width (RBC) [Ratio]15.9 % 11.9-15.3FAdena Regional Medical CenterHematocrit Auto (Bld) [Volume fraction]Ordered By: Ari Solares on 63-73-9916Yzbcyasqyg (Bld) [Volume fraction]30.3 %34.0-46.4FAdena Regional Medical CenterHemoglobin [Mass/volume] in BloodOrdered By: Ari Solares on 89-53-5184Dqvvmwrdiz (Bld) [Mass/Vol]10.2 g/dL11.8-15.4FAdena Regional Medical CenterHypochromia LM Ql (Bld)Ordered By: Ari Solares on 02-84-1126Tgoyyfpmlqt Ql (Bld)Slight [facility] Doctors HospitalLeukocytes [#/volume] corrected for nucleated erythrocytes in Blood by Automated counOrdered By: Ari Solares on 12-30-2022 WBC corrected for nucl RBC Auto (Bld) [#/Vol]10.0 10*3/uL3.8-11.6FAdena Regional Medical CenterLymphocytes Auto (Bld) [#/Vol]Ordered By: Ari Solares on 87-52-9028Cwnezkznzys (Bld) [#/Vol]1.6 10*3/uL1.00-4.8Ohiohealth Doctors HospitalLymphocytes/100 WBC Auto (Bld)Ordered By: Ari Solares on 31-16-6958Arhdaslxpir/100 WBC (Bld)16.0 %.[facility] Auto (RBC) [Entitic mass]Ordered By: Ari Solares on 12-35-5673RPY (RBC) [Entitic mass]32.3 pg24.7-34.3FAdena Regional Medical CenterMCHC Auto (RBC) [Mass/Vol]Ordered By: Ari Solares on 29-72-1260KCNM (RBC) [Mass/Vol]33.6 g/dL32.0-35.0Ohio[facility] Doctors HospitalMCV Auto (RBC) [Entitic vol] Ordered By: Ari Solares on 94-55-2419ABC (RBC) [Entitic vol]96.3 mR51-251 [facility] Doctors HospitalMonocytes Auto (Bld) [#/Vol]Ordered By: Ari Solares on 17-23-6993Mtofskpro (Bld) [#/Vol]1.7 10*3/uL0.0-0.8[facility] Doctors HospitalMonocytes/100 WBC Auto (Bld)Ordered By: Ari Solares on 55-29-2407Cfxfuvuul/100 WBC (Bld)17.5 %.[facility] Neutrophils Auto (Bld) [#/Vol]Ordered By: Ari Solares on 12-30-2022 Neutrophils (Bld) [#/Vol]6.6 10*3/uL1.8-7.7FAdena Regional Medical Center Neutrophils/100 WBC Auto (Bld)Ordered By: Ari Solares on 12-30-2022 Neutrophils/100 WBC (Bld)66.3 %.Ohio[facility] Doctors HospitalNucleated erythrocytes [Presence] in Blood by Automated countOrdered By: Ari Solares on 37-66-7138Vvnlihymn RBC Auto Ql (Bld)0.0 /100{WBC}0-0.5FAdena Regional Medical CenterOvalocyte detectionOrdered By: Ari Solares on 12-30-2022 Ovalocytes LM Ql (Bld)SlightOhiohealth Doctors HospitalPlatelet adequacy [Presence] in Blood by Light microscopyOrdered By: Ari Solares on 12-30-2022 Platelets LM Ql (Bld)NormalNormalOhiohealth Doctors HospitalPlatelet mean volume Auto (Bld) [Entitic vol]Ordered By: Ari Solares on 75-68-2620Tmumftpy mean volume (Bld) [Entitic vol]9.0 fL6.3-10.7FAdena Regional Medical Center Platelet morphology finding [Identifier] in BloodOrdered By: Ari Solares on 82-38-8180Drwemagi morphology finding Nom (Bld)NormalNormalOhiohealth Doctors HospitalPlatelets Auto (Bld) [#/Vol]Ordered By: Ari Solares on 12-93-8461Uwegtutih (Bld) [#/Vol]211 10*3/oZ876-265GejhvpvjwOhiohealth Doctors HospitalPolychromasia [Presence] in Blood by Light microscopyOrdered By: Ari Solares on 98-47-7265Qzsbqgtkhtqbz LM Ql (Bld)SlightOhiohealth Doctors HospitalRBC Auto (Bld) [#/Vol]Ordered By: Ari Solares on 17-33-2999SEQ (Bld) [#/Vol]3.15 10*6/uL3.60-5.00[facility] morphology Ordered By: Ari Solares on 63-52-1161PIR morphology finding Nom (Bld)N/A [facility] Hospitalcan and CBCon 98-47-7516Xalytpqgn (Bld) [#/Vol]0.0 10*3/uLNormal0.0-0.2FAdena Regional Medical CenterComment on above:Performed By: #### SCAN CBC ####[address] [address] USABasophils/100 WBC (Bld)0.1 %Normal.Ohio[facility] Doctors HospitalComment on above:Performed By: #### SCAN CBC ####[address] [address] [place] Eosinophils (Bld) [#/Vol]0.0 10*3/uLNormal0.0-0.45Ohio[facility] Doctors HospitalComment on above:Performed By: #### SCAN CBC ####[address] [address] USAEosinophils/100 WBC (Bld)0.1 % Normal.[facility] Doctors HospitalComment on above:Performed By: #### SCAN CBC ####[place] [address] [place] Erythrocyte distribution width (RBC) [Ratio]15.9 %High11.9-15.3FAdena Regional Medical CenterComment on above:Performed By: #### SCAN CBC ####[place] [address] [place] Hematocrit (Bld) [Volume fraction]30.3 %Low34.0-46.4FAdena Regional Medical CenterComment on above:Performed By: #### SCAN CBC ####[place] [address] USAHemoglobin (Bld) [Mass/Vol] 10.2 g/dLLow11.8-15.4FAdena Regional Medical CenterComment on above:Performed By: #### SCAN CBC ####[place] [address] USAHypochromasiaSlightNoAdams County Regional Medical CenterComment on above:Performed By: #### SCAN CBC ####[place] [address] USALymphocytes (Bld) [#/Vol]1.6 10*3/uLNormal1.00-4.8 [facility] Doctors HospitalComment on above:Performed By: #### SCAN CBC ####[place] [address] [place] Lymphocytes/100 WBC (Bld)16.0 %Normal.[facility] Doctors HospitalComment on above:Performed By: #### SCAN CBC ####[place] [address] [facility] CENTERMCH (RBC) [Entitic mass]32.3 fqGfuztc64.7-34.3 [facility] HospitalComment on above:Performed By: #### SCAN CBC ####[place] [address] USAMCV (RBC) [Entitic vol]96.3 xWXzwzbu72-489BznoqxiobOhiohealth Doctors HospitalComment on above:Performed By: #### SCAN CBC ####[place] [address] USAMean Corpuscular HGB Conc33.6 g/dLNormal 32.0-35.0Ohio[facility] Doctors HospitalComment on above:Performed By: #### SCAN CBC ####[address] [address] USAMonocytes (Bld) [#/Vol]1.7 10*3/uLHigh0.0-0.8Ohio[facility] Doctors HospitalComment on above:Performed By: #### SCAN CBC ####[place] [address] USAMonocytes/100 WBC (Bld)17.5 % Normal.[facility] Doctors HospitalComment on above:Performed By: #### SCAN CBC ####[place] [address] [place] Neutrophils (Bld) [#/Vol]6.6 10*3/uLNormal1.8-7.7FAdena Regional Medical CenterComment on above:Performed By: #### SCAN CBC ####[place] [address] USANeutrophils/100 WBC (Bld)66.3 %Normal.[facility] Doctors HospitalComment on above:Performed By: #### SCAN CBC ####[address] [address] USANRBC%0.0 /100{WBC}Normal0-0.5FAdena Regional Medical CenterComment on above:Performed By: #### SCAN CBC ####[address] [address] USAOvalocytesSlightNormalOhiohealth Doctors HospitalComment on above:Performed By: #### SCAN CBC ####[address] [address] USAPlatelet EstimateNormalNormal NormalOhiohealth Doctors HospitalComment on above:Performed By: #### SCAN CBC ####[place] [id number] [place] Platelet mean volume (Bld) [Entitic vol]9.0 fLNormal6.3-10.7FAdena Regional Medical CenterComment on above:Performed By: #### SCAN CBC ####[place] [address] [place] [address] USAPlatelet Morphology NormalNormalNoAdams County Regional Medical CenterComment on above:Result Comment: PERFORMED BY: [facility] [address] [place] [address] PATHOLOGIST NEW ACCOUNT INTERVIEWER JENNIFER ROMEO M.D.Performed By: #### SCAN CBC ####[address] [address] USAPlatelets (Bld) [#/Vol]211 10*3/uL Camzkf051-490BjoxhfjujOhiohealth Doctors HospitalComment on above:Performed By: #### SCAN CBC ####[place] [id number] USAPolychromasiaSlightNoAdams County Regional Medical CenterComment on above:Performed By: #### SCAN CBC ####[place] [address] USARBC (Bld) [#/Vol]3.15 10*6/uLLow3.60-5.00Ohiohealth Doctors HospitalComment on above:Performed By: #### SCAN CBC ####[address] [address] USAWBC (Bld) [#/Vol]10.0 10*3/uLNormal3.8-11.6FAdena Regional Medical CenterComment on above:Performed By: #### SCAN CBC ####[place] [id number] USAWBC Auto (Bld) [#/Vol]Ordered By: Ari Solares on 00-97-8614UWY (Bld) [#/Vol]10.0 10*3/uL3.8-11.6FAdena Regional Medical CenterBasic Metabolic Panelon 23-71-9247Ocvor gap [Moles/Vol]11.1 mmol/L Normal6.0-15.0Ohiohealth Doctors HospitalComment on above:Performed By: #### MG, BMP ####[address] [place] [address] USACalcium [Mass/Vol]8.4 mg/dLLow8.6-10.3FAdena Regional Medical Center Comment on above:Performed By: #### MG, BMP ####[address] [address] USAChloride [Moles/Vol]99 mmol/LNormal 98-107Ohiohealth Doctors HospitalComment on above:Performed By: #### MG, BMP ####[address] [address] USACO2 [Moles/Vol]26.8 mmol/RRgvonw74.0-31.0Ohiohealth Doctors HospitalComment on above:Performed By: #### MG, BMP ####[address] [address] USACreatinine [Mass/Vol]0.98 mg/dLNormal0.60-1.20 Ohio[facility] Doctors HospitalComment on above:Performed By: #### MG, BMP ####[address] [address] [place] Creatinine Clr Calc Wrsyranm10.15NToledo HospitalComment on above:Performed By: #### MG, BMP ####[address] [address] USAGFR/1.73 sq M.predicted MDRD (S/P/Bld) [Vol rate/Area]mL/min/{1.73_m2}[facility] HospitalComment on above:Performed By: #### MG, BMP ####[address] [address] USAGlucose [Mass/Vol]144 mg/sHLjrt20-634MvnvorpheOhiohealth Doctors HospitalComment on above:Result Comment: Random Glucose Reference Range is dependent on time and content of last meal. Glucose of more than 200 mg/dL in a nonstressed, ambulatory subject supports the diagnosis of Diabetes Mellitus. ADA recommended reference rangePerformed By: #### MG, BMP ####[address] [address] USAPotassium [Moles/Vol]4.9 mmol/LNormal3.5-5.1FAdena Regional Medical CenterComment on above:Performed By: #### MG, BMP ####[place] [address] USASodium [Moles/Vol]132 mmol/QWpd844-626GiqwgpmgsOhiohealth Doctors HospitalComment on above:Performed By: #### MG, BMP ####[place] [address] USAUrea nitrogen [Mass/Vol]13 mg/dL Normal7-25Ohiohealth Doctors HospitalComment on above:Performed By: #### MG, BMP ####[place] [address] USAComplete Blood Count Auto Diffon 71-61-3108Jdphotjgg (Bld) [#/Vol]0.0 10*3/uL Normal0.0-0.2FAdena Regional Medical CenterComment on above:Result Comment: PERFORMED BY: [place] [address] PATHOLOGIST NEW ACCOUNT INTERVIEWER JENNIFER ROMEO M.D.Performed By: #### CBC #### [place] [address] USABasophils/100 WBC (Bld)0.1 %Normal.Ohiohealth Doctors HospitalComment on above:Performed By: #### CBC #### [place] [address] USAEosinophils (Bld) [#/Vol]0.0 10*3/uLNormal0.0-0.45 Ohio[facility] Doctors HospitalComment on above:Performed By: #### CBC #### [place] [address] USAEosinophils/100 WBC (Bld)0.0 %Normal.Ohiohealth Doctors HospitalComment on above:Performed By: #### CBC #### [place] [address] USAErythrocyte distribution width (RBC) [Ratio]16.3 %High 11.9-15.3FAdena Regional Medical CenterComment on above:Performed By: #### CBC #### [facility] [address] [place] [address] USAHematocrit (Bld) [Volume fraction]34.2 %Bkjpwm92.0-46.4 [facility] Doctors HospitalComment on above:Performed By: #### CBC #### [facility] [address] [place] [address] USAHemoglobin (Bld) [Mass/Vol]11.4 g/dLLow11.8-15.4FAdena Regional Medical CenterComment on above:Performed By: #### CBC #### [facility] [address] [place] [address] USALymphocytes (Bld) [#/Vol]0.5 10*3/uLLow1.00-4.8Ohiohealth Doctors HospitalComment on above:Performed By: #### CBC #### [facility] [address] [place] [address] USALymphocytes/100 WBC (Bld)5.2 %Normal.Ohiohealth Doctors HospitalComment on above:Performed By: #### CBC #### [facility] [address] [place] [address] USAMCH (RBC) [Entitic mass]32.4 nvDqoaqp86.7-34.3FAdena Regional Medical CenterComment on above:Performed By: #### CBC #### [place] [address] USAMCV (RBC) [Entitic vol]97.2 cUHelwtc58-932GjfomsuwgOhiohealth Doctors HospitalComment on above:Performed By: #### CBC #### [place] [address] USAMean Corpuscular HGB Conc33.4 g/jETsnanr93.0-35.0Ohiohealth Doctors HospitalComment on above:Performed By: #### CBC #### [place] [address] USAMonocytes (Bld) [#/Vol]0.4 10*3/uLNormal0.0-0.8Ohiohealth Doctors HospitalComment on above:Performed By: #### CBC #### [facility] [address] [place] [address] USAMonocytes/100 WBC (Bld)3.4 %Normal.Ohiohealth Doctors HospitalComment on above:Performed By: #### CBC #### [facility] [address] [place] [address] USANeutrophils (Bld) [#/Vol]9.5 10*3/uLHigh1.8-7.7FAdena Regional Medical CenterComment on above:Performed By: #### CBC #### [facility] [address] [place] [address] USANeutrophils/100 WBC (Bld)91.3 %Normal.Ohiohealth Doctors HospitalComment on above:Performed By: #### CBC #### [facility] [address] [place] [address] USANRBC%0.0 /100{WBC}Normal0-0.5FAdena Regional Medical CenterComment on above:Performed By: #### CBC #### [facility] [address] [place] [address] USAPlatelet mean volume (Bld) [Entitic vol]9.5 fLNormal 6.3-10.7FAdena Regional Medical CenterComment on above:Performed By: #### CBC #### [facility] [address] [place] [address] USAPlatelets (Bld) [#/Vol]231 10*3/yJEymmsw230-356TjyprtfdmOhiohealth Doctors HospitalComment on above:Performed By: #### CBC #### [facility] [address] [place] [address] USARBC (Bld) [#/Vol]3.51 10*6/uLLow3.60-5.00Ohiohealth Doctors HospitalComment on above:Performed By: #### CBC #### [facility] [address] [place] [address] USAWBC (Bld) [#/Vol]10.4 10*3/uLNormal3.8-11.6FAdena Regional Medical CenterComment on above:Performed By: #### CBC #### [facility] [address] [place] [address] USAMagnesiumon 03-78-1723Jjipbfnbu [Mass/Vol]2.5 mg/dLNormal 1.9-2.7FAdena Regional Medical CenterComment on above:Result Comment: PERFORMED BY: [facility] [address] [place] [id number] PATHOLOGIST NEW ACCOUNT INTERVIEWER JENNIFER ROMEO M.D.Performed By: #### MG, BMP ####[facility] [address] [place] [id number] USAMagnesium [Mass/volume] in Serum or PlasmaOrdered By: Vivian Live on 70-86-8276Gknhjwkpo [Mass/Vol]2.5 mg/dL 1.9-2.7FAdena Regional Medical CenterXR hip LT 1Von 02-25-5049AC hip LT 1V [facility] [address] [place] [address] [place] [id number] XRay Report Signed Patient: Donna Saavedra MR#: [id number] 247 : 1950 Acct:[id number] Age/Sex: 72 / F ADM Date: 12/27/22 Loc: Room: [address] [place] [address] Type: ADM IN Attending Dr: Vivian Live [...] Eric Velázquez M.D.12/29/2022 10:56 AM Dictation Location: [place] [address] Transcribed By: MARYA 12/29/22 1056 Dictated By: EberEric Molly DO 12/29/22 1054 Signed By: 12/29/22 1056Brown Memorial HospitalXR low pelvis w/LT x-table hipon 16-07-9630YC low pelvis w/LT [facility] [place] [address] [place] [address] XRay Report Signed Patient: Donna Saavedra MR#: [id number] 247 : 1950 Acct:[id number] Age/Sex: 72 / F ADM Date: 12/27/22 Loc: Room: [address] [place] [address] Type: ADM IN Attending Dr: Vivian Live [...] Andre Jaramillo M.D.12/29/2022 8:53 AM Dictation Location: [place] [address] Transcribed By: [facility] 12/29/22 0853 Dictated By: Andre Jaramillo II, MD 12/29/22 0851 Signed By: 12/29/22 0853Brown Memorial HospitalA1C with Estimated Average Gluon 19-07-2913Gpdddrb [Mass/Vol]117 mg/dLBrown Memorial HospitalComment on above:Result Comment: PERFORMED BY: [facility] [address] [place] [address] PATHOLOGIST NEW ACCOUNT INTERVIEWER JENNIFER ROMEO M.D.Performed By: #### A1C WTH eA, [id number] #### [facility] [address] [place] [address] GRBCjB0q (Bld) [Mass fraction]5.7 %High4.3-5.6FAdena Regional Medical CenterComment on above:Result Comment: Increased risk for diabetes: 5.7 - 6.4 diabetes: >6.4 glycemic control for adults with diabetes: <7.0Performed By: #### A1C WTH eA, [id number] #### [facility] [address] [place], [place] [address] USAABO/Rh Retypeon 93-59-6070JYL/RH Recheck ResultNegative NormalOhiohealth Doctors HospitalComment on above:Result Comment: PERFORMED BY: [address] [address] PATHOLOGIST NEW ACCOUNT INTERVIEWER JENNIFER ROMEO M.D.Activated partial thromboplastin time (aPTT) in platelet poor plasma by coagulation aOrdered By: Junior Martinez on 27-36-0487dTTI Coag (PPP) [Time]34.5 s25.1-36.5FAdena Regional Medical CenterAlanine aminotransferase [Enzymatic activity/volume] in Serum or PlasmaOrdered By: Junior Martinez on 38-58-2856UIB [Catalytic activity/Vol]8 U/L7-52[facility] Albumin [Mass/volume] in Serum or Plasma by Bromocresol green (BCG) dye binding methoOrdered By: Junior Martinez on 14-05-0843Huewjuy BCG dye [Mass/Vol]3.7 g/dL 3.5-5.7FAdena Regional Medical CenterAlkaline phosphatase [Enzymatic activity/volume] in Serum or PlasmaOrdered By: Junior Martinez on 24-83-0485HBA [Catalytic activity/Vol]59 U/W02-968OvsdsebsuOhiohealth Doctors HospitalAspartate aminotransferase [Enzymatic activity/volume] in Serum or PlasmaOrdered By: Junior Martinez on 13-48-9094GGJ [Catalytic activity/Vol]17 U/Z74-32XgbmwawioOhiohealth Doctors HospitalBilirubin.total [Mass/volume] in Serum or PlasmaOrdered By: Junior Martinez on 68-62-7816Mkfripjxk [Mass/Vol]0.5 mg/dL0.3-1.0Ohiohealth Doctors HospitalCoagulation Profileon 41-69-5275pVQI Coag (Bld) [Time] 34.5 iUwvtfv31.1-36.5FAdena Regional Medical CenterComment on above:Result Comment: PERFORMED BY: [place] [address] PATHOLOGIST NEW ACCOUNT INTERVIEWER JENNIFER ROMEO M.D.Performed By: #### CMP, PP, MG #### [place] [address] USAINR Coag (PPP) [Relative time]1.0 {INR}NormalOhiohealth Doctors HospitalComment on above:Result Comment: INR Therapeutic Range A) Pre- and [...] patients with mechanical heart valves: 3 - 4.5Performed By: #### CMP, PP, MG #### [facility] [address] [place] [address] USAPT Coag (PPP) [Time]11.1 sNormal9.0-12.9Ohiohealth Doctors HospitalComment on above:Performed By: #### CMP, PP, MG #### [facility] [address] [place] [address] USAComplete Blood Count Auto Diffon 33-44-7764Zsqjjlrbe (Bld) [#/Vol]0.0 10*3/uLNormal0.0-0.2FAdena Regional Medical CenterComment on above:Result Comment: PERFORMED BY: [place] [address] PATHOLOGIST NEW ACCOUNT INTERVIEWER JENNIFER ROMEO M.D.Performed By: #### CBC #### [facility] [address] [place] [address] USABasophils/100 WBC (Bld)0.6 %Normal.Ohiohealth Doctors HospitalComment on above:Performed By: #### CBC #### [facility] [address] [place] [address] USAEosinophils (Bld) [#/Vol]0.0 10*3/uLNormal0.0-0.45 [facility] Doctors HospitalComment on above:Performed By: #### CBC #### [facility] [address] [place] [address] USAEosinophils/100 WBC (Bld)0.3 %Normal.Ohiohealth Doctors HospitalComment on above:Performed By: #### CBC #### [facility] [address] [place] [address] USAErythrocyte distribution width (RBC) [Ratio]16.2 %High 11.9-15.3FAdena Regional Medical CenterComment on above:Performed By: #### CBC #### [facility] [address] [place] [address] USAHematocrit (Bld) [Volume fraction]38.2 %Xowaxx91.0-46.4 Ohio[facility] Doctors HospitalComment on above:Performed By: #### CBC #### [facility] [address] [place] [address] USAHemoglobin (Bld) [Mass/Vol]12.8 g/vKWjickx69.8-15.4 [facility] Doctors HospitalComment on above:Performed By: #### CBC #### [facility] [address] [place] [address] USALymphocytes (Bld) [#/Vol]1.2 10*3/uLNormal1.00-4.8 [facility] Doctors HospitalComment on above:Performed By: #### CBC #### [facility] [address] [place] [address] USALymphocytes/100 WBC (Bld)14.5 %Normal.Ohiohealth Doctors HospitalComment on above:Performed By: #### CBC #### [facility] [address]H (RBC) [Entitic mass]32.2 kzGeidlq49.7-34.3FAdena Regional Medical CenterComment on above:Performed By: #### CBC #### [facility] [address] [place] [address] USAMCV (RBC) [Entitic vol]96.0 lNKvyuvs40-018BmuezcjjoOhiohealth Doctors HospitalComment on above:Performed By: #### CBC #### [facility] [address] [place] [address] USAMean Corpuscular HGB Conc33.5 g/zVWcgrfd62.0-35.0Ohiohealth Doctors HospitalComment on above:Performed By: #### CBC #### [facility] [address] [place] [address] USAMonocytes (Bld) [#/Vol]1.1 10*3/uLHigh0.0-0.8Ohiohealth Doctors HospitalComment on above:Performed By: #### CBC #### [facility] [address] [place] [address] USAMonocytes/100 WBC (Bld)13.3 %Normal.Ohiohealth Doctors HospitalComment on above:Performed By: #### CBC #### [facility] [address] [place] [address] USANeutrophils (Bld) [#/Vol]5.7 10*3/uLNormal1.8-7.7FAdena Regional Medical CenterComment on above:Performed By: #### CBC #### [facility] [address] [place] [address] USANeutrophils/100 WBC (Bld)71.3 %Normal.Ohiohealth Doctors HospitalComment on above:Performed By: #### CBC #### [facility] [address] [place] [address] USANRBC%0.0 /100{WBC}Normal0-0.5FAdena Regional Medical CenterComment on above:Performed By: #### CBC #### [place] [address] USAPlatelet mean volume (Bld) [Entitic vol]8.6 fLNormal 6.3-10.7FAdena Regional Medical CenterComment on above:Performed By: #### CBC #### [place] [address] USAPlatelets (Bld) [#/Vol]268 10*3/cXKamtzh968-243McgflviqiOhiohealth Doctors HospitalComment on above:Performed By: #### CBC #### [place] [address] USARBC (Bld) [#/Vol]3.98 10*6/uLNormal3.60-5.00Ohiohealth Doctors HospitalComment on above:Performed By: #### CBC #### [place] [address] USAWBC (Bld) [#/Vol]8.0 10*3/uLNormal3.8-11.6FAdena Regional Medical CenterComment on above:Performed By: #### CBC #### [place] [address] USAComprehensive Metabolic Panelon 19-55-2116Nzwyhkh [Mass/Vol]3.7 g/dLNormal3.5-5.7FAdena Regional Medical CenterComment on above:Performed By: #### CMP, PP, MG #### [place] [address] USAAlbumin/Globulin [Mass ratio]1.4 {ratio}[facility] Memorial HospitalComment on above:Performed By: #### CMP, PP, MG #### [place] [address] USAALP [Catalytic activity/Vol]59 U/ROyjphx03-059SjnovbzrdOhiohealth Doctors HospitalComment on above:Performed By: #### CMP, PP, MG #### [place] [address] USAALT [Catalytic activity/Vol]8 U/LNormal7-52Ohiohealth Doctors HospitalComment on above:Performed By: #### CMP, PP, MG #### [facility] [address] [place] [address] USAAnion gap [Moles/Vol]11.2 mmol/LNormal6.0-15.0Ohiohealth Doctors HospitalComment on above:Performed By: #### CMP, PP, MG #### [facility] [address] [place] [address] USAAST [Catalytic activity/Vol]17 U/FWxhqgk15-29PvhqglqwhOhiohealth Doctors HospitalComment on above:Performed By: #### CMP, PP, MG #### [facility] [address] [place] [address] USABilirubin [Mass/Vol]0.5 mg/dLNormal0.3-1.0Ohio[facility] Doctors HospitalComment on above:Performed By: #### CMP, PP, MG #### [facility] [address] [place] [address] USACalcium [Mass/Vol]9.0 mg/dLNormal8.6-10.3FAdena Regional Medical CenterComment on above:Performed By: #### CMP, PP, MG #### [facility] [address] [place] [address] USAChloride [Moles/Vol]101 mmol/YZwskgm47-900OturapijuOhiohealth Doctors HospitalComment on above:Performed By: #### CMP, PP, MG #### [facility] [address] [place] [address] USACO2 [Moles/Vol]27.5 mmol/CQgjhge19.0-31.0Ohio[facility] Doctors HospitalComment on above:Performed By: #### CMP, PP, MG #### [facility] [address] [place] [address] USACreatinine [Mass/Vol]0.84 mg/dLNormal0.60-1.20Ohio[facility] Doctors HospitalComment on above:Performed By: #### CMP, PP, MG #### [place] [address] USACreatinine Clr Calc Ccjukfqy17.83NoAdams County Regional Medical CenterComment on above:Performed By: #### CMP, PP, MG #### [place] [address] USAGFR/1.73 sq M.predicted MDRD (S/P/Bld) [Vol rate/Area] mL/min/{1.73_m2}NormalOhiohealth Doctors HospitalComment on above: Performed By: #### CMP, PP, MG #### [place] [address] USAGlobulin (S) [Mass/Vol]2.7 g/dLNoAdams County Regional Medical CenterComment on above:Performed By: #### CMP, PP, MG #### [place] [address] USAGlucose [Mass/Vol]111 mg/xDUlnl02-123LtjitrcqpOhiohealth Doctors HospitalComment on above:Result Comment: Random Glucose Reference Range is dependent on time and content of last meal. Glucose of more than 200 mg/dL in a nonstressed, ambulatory subject supports the diagnosis of Diabetes Mellitus. ADA recommended reference rangePerformed By: #### CMP, PP, MG #### [place] [address] USAPotassium [Moles/Vol]4.7 mmol/LNormal3.5-5.1FAdena Regional Medical CenterComment on above:Performed By: #### CMP, PP, MG #### [place] [address] USAProtein [Mass/Vol]6.4 g/dLNormal6.4-8.9Ohio[facility] Doctors HospitalComment on above:Performed By: #### CMP, PP, MG #### [place] [address] USASodium [Moles/Vol]135 mmol/VHjd880-988QuxqqzuwlOhiohealth Doctors HospitalComment on above:Performed By: #### CMP, PP, MG #### [place] [id number] USAUrea nitrogen [Mass/Vol]12 mg/dLNormal03-30Ohiohealth Doctors HospitalComment on above:Performed By: #### CMP, PP, MG #### [facility] [address] [place] [address] USAGlobulin Calc (S) [Mass/Vol]Ordered By: Junior Martinez on 69-90-0678Rhvxvpkz (S) [Mass/Vol]2.7 g/dLOhiohealth Doctors Hospital Glucose mean value [Mass/volume] in Blood Estimated from glycated hemoglobin Ordered By: Ari Solares on 96-85-5781Hwibrgx glucose Estimated from glycated hemoglobin (Bld) [Mass/Vol]117 mg/dLOhiohealth Doctors HospitalHemoglobin A1c percentageOrdered By: Ari Solares on 86-73-6380YtW6u (Bld) [Mass fraction]5.7 %4.3-5.6FAdena Regional Medical CenterComment on above:Increased risk for diabetes: 5.7 - 6.4diabetes: >6.4glycemic control for adults with diabetes: <7.0Lon 12-28-2022L Specimen: [id number] Received: 12/29/22 Status: DIPTI Garcia Num: [id number] Spec Type: Surgical Subm Dr: Ari Solares MD Tissues: A Femoral Head - Other than Fracture (LT HIP) Procedures: HE/2, Gross/Micro L3, Decalcification Age/ Patient Sex Location Account Attending Physician Donna Saavedra 72/F 4N [id number] Vivian Live MD SPEC NUM: [id number] RECD: 12/29/22 STATUS: DIPTI GARCIA NUM: [id number] ISAURO: 12/28/22- [facility] DR: Ari Solares MD ENTERED: 12/29/[address]: TRINI TYPE: Surgical DEPT: S ORDERED: HE/2, Gross/Micro [...] focally hyperemic. No discrete lesion is identified.. 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 Microscopic Description Two glass slides with H E stained material have been examined. The microscopic findings support the above pathologic diagnosis. Specimen: [id number] Received: 12/29/22 Status: DIPTI Garcia Num: [id number] Spec Type: Surgical Subm Dr: Ari Solares MD Tissues: A Femoral Head - Other than Fracture (LT HIP) Procedures: HE/2, Gross/Micro L3, Decalcification Patient: Donna Saavedra [id number] (Continued) Specimen: [id number] Received: 12/29/22 (Continued) Signed (signature on file) Carol Hassan MD 12/30/22 1413 Specimen: [id number] Received: 12/29/22 Status: DIPTI Garcia Num: [id number] Spec Type: Surgical Subm Dr: Ari Solares MD Tissues: A Femoral Head - Other than Fracture (LT HIP) Procedures: HE/2, Gross/Micro L3, Decalcification Patient: Donna Saavedra [id number] (Continued) Specimen: [id number] Received: 12/29/22 (Continued) CPT Codes 53169, 25572 Specimen: [id number] Received: 12/29/22 Status: DIPTI Garcia Num: [id number] Spec Type: Surgical Subm Dr: Ari Solares MD Tissues: A Femoral Head - Other than Fracture (LT HIP) Procedures: HE/2, Gross/Micro L3, Decalcification Patient: Donna Saavedra [id number] (Continued) Signed (signature on file) Carol Hassan MD 12/30/[address] [place], [place] [address]Laboratory - CoagulationOrdered By: Junior Martinez on 30-65-7782JQ Coag (PPP) [Time]11.1 s9.0-12.9Ohiohealth Doctors HospitalLeukoReduced RBCon 52-79-6566ZpeqtTfigimn RBCREADYNormNationwide Children's HospitalMagnesiumon 10-94-4463Qwzdgrciw [Mass/Vol]1.8 mg/dLLow 1.9-2.7FAdena Regional Medical CenterComment on above:Result Comment: PERFORMED BY: [place] [address] [place] [address] PATHOLOGIST NEW ACCOUNT INTERVIEWER JENNIFER ROMEO M.D.Performed By: #### CMP, PP, MG #### [place] [id number] USAPlatelet poor plasma international normalized ratio (INR) by coagulation assay (relatOrdered By: Junior Martinez on 33-66-2064WJI Coag (PPP) [Relative time]1.0 {INR}[facility]health Doctors HospitalComment on above: INR Therapeutic Range A) Pre- and Peroperative OAT started two weeks before surgery. NOT HIP SURGERY: 1.5 - 2.5 HIP SURGERY: 2 - 3B) Primary and secondary prevention of venous THROMBOSIS: 2 - 3C) Active venous thrombosis, pulmonary embolismand prevention of recurrent venous thrombosis: 2 - 3D) Prevention of arterial thromboembolismincluding patients with mechanical heart valves: 3 - 4.5 Protein [Mass/volume] in Serum or PlasmaOrdered By: Junior Martinez on 12-28-2022 Protein [Mass/Vol]6.4 g/dL6.4-8.9Fort Hamilton Hospitalerum or plasma albumin/globulin mass ratioOrdered By: Junior Martinez on 12-28-2022 Albumin/Globulin [Mass ratio]1.4 {ratio}[facility] Doctors HospitalType and Screenon 68-63-6625RRA and Rh group Nom (Bld)Blood group O Rh(D) negative NormalOhiohealth Doctors HospitalComment on above:Order Comment: Comment On Hold for OR Transfuse now? NResult Comment: PERFORMED BY: [address] [place] [address] PATHOLOGIST NEW ACCOUNT INTERVIEWER JENNIFER ROMEO M.D.Vitamin D 25 Hydroxy Totalon 00-33-5089Icjyyoa D 25 Hydroxy Total44.8 ng/fTMmxdra42-394QjabgzpokOhiohealth Doctors HospitalComment on above: Result Comment: VITAMIN D STATUS 25(OH)VITAMIN D RANGE (ng/mL) Deficient <20 Insufficient 20 to <30 Sufficient 30 to 100 Reference: Ilsa MF,Adal DUEÑAS, Frances RODRIGUEZ, et al. Evaluation,treatment, and prevention of vitamin D deficiency; an Endocrine Society clinical practice guideline. JCEM. 2010; 96(7):1911-30. PERFORMED BY: [place] [address] PATHOLOGIST NEW ACCOUNT INTERVIEWER JENNIFER ROMEO M.D.Performed By: #### A1C WTDeaconess Incarnate [facility], [id number] #### [address] Saunders StreetVitamin D+Metabolites [Mass/volume] in Serum or Plasma Ordered By: Ari Solares on 03-79-4260Mxgqtss D+Metabolites [Mass/Vol]44.8 ng/dT97-564RynjaiermOhiohealth Doctors HospitalComment on above:VITAMIN D STATUS 25(OH)VITAMIN D RANGE (ng/mL) Deficient <20 Insufficient 20 to <67Ctdwlzvoct13 to 100Reference: Ilsa MF,Adal NC, Frances RODRIGUEZ, et al. Evaluation,treatment, and prevention of vitamin D deficiency; an Endocrine Society clinical practice guideline. JCEM. 2010; 96(7):1911-30.XR femur LT 2V*on 70-66-9086QD femur LT 2V*[facility] [place] [address] [place], [place] [id number] XRay Report Signed Patient: Donna Saavedra MR#: [id number] 247 : 1950 Acct:[id number] Age/Sex: 72 / F ADM Date: 12/27/22 Loc: Room: 8D9650-3 Type: ADM IN Attending Dr: Vivian Live [...] no acute fracture or dislocation within the tdpke-fu-jqsy. There is no disproportionate joint space narrowing at the knee though there is minor marginal spurring. There is a benign-appearing sclerotic area at the distal femoral metaphysis. There is no knee effusion or soft tissue swelling. XR/XR femur LT 2V* IMPRESSION: NO ACUTE BONY FINDINGS INVOLVING THE IMAGED FEMUR. Impression dictated by: Guerda Noble M.D.12/28/2022 9:10 AM Dictation Location: [facility] Transcribed By: [facility] 12/28/22909 Dictated By: Guerda Noble MD 12/28/22906 Signed By: 12/28/22909[facility] HospitalCB AUTO DIFFon 12-27-2022 BASO #0.1 103/ulNormal0.0-0.1Main Campus Medical CenterComment on above:Performed By: #### HSTROPSharita, BMP #### [facility] [address] [place] [address] Dr. Julio Cesar SullivanBasophils/100 WBC (Bld)0.7 %Normal0.2-2.0[facility] Comment on above:Performed By: #### HSTRJUANA, BMP #### [facility] [address] [place] [address] Dr. Julio Cesar Carr #0.2 103/ulNormal0.0-0.7The [facility] HospitalComment on above: Performed By: #### HSTRJUANA, BMP #### [facility] [address] [place] [address] Dr. Julio Cesar Ashleyosinophils/100 WBC (Bld)2.9 %Normal0.9-7.0[facility] Comment on above:Performed By: #### HSTRJUANA, BMP #### [facility] [address] [place] [address] Dr. Julio Cesar Ashleyrythrocyte distribution width (RBC) [Ratio]15.8 %Critically high 11.0-15.0[facility] Campus Medical CenterComment on above:Performed By: #### HSTROPN, BMP #### [facility] [address] [place] [address] Dr. Julio Cesar SullivanHematocrit (Bld) [Volume fraction]36.7 %Qkupfu77.0-48.0The [facility] HospitalComment on above:Performed By: #### HSTROPN, BMP #### [facility] [address] [address] [address] Julio Cesar SullivanHemoglobin (Bld) [Mass/Vol]12.3 g/vSEmrudc33.0-16.0The [facility] HospitalComment on above:Performed By: #### HSTROPN, BMP #### [facility] [address] [place] [address] Dr. Julio Cesar Ogden #0.04 10e3/ulCritically high0.00-0.03[facility] Comment on above:Performed By: #### HSTROPN, BMP #### [facility] [address] [place] [address] Dr. Julio Cesar Ogden %0.6 %Critically high0.0-0.5The [facility] HospitalComment on above:Performed By: #### HSTROPN, BMP #### [facility] [address] [place] [address] Dr. Julio Cesar Duncan #2.4 103/ulNormal1.2-3.8The [facility] HospitalComment on above:Performed By: #### HSTROPN, BMP #### [facility] [address] [place] [address] Dr. Julio Cesar Dashhocytes/100 WBC (Bld)34.3 %Tilcah02.5-60.0The [facility] HospitalComment on above:Performed By: #### HSTROPN, BMP #### [facility] [address] [place] [address] Dr. Julio Cesar ZapienUAL DIFF REQNONormalThe [facility] HospitalComment on above: Performed By: #### HSTROPN, BMP #### [facility] [address] [place] [address] Dr. Julio Cesar Pizarro (RBC) [Entitic mass]32.5 ruBnohed37.7-34.0The [facility] HospitalComment on above:Performed By: #### HSTROPN, BMP #### [facility] [address] [place] [address] Dr. Julio Cesar Artis (RBC) [Mass/Vol]33.5 g/mTSabvie16.9-35.2The [facility] HospitalComment on above:Performed By: #### HSTROPN, BMP #### [facility] [address] [address] [address] Julio Cesar Torres (RBC) [Entitic vol]96.8 uFEnmlrm97.0-99.0The [facility] HospitalComment on above:Performed By: #### HSTROPN, BMP #### [facility] [address] [place] [address] Dr. Julio Cesar Venegas #1.1 103/ulCritically high0.3-0.8[facility] Comment on above:Performed By: #### HSTROPN, BMP #### [facility] [address] [place] [address] Dr. Julio Cesar Anandocytes/100 WBC (Bld)15.7 %Critically high1.7-12.0The [facility] HospitalComment on above:Performed By: #### HSTROPN, BMP #### [facility] [address] [place] [address] Dr. Julio Cesar Orellana #3.2 103/ulNormal1.4-6.5The [facility] HospitalComment on above:Performed By: #### HSTROPN, BMP #### [facility] [address] [place] [address] Dr. Julio Cesar Roachutrophils/100 WBC (Bld)45.8 %Krmkuj31.0-75.0The [facility] HospitalComment on above:Performed By: #### HSTROPN, BMP #### [facility] [address] [place] [address] Dr. Julio Cesar Grove[place] mean volume (Bld) [Entitic vol]10.3 fLNormal9.5-13.5The [facility] HospitalComment on above:Performed By: #### HSTROPN, BMP #### [facility] [address] [place] [address] Dr. Julio Cesar SullivanPLT300 103/ewSlnbbm794-448Yac Barry HospitalComment on above: Performed By: #### HSTROPN, BMP #### [facility] [address] [address] [address] Julio Cesar SullivanRBC3.79 106/ulCritically low4.20-5.40The [facility] on above:Performed By: #### HSTROPN, BMP #### [facility] [address] [address] [address] Julio Cesar SullivanWBC7.0 103/ulNormal4.0-11.0The [facility] on above: Performed By: #### HSTROPSharita, BMP #### [facility] [address] [address] [address] Julio Cesar SullivanCT CSPINE WO CONon 82-27-1974JS CSPINE WO CONEXAMINATION: CT CSPINE WO CON HISTORY: Dizziness and vertigo from [...] Electronically authenticated by: SHARI MENDEZ Date: 2022-12-27 21:28[facility] TroyCT HEAD WO CONon 19-81-5284NU HEAD WO CONEXAMINATION: CT HEAD WO CON, 12/27/2022 6:00 PM [...] Electronically authenticated by: RADHA MACHADO Date: 2022-12-27 21:02[facility] TroyPROF CHEM 8 (BAS METB)on 76-96-1320Ainog gap [Moles/Vol]9.2 mmol/LNormalMain Campus Medical CenterComment on above:Performed By: #### HSTROPN, BMP #### [facility] [address] [place] [address] Dr. Julio Cesar SullivanCalcium [Mass/Vol]8.9 mg/dLNormal8.5-10.1[facility] Comment on above:Performed By: #### HSTROPN, BMP #### [facility] [address] [address] [address] Julio Cesar SullivanChloride [Moles/Vol]105 mmol/HGzphew18-756LrmMain Campus Medical Center Comment on above:Performed By: #### HSTROPN, BMP #### [facility] [address] [address] [address] Julio Cesar SullivanCO2 [Moles/Vol]28.5 mmol/NRouorr94.0-32.0[facility] Comment on above:Performed By: #### HSTROPN, BMP #### [facility] [address] [address] [address] Julio Cesar SullivanCreatinine [Mass/Vol]0.99 mg/dLNormal0.55-1.02[facility] Medical CenterComment on above:Performed By: #### HSTROPN, BMP #### [facility] [address] [address] [address] Harrell ChangEGFR-AF BOTSWANAN>60Normal>=60The [facility] HospitalComment on above:Performed By: #### HSTROPN, BMP #### [facility] [address] [address] [address] Julio Cesar AshleyGFR-NON AF UMUWCSSG84 mL/min/1.78a7Okfaujqnzr low>=60The [facility] HospitalComment on above:Performed By: #### HSTROPN, BMP #### [facility] [address] [address] [address] Julio Cesar SullivanGlucose [Mass/Vol]92 mg/xRGjwyqz10-513Vje [facility] Comment on above:Performed By: #### HSTRJUANA, BMP #### [facility] [address] [place] [address] Dr. Julio Cesar SullivanPotassium [Moles/Vol]4.7 mmol/LNormal3.5-5.1[facility] Comment on above:Performed By: #### HSTRJUANA, BMP #### [facility] [address] [place] [address] Dr. Julio Cesar SullivanSodium [Moles/Vol]138 mmol/FAjtwvl146-589Vvy [facility] Comment on above:Performed By: #### HSTRJUANA, BMP #### [facility] [address] [place] [address] Dr. Julio Cesar SullivanUrea nitrogen [Mass/Vol]16.0 mg/dLNormal7.0-18.0The [facility] HospitalComment on above:Performed By: #### HSTROPSharita, BMP #### [facility] [address] [place] [address] Dr. Julio Cesar Greenwood nitrogen/Creatinine [Mass ratio]16.2 mg/mgNormalThe [facility] HospitalComment on above:Performed By: #### HSTROPSharita, BMP #### [facility] [address] [place] [address] Dr. Julio Cesar SullivanPROTIMEon 09-69-0483OKB Coag (PPP) [Relative time]{INR}NormalThe [facility] HospitalComment on above:Performed By: #### PTT, PT #### [facility] [address] [place] [address] Dr. Julio Cesar Araiza [facility]PH[facility]PHIASEE BELOWKettering Health TroyComment on above:Result Comment: DESIRED INR: 2.0 - 3.0 CONDITIONS NOT LISTED BELOW 2.5 - 3.5 FOR PROSTHETIC HEART VALVE REPLACEMENT 2.5 - 3.5 RECURRENT THROMBOSIS Performed By: #### PTT, PT #### [facility] [address] [place] [address] Dr. Julio Cesar SullivanPT Coag (PPP) [Time]9.7 sNormal9.0-11.6ThAvita Health System [facility] Comment on above:Performed By: #### PTT, PT #### [facility] [address] [place] [address] Dr. Julio Cesar SullivanPTTon 68-54-2181rMKD Coag (Bld) [Time]33.9 qZgcyom01.3-36.2[facility] Medical CenterComment on above:Performed By: #### HSTROPN, BMP #### [facility] [address] [place] [address] Dr. Julio Cesar SullivanXR HIP LT 2 3V W PELVISon 66-85-1855BW HIP LT 2 3V W PELVISEXAM: XR HIP LT 2 3V W PELVIS [...] Electronically authenticated by: SHARI MENDEZ Date: 2022-12-27 18:59[facility] TroyNM STRESS/REST MULTIon 30-01-1077GU STRESS/REST MULTIPatient: DONNA SAAVEDRA Exam Date: 11/19/2022 : 1950 Gender:F Ordering : ALESSANDRA DUDLEY M.D. Admission #: [id number] Family : Order #: [id number] CLICK HERE TO VIEW EXAM RADIOLOGY REPORT [...] by: Leona Solitario M.D. on 11/20/2022 at 10:42[facility] TroyPROF CHEM 8 (BAS METB)on 50-46-4259Wfnfh gap [Moles/Vol]12.0 mmol/L NormalMain Campus Medical CenterComment on above:Performed By: #### RACHEL BMP #### [facility] [address] [address] [address] Julio Cesar SullivanCalcium [Mass/Vol]9.0 mg/dLNormal8.5-10.1[facility] Comment on above:Performed By: #### RACHEL BMP #### [facility] [address] [address] [address] Julio Cesar SullivanChloride [Moles/Vol]104 mmol/QOmqulw35-661SldMain Campus Medical Center Comment on above:Performed By: #### RACHEL BMP #### [facility] [address] [address] [address] Julio Cesar SullivanCO2 [Moles/Vol]28.7 mmol/WXspcmm33.0-32.0[facility] Comment on above:Performed By: #### HSTROPN, BMP #### [facility] [address] [address] [address] Julio Cesar SullivanCreatinine [Mass/Vol]0.84 mg/dLNormal0.55-1.02The [facility] HospitalComment on above:Performed By: #### HSTROPN, BMP #### [facility] [address] [address] [address] Julio Cesar AshleyGFR-AF BOTSWANAN>60Normal>=60The [facility] HospitalComment on above:Performed By: #### HSTROPN, BMP #### [facility] [address] [place] [address] Dr. Julio Cesar AshleyGFR-NON AF BOTSWANAN>60Normal>=60The [facility] HospitalComment on above:Performed By: #### HSTROPN, BMP #### [facility] [address] [address] [address] Julio Cesar SullivanGlucose [Mass/Vol]122 mg/dLCritically nyhj14-519Rqk [facility] Hospitalment on above:Performed By: #### HSTROPN, BMP #### [facility] [address] [address] [address] Julio Cesar SullivanPotassium [Moles/Vol]4.7 mmol/LNormal3.5-5.1The [facility] Comment on above:Performed By: #### HSTROPN, BMP #### [facility] [address] [address] [address] Julio Cesar SullivanSodium [Moles/Vol]140 mmol/JCbfayv947-194Mhh [facility] Comment on above:Performed By: #### HSTROPN, BMP #### [facility] [address] [address] [address] Julio Cesar SullivanUrea nitrogen [Mass/Vol]11.0 mg/dLNormal7.0-18.0The Barry HospitalComment on above:Performed By: #### HSTROPN, BMP #### [facility] [address] [address] [address] Julio Cesar SullivanUrea nitrogen/Creatinine [Mass ratio]13.1 mg/mgNormalThe [facility] HospitalComment on above:Performed By: #### HSTROPN, BMP #### [facility] [address] [address] [address] Julio Cesar OrtizC AUTO DIFFon 34-53-4280JBOL #0.1 103/ulNormal0.0-0.1The [facility] HospitalComment on above:Performed By: #### CBC #### [facility] [address] [place] [address] Dr. Julio Cesar SullivanBasophils/100 WBC (Bld)0.7 %Normal0.2-2.0[facility] Comment on above:Performed By: #### CBC #### [facility] [address] [place] [address] Dr. Julio Cesar Carr #0.1 103/ulNormal0.0-0.7The [facility] HospitalComment on above: Performed By: #### CBC #### [facility] [address] [place] [address] Dr. Julio Cesar Ashleyosinophils/100 WBC (Bld)2.0 %Normal0.9-7.0[facility] Comment on above:Performed By: #### CBC #### [facility] [address] [place] [address] Dr. Julio Cesar Ashleyrythrocyte distribution width (RBC) [Ratio]15.7 %Critically high 11.0-15.0[facility] Campus Medical CenterComment on above:Performed By: #### CBC #### [facility] [address] [place] [address] Dr. Julio Cesar SullivanHematocrit (Bld) [Volume fraction]37.9 %Mqkwho89.0-48.0The [facility] HospitalComment on above:Performed By: #### CBC #### [facility] [address] [place] [address] Dr. Julio Cesar SullivanHemoglobin (Bld) [Mass/Vol]12.6 g/mSMgvzoz15.0-16.0The [facility] HospitalComment on above:Performed By: #### CBC #### [facility] [address] [place] [address] Dr. Julio Cesar Ogden #0.02 10e3/ulNormal0.00-0.03The [facility] HospitalComment on above:Performed By: #### CBC #### [facility] [address] [place] [address] Dr. Julio Cesar Ogden %0.3 %Normal0.0-0.5The [facility] HospitalComment on above: Performed By: #### CBC #### [facility] [address] [place] [address] Dr. Julio Cesar Duncan #1.7 103/ulNormal1.2-3.8The [facility] HospitalComment on above:Performed By: #### CBC #### [facility] [address] [place] [address] Dr. Julio Cesar Dashhocytes/100 WBC (Bld)23.9 %Omapop24.5-60.0The [facility] HospitalComment on above:Performed By: #### CBC #### [facility] [address] [place] [address] Dr. Julio Cesar ZapienUAL DIFF REQNONormalThe [facility] HospitalComment on above: Performed By: #### CBC #### [facility] [address] [place] [address] Dr. Julio Cesar Artis (RBC) [Entitic mass]31.7 gzBbixxl96.7-34.0The [facility] HospitalComment on above:Performed By: #### CBC #### [facility] [address] [place] [address] Dr. Julio Cesar Artis (RBC) [Mass/Vol]33.2 g/aEUxasaa03.9-35.2The [facility] HospitalComment on above:Performed By: #### CBC #### [facility] [address] [place] [address] Dr. Julio Cesar ArtisV (RBC) [Entitic vol]95.5 fJAefxot29.0-99.0The [facility] HospitalComment on above:Performed By: #### CBC #### [facility] [address] [place] [address] Dr. Julio Cesar Venegas #0.7 103/ulNormal0.3-0.8The [facility] HospitalComment on above:Performed By: #### CBC #### [facility] [address] [place] [address] Dr. Julio Cesar Anandocytes/100 WBC (Bld)9.6 %Normal1.7-12.0The [facility] Comment on above:Performed By: #### CBC #### [facility] [address] [place] [address] Dr. Julio Cesar Orellana #4.5 103/ulNormal1.4-6.5The [facility] HospitalComment on above:Performed By: #### CBC #### [facility] [address] [place] [address] Dr. Julio Cesar Roachutrophils/100 WBC (Bld)63.5 %Jggrtx11.0-75.0The [facility] HospitalComment on above:Performed By: #### CBC #### [facility] [address] [place] [address] Dr. Julio Cesar Grove[place] mean volume (Bld) [Entitic vol]10.8 fLNormal9.5-13.5The [facility] HospitalComment on above:Performed By: #### CBC #### [facility] [address] [place] [address] Dr. Julio Cesar SullivanPLT244 103/djCwpwwq108-724Vlu [facility] HospitalComment on above: Performed By: #### CBC #### [facility] [address] [place] [address] Dr. Julio Cesar SullivanRBC3.97 106/ulCritically low4.20-5.40The [facility] HospitalComment on above:Performed By: #### CBC #### [facility] [address] [address] [address] Julio Cesar SullivanWBC7.1 103/ulNormal4.0-11.0The [facility] HospitalComment on above: Performed By: #### CBC #### [facility] [address] [place] [address] Dr. Juli oCesar SullivanPROF CHEM 8 (BAS METB)on 12-28-0964Rohkn gap [Moles/Vol]9.0 mmol/LNormalThe [facility] HospitalComment on above:Performed By: #### HSTROPN, BMP #### [facility] [address] [place] [address] Dr. Julio Cesar SullivanCalcium [Mass/Vol]9.3 mg/dLNormal8.5-10.1The [facility] Comment on above:Performed By: #### HSTROPN, BMP #### [facility] [address] [place] [address] Dr. Julio Cesar SullivanChloride [Moles/Vol]102 mmol/WKikvlm42-698Lqm [facility] Comment on above:Performed By: #### HSTROPN, BMP #### [facility] [address] [place] [address] Dr. Julio Cesar SullivanCO2 [Moles/Vol]30.4 mmol/ECpedgr91.0-32.0The [facility] Comment on above:Performed By: #### HSTROPN, BMP #### [facility] [address] [place] [address] Dr. Julio Cesar SullivanCreatinine [Mass/Vol]0.85 mg/dLNormal0.55-1.02The [facility] HospitalComment on above:Performed By: #### HSTROPN, BMP #### [facility] [address] [place] [address] Dr. Julio Cesar AshleyGFR-AF BOTSWANAN>60Normal>=60The [facility] HospitalComment on above:Performed By: #### HSTROPN, BMP #### [facility] [address] [place] [address] Dr. Julio Cesar AshleyGFR-NON AF BOTSWANAN>60Normal>=60The [facility] HospitalComment on above:Performed By: #### HSTROPN, BMP #### [facility] [address] [place] [address] Dr. Julio Cesar SullivanGlucose [Mass/Vol]126 mg/dLCritically oodn85-195Civ [facility] HospitalComment on above:Performed By: #### HSTROPN, BMP #### [facility] [address] [place] [address] Dr. Julio Cesar SullivanPotassium [Moles/Vol]4.4 mmol/LNormal3.5-5.1[facility] Comment on above:Performed By: #### HSTROPN, BMP #### [facility] [address] [place] [address] Dr. Julio Cesar SullivanSodium [Moles/Vol]137 mmol/SFunubh609-063Rkc [facility] Comment on above:Performed By: #### HSTROPN, BMP #### [facility] [address] [place] [address] Dr. Julio Cesar SullivanUrea nitrogen [Mass/Vol]16.0 mg/dLNormal7.0-18.0The [facility] HospitalComment on above:Performed By: #### HSTROPN, BMP #### [facility] [address] [place] [address] Dr. Julio Cesar Greenwood nitrogen/Creatinine [Mass ratio]18.8 mg/mgNormalThe [facility] HospitalComment on above:Performed By: #### HSTROPN, BMP #### [facility] [address] [place] [address] Dr. Julio Cesar Vaughan, HIGH SENSITIVITYon 41-30-4504BERTDH3.1 pg/mLNormal 4.0-51.3The [facility] HospitalComveterans affairs [facility] on above:Result Comment: CUT-OFF POINTS HAVE BEEN ESTABLISHED BASED ON THE FOURTH UNIVERSAL DEFINITIONS OF MYOCARDIAL INFARCTION. THE UPPER REFERENCE LIMIT (URL) OF TROPONIN, DEFINED THE 99TH PERCENTILE OF cTnI DISTRIBUTION IN A REFERENCE POPULATION, HAS BEEN CONFIRMED THE DECISION THRESHOLD FOR MA DIAGNOSIS.Performed By: #### HSTROPN, BMP #### [facility] [id number] Julio Cesar SullivanXR CHEST 1 Von 22-74-1046JK CHEST 1 VEXAMINATION: XR CHEST 1 V HISTORY: Dizziness COMPARISON: No relevant [...] Electronically authenticated by: SHARI FLETCHER Date: 2022-09-01 11:06[facility] TroyMG MAMM SCREEN 3D CAROLYN CADon 97-24-7334ZH MAMM SCREEN 3D CAROLYN CAD Patient: DONNA SAAVEDRA Exam Date: 08/25/2022 : 1950 Gender:F Ordering : ANATOLIY HENDERSON Admission #: [id number] Family : Order #: [id number] CLICK HERE TO VIEW EXAM RADIOLOGY REPORT [...] breast cancer at age 52. LOCATION: [facility] BREAST COMPOSITION: Scattered areas fibroglandular density. [...] by: Leona Solitario M.D. on 08/26/2022 at 10:[address] [place] [address] Vital Signs Date TimeVital SignValuePerforming GkzcckhqbSpyzdwfn05-73-1019 13:48-0500Body tmqmyb160.6 cmTravis Rasor DO Work Phone: [phone] [place] [address] [employer] Xjkotp96-98-9891 13:48-0500Body mass index (BMI) [Ratio]14.4 kg/t4Xdfntn Rasor DO Work Phone: [phone] [place] [address] [employer] Obtloj20-56-9037 13:48-0500Body .46 kgTravis Rasor DO Work Phone: [phone] [place] [address] [employer]qcopp54-82-5476 13:48-0500Diastolic blood afjldyxg84 mm[Hg]Francisco Rasor DO Work Phone: [phone] [place] [address] [employer] Iuqtxq95-92-2892 13:48-0500Heart rate 62 /minTravis Rasor DO Work Phone: [phone] [place] [address] [employer]Adbvch55-86-3570 13:48-6945HmS1% (BldA) [Mass fraction]95 %Francisco Rasor DO Work Phone: [phone] [place] [address] [employer]Txbryn37-59-4172 13:48-0500Systolic blood mm[Hg]Francisco Rasor DO Work Phone: [phone] [place] [address] [employer]Psnaid74-60-8573 10:24-0500Body ztkueg784.6 cmAriana Benton MD Work Phone: [facility] HospitalShang[facility] [employer]01-24-2025 10:24-0500Body mass index (BMI) [Ratio]18.88 kg/n3AowipbrqAriana Benton MD Work Phone: [facility] HospitalSh[facility] [employer]01-24-2025 10:24-0500Body ececze06.07 kgAriana Benton MD Work Phone: [facility]Inter[facility] Lpzpcn83-93-4987 10:24-0500Diastolic blood udvjxajb24 mm[Hg]Ariana Benton MD Work Phone: [facility] CenterPanzura01-24-2025 10:24-0500Heart rate 88 /minAriana Benton MD Work Phone: [facility] [employer] Sgsetc43-57-9060 10:24-7485ApS5% (BldA) [Mass fraction]98 %Ariana Benton MD Work Phone: [facility] [employer] Ceoqwh80-74-3547 10:24-0500Systolic blood ywxzakcg90 mm[Hg]Ariana Benton MD Work Phone: [facility] [employer] Ufljex56-03-9993 11:17-0400Body zotjzc159.6 cmTravis Rasor DO Work Phone: [phone] [employer]Fgbiqm82-19-3071 11:17-0400Body mass index (BMI) [Ratio]19.37 kg/z2Aokbfi Rasor DO Work Phone: [phone] [place] [address] [employer]Lrxrqe39-66-5451 11:17-0400Body .43 kgTravis Rasor DO Work Phone: [phone] [place] [address] [employer]anceUwqfkx23-78-6716 11:17-0400Diastolic blood aymxcobh47 mm[Hg]Francisco Rasor DO Work Phone: [phone] [place] [address] [employer] Tugqyv39-93-6861 11:17-0400Heart rate 78 /minTravis Rasor DO Work Phone: [phone] [place] [address] [employer]anceOtqksc94-12-7913 11:17-8227AxW4% (BldA) [Mass fraction]98 %Francisco Rasor DO Work Phone: [phone] [place] [address] [employer]Cwtfcl12-47-3258 11:17-0400Systolic blood bebgolmu975 mm[Hg]Francisco Rasor DO Work Phone: [phone] [place] [address] [employer]ovanceHvaziy09-48-8776 11:19-0400Body .6 cmTravis Rasor DO Work Phone: [phone] [place] [address] [employer]Jbbbae26-57-5303 11:19-0400Body mass index (BMI) [Ratio]19.85 kg/h5Blutxj Rasor DO Work Phone: [phone] [place] [address] [employer] Gdqwpz98-78-5072 11:19-0400Body ebtodtazpgx51.59 [degF]Francisco Rasor DO Work Phone: [phone] [place] [address] [employer] Hpywxr96-14-2486 11:19-0400Body seqjgd32.79 kgTravis Rasor DO Work Phone: [phone] [place] [address] [employer] Qryfsv81-07-4890 11:19-0400Diastolic blood fyoickyt97 mm[Hg]Francisco Rasor DO Work Phone: [phone] [place] [address] [employer] Eljrkg60-67-4776 11:19-0400Heart rate 106 /minTravis Rasor DO Work Phone: [phone] [place] [address] [employer] Noahtq82-25-3511 11:19-8112EqL4% (BldA) [Mass fraction]99 %Francisco Rasor DO Work Phone: [phone])689-[address] [place], [place] 4464303-12-2024 11:19-0400Systolic blood yoojeznb070 mm[Hg]Francisco Rasor DO Work Phone: [phone] [place], [place] 4464309-03-2023 15:10-0400Diastolic blood lwhkljao26 mm[Hg]No [facility]09-03-2023 15:10-0400 Heart rate73 /minNo [facility]09-03-2023 15:10-0400 Respiratory rate14 /minNo [facility]09-03-2023 15:10-0400 SaO2% (BldA) [Mass fraction]99 %No [facility]09-03-2023 15:10-0400Systolic blood xsvwgigl749 mm[Hg]No [facility] 05-09-2023 13:30-0400Body aojznp775.[address] [facility] 05-09-2023 13:30-0400Body mass index (BMI) [Ratio]19.5 kg/m2No [facility]09-03-2023 13:30-0400Body .4 [degF]No [facility]09-03-2023 13:30-0400Body dzcubq41.1 [facility] 10:45-0400Body .64 cmRobert Moira II Other [employer] Other 05-11-2023 09:45-0400Body .64 cmRobert Moira II Other [employer] Other 05-11-2023 09:45-0400Body mass index (BMI) [Ratio] 21.63 kg/o7Bdvvgh Moira II Other [employer] Other 05-11-2023 09:45-0400Body .78 kgRobert Moira II Other [employer] Other 04-27-2023 07:53-0400Body cokjzedmemc21.3 [degF] [facility]04-27-2023 07:53-0400Diastolic blood aivinjiv58 mm[Hg][facility]04-27-2023 07:53-0400Heart rate74 /min [facility]04-27-2023 07:53-0400Respiratory rate12 /min [facility]04-27-2023 07:53-6178LsK7% (BldA) [Mass fraction]94 %[facility]04-27-2023 07:53-0400Systolic blood pufydnyq496 mm[Hg][facility]04-27-2023 06:42-0400 Body huwlgu94.1 kgOhiohealth [facility]04-24-2023 21:08-0400Inhaled oxygen flow rate8 L/minOhiohealth Doctors Hospital04-24-2023 16:44-0400 Body gsinmn746.64 cmOhiohealth Doctors [facility]04-24-2023 16:44-0400Body mass index (BMI) [Ratio]19.5 kg/f8SefhukydhOhiohealth Doctors Hospital Encounters Encounter DateEncounter TypeCare ProviderFacilityStart: 07-09-2025 End: 74-07-4163Xjdbdpn encounter procedureTravis E Rasor DO Work Phone: [facility] Florinda Family PracticeComment on above: Annual physical exam (Primary Dx); Essential (primary) hypertension; Unintentional weight loss; 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 John's [facility] Ambulatory PPGStart: 05-22-2025 End: 56-53-3477Gugalrwzv encounterStephanie A Jh LilyGrand River Health Physicians Family PracticeComment on above:appointment dueStart: 05-03-2025 End: 71-63-5439YonqdiKsregsr R Redfern FOUNDATION DRILL OPERATOR-PLUGGER WORKER Work Phone: [facility] Physicians CardiologyComment on above:Med RefillStart: 02-21-2025 End: 86-96-6383Zdxwhfkwl encounterStepsheree A Jh Nguyenhuntsville hospital system Physicians Family PracticeComment on above:appointment dueStart: 45-47-6723hvmnbdduvwHWLBXJSuburban Community Hospital & Brentwood Hospitaltart: 01-24-2025 End: 13-69-5295CfufzrMovgqvtw Bialecki FOUNDATION DRILL OPERATOR-PLUGGER WORKER Work Phone: [facility] Physicians CardiologyComment on above:Med RefillStart: 12-24-2024 End: 17-62-7098NekmnjPjekdo E Rasor DO Work Phone: [facility] PHYSICIANSStart: 11-30-2024 End: 96-13-2003JwrtnfZlsygh E Rasor DO Work Phone: [facility] PHYSICIANSComment on above: Essential hypertension, benign; Essential (primary) hypertensionStart: 10-16-2024 End: 26-05-4560Hltjvu Dyllan GIVENS Work Phone: [facility] PracticeStart: 09-29-2024 End: 83-97-5112Flhkct outpatient visit 25 minutesMojudi Benton MD Work Phone: [facility] Physicians CardiologyComment on above: Cardiomyopathy, unspecified type (CMS-HCC) (Primary Dx); Paroxysmal atrial fibrillation (CMS-HCC); Essential (primary) hypertensionStart: 09-29-2024 End: 81-62-6057tazctfwbfzXTBPAOJX M MAAIEHAdams County Regional Medical Centertart: 09-28-2024 End: 82-65-5442Pawcbuoyd encounterLucille [facility] Physicians CardiologyStart: 09-27-2024 End: 68-60-2357AzvoriWdtmjc E Rasor DO Work Phone: [facility]OS[facility]ITALStart: 08-14-2024 End: 77-28-6879UhxopgAssseihMajo MOEAssumption General Medical Center Physicians CardiologyComment on above:Med RefillStart: 07-31-2024 End: 24-32-5536mwozrakcuuCOATSG E RASORProMedica Anaheim General Hospitaltart: 07-24-2024 End: 34-76-0784IgpybmDiazwPrecious DAWSONAssumption General Medical Center Physicians CardiologyComment on above:Med RefillStart: 06-21-2024 End: 87-83-7122Ibezusjdp encounterLiz Figueredo [facility] PHYSICIANSComment on above:Back PainStart: 06-19-2024 End: 21-33-0623Pxyxhb OnlyTravis E Rasor DO Work Phone: [facility] HOSPITALComment on above: Hyponatremia (Primary Dx); Essential (primary) hypertension; 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Start: 06-13-2024 End: 02-23-2945yyhstpolrpPZSKWW E. 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; Gastro-esophageal reflux disease without esophagitis; Paroxysmal atrial fibrillation ([facility]); Nonrheumatic mitral valve regurgitation; Other cardiomyopathy ([facility]); Depression with anxiety; Primary insomnia; Osteopenia of multiple sites; Acute right-sided low back pain without sciatica; Microscopic hematuriaStart: 03-03-2024 End: 40-85-5739AqfoiwRorqez E Rasor DO Work Phone: [facility] PHYSICIANSStart: 12-30-2023 End: 88-53-1574TlafiqXuqjff E Rasor DO Work Phone: [facility] PHYSICIANSStart: 12-15-2023 End: 40-63-3647TongbhShsynmvuBenton GIVENS Work Phone: [facility] Physicians CardiologyComment on above:Med RefillStart: 90-49-9097KekiwtHfbxui E Rasor DO Work Phone: [facility] PHYSICIANSComment on above: Essential hypertension, benign; Essential (primary) hypertensionStart: 29-41-4417OlqhulUzxbrm E Oostra MD Work Phone: [facility] Physicians CardiologyComment on above:Med RefillStart: 33-54-2014Erqqaq OnlyTravis E Rasor DO Work Phone: [facility] PHYSICIANSComment on above: Abnormal mammogram of left breast (Primary Dx)Start: 00-85-7644Sbkmlg OnlyTravis E Rasor DO Work Phone: [facility] PHYSICIANSComment on above:Acute cystitis without hematuria (Primary Dx)Start: 11-16-2023 End: 11-63-6260qvstymejauLTGUAF E. 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; Viral URI with cough; Gastro-esophageal reflux disease without esophagitis; Paroxysmal atrial fibrillation (CMS-HCC); Nonrheumatic mitral valve regurgitation; Depression with anxiety; Primary insomnia; Other cardiomyopathy ([facility]); Osteopenia of multiple sites; Encounter for screening mammogram for malignant neoplasm of breast; Leukocytes in urineStart: 85-97-9354CctpbnUgfyuz E Rasor DO Work Phone: [facility] PHYSICIANSComment on above: Essential hypertension, benignStart: 60-21-0698TfpulhPbyimb E Rasor DO Work Phone: [facility] PHYSICIANSStart: 05-26-2023 Office outpatient visit 25 minutesRobert Beck [facility] Start: 05-26-2023 End: 64-51-0987rxduaytsjaHlbtor M Moira IIFacility:[facility]tart: 05-09-2023 End: 66-07-9715Zsqkldvbh department patient visitNo PCPFacility:FLCStart: 05-09-2023 End: 63-59-5915Khoolevte department patient visitNo [facility]-Emergency DepartmentStart: 03-31-2023(Post-Op) Post-OpRobert Moira II HEENA [facility] OrthopedicsStart: 03-31-2023 End: 01-97-2729inlsyenbdxLwkuef M Moira [facility] [employer] Other Start: 02-10-2023(Post-Op) Post-OpRobert Moira II HEENA [facility] OrthopedicsStart: 02-10-2023 End: 08-29-1238fhsdgsjmunBvxpdw M Moira IIFacility:[facility] Hospitaltart: 02-10-2023 End: 37-15-2708kokthwnokfJZMPremier Health [facility] Work Phone: start: 02-10-2023 End: 68-42-0701Vcjjjes encounter procedureOhiohealth [facility]heastern [facility] Ctr-XRay Lynn OrthoStart: 98-98-9956Eodzzb outpatient visit 25 minutesJekayla RamirezFPBeau Bailey OrthopedicsStart: 02-02-2023 End: 38-57-6314dczmjxplluCvwrbdxa L AshleyFacility:[facility] Hospitaltart: 02-02-2023 End: 55-30-0891uzvpwvdvpfKXO STAFFOhiohealth Southeastern Medical Center Ctr Work Phone: Start: 02-02-2023 End: 24-79-2951Qmcotjs encounter procedureOhiohealth Southeastern [facility] Center Ctr-XRay Lynn OrthoStart: 01-14-2023(Post-Op) Post-OpRobert Moira IIFPG Lynn OrthopedicsStart: 01-14-2023 End: 66-87-5792euafgugnaiXbdydn Moira II Other [place] [employer] Other Start: 12-28-2022 End: 32-40-7422Gpnvqxoprq and management of inpatientRobert M Beck II Facility:[facility]art: 12-27-2022 End: 64-11-2576Gzstxbhikw and management of inpatientTrihealth [facility] Work Phone: Start: 12-27-2022 End: 24-59-5882udkyfhaldbVJGYA LEWIS .Facility:S1Ytvjc: 11-19-2022 End: 87-53-1927hrouwghhqsOY DOCTOR MISCFacility:Q1Bfncn: 11-05-2022 End: 73-76-1946iyzmnewvktVB DOCTOR MISCFacility:G8Dscyb: 09-01-2022 End: 67-07-2939hgregpbnwiXZWYNTI D KATKOFacility:U1Rdukn: 08-25-2022 End: 64-06-3890wfcwywrvqxPF DOCTOR MISCFacility:H1 Procedures DateProcedureProcedure DetailPerforming ClinicianStart: 84-94-5157Jkipm depression screening assessmentTravis Rasor DO Work Phone: start: 90-39-9500Tza routine ecg w/least 12 lds w/i&r Ariana Benton MD Work Phone: Start: 60-22-3445Crprrz-up visitFollow-upMOHAMMED Dougie BENTONStart: 17-12-2442Gamommvdlbwzf metabolic panelTravis E Rasor DO Work Phone: start: 64-29-7308Xtffq panelTravis E Rasor DO Work Phone: start: 37-25-4370Tpnyo dip stick/tablet rgnt auto w/o microscopyTravis E Rasor DO Work Phone: start: 19-76-5001Tsoki depression screening assessment Francisco Rasor DO Work Phone: start: 05-93-5022Pwegc dip stick/tablet rgnt auto w/o microscopyTravis E Rasor DO Work Phone: start: 31-20-0669Ltggd depression screening assessment Francisco Rasor DO Work Phone: start: 46-47-2501Iezev count hematocritNo PCPStart: 14-45-2017Zlyqn depression screening assessmentTravis Rasor DO Work Phone: start: 94-63-2148Wykyd X-ray of left hipStart: 16-67-6057Nhte energy X-ray absorptiometryStart: 12-28-2022 End: 41-96-7768Wqmbh X-ray of left hipStart: 24-43-7395Wngcdej hip replacement by prosthesisStart: 56-31-3976Gphitcyi screenRobert Moira IIComment on above: Order Comment: Comment On Hold for OR Transfuse now? NResult Comment: PERFORMED BY: [facility] [address] PATHOLOGIST NEW ACCOUNT INTERVIEWER JENNIFER ROMEO M.D.Start: 05-03-7972Mfbmm X-ray of left femur Plan of Treatment DateCare ActivityDetailAuthorStart: 07-12-2026 End: 56-36-1671Eznqwhj encounter vleuvopgc69/06/2026 2:30 PM EST Office Visit [facility] [address] [place] [address] Francisco Chang DO [address] [place] [address] [facility] PracticeStart: 01-52-8596Ngxastymmb ScreeningDepression ScreeningProL.V. [facility] Health SystemStart: 01-87-1154Xenv Risk ScreeningFall Risk ScreeningProL.V. [facility] Health SystemStart: 11-03-2026Medicare Annual Wellness VisitMedicare Annual Wellness VisitProSumma Health [facility] SystemStart: 87-54-5478Hbizscg ScreeningTobacco ScreeningProSumma Health [facility] Campus SystemStart: 39-72-7339Pcezatb ScreeningTobacco ScreeningProL.V. St[facility] Health SystemStart: 07-09-2025 End: 38-34-2924Egryruu encounter ixnzwcuvi60/03/2025 1:45 PM EST Office Visit [facility] [address] [place] [id number] Francisco Chang DO [address] [place] [address] [facility] PracticeStart: 30-68-9197Orqsv BMI ScreeningAdult BMI ScreeningProTrihealth Mccull[facility] Hospitalca Health SystemStart: 45-90-6177Vkqrdfdxed ScreeningDepression ScreeningProL.V. St[facility] Health SystemStart: 96-94-3635Ivsx Risk ScreeningFall Risk ScreeningProSumma Health [facility] SystemStart: 10-08-2025Medicare Annual Wellness VisitMedicare Annual Wellness VisitProTrihealth Mccull[facility]-Hy[facility] Hospitalca [facility] SystemStart: 83-07-6912Mivtzaz ScreeningTobacco Screening [facility] SystemStart: 59-39-0583PZOQO-19 Vaccine ( season) COVID-19 Vaccine ( season)[facility] SystemStart: 05-07-2025 Influenza vaccinationInfluenza VaccineMemorial Health System SystemStart: 12-13-2024 Adult BMI ScreeningAdult BMI ScreeningProSumma Health [facility] SystemStart: 11-18-2024 Adult BMI ScreeningAdult BMI ScreeningProSumma Health [facility] SystemStart: 11-15-2024 Adult BMI ScreeningAdult BMI ScreeningProSumma Health [facility] SystemStart: 11-15-2024 Depression ScreeningDepression ScreeningMemorial Health System SystemStart: 11-15-2024 Fall Risk ScreeningFall Risk ScreeningMemorial Health System SystemStart: 11-15-2024 Tobacco ScreeningTobacco ScreeningProMansfield Hospitaltart: 09-29-2024 End: 16-84-6982Fgduqqv encounter zdctnbhfu38/24/2025 10:30 AM EST Office Visit [facility] [address] [place] [address] Ariana Benton MD [address] [place] [address] [facility] CardiologyStart: 09-26-2024 End: 16-55-0465Kenbcng encounter emdczzckc66/21/2025 1:00 PM EST Office Visit [facility] [address] [place] [address] Ariana Bentno MD [address] [place] [address] [facility] CardiologyStart: 07-20-2024 End: 48-22-9833Shzkqqrphlz panelElectrolyte panel Lab Routine Hyponatremia Expected: 07/20/2024 (Approximate), Expires: 06/19/2025[facility] Work Phone: comment on above:Expected: 07/20/2024 (Approximate), Expires: 06/19/2025Start: 14-89-2080Wesqi BMI ScreeningAdult BMI Screening [facility]: 39-19-9272Jwhatvl ScreeningTobacco Screening ProMGlencoe [facility] Services SystemStart: 05-22-2024 End: 09-14-0106Gqrgdov encounter /16/2024 11:30 AM EDT Office Visit [facility] [address] [place] [place] [address] Francisco Chang DO [address] [place] [address] [facility] PHYSICIANSStart: 05-07-2024 COVID-19 Vaccine ()COVID-19 Vaccine () [facility] SystemStart: 56-66-6273YQLEV-19 Vaccine () COVID-19 Vaccine ()[facility] SystemStart: 05-07-2024 Influenza vaccinationInfluenza VaccineProSumma Health [facility] SystemStart: 03-05-2024 Depression ScreeningDepression ScreeningProSumma Health [facility] SystemStart: 03-05-2024 Fall Risk ScreeningFall Risk ScreeningProSumma Health [facility] SystemStart: 03-05-2024 Medicare Annual Wellness VisitMedicare Annual Wellness VisitProSumma Health [facility] SystemStart: 12-14-2023 End: 19-43-9211Unczujv encounter procedureThe [facility] - Mammogram DEXAStart: 11-25-2023 End: 55-79-4663Klrebxwv identified in Urine by CultureUrine culture (clean catch) Microbiology Routine Acute cystitis without hematuria Expected: 11/25/19 (Approximate), Expires: 11/17/2024[employer] Work Phone: comment on above:Expected: 11/25/2023 (Approximate), Expires: 11/17/2024Start: 11-19-2023 End: 72-77-9355KB Breast duct - left Views W contrast intra ductMammography diagnostic unilateral left with CAD Imaging Routine Abnormal mammogram of left breast Expected: 11/19/2023, Expires: 11/18/2024[facility] Work Phone: comment on above:Expected: 11/19/2023, Expires: 11/18/2024Start: 11-19-2023 End: 16-09-3484GD Breast - left limitedUltrasound breast limited left Imaging Routine Abnormal mammogram of left breast Expected: 11/19/2023, Expires: 11/18/2024[facility] SystemComment on above:Expected: 11/19/2023, Expires: 11/18/2024Start: 11-19-2023 End: 37-89-0405Dwyzwam encounter pnepovbrr81/15/2024 10:30 AM EDT Appointment [facility] - [facility] D[facility]A [address] [place] [address] BkrVyesngThe MetroHealth System - Mammogram DEXA Start: 11-16-2023 End: 44-36-4433APC Breast - bilateral screeningMammography screening bilateral with CAD Imaging Routine Encounter for screening mammogram for malignant neoplasm of breast Expected: 11/16/2023, Expires: 11/15/2024[facility] ClinicComment on above:Expected: 11/16/2023, Expires: 11/15/2024Start: 11-16-2023 End: 02-84-8673Epybdsy encounter tlaodckgu55/12/2024 11:30 AM EDT Office Visit [facility] [address] [place] [address] Francisco Chang DO [address] [place] [address] [facility] PHYSICIANSStart: lead ECGCA EKG 12 leadOhioHealth Marion General Hospitaltart: 68-38-2372BWN 12 channel panelOhioHealth Marion General Hospitaltart: 02-04-2760Ompbq chest X-rayXR chest 1V portableOhioHealth Marion General Hospitaltart: 74-17-3231QC Chest Single viewOhioHealth Marion General Hospitaltart: 03-01-4534XfhvgrOhioHealth Marion General Hospitaltart: 00-01-0389YGJBW-19 Vaccine ( season)COVID-19 Vaccine ( season)[facility]: 92-72-4920Mhlqyujau vaccinationInfluenza VaccineCaroMont Regional Medical Center - Mount Hollytart: 16-47-4744BAT ( or age 60+ yrs) (1 - 1-dose 75+ series)RSV ( or age 60+ yrs) (1 - 1-dose 75+ series) [facility]art: 97-05-7690JqrdvowqvFort Hamilton Hospitaltart: 02-37-6826Dfgytnvnisfanm of prophylactic treatmentFort Hamilton Hospitaltart: 10-32-0616Apdrljlr to rehabilitation physicianFort Hamilton Hospitaltart: 70-91-4979Bciptjoa admissionFort Hamilton Hospitaltart: 34-24-0905SufqgweijFort Hamilton Hospitaltart: 12-28-2022 ConsultationFort Hamilton Hospitaltart: 33-74-3595Mfbinkhr admission [facility] Hospitaltart: 39-77-1441GhtyjfaleFort Hamilton Hospitaltart: 86-33-4541Coyxozkbbgt of Left Hip Joint with Ceramic on Polyethylene Synthetic Substitute, Open ApproachReplacement of Left Hip Joint with Ceramic on Polyethylene Synthetic Substitute, Open ApproachFort Hamilton Hospitaltart: 04-29-3025HOlF,Tdap and Td Vaccines (2 - Td or Tdap)DTaP,Tdap and Td Vaccines (2 - Td or Tdap)[facility]: 49-97-7973Ixmrdmaskkkjmh of varicella zoster vaccineZoster (Shingles) Vaccine (1 of 2)[facility] End: 11-66-0931Jzgyodkf identified in Urine by CultureUrine culture (clean catch) Microbiology Routine Leukocytes in urine 1 Occurrences starting 11/16/19 until 11/15/2024[facility] SystemComment on above:1 Occurrences starting 11/16/2023 until 11/15/2024lood chemistryOhiohealth Doctors Hospital End: 08-67-8684JQP W Auto Differential panel - BloodCBC auto differential Lab Routine Essential (primary) hypertension 1 Occurrences starting 11/16/2023 until 11/15/2024[facility] Work Phone: comment on above:1 Occurrences starting 11/16/2023 until 11/15/2024 End: 77-84-5920VWT W Auto Differential panel - BloodCBC auto differential Lab Routine Essential (primary) hypertension 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 1 Occurrences starting 06/13/2024 until 06/13/2025ProMediInterwise SystemComment on above:1 Occurrences starting 06/13/2024 until 06/13/2025 End: 01-75-0159DYB W Auto Differential panel - BloodCBC auto differential Lab Routine Essential (primary) hypertension 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 1 Occurrences starting 07/09/2025 until 07/09/2026[employer] Work Phone: comment on above:1 Occurrences starting 07/09/2025 until 07/09/2026 End: 01-33-9789Uortwhqyalyax metabolic 2000 panel - Serum or PlasmaComprehensive metabolic panel Lab Routine Essential (primary) hypertension Paroxysmal atrial fibrillation (CMS-HCC) 1 Occurrences starting 11/16/2023 until 11/15/2024 ProMFootball Meister SystemComment on above:1 Occurrences starting 11/16/2023 until 11/15/2024 End: 96-73-6605Qczqpedivziwo metabolic 2000 panel - Serum or PlasmaComprehensive metabolic panel Lab Routine Essential (primary) hypertension 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 1 Occurrences starting 06/13/2024 until 06/13/2025 ProMFootball Meister SystemComment on above:1 Occurrences starting 06/13/2024 until 06/13/2025 End: 57-79-1656Dhrmvquiimzkb metabolic 2000 panel - Serum or PlasmaComprehensive metabolic panel Lab Routine Essential (primary) hypertension 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 1 Occurrences starting 07/09/2025 until 07/09/2026 ProMedicJAB Broadband SystemComment on above:1 Occurrences starting 07/09/2025 until 07/09/2026 End: 00-81-9941Xlvxr 1996 panel - Serum or PlasmaLipid profile Lab Routine Essential (primary) hypertension Paroxysmal atrial fibrillation (CMS-HCC)1 Occurrences starting 11/16/2023 until 11/15/2024Pro[facility] Health SystemComment on above:1 Occurrences starting 11/16/2023 until 11/15/2024 End: 51-65-4369Qfqtk 1995 panel - Serum or PlasmaLipid profile Lab Routine Essential (primary) hypertension 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 SystemComment on above:1 Occurrences starting 07/09/2025 until 07/09/2026 End: 74-10-5266Mirniagjvue, urineMicroscopic, urine Lab Routine Microscopic hematuria 1 Occurrences starting 06/13/2024 until 06/13/2025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 1 Occurrences starting 11/16/2023 until 11/15/2024[facility] SystemComment on above:1 Occurrences starting 11/16/2023 until 11/15/2024 End: 77-49-0258Tdvikdhlnkv [Units/volume] in Serum or PlasmaTSH Lab Routine Essential (primary) hypertension 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 1 Occurrences starting 06/13/2024 until 06/13/2025ProSum[facility] SystemComment on above:1 Occurrences starting 06/13/2024 until 06/13/2025 End: 85-53-8771Imwtkihmllc [Units/volume] in Serum or PlasmaTSH Lab Routine Essential (primary) hypertension 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 1 Occurrences starting 07/09/2025 until 07/09/2026ProSum[facility] SystemComment on above:1 Occurrences starting 07/09/2025 until 07/09/2026 End: 89-48-9508Rnbvxfyeo (T4) free [Mass/volume] in Serum or PlasmaT4, free Lab Routine 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 1 Occurrences starting 11/16/2023 until 11/15/2024[facility] ClinicComment on above:1 Occurrences starting 11/16/2023 until 11/15/2024 End: 19-07-1868Pahnihpji (T4) free [Mass/volume] in Serum or PlasmaT4, free Lab Routine Essential (primary) hypertension 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1 Occurrences starting 06/13/2024 until 06/13/2025[facility] ClinicComment on above:1 Occurrences starting 06/13/2024 until 06/13/2025 End: 36-00-7385Gtmwbgyzf (T4) free [Mass/volume] in Serum or PlasmaT4, free Lab Routine Essential (primary) hypertension 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1 Occurrences starting 07/09/2025 until 07/09/2026[facility] SystemComment on above:1 Occurrences starting 07/09/2025 until 07/09/2026 End: 25-04-1430Eayxhhqqwvsbhhop (T3) Free [Mass/volume] in Serum or PlasmaT3, free Lab Routine 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 1 Occurrences starting 11/16/2023 until 11/15/2024[facility] SystemComment on above:1 Occurrences starting 11/16/2023 until 11/15/2024 End: 46-41-3473Nljwdsydqhodbsib (T3) Free [Mass/volume] in Serum or PlasmaT3, free Lab Routine Essential (primary) hypertension 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1 Occurrences starting 06/13/2024 until 06/13/2025 [employer] Work Phone: comment on above:1 Occurrences starting 06/13/2024 until 06/13/2025 End: 49-21-2350Dzvnzbiawgacivwz (T3) Free [Mass/volume] in Serum or PlasmaT3, free Lab Routine Essential (primary) hypertension 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1 Occurrences starting 07/09/2025 until 07/09/2026 [facility] SystemComment on above:1 Occurrences starting 07/09/2025 until 07/09/2026[facility] Immunizations Immunization DateImmunizationNotesCare InjwuljaGxxkicsx39-35-2125gwaooej toxoid, reduced diphtheria toxoid, and acellular pertussis vaccine, adsorbedTravis Rasor DO Work Phone: [facility] Payers DatePayer CategoryPayerPolicy [id number] 2023Self-pay2022MedicareAETNA MEDICARE AETNA MEDICARE PLAN (PPO) [id number] 2021-Present [phone] [address] [place] [id number] 2022Medicare HMOAETNA MEDICARE ..[id number] [id number] [id number] .1.141110.3.57[id number] .1.526970.3.5[id number] 10.22.830.1.682061.3.57[id number] 2.840.1.127446.3.57[id number] 2.840.1.744288.3.57[id number] 2.0.1.273252.3.57[id number] 2.0.1.063378.3.57[id number] 2.0.1.935528.3.57[id number] 2.0.1.682344.3.57[id number] 2.840.1.801859.3.57[id number] 2.840.1.89[id number] 2.0.1.215235.3.579.2.531 [id number] 2.0.1.4[id number] 2.840.1.4[id number] 2.0.1.168947.3.579.2.531 [id number] 2.0.1.972880.3.579.2.531 Social History DateTypeDetailFacilityStart: 49-09-2306Ydmcucv smoking status NHISNever smoked tobacco (finding)[facility]: 54-23-0644Qnk Assigned At BirthPrem[facility] Northtart: 10-16-2020 End: 91-27-9982Rkz [facility]igned At [facility] [employer] Other Start: 03-04-2023 End: 56-94-4514Hdwrdsq smoking status NHISEx-smoker (finding)[facility]: 63-34-7824Pynn Spouse/Significant OtherOhioHealth Marion General Hospitaltart: 47-47-3004Xknkj UsedOhioHealth Marion General Hospitaltart: [facility]tart: 07-45-3093Fghviy [facility] Jacksontart: 87-52-5103EocjujvLfldolSelect Medical [facility] - DublinHistory of tobacco use Current smokerCleveland ClinicHistory of tobacco useCigarette Smoker [facility]: 78-91-1790Ggqgnfs use and exposureSmokeless tobacco non-userCaroMont Regional Medical Center - Mount Hollytart: 06-13-2024 End: 37-67-2273Dyjntspyo beverage intakeCurrent drinker of alcohol (finding) [facility]: 10-16-2020 End: 13-30-0659Guoujxlvp beverage intakeCleveland ClinicAdolescent depression screening xqnpcnigho0HcjXcaavzCaroMont Regional Medical Center - Mount Hollytart: 93-64-7216Nsszpcf CommentHow long has it been since you last smoked? > 10+ yearsCaroMont Regional Medical Center - Mount Hollytart: 98-62-4539Leokztl CommentoccCaroMont Regional Medical Center - Mount Hollytart: 62-25-3058Zrm assigned at birthNot on fileCaroMont Regional Medical Center - Mount Hollytart: 53-72-7301OjwQkciyo (finding)[facility] Medical Equipment Procedure CodeEquipment CodeEquipment Original TextEquipment IdentifierDates Arthroplasty, hip, bipolarAcetabular shell ()[id number] FDAStart: 07-81-5224Xzlldrymmggw, hip, bipolarOrthopaedic bone screw, non-bioabsorbable, sterile ()[id number] FDAStart: 27-03-4820Xgpglrfqfkoq, hip, bipolarOrthopaedic bone screw, non-bioabsorbable, sterile ()[id number] FDAStart: 11-12-0027Phiipisogxmp, hip, bipolarCeramic femoral head prosthesis()[id number] FDAStart: 35-67-1120Nsnyzrbmnsdj, hip, bipolarCoated hip femur prosthesis, modular()[id number] FDAStart: 10-16-4457Lsbvxggpxvec, hip, bipolarNon-constrained polyethylene acetabular liner ()[id number] FDAStart: 12-28-2022 Goals DatePatient GoalDesired Activity/State Functional Status HxbmMoudxvbndsXeczbiLlpljqpq05-15-0725Vhhhokgiyw statusPatient at Baseline [facility] Work Phone: Mental Status MemgDvvhapidzwBgoqvqMopjqrad51-94-4671Jmxdnciek functionCognitive Status Patient at BaselineTrihealth [facility] Work Phone: Clinical Notes 12-28-2022 to 07-09-2025 Note Date & QazjFlvnJxujrsql81-32-8446 History of Present illness Narrative* Francisco Chang, - 07/09/2025 1:45 PM EST Subjective SUBJECTIVE: [...] her last recorded weight in our system lnb044 lb in September 2024, today her weight [...] disease) Hip fracture requiring operative repair ([facility]) Hypercholesterolemia Hypertension Hypertrophy of both inferior nasal turbinates Mitral valve regurgitation Nasal congestion Osteopenia Paroxysmal atrial fibrillation ([facility]) Polyp, sigmoid colon Varicose veins of both lower extremities Past Surgical History: Procedure Laterality Date APPENDECTOMY ovarian cystectomy BREAST BIOPSY Left 2014 stereotactic CHOLECYSTECTOMY ENDOMETRIAL ABLATION 04/06/2006 NOVASURE LAPAROSCOPY DIAGNOSTIC/BSO Bilateral 07/07/2016 Performed by Sybil Ascencio MD at [facility] 2019 OSTECTOMY CALCANEUS FOR SPUR [...] Do you have a durable power of admitted attorneys?: Yes Cognitive Screening Do you have trouble [...] 6 ) Body mass index is 14.4 kg/m . Physical Exam Constitutional: General: She is not [...] No follow-ups on file. documented in this [facility]11-03-2025 Instructions* Patient Instructions* Francisco Chang DO - 07/09/2025 1:45 PM EST Patient noted to have low BMI and the following intervention(s) were applied: weight gain advised. documented in this [facility]09-16-2025 Miscellaneous Notes* Telephone Encounter - CAM Hill - 05/22/2025 10:35 AM EDT Care Coordination Outreach performed to coordinate overdue appointments, testing, and/or follow-up care: Yes Audit/Outreach Date: Reason: Medicare Annual Wellness Visit Method: Telephone Outreach Attempt: First Outcome: Contacted Patient Next PCP Appointment: Scheduled Tests/Referrals Pended: N/A Resources/Education Provided: Additional Comments: scheduled awv documented in this [facility]09-16-2025 Telephone encounter Note* Telephone Encounter - CAM Hill - 05/22/2025 10:35 AM EDT Care Coordination Outreach performed to coordinate overdue appointments, testing, and/or follow-up care: Yes Audit/Outreach Date: Reason: Medicare Annual Wellness Visit Method: Telephone Outreach Attempt: First Outcome: Contacted Patient Next PCP Appointment: Scheduled Tests/Referrals Pended: N/A Resources/Education Provided: Additional Comments: scheduled awv [facility]08-28-2025 Miscellaneous Notes* Telephone Encounter - Louann Lee RN - 05/03/2025 1:56 AM EDT Last OV 09/29/24 CBC 02/05/25 CMP 06/17/24 documented in this encounterC[facility] Clinic08-28-2025 Telephone encounter Note* Telephone Encounter - Louann Lee RN - 05/03/2025 1:56 AM EDT Last OV 09/29/24 CBC 02/05/25 CMP 06/17/24 [facility]06-18-2025 Miscellaneous Notes* Telephone Encounter - CAM Hill - 02/21/2025 1:46 PM EDT Care Coordination Outreach performed to coordinate overdue appointments, testing, and/or follow-up care: Yes Audit/Outreach Date: Reason: Medicare Annual Wellness Visit Method: Telephone Outreach Attempt: First Outcome: Contacted Patient Next PCP Appointment: Patient Will Call Back Tests/Referrals Pended: N/A Resources/Education Provided: Additional Comments: Patient wants to schedule her AWV another day as her is having some health issues and she wants to take care of that first. documented in this encounterC[facility] Clinic06-18-2025 Telephone encounter Note* Telephone Encounter - CAM Hill - 02/21/2025 1:46 PM EDT Care Coordination Outreach performed to coordinate overdue appointments, testing, and/or follow-up care: Yes Audit/Outreach Date: Reason: Medicare Annual Wellness Visit Method: Telephone Outreach Attempt: First Outcome: Contacted Patient Next PCP Appointment: Patient Will Call Back Tests/Referrals Pended: N/A Resources/Education Provided: Additional Comments: Patient wants to schedule her AWV another day as her is having some health issues and she wants to take care of that first. [facility] [employer] [id number] Miscellaneous Notes* Telephone Encounter - Louann Lee RN - 01/24/2025 10:05 AM EDT Last OV 09/29/24 CBC 05/26/23 CMP 06/23/24 CBC orders previously placed; refill letter mailed documented in this encounterCleveland Clinic05-21-2025 Telephone encounter Note* Telephone Encounter - Louann Lee RN - 01/24/2025 10:05 AM EDT Last OV 09/29/24 CBC 05/26/23 CMP 06/23/24 CBC orders previously placed; refill letter mailed [facility]01-24-2025 History of Present illness Narrative* Ariana Benton MD - 09/29/2024 10:30 AM EST Donna Saavedra Date of visit: 09/29/2024 Date of : 1950 Age: 74 y.o. Patient Active Problem List Diagnosis Chronic sinusitis Headache Chronic rhinitis Nasal congestion Deviated nasal septum Hypertrophy of both inferior nasal turbinates Chronic left maxillary sinusitis Essential (primary) hypertension Menopause present Cardiomyopathy ([facility]) Gastro-esophageal reflux disease without esophagitis Hypothyroidism Mitral valve regurgitation Paroxysmal atrial fibrillation ([facility]) Primary insomnia Depression with anxiety Osteopenia of multiple sites Allergies Allergen Reactions Amlodipine Other (See Comments) Codeine Rash Other reaction(s): Intolerance-unknown Metoprolol GI Disturbance Amoxicillin-Pot Clavulanate Other reaction(s): Intolerance-unknown Hydrochlorothiazide Other reaction(s): Intolerance-unknown Thiazides hctz Venlafaxine Current Outpatient Medications Medication Sig Dispense Refill amitriptyline (ELAVIL) 10 mg tablet take 3 tablets by mouth at bedtime 270 tablet 3 apixaban (ELIQUIS) 5 mg tablet Take 1 tablet (5 mg total) by mouth in the morning and at bedtime. 60 tablet 3 carvediloL (COREG) 25 mg tablet TAKE 1 TABLET BY MOUTH TWICE A DAY WITH FOOD FOR 90 DAYS 180 tablet3 cetirizine (ZyrTEC) 10 mg tablet Take 1 tablet (10 mg total) by mouth as needed. fluticasone (FLONASE) 50 mcg/actuation nasal spray 2 [...] sertraline (ZOLOFT) 50 mg tablet daily. 0 mupirocin (BACTROBAN) 2 % ointment 2 (two) times a day. (Patient not taking: Reported on 09/29/2024) spironolactone (ALDACTONE) 25 mg tablet Take 1 tablet (25 mg total) by mouth in the morning. TAKE 1TABLET (25 MG TOTAL) BY MOUTH IN THE MORNING. 90 tablet 3 No current facility-administered medications for this visit. Chief Complaint Patient presents with Follow-up EST PT LS 05/26/23 MAS, NEEDES REFILLS, SCHED W/SPOUSE Syncope Atrial Fibrillation Cardiomyopathy History of Present Illness 74-year-old with multiple medical problems history of cardiomyopathy with mildly reduced ejection fraction highly compensated no chest pain or shortness of breath negative stress test in the past. Paroxysmal AFib on Eliquis. Totally asymptomatic cardiac-malave. Maintain meds really well and has been tolerating them really well. Past Medical History: Diagnosis Date Anxiety Carpal tunnel syndrome Chronic rhinitis seasonal allergies Depression Deviated nasal septum Disease of thyroid gland Diverticulitis Fractures bilat arms as child GERD (gastroesophageal reflux disease) Hip fracture requiring operative repair ([facility]) Hypercholesterolemia Hypertension Hypertrophy of both inferior nasal turbinates Mitral valve regurgitation Nasal congestion Osteopenia Paroxysmal atrial fibrillation ([facility]) Polyp, sigmoid colon Varicose veins of both lower extremities No data recorded No data recorded No data recorded Past Surgical History: Procedure Laterality Date APPENDECTOMY ovarian cystectomy BREAST BIOPSY Left 2014 stereotactic CHOLECYSTECTOMY ENDOMETRIAL ABLATION 04/06/2006 NOVASURE LAPAROSCOPY DIAGNOSTIC/BSO Bilateral 07/07/2016 Performed by Sybil Ascencio MD at [facility] OOPHORECTOMY 2019 OSTECTOMY CALCANEUS FOR SPUR TOTAL HIP ARTHROPLASTY Left 12/28/2022 TUBAL LIGATION Family History Problem Relation Age of Onset Heart disease Mother Hypertension Mother Heart disease Father Hypertension Father Hypertension Sister Gestational diabetes Maternal Grandfather Breast cancer Maternal Aunt Heart disease Brother Cancer Maternal Uncle Anesthesia problems Neg Hx Social History Socioeconomic [...] smoked? > 10+ years Vaping Use Vaping status: Never Used Substance and Sexual Activity Alcohol use: Yes Alcohol/week: 4.0 standard drinks of alcohol Types: 4 Glasses of wine per week Comment: occ Drug use: No Sexual activity: Not on file Other Topics Concern Coffee Yes Tea No Carbonated Beverages No Chocolate No Caffeine Use Yes Social History Narrative Not on file Social Drivers of Health Financial Resource Strain: Not on file Food Insecurity: No Food Insecurity (09/29/2024) Hunger Screening Food Insecurity - Worry: Never True Food Insecurity - Inability: Never True Transportation Needs: Not on file Physical Activity: Not on file Stress: Not on file Social Connections: Not on file Interpersonal Safety: Not on file Housing Instability: Not on file Review of Systems Review of Systems Constitutional: Negative. HENT: Negative. Eyes: Negative. Respiratory: Negative. Hematologic/Lymphatic: Bruises/bleeds easily. Skin: Negative. Musculoskeletal: Negative. Gastrointestinal: Negative. Neurological: Negative. Psychiatric/Behavioral: Negative. Allergic/Immunologic: Negative. CARDIOVASCULAR: Please review HPI. Physical Examination General appearance: Alert, oriented and cooperative. In no acute distress. Skin: Warm and dry to touch. Head: Normocephalic, without obvious abnormality, atraumatic. Ears, Nose, Mouth, Throat: Throat clear without erythema or exudate. Dentition intact. Eyes: Conjunctivae unremarkable, EOM intact. Neck: No JVD, No carotid bruit. Neck supple, trachea midline. Respiratory: Clear to auscultation bilaterally, no use of accessory muscles. Cardiovascular: RRR with normal S1 and S2 with no murmurs. Gastrointestinal: Soft, non-tender. Bowel sounds normal. Musculoskeletal: No peripheral edema. Neurologic: Oriented to time, person and place, affect appropriate. No focal/major motor defects noted. Psychiatric: Appropriate mood, memory and judgement. VITAL SIGNS: BP (!) 86/60 (BP Site: Left Arm, BP Postition: Sitting) Pulse 88 Ht 167.6 cm (5' 6 ) Wt 53.1 kg (117 lb) SpO2 98% BMI 18.88 kg/m Orders Placed or Reconciled This Encounter Medications spironolactone (ALDACTONE) 25 mg tablet Sig: Take 1 tablet (25 mg total) by mouth in the morning. TAKE 1 TABLET (25 MG TOTAL) BY MOUTH IN THE MORNING. Dispense: 90 tablet Refill: 3 Medications Discontinued During This Encounter Medication Reason spironolactone (ALDACTONE) 25 mg tablet Reorder [id number] Score: 4 4.8% Stroke risk per year, 6.7% risk of stroke/TIA/systemic embolism IMPRESSIONS/PLAN 1. Cardiomyopathy, unspecified type (CMS-HCC) - POCT EKG - spironolactone (ALDACTONE) 25 mg tablet; Take 1 tablet (25 mg total) by mouth in the morning. TAKE 1 TABLET (25 MG TOTAL) BY MOUTH IN THE MORNING. Dispense: 90 tablet; Refill: 3 2. Paroxysmal atrial fibrillation (CMS-HCC) - POCT EKG 3. Essential (primary) hypertension - POCT EKG - spironolactone (ALDACTONE) 25 mg tablet; Take 1 tablet (25 mg total) by mouth in the morning. TAKE 1 TABLET (25 MG TOTAL) BY MOUTH IN THE MORNING. Dispense: 90 tablet; Refill: 3 1. Cardiomyopathy mildly reduced EF highly compensated not in congestive heart failure 2. Negative stress test in the past 3. Atrial fibrillation has maintained on Eliquis. I advised her once she hits 78 years old the doseneed to be reduced to 2.5 mg this also could be considered if she developed renal insufficiency buther kidney function has been stable. Follow up with us back earlier if needed TODAYS ORDERS Orders Placed This Encounter Procedures POCT EKG FOLLOW UP Return in about 1 year (around 09/29/2025). PCP: Francisco Chang DO Referring Physician: Francisco Chang DO [address], [address] [address] documented in this encounterC[facility] Clinic01-23-2025 Miscellaneous Notes* Telephone Encounter - Lucille Barnard CMA - 09/28/2024 9:59 AM EST Called patient to remind them to bring their most current copy of their medication list with them to their appt. Patient verbalizes understanding. documented in this encounterC[facility] Clinic01-23-2025 Telephone encounter Note* Telephone Encounter - Lucille Barnard CMA - 09/28/2024 9:59 AM EST Called patient to remind them to bring their most current copy of their medication list with them to their appt. Patient verbalizes understanding. [facility] [employer] [id number] Miscellaneous Notes* Telephone Encounter - Liz Figueredo CMA - 06/21/2024 10:23 AM EDT Patient calling states that when she was on oral steroid for her back an she was feeling good whileon it. Now that she is finished her pain is back. Patient wants to know what the next step is? She does not want to get shots in her back. Please advise * Telephone Encounter - Francisco Chang DO - 06/21/2024 10:23 AM EDT If she has not done PT in recent past for her back, that would be an option * Telephone Encounter - Liz Figueredo CMA - 06/21/2024 10:23 AM EDT Patients notified and would like order for PT mailed to their home * Telephone Encounter - Francisco Chang DO - 06/21/2024 10:23 AM EDT ordered * Telephone Encounter - Liz Figueredo CMA - 06/21/2024 10:23 AM EDT Emailed the order to patients at [id number] documented in this encounterC[facility] Clinic10-16-2024 Telephone encounter Note* Telephone Encounter - Liz Figueredo CMA - 06/21/2024 10:23 AM EDT Patient calling states that when she was on oral steroid for her back an she was feeling good whileon it. Now that she is finished her pain is back. Patient wants to know what the next step is? She does not want to get shots in her back. Please advise [facility]10-16-2024 Telephone encounter Note* Telephone Encounter - Francisco Chang DO - 06/21/2024 10:23 AM EDT If she has not done PT in recent past for her back, that would be an option [facility]10-16-2024 Telephone encounter Note* Telephone Encounter - Liz Figueredo CMA - 06/21/2024 10:23 AM EDT Patients notified and would like order for PT mailed to their home [facility] [employer] [id number] Telephone encounter Note* Telephone Encounter - Francisco Chang DO - 06/21/2024 10:23 AM EDT ordered [facility] [employer] [id number] Telephone encounter Note* Telephone Encounter - Liz Figueredo CMA - 06/21/2024 10:23 AM EDT Emailed the order to patients at [id number] [facility] [employer] [id number] History of Present illness Narrative* Francisco Chang DO - 06/13/2024 11:30 AM EDT Subjective SUBJECTIVE: Patient ID: Donna Saavedra is a 74 y.o. female who presents [...] 07/07/2016 Performed by Sybil Ascencio MD at [facility] OOPHORECTOMY 2019 OSTECTOMY CALCANEUS FOR SPUR [...] Do you have a durable power of admitted attorneys?: Yes Cognitive Screening Do you have trouble [...] total) by mouth daily for 2 days, THEN2 tablets (40 mg total) daily for 2 days, THEN 1 tablet (20 mg total) daily for 2 days. Microscopic hematuria - Microscopic, urine; Future Continue current regimen for hypertension as she is tolerating well and her blood pressure is undergood control. Continue current medication regimen for hypothyroidism, will get labs to check thyroid function at her earliest convenience as ordered Continue omeprazole for reflux as she is tolerating well and reflux symptoms are under good control. Continue current treatment regimen for paroxysmal atrial fibrillation and monitoring of her mitral valve regurgitation and cardiomyopathy with her joint yarner as before. Continue sertraline for depression with [...] No follow-ups on file. documented in this encounterFairfield Medical CenterInterwise [id number] Miscellaneous Notes* Addendum Note - Francisco Chang DO - 06/13/2024 11:30 AM EDTAddended by: FRANCISCO CHANG on: 06/13/2024 01:00 PM Modules accepted: Orders documented in this encounterCleveland [facility]10-[facility] Note* Addendum Note - Francisco Chang DO - 06/13/2024 11:30 AM EDTAddended by: FRANCISCO CHANG on: 06/13/2024 01:00 PM Modules accepted: Orders [facility]04-10-2024 Miscellaneous Notes* Telephone Encounter - Donell Mobley LPN - 12/15/2023 9:53 AM EDT Josi 05/26/23 Cbc, cmp 05/09/23 [facility] Telephone encounter Note* Telephone Encounter - Donell Mobley LPN - 12/15/2023 9:53 AM EDT Josi 05/26/23 Cbc, cmp 05/09/23 [facility]03-12-2024 History of Present illness Narrative* Francisco Chang DO - 11/16/2023 11:30 AM EDT Subjective Patient ID: Donna Saavedra is a 73 y.o. female. HPI: Chief [...] disease) Hip fracture requiring operative repair ([facility]) Hypercholesterolemia Hypertension Hypertrophy of both inferior nasal turbinates Mitral valve regurgitation Nasal congestion Osteopenia Paroxysmal atrial fibrillation ([facility]) Polyp, sigmoid colon Varicose veins of both lower extremities Past Surgical History: Procedure Laterality Date APPENDECTOMY ovarian cystectomy BREAST LUMPECTOMY 07/07/2015 benign bilat CHOLECYSTECTOMY ENDOMETRIAL ABLATION 04/06/2006 NOVASURE LAPAROSCOPY DIAGNOSTIC/BSO Bilateral 07/07/2016 Performed by Sybil Ascencio MD at [facility] OOPHORECTOMY 2019 OSTECTOMY CALCANEUS FOR SPUR [...] Urine Ketones Negative External Poct Urine Specific [employer] 1.015 External Poct Urine Blood Negative External [...] disease without esophagitis 5. Paroxysmal atrial fibrillation ([facility]) - Comprehensive metabolic panel; Future - Lipid profile; Future 6. Nonrheumatic mitral valve regurgitation 7. Depression with anxiety 8. Primary insomnia 9. Other cardiomyopathy ([facility]) 10. Osteopenia of multiple sites 11. Encounter [...] regurg, as well as cardiomyopathy. Continue with joint yarner as before Continue sertraline for depression with anxiety symptoms Continue amitriptyline for insomnia symptoms as she is tolerating well and insomnia is under good control For DEXA scan but refuses. Recommend weight-bearing exercise, vitamin-D, and calcium supplement forosteopenia Follow-up in 6 months for Medicare [employer], before then as needed. Patient will do [...] extrapolated by contextual derivation documented in this encounterFairfield Medical CenterFactor.io [facility] [id number] Evaluation note* Encounter Date Diagnosis Assessment Notes Treatment Notes Treatment Clinical Notes May, Status post total hip replacemen t, left (ICD-10 - Z96.642) May,ftercare following joint replacement surgery (ICD-10 - Z47.1) May,resence of left artificial hip joint (ICD-10 - Z96.642) [facility] Overall I still think that she is doing fantastic after her total hip replacement. We discussed thegreater trochanteric bursitis and the fact that it [...] call sooner if there are any concerns. [facility] Other 09-03-2023 Hospital Discharge instructions Additional Instructions Instructed to continue medications home as prescribed. Recommend following up with cardiology and primary care in the next 1 to 2 days. Please try to stay hydrated with 5 to 6 glasses of water per day. Return to the emergency center with any worsening symptoms.[facility] Work Phone: 1(522) 712-706007-26-2023 Evaluation note* Encounter Date Diagnosis Assessment Notes Treatment Notes Treatment Clinical Notes Mar, Status post total hip replacemen t, left (ICD-10 - Z96.642) Mar,ftercare following joint replacement surgery (ICD-10 - Z47.1) Mar,resence of left artificial hip joint (ICD-10 - Z96.642) [facility] on 12/28/2022 Overall doing very well in regards to the hip replacement. However, she does have some greater trochanteric bursitis and as a result I would recommend the Voltaren gel to use 4-5 times a day and homeexercise regimen. We prescribed this and provided her [...] to call with any questions or concerns. [facility] Other 06-07-2023 Evaluation note* Encounter Date Diagnosis Assessment Notes Treatment Notes Treatment Clinical Notes Feb, Closed displaced fra cture of left femoral neck with routine healing (ICD-10 - S72.002D) Feb,Status post total hip replacement, left (ICD-10 - Z96.642) Feb,ge-related osteoporosis with current pathological fracture with routine healing, subsequent encounter (ICD-10 - M80.00XD) [facility] at [facility] on 12/28/2022 Overall doing pretty well. I think that with time she is getting continue to progress with getting off of that cane. Recommended continuing with her exercises at home. She is already seen Nicole with on the bone. Patient may continue increasing activities as tolerated. Continue taking [id number]-[id number] anti-inflammatories as needed for assistance with swelling and pain associated with the operative extremity. Follow-up in 6 weeks for repeat examination and repeat x-rays. [facility] Other 05-30-2023 Evaluation note* Encounter Date Diagnosis Assessment Notes Treatment Notes Treatment Clinical Notes January, Age-related osteopor osis with current pathological fracture with routine healing, subsequent encounter (ICD-10 - M80.00XD) DEXA scan reviewed with patient and . Extensive discussion regarding osteoporosis treatment options. With patient's recent femur fracture patient and would like to proceed with Evenityinjections. Risk and benefits of discussed with patient and at length. Lab work ordered patient will have drawn and will call patient with any abnormal results. Recommended patient take calcium 1200 mg and vitamin D3 600 to 800 units daily, list of available calcium and vitamin D supplements provided. Patient will have the [facility] injections at [facility] as this iscloser to her home. We will follow-up with patient in 6 months and repeat DEXA scan in 1 year to dawson luate treatment effectiveness. All questions and concerns addressed. Information sheets provided with available osteoporosis treatment options, fall precautions, and vitamin D and calcium supplements. January,symptomatic menopausal state (ICD-10 - Z78.0) January,Other detention (current) drug therapy (ICD-10 - Z79.899) [facility] Other 05-11-2023 Evaluation note* Encounter Date Diagnosis Assessment Notes Treatment Notes Treatment Clinical Notes January, Closed displaced fra cture of left femoral neck with routine healing (ICD-10 - S72.002D) January,Status post total hip replacement, left (ICD-10 - Z96.642) January,ge-related osteoporosis with current pathological fracture with routine healing, subsequent encounter (ICD-10 - M80.00XD) [facility] at [facility] on 12/28/2022 Doing well. Left Zipline in place. We will see her in 1 week to recheck the incision. Patient may continue activities as tolerated. They are weightbearing as tolerated to the operative extremity. Patient is progressing with with physical therapy and I recommended continuing this at her home . Patient instructed to continue weaning off narcotic pain medication. Nonetheless, we did refill hertramadol. I went over her pain regimen specifically with her today. She is can use Tylenol 1000 mg 3 times a day, prednisone 10 mg daily x10 days, and if she still needs something for discomfort thenshe will take the tramadol. I discussed with her that due to her Eliquis use we cannot put her on an anti-inflammatory long-term. Patient to continue their home Eliquis as previously instructed by her other care providers. This will provide her DVT prophylaxis. This includes wearing their PRISCILA hose on the operative extremity foranother two weeks. Follow-up in 1 week for incision check. OARRS report generated and reviewed. [facility] Other 04-27-2023 Progress note Author Vivian Live [facility] December 31, 2022 7:57amNote Date/TimeApril 2022 7:58[place] [id number] Hospitalist Progress Note Signed Patient: Donna Saavedra MR#: [id number] : 1950 Acct:[id number] Age/Sex: 72 / F Adm Date: 3 Loc: 4N Room: 4V4569-3 Type: ADM IN Attending Dr: Vivian Live [...] oriented to place, time and person HEENT: [place] conjunctiva and NL buccal mucosa Neck: Supple, [...] 08:00 12/30/22 18:26 Ferrous Sulfate 324 Mg Tablet.Dr PO 12/29/23 [...] Oil 1 each 12/31/22 20:41 Mineral Oil (Scurry) 1 Each Enema ME ONCE PRN Constipation Morphine Sulfate 2 mg [...] 12/29/22 19:37 Tramadol 50 Mg Tablet PO 10/21/23 20:40 50 mg Q4H PRN Administration Pain Scale 1 - 5 Zolpidem Tartrate 5 mg 12/28/22 00:01 Zolpidem 5 Mg Tablet PO 06/26/23 00:00 QHS PRN Sleep A&P - Hospitalist Assessment/Plan (1) Hip fracture: (2) Paroxysmal A-fib: (3) Hypomagnesemia: (4) Closed subcapital fracture of neck of left femur: Plan Patient is doing really well. Patient was discharged yesterday to the nursing facility but facilitycould not accept her for what ever reason. Uneventful night. Vital signs are stable. Exam is unremarkable. Patient will be discharged to the nursing facility today. Patient is to follow-up with her PCP and/or Ortho postdischarge Documented By: Vivian Live MD 12/31/22755 Signed By: <Electronically signed by Vivian Live MD> 12/31/22756 [facility] Work Phone: 1(621) 874-593604-26-2023 Discharge summary Author Vivian Live [facility] December 30, 2022 10:26amNote Date/TimeApril 2022 10:25[place] [address] Discharge Summary Signed Patient: Donna Saavedra MR#: [id number] : 1950 Acct:[id number] Age/Sex: 72 / F Adm Date: 3 Loc: N Room: [address] [place] [address]: Vivian Live MD Copies to: [...] listed Summary Hospital Course Hospital course: Mrs. Saavedra is a 72-year-old female who fell and [...] A-fib. Patient stayed in sinus rhythm throughout thishospitalization. Eliquis was resumed postoperatively. Aspirin is recommended to be resumed in 5 days. I clearly instructed nursing staff at the nursing facility to hold lisinopril and amlodipine if hersystolic blood pressure continues to be less than 125 and titrate dose upward if her systolic bloodpressure goes above 150. I also requested CBC [...] well as additional work-up, investigation and therapeutic interventionthat could take place from this point on post discharge. That is to prevent relapse,decompensation,rehospitalization and other medical implications. Time Spent with [...] 3.15 L, Hgb 10.2 L, Hct 30.3 L,MCV 96.3, MCH 32.3, MCHC 33.6, RDW 15.9 H, Plt Count 211, MPV 9.0, Neut % (Auto) 66.3, Lymph % (Auto) 16.0, [place] % (Auto) 17.5, Eos % (Auto) 0.1, Baso % (Auto) 0.1, Nucleat RBC Rel Count 0.0, Neut # (Auto) 6.6, Lymph # (Auto) 1.6, [place] # (Auto) 1.7 H, Eos # (Auto) 0.0, Baso # (Auto) 0.0, Platelet Estimate Normal, Plt Morphology Comment Normal, RBC Morphology N/A, Polychromasia Slight, Hypochromasia Slight, Ovalocytes Slight 12/30/22 05:06: PHA Creatinine Clear 46.20, Sodium 134 L, Potassium 4.3, Chloride 100, Carbon Dioxide 28.2, Anion Gap 10.1, BUN 15, Creatinine 1.00, Est GFR (CKD-EPI) 59.117, Glucose 96, Calcium 9.2 Exam Physical Exam Vital Signs: Temp Pulse Resp BP Pulse Ox O2 Del Method O2 Flow Rate 99.0 F 102 H 16 100/64 94 L Room Air 8 12/30/22 08:54 12/30/22 08:54 12/30/22 08:54 12/30/22 08:54 12/30/22 08:54 12/30/22 08:54 12/28/22 21:08 Narrative: [pt is awake and alert. oriented to place, time and person HEENT: [place] conjunctiva and NL buccal mucosa Neck: Supple, [...] ask your primary care provider to [facility] to follow up on all of the abnormal physical, laboratory, and imaging findings thatI have not addressed. Please return back to the emergency room or seek medical attention if your symptoms worsen or return. [facility]ing [facility] does not mean that your medical [...] IN THE MORNING fluticasone propionate 50 mcg/actuation [place],Suspension 2 spray INTRANASAL DAILY Held aspirin 81 [...] signed by Vivian Live MD> 12/30/22 1026 [facility] Work Phone: [phone]) 444-764004-26-2023 Progress note Author Ari Solares [facility] December 30, 2022 8:36amNote Date/TimeApril 2022 8:37[place] [address] Orthopedic Progress Note Signed Patient: Donna Saavedra MR#: [id number] : 1950 Acct:[id number] Age/Sex: 72 / F Adm Date: 3 Loc: 4N Room: [address] [place] [address] Type: ADM IN Attending Dr: Vivian Live MD Copies to: ~ Date of Service: 12/30/2022 Subjective Subjective Interval History: Patient resting comfortably in bed this morning. Patient reports she is doing much better today than she was yesterday. She tells me that they are planning to send her back to the [facility] and they have worked all that out [...] % (Auto) 66.3 Lymph % (Auto) 16.0 [place] % (Auto) 17.5 Eos % (Auto) 0.1 Baso % (Auto) 0.1 Nucleat RBC Rel Count 0.0 Neut # (Auto) 6.6 Lymph # (Auto) 1.6 [place] # (Auto) 1.7 H Eos # (Auto) [...] fx 1. Pain control 2. DVT prophylaxis: PRISCILA Hose bilaterally, SCDs bilaterally, and home Shana [...] PT/OT 11. Disposition: Planning discharge to the [facility] since that is where she livesfor further skillednursing care. 12. Follow-up: See me in the office at 2 to 2-1/2 weeks postop. Her Prevena wound VAC should be taken off at postop day 14 by intermediate facility. If there is any questions or concerns have themcall my office. Code(s): S72.012A - Unspecified intracapsular fracture of left femur, initial encounter for closed fracture Status: Acute Documented By: Ari Solares MD 12/30/22 08 35 Signed By: <Electronically signed by Ari Solares MD> 12/30/22 0836 [facility] Work Phone: [phone]) 345-333704-25-2023 Progress note Author Vivian Live [facility] December 29, 2022 10:31amNote Date/TimeApr2022 10:31[place] [address] Hospitalist Progress Note Signed Patient: Donna Saavedra MR#: [id number] : 1950 Acct:[id number] Age/Sex: 72 / F Adm Date: 3 Loc: 4N Room: [address] [place] [address] Type: ADM IN Attending Dr: Vivian Live [...] oriented to place, time and person HEENT: [place] conjunctiva and NL buccal mucosa Neck: Supple, [...] Lactated Ringers IV 12/28/23 20:44 Not Given .[id number] BARBRA Cefazolin Sodium 1 gm in 50 mls @ 100 mls/hr 12/29/22 04:00 12/29/22 03:52 Ancef IV 12/29/22 12:29 100 mls/hr Q8H BARBRA Administration Levothyroxine Sodium 75 mcg 12/28/22 06:30 12/29/22 05:36 Levothyroxine 75 Mcg Tablet PO 12/28/23 06:29 75 mcg DAILY@0630 [facility] Administration Mineral Oil 1 each 12/31/22 20:41 Mineral Oil (Scurry) 1 Each Enema ME ONCE PRN Constipation Morphine Sulfate 2 mg [...] management. [facility] Documented By: Vivian Live MD 12/29/22 1028 Signed By: <Electronically signed by Vivian Live MD> 12/29/22 1031 [facility] Work Phone: [phone]) [phone] Progress note Author Ari Solares [facility] December 29, 2022 7:33amNote Date/TimeApr2022 7:33[place] [address] Orthopedic Progress Note Signed Patient: Donna Saavedra MR#: [id number] : 1950 Acct:[id number] Age/Sex: 72 / F Adm Date: 3 Loc: 4N Room: [address] [place] [address] Type: ADM IN Attending Dr: Vivian Live MD Copies to: ~ Date of Service: 12/29/2022 Subjective Subjective Interval History: Patient resting comfortably in bed this morning. Patient reports pain is doing well. She denies anyissues at this point. Nursing reports no acute [...] MPV Neut % (Auto) Lymph % (Auto) [place] % (Auto) Eos % (Auto) Baso % (Auto) Nucleat RBC Rel Count Neut # (Auto) Lymph # (Auto) [place] # (Auto) Eos # (Auto) Baso # [...] % (Auto) 71.3 Lymph % (Auto) 14.5 [place] % (Auto) 13.3 Eos % (Auto) 0.3 Baso % (Auto) 0.6 Nucleat RBC Rel Count 0.0 Neut # (Auto) 5.7 Lymph # (Auto) 1.2 [place] # (Auto) 1.1 H Eos # (Auto) [...] Type Recheck O Negative Antibody Screen Crossmatch (AHG) 12/29/22 04:31 Corrected WBC 10.4 Uncorrected WBC Count 10.4 RBC 3.51 L Hgb 11.4 L Hct 34.2 MCV 97.2 MCH 32.4 MCHC 33.4 RDW 16.3 H Plt Count 231 MPV 9.5 Neut % (Auto) 91.3 Lymph % (Auto) 5.2 [place] % (Auto) 3.4 Eos % (Auto) 0.0 Baso % (Auto) 0.1 Nucleat RBC Rel Count 0.0 Neut # (Auto) 9.5 H Lymph # (Auto) 0.5 L [place] # (Auto) 0.4 Eos # (Auto) 0.0 Baso # (Auto) 0.0 PHA Creatinine Clear Sodium Potassium Chloride Carbon Dioxide Anion Gap BUN Creatinine Est GFR (CKD-EPI) Glucose Estimat Average Glucose Hemoglobin A1c Calcium Magnesium 25-OH Vitamin D Total Blood Type Blood Type Recheck Antibody Screen Crossmatch (AHG) Assessment / Plan Assessment and plan (1) Closed subcapital fracture of neck of left femur: Plan: POD 1 s/p [facility] for FN fx 1. Pain control 2. DVT prophylaxis: PRISCILA Hose bilaterally, SCDs bilaterally, and home Eliquis [...] <Electronically signed by Ari Solares MD> 12/29/[address] [place] [address] Work Phone: [phone]) [phone] History general Narrative - Reported* Type Description Date Medical History paroxysmal-AFIB Medical Historyhypertensive heart diseaseMedical HistoryHypomagnesemiaSurgical HistoryLTHA12/28/2022 [facility] Other 04-24-2023 Consult note Author Ari Solares [facility] December 28, 2022 10:38amNote Date/TimeApril 2022 7:[address] [address] Orthopedic Consult Note Signed with Addsergio Patient: Donna Saavedra MR#: [id number] : 1950 Acct:[id number] Age/Sex: 72 / F Adm Date: 3 Loc: 4N Room: [id number] Type: ADM IN Attending Dr: Vivian Live [...] to weight-bear. She was taken to the [place] emergency department and found to have a left hip fracture. I spoke with the emergency room physician and [facility]. Once the patient was admitted by the hospitalist here at [facility] orthopedic surgery was consulted for management of her left hip fracture. Currently, the patient is resting comfortably in her bed on the surgical floor. She reports pain inthe left hip but no pain otherwise. Prior to this fall the patient denies pain in the affected hip. Living situation: Lives in the independent living aspect of the [facility] in [place]. She lives withher who has gone through a total knee replacement and what sounds like a two-stage revisionfor periprosthetic joint infection. Patient tells me that she still drives and still goes to the [facility] regularly. She tells me that when her is up to it, they are typically very active. Assistive devices: None Anticoagulation: Eliquis for atrial fibrillation. Last dose was yesterday morning Prior injuries or surgeries to the affected hip: None Smoking status: Non-smoker Immune modulating drugs: None The patient has been cleared for surgery by the hospitalist team. [facility] Medical History (Updated 12/28/22 @ 10:34 by [...] foot. Patient wiggles the toes and moves he r ankle up and down. Results Lab Results 12/28/22 05:08 Labs: Laboratory Results - Last 48 hrs. 12/28/22 05:08: PHA Creatinine Clear 50.83, Sodium 135 L, Potassium 4.7, Chloride 101, Carbon Dioxide 27.5, Anion Gap 11.2, BUN 12, Creatinine 0.84, Est GFR (CKD-EPI) > 60.0, Glucose 111 H, Calcium 9.0, [...] hemiarthroplasty and a total hip arthroplasty. I explainedthe risks and benefits of each surgical procedure. My ultimate recommendation was a total hiparthrop lasty given the patient's activity status. Patient's questions and concerns were answered and addressed. The benefits include but are not limited to the following: improved pain control, quicker ambulation, and typically improved quality of life compared to nonoperative management. However, there are risks involved with the surgical procedure including but not limited to the following: Infection,bleeding, injury to surrounding structures at the surgery [...] son-in-law who is a physician with the [employer]. I have discussed this with the charge [...] <Electronically signed by Ari Solares MD> 12/28/[address] [place] [address] Work Phone: [phone]) [phone] Progress note Author Vivian Live [facility] December 28, 2022 8:20amNote Date/TimeApril 2022 8:20[place] [address] Hospitalist Progress Note Signed Patient: Donna Saavedra MR#: [id number] : 1950 Acct:[id number] Age/Sex: 72 / F Adm Date: 3 Loc: Room: [address] [place] [address] Type: ADM IN Attending Dr: Vivian Live MD Copies to: ~ Date of Service: 12/28/2022 Subjective Subjective Narrative: This is a pleasant 72F with PMH of HTN, Afib on Eliquis, Hypothyroidism who p/w fall to the [facility] and transferred for the evaluation and treatment [...] oriented to place, time and person HEENT: [place] conjunctiva and NL buccal mucosa Neck: Supple, [...] <Electronically signed by Vivian Live MD> 12/28/22819 [facility] Work Phone: [phone]) 159-955404-24-2023 History and physical note Author Junior Martinez [facility] December 28, 2022 7:46amNote Date/TimeApril 2022 11:58pm[place] [address] Hospitalist H&P Signed Patient: Donna Saavedra MR#: [id number] : 1950 Acct:[id number] Age/Sex: 72 / F Adm Date: 3 Loc: 4 Room: [address] [place] [address] Type: ADM IN Attending Dr: Vivian Live MD Copies to: NON STAFF MD Vivian Amin MD~ HPI DATE OF EXAMINATION: 12/27/22 HISTORY OF PRESENT ILLNESS: This is a pleasant 72F with PMH of HTN, Afib on Eliquis, Hypothyroidism who p/w fall to the [facility] and transferred for the evaluation and treatment [...] care Discussed with:?the medical team, the patient [facility] Medical History (Updated 12/27/22 @ 23:33 by [...] 5/5 LUE, 5/5 RLE, can't fully access theLLE due to pain) , Sensation (Intact to soft touch), rapid alternating movements and finger to nosetest normal and symmetric. PSYCH: nl affect, AOx3. Documented By: Junior Martinez MD 12/27/22 1025 Signed By: <Electronically signed by Junior Martinez MD> 12/28/22 7009 [facility] Work Phone: Evaluation note* Diagnosis Onset Date Resolution Status Closed subcapital fracture of neck of le ft femur acuteHip fractureacuteHypomagnesemiaacuteParoxysmal A-fibacute [facility] Work Phone: Evaluation noteNo assessment information available [facility] Work Phone: Evaluation note* Diagnosis Cardiomyopathy, unspecified type (CMS-HCC)- Primary Paroxysmal atrial fibrillation (CMS-HCC) Atrial fibrillation Essential (primary) hypertension Unspecified essential hypertension [facility] Diagnosis Essential hypertension, benign [facility] Diagnosis Essential (primary) hypertension- [...] examination of urine [facility] Diagnosis Acute cystitis without hematuria- Primary [facility]* Diagnosis Abnormal mammogram of left breast- Primary [facility]* Diagnosis Essential (primary) hypertension Unspecified essential hypertension Cardiomyopathy, unspecified type (CMS-HCC) [facility]* Diagnosis Essential hypertension, benign Essential (primary) hypertension Unspecified essential hypertension [facility]* Diagnosis Paroxysmal atrial fibrillation (CMS-HCC) Atrial fibrillation Cardiomyopathy (CMS-HCC) [facility]* Diagnosis Annual physical exam- Primary [...] sciatica Microscopic hematuria [facility]* Diagnosis Hyponatremia- Primary Hyposmolality and/or hyponatremia Essential (primary) hypertension Unspecified essential hypertension 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 documented [facility]* Diagnosis Acute right-sided low back pain without sciatica- Primary documented [facility] this encounter [facility]* Diagnosis Paroxysmal atrial fibrillation (CMS-HCC) Atrial fibrillation Cardiomyopathy (CMS-HCC) documented in this encounter [facility]* Diagnosis Essential hypertension, benign Essential (primary) hypertension Unspecified essential hypertension documented in this encounter [facility]* Diagnosis Paroxysmal atrial fibrillation (CMS-HCC) Atrial fibrillation Cardiomyopathy (CMS-HCC) documented in this encounter [facility]* Diagnosis Annual physical exam- Primary Routine general medical examination at a health care facility Essential (primary) hypertension Unspecified essential hypertension Unintentional weight loss Loss of weight 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 Gastro-esophageal reflux disease without esophagitis Paroxysmal atrial fibrillation ([facility]) Atrial fibrillation Nonrheumatic mitral valve regurgitation Other cardiomyopathy ([facility]) Hypertensive heart disease with heart failure ([facility]) Unspecified hypertensive heart disease with heart failure Depression with anxiety Dysthymic disorder Primary insomnia Persistent disorder of initiating or maintaining sleep Osteopenia of multiple sites Essential hypertension, benign documented in this encounter [facility] Discharge instructions Additional Instructions CBC and BMP [...] ask your primary care provider to [facility] entirely to follow up on all of the abnormal physical, laboratory, and imaging findings that I have not addressed. Please return back to the emergency room or seek medical attention if your symptoms worsen or return. Discharging [facility] from [facility] does not mean that your medical [...] hip fracture s/p surgical repair on 12/28/22: *PRISCILA Hose bilaterally *WBAT left lower extremity *Left hip wound vac---Prevena wound VAC should be taken off at postop day 14 by intermediate facility *Left hip dressing-- change PRN -Care to be managed by SNF providers.[facility] Work Phone: InstructionsNot on filedocumented in this encounter [facility] [...] FoundNo Family History Records Found Advance Directives No Advanced Directives Records Found Advance Directive Response Recorded Date/ Time Advance Directives No December 27 023 9:04pm Advance Directive Response Recorded Date/ Time DNR- Comfort Care Only No May 09, 2023 1:30pm DNR- Comfort Care Arrest No 2022 1:30pm Advance Directives No May 2:11pm Living Will Yes May 09 1:30pm Organ Donor No May 09 1:30pm Power of Candy Catcher Yes May 09, 2023 1:30pm Chief Complaint and Reason for Visit Chief Complaint Left hip fracture Reason for Visit Closed subcapital fr acture of neck of left femur Hip fracture Hypomagnesemia Paroxysmal A-fib Chief Complaint Left hip fracture M80.00XDReason for VisitClosed subcapital fracture of neck of left femur Hip fracture Hypomagnesemia Paroxysmal A-fib Chief Complaint Diff breathing Additional Source Comments INFORMATION SOURCE (unrecogn ized section and content) DATE CREATED AUTHOR 12/30/2022 [facility] DATE CREATED AUTHOR AUTHOR'S ORGANIZ ATION 05/13/2023 [facility] DATE CREATED AUTHOR AUTHOR'S ORGANIZ ATION 05/28/2023 [facility] DATE CREATED AUTHOR AUTHOR'S ORGANIZ ATION 06/15/2024 [facility] DATE CREATED AUTHOR AUTHOR'S ORGANIZ ATION 02/05/2025 [facility] DATE CREATED AUTHOR AUTHOR'S ORGANIZ ATION 07/10/2025 [facility] Care Teams (unrecognized sec tion and content) Team Status: Active Member Role Status Dates NON STAFF Primary Care Provider Active Team Status: Inactive Member Role Status Dates NON STAFF Primary Care Provider Active Junior Martinez MDAdmit ProviderActiveRobambrose Solares II, MDOther Provider ActiveRatiera Live MDAttending ProviderActive Team Status: Inactive Member Role Status Dates NON STAFF Primary Care Provider Active Delphnie Javier ProviderActive Team Status: Inactive Member Role Status Dates NON STAFF Primary Care Provider Active Ari Solares II, MDAttshanel ProviderActive Team Status: Active Member Role Status Dates No PCP Primary Care Provider Active Team Status: Inactive Member Role Status Dates No PCP Primary Care Provider Active Nettie Weiss MDEmergency ProviderActiveTeam MemberRelationshipSpecialtyStart DateEnd Date Francisco Chang, DO [address], [place] [phone] PCP - [facility] Medicine01/04/21Team MemberRelationshipSpecialtyStart DateEnd Date Francisco Chang DO [address], [place] [phone] [facility] - [facility]01/04/21Team MemberRelationshipSpecialtyStart DateEnd Date Francisco Chang DO [address], [address] [phone] [facility] - [facility]/04/21Team MemberRelationshipSpecialtyStart DateEnd Date Francisco Chang, DO [address] [place] [address] PCP - [facility] Medicine01/04/21Team MemberRelationshipSpecialtyStart DateEnd Date Francisco Chang, DO [address], [address] [phone] PCP - [facility] Medicine01/04/21Team MemberRelationshipSpecialtyStart DateEnd Date Francisco Chang, DO [address] [place] [address] PCP - [facility] Medicine01/04/21Team MemberRelationshipSpecialtyStart DateEnd Date Francisco Chang, DO [address] [place] [address] PCP - [facility] Medicine01/04/21Team MemberRelationshipSpecialtyStart DateEnd Date Francisco Chang, DO [address] [place] [place] [address] PCP - [facility] Medicine01/04/21Team MemberRelationshipSpecialtyStart DateEnd Date Francisco Chang, DO [address] [place] [place] [address] PCP - [facility] Medicine01/04/21Team MemberRelationshipSpecialtyStart DateEnd Date Francisco Chang, DO [address] [place] [place] [address] PCP - GeneralFamily Medicine01/04/21Team MemberRelationshipSpecialtyStart DateEnd Date Francisco Chang, DO [address] [place] [address] PCP - GeneralFamily Medicine01/04/21Team MemberRelationshipSpecialtyStart DateEnd Date Francisco Chang, DO [address], [address] [phone] [facility] - [facility] Medicine01/04/21Team MemberRelationshipSpecialtyStart DateEnd Date Francisco Chang, DO [address], [address] [phone] [facility]01/04/21Team MemberRelationshipSpecialtyStart DateEnd Date Francisco Chang, DO [address], [address] [phone] PCP - GeneralFamily Medicine01/04/21Team MemberRelationshipSpecialtyStart DateEnd Date Francisco Chang, DO [address], [address] [phone] PCP - Generalmily Medicine01/04/21Team MemberRelationshipSpecialtyStart DateEnd Date Francisco Chang, DO [address], [address] [phone] PCP - GeneralFamily Medicine01/04/21Team MemberRelationshipSpecialtyStart DateEnd Date Francisco Chang DO [address], [facility] [address] [place] [address] PCP - GeneralFamily Medicine01/04/21 REASON FOR VISIT (unrecogniz ed section and content) ReasonCommentsMed RefillReasonCommentsFollow-upEST PT LS 05/26/23 MAS, NEEDES REFILLS, SCHED W/SPOUSESyncopeAtrial FibrillationCardiomyopathyReasonComments Follow-upPatient is here for 6 month recheck chronic medical conditionsReason Commentsmedicare wellnessPatient here for annual medicare wellness exam.Concerns: back pain x2 weeks, no improvement with motrin/heatReasonOnset DateCommentsBack Pain4ReasonOnset DateCommentsMed Yivead6807/24/2024 ReasonOnset DateCommentsMed [id number] DateCommentsappointment due02/21/2025ReasonOnset DateCommentsappointment due05/22/2025ReasonComments medicare wellnessRoutine labs: 06/17/2024Mammogram: 12/14/2023 US Breast Left: 12/14/2023 (6 month diagnostic recheck recommended)Dexa: refused last yearFlu Vaccine: does not receive FOR RECORDS PERTAINING TO PATIENTS WHO ARE [...] BE BASED ON THE PRIMARY CLINICAL RECORDS. [employer] provides no warranty or guarantee of the accuracy or completeness of information in this document.
[2025-07-13 09:18] LABS: Hematocrit 37.3 % (36.0-48.0); Hemoglobin 12.6 g/dL (12.0-16.0); Immature Granulocytes Abs Auto 0.07 10^3/uL (0.00-0.03); Immature Granulocytes Pct Auto 0.9 % (0.0-0.5); Lymphocytes Absolute Auto 1.1 10^3/uL (1.2-3.8); Mean Corpuscular HGB Conc 33.8 g/dL (29.9-35.2); Mean Corpuscular Hemoglobin 32.1 pg (26.7-34.0); Mean Corpuscular Volume 94.9 fL (81.0-99.0); Platelet Count 460 10^3/uL (150-450); Red Blood Count 3.93 10^6/uL (4.20-5.40); White Blood Count 8.2 10^3/uL (4.0-11.0)
[2025-07-13 10:49] LABS: Alanine Aminotransferase 8 U/L (14-59); Albumin Level 2.6 g/dL (3.4-5.0); Alkaline Phosphatase 83 U/L (46-116); Anion Gap 15.1; Aspartate Amino Transferase 13 U/L (15-37); Blood Urea Nitrogen 7.0 mg/dL (7.0-18.0); Calcium 9.2 mg/dL (8.5-10.1); Carbon Dioxide 25.8 mmol/L (21.0-32.0); Chloride 94 mmol/L (98-107); Cholesterol 144 mg/dL (<=200); Estimated GFR (African America >60 (>=60 mL/min/1.73m^2); Estimated GFR (Non-African Ame >60 (>=60 mL/min/1.73m^2); Free T3 1.71 pg/mL (2.18-3.98); Globulin 4.0 g/dL; Glucose 94 mg/dL (74-106); HDL Cholesterol 50 mg/dL (40-60); Potassium 4.9 mmol/L (3.5-5.1); Sodium 130 mmol/L (136-145); Thyroid Stimulating Hormone 0.479 uIU/mL (0.358-3.740); Total Protein 6.6 g/dL (6.4-8.2); Triglycerides 67 mg/dL (<=150); VLDL CHOLESTEROL 13.4 mg/dL
[2025-07-13 10:57] LABS: Albumin Globulin Ratio 0.7
== END 2025-07-13 08:31 | disposition home or self-care (01) ==
LOC: LAB 08:33
PROVIDERS: PCP Family Medicine; Visit Provider Family Medicine
DX: E06.3 Autoimmune thyroiditis (principal); I10 Essential (primary) hypertension
CPT/HCPCS: 36415; 80053; 80061; 84439; 84443; 84481; 85025